=== PATIENT | female | born 1950 | race Caucasian/White ===

== ENCOUNTER 2016-11-27 15:49 | Inpatient (IN) | payer MEDICARE, OTHER ==
[2016-11-27 16:43] VITALS: BMI 38.9
[2016-11-27] MEDS ORDERED: hydrOXYzine PAMOATE 50 MG CAPSULE (FP) PO PRN (17:09)
[2016-11-27] MEDS ORDERED: LOPERAMIDE HCL 2 MG CAPSULE PO PRN (17:09)
[2016-11-27] MEDS ORDERED: ACETAMINOPHEN 325 MG TABLET (FP) PO PRN (17:09)
[2016-11-27] MEDS ORDERED: guaiFENesin/D-METHORPHAN HB 10 ML UNIT-DOSE CUPS PO PRN (17:09)
[2016-11-27] MEDS ORDERED: P-EPHED 60MG/TRIPROLIDI 2.5MG TABLET PO PRN (17:09)
[2016-11-27] MEDS ORDERED: MAGNESIUM HYDROX 2400MG/30ML ORAL SUSPENSION 30 ML CUP PO PRN (17:09)
[2016-11-27] MEDS ORDERED: MAGNESIUM CITRATE 300 ML BOTTLE PO PRN (17:09)
[2016-11-27] MEDS ORDERED: diphenhydrAMINE HCL 50 MG CAPSULE PO PRN (17:09)
[2016-11-27] MEDS ORDERED: MENTHOL/PHENOL 1 EACH UD MM PRN (17:09)
--- NOTE | 2016-11-27 17:09 | HP ---
[facility] Rehab Assess/Revision - Admission History Admitted to Rehab from: [facility] [place] - Vital signs Vital Signs: Vital Signs Period Temp Pulse Resp BP Sys/Marinelli Pulse Ox Last 24 Hr 98.1 F 67 20 120/72 - Findings Detox History & Physical reviewed: Yes Concur with findings: Yes
[2016-11-27] MEDS ORDERED: ALBUTEROL SO4 6.7 GM HFA INHALER IH PRN (17:15)
[2016-11-27] MEDS: traZODone HCL 50 MG TABLET (FP) PO SCH (22:30)
[2016-11-27] MEDS: ACLIDINIUM BROMIDE 400 MCG/INH AERO.POWD IH SCH (22:30)
[2016-11-27] MEDS: BUDESONIDE/FORMETEROL FUMARATE 160/4.5 mcg INHALER IH SCH (22:30)
[2016-11-27] MEDS: THIAMINE HCL 100 MG TABLET (FP) PO SCH (22:30)
[2016-11-28] MEDS: LEVOTHYROXINE NA 25 MCG TABLET (FP) PO SCH (06:53)
[2016-11-28] MEDS ORDERED: METHADONE HCL 10 MG TABLET ONE (07:41)
[2016-11-28] MEDS ORDERED: METHADONE HCL 40 MG DISPERSABLE TABLET ONE (07:42)
[2016-11-28] MEDS: METHADONE 80 MG, METHADONE 20 MG PO SCH (07:44)
[2016-11-28] MEDS ORDERED: METHADONE HCL 40 MG DISPERSABLE TABLET PO SCH (07:45)
[2016-11-28] MEDS: NICOTINE 21 MG/24 HOURS TOPICAL PATCH TD SCH (10:23)
[2016-11-28] MEDS: ACLIDINIUM BROMIDE 400 MCG/INH AERO.POWD IH SCH ×2 (10:23→21:44)
[2016-11-28] MEDS: amLODIPine BESYLATE 5 MG TABLET (FP) PO SCH (10:24)
[2016-11-28] MEDS: PANTOPRAZOLE 20 MG TABLET (FP) PO SCH (10:24)
[2016-11-28] MEDS: ATORVASTATIN CA 40 MG TABLET (FP) PO SCH (10:24)
[2016-11-28] MEDS: PRENATAL VITAMINS W/ FOLIC ACID TABLET (FP) PO SCH (10:24)
[2016-11-28] MEDS: SERTRALINE HCL 50 MG TABLET (FP) PO SCH (10:27)
[2016-11-28] MEDS: BUDESONIDE/FORMETEROL FUMARATE 160/4.5 mcg INHALER IH SCH ×2 (10:28→21:45)
[2016-11-28 11:03] LABS: URINE APPEARANCE CLEAR; URINE BILIRUBIN NEGATIVE (NEGATIVE); URINE BLOOD NEGATIVE (NEGATIVE); URINE COLOR LTYELLOW; URINE GLUCOSE (UA) NEGATIVE (NEGATIVE); URINE KETONE NEGATIVE (NEGATIVE); URINE NITRITE NEGATIVE (NEGATIVE); URINE PROTEIN NEGATIVE (NEGATIVE); URINE UROBILINOGEN NEGATIVE E.U./dl (0.2-1.0)
[2016-11-28 11:05] LABS: URINE LEUK ESTERASE 3+ (NEGATIVE)
[2016-11-28 11:07] LABS: URINE BACTERIA FEW /hpf (NONE SEEN); URINE HYALINE CAST 1 /lpf; URINE MUCUS RARE; URINE RBC 1 /hpf (0-3); URINE WBC 30 /hpf (3-5)
[2016-11-28 12:13] LABS: HIV 1 & 2 AB NEGATIVE; HIV 1 AGp24 NEGATIVE
[2016-11-28] MEDS: IBUPROFEN 400 MG TABLET (FP) PO PRN (15:52)
[2016-11-28] MEDS: traZODone HCL 50 MG TABLET (FP) PO SCH (21:44)
[2016-11-28] MEDS: THIAMINE HCL 100 MG TABLET (FP) PO SCH (21:44)
[2016-11-29] MEDS ORDERED: METHADONE HCL 40 MG DISPERSABLE TABLET ONE (04:08)
[2016-11-29] MEDS ORDERED: METHADONE HCL 10 MG TABLET ONE (04:08)
[2016-11-29] MEDS: METHADONE 80 MG, METHADONE 20 MG PO SCH (06:55)
[2016-11-29] MEDS: LEVOTHYROXINE NA 25 MCG TABLET (FP) PO SCH (07:10)
[2016-11-29] MEDS ORDERED: PT OWN MED DRAWER 7, Y5N ONE (08:59)
[2016-11-29] MEDS: BUDESONIDE/FORMETEROL FUMARATE 160/4.5 mcg INHALER IH SCH ×2 (10:48→21:43)
[2016-11-29] MEDS: PRENATAL VITAMINS W/ FOLIC ACID TABLET (FP) PO SCH (10:48)
[2016-11-29] MEDS: ACLIDINIUM BROMIDE 400 MCG/INH AERO.POWD IH SCH ×2 (10:48→21:43)
[2016-11-29] MEDS: SERTRALINE HCL 50 MG TABLET (FP) PO SCH (10:49)
[2016-11-29] MEDS: amLODIPine BESYLATE 5 MG TABLET (FP) PO SCH (10:49)
[2016-11-29] MEDS: ATORVASTATIN CA 40 MG TABLET (FP) PO SCH (10:49)
[2016-11-29] MEDS: PANTOPRAZOLE 20 MG TABLET (FP) PO SCH (10:49)
[2016-11-29] MEDS: NICOTINE 21 MG/24 HOURS TOPICAL PATCH TD SCH (10:49)
[2016-11-29] MEDS: IBUPROFEN 400 MG TABLET (FP) PO PRN (18:13)
[2016-11-29] MEDS: THIAMINE HCL 100 MG TABLET (FP) PO SCH (21:44)
[2016-11-29] MEDS: traZODone HCL 50 MG TABLET (FP) PO SCH (21:44)
--- NOTE | 2016-11-29 23:45 | EKG ---
Test Reason : Blood Pressure : / mmHG Vent. Rate : 068 BPM Atrial Rate : 068 BPM P-R Int : 134 ms QRS Dur : 090 ms QT Int : 446 ms P-R-T Axes : 039 029 046 degrees QTc Int : 474 ms NORMAL SINUS RHYTHM NORMAL ECG WHEN COMPARED WITH ECG OF 12-NOV-2016 15:46, NO SIGNIFICANT CHANGE WAS FOUND Confirmed by TAHIR GARNETT MD ([id number]) on 11/29/2016 11:44:40 PM Referred By: Confirmed By:TAHIR GARNETT MD
[2016-11-30] MEDS: METHADONE 80 MG, METHADONE 20 MG PO SCH (06:24)
[2016-11-30] MEDS ORDERED: METHADONE HCL 40 MG DISPERSABLE TABLET ONE (06:24)
[2016-11-30] MEDS ORDERED: METHADONE HCL 10 MG TABLET ONE (06:24)
[2016-11-30] MEDS: LEVOTHYROXINE NA 25 MCG TABLET (FP) PO SCH (06:25)
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
[2016-11-30] MEDS: NICOTINE 21 MG/24 HOURS TOPICAL PATCH TD SCH (10:30)
[2016-11-30] MEDS: ATORVASTATIN CA 40 MG TABLET (FP) PO SCH (10:30)
[2016-11-30] MEDS: amLODIPine BESYLATE 5 MG TABLET (FP) PO SCH (10:31)
[2016-11-30] MEDS: PRENATAL VITAMINS W/ FOLIC ACID TABLET (FP) PO SCH (10:31)
[2016-11-30] MEDS: SERTRALINE HCL 50 MG TABLET (FP) PO SCH (10:31)
[2016-11-30] MEDS: PANTOPRAZOLE 20 MG TABLET (FP) PO SCH (10:31)
[2016-11-30] MEDS: BUDESONIDE/FORMETEROL FUMARATE 160/4.5 mcg INHALER IH SCH ×2 (10:32→21:56)
[2016-11-30] MEDS: ACLIDINIUM BROMIDE 400 MCG/INH AERO.POWD IH SCH ×2 (10:32→21:56)
[2016-11-30] MEDS: IBUPROFEN 400 MG TABLET (FP) PO PRN (10:58)
[2016-11-30] MEDS: LIDOCAINE 5% TOPICAL PATCH TP SCH (12:38)
[2016-11-30] MEDS: traZODone HCL 50 MG TABLET (FP) PO SCH (21:55)
[2016-11-30] MEDS: THIAMINE HCL 100 MG TABLET (FP) PO SCH (21:55)
[2016-12-01] MEDS ORDERED: METHADONE HCL 40 MG DISPERSABLE TABLET ONE (04:55)
[2016-12-01] MEDS ORDERED: METHADONE HCL 10 MG TABLET ONE (04:55)
[2016-12-01] MEDS: METHADONE 80 MG, METHADONE 20 MG PO SCH (06:11)
[2016-12-01] MEDS: LEVOTHYROXINE NA 25 MCG TABLET (FP) PO SCH (06:11)
[2016-12-01] MEDS ORDERED: PT OWN MED DRAWER 7, Y5N ONE ×2 (08:39→20:27)
[2016-12-01] MEDS: LIDOCAINE 5% TOPICAL PATCH TP SCH (10:32)
[2016-12-01] MEDS: ATORVASTATIN CA 40 MG TABLET (FP) PO SCH (10:33)
[2016-12-01] MEDS: PRENATAL VITAMINS W/ FOLIC ACID TABLET (FP) PO SCH (10:33)
[2016-12-01] MEDS: SERTRALINE HCL 50 MG TABLET (FP) PO SCH (10:33)
[2016-12-01] MEDS: PANTOPRAZOLE 20 MG TABLET (FP) PO SCH (10:34)
[2016-12-01] MEDS: ACLIDINIUM BROMIDE 400 MCG/INH AERO.POWD IH SCH ×2 (10:35→21:51)
[2016-12-01] MEDS: amLODIPine BESYLATE 5 MG TABLET (FP) PO SCH (10:35)
[2016-12-01] MEDS: NICOTINE 21 MG/24 HOURS TOPICAL PATCH TD SCH (10:35)
[2016-12-01] MEDS: BUDESONIDE/FORMETEROL FUMARATE 160/4.5 mcg INHALER IH SCH ×2 (10:35→21:51)
[2016-12-01] MEDS: IBUPROFEN 400 MG TABLET (FP) PO PRN (15:06)
[2016-12-01] MEDS: THIAMINE HCL 100 MG TABLET (FP) PO SCH (21:50)
[2016-12-01] MEDS: traZODone HCL 50 MG TABLET (FP) PO SCH (21:50)
[2016-12-02] MEDS ORDERED: METHADONE HCL 10 MG TABLET ONE (03:27)
[2016-12-02] MEDS ORDERED: METHADONE HCL 40 MG DISPERSABLE TABLET ONE (03:28)
[2016-12-02] MEDS: METHADONE 80 MG, METHADONE 20 MG PO SCH (06:50)
[2016-12-02] MEDS: LEVOTHYROXINE NA 25 MCG TABLET (FP) PO SCH (06:51)
[2016-12-02] MEDS: LIDOCAINE 5% TOPICAL PATCH TP SCH (10:38)
[2016-12-02] MEDS: ATORVASTATIN CA 40 MG TABLET (FP) PO SCH (10:39)
[2016-12-02] MEDS: amLODIPine BESYLATE 5 MG TABLET (FP) PO SCH (10:39)
[2016-12-02] MEDS: SERTRALINE HCL 50 MG TABLET (FP) PO SCH (10:39)
[2016-12-02] MEDS: PANTOPRAZOLE 20 MG TABLET (FP) PO SCH (10:39)
[2016-12-02] MEDS: NICOTINE 21 MG/24 HOURS TOPICAL PATCH TD SCH (10:40)
[2016-12-02] MEDS: ACLIDINIUM BROMIDE 400 MCG/INH AERO.POWD IH SCH ×2 (10:40→21:57)
[2016-12-02] MEDS: BUDESONIDE/FORMETEROL FUMARATE 160/4.5 mcg INHALER IH SCH ×2 (10:40→21:57)
[2016-12-02] MEDS: PRENATAL VITAMINS W/ FOLIC ACID TABLET (FP) PO SCH (10:41)
[2016-12-02] MEDS: IBUPROFEN 400 MG TABLET (FP) PO PRN (17:50)
[2016-12-02] MEDS: THIAMINE HCL 100 MG TABLET (FP) PO SCH (21:57)
[2016-12-02] MEDS: traZODone HCL 50 MG TABLET (FP) PO SCH (21:57)
[2016-12-03] MEDS ORDERED: METHADONE HCL 10 MG TABLET ONE (03:34)
[2016-12-03] MEDS ORDERED: METHADONE HCL 40 MG DISPERSABLE TABLET ONE (03:35)
[2016-12-03] MEDS: METHADONE 80 MG, METHADONE 20 MG PO SCH (06:35)
[2016-12-03] MEDS: LEVOTHYROXINE NA 25 MCG TABLET (FP) PO SCH (06:36)
[2016-12-03] MEDS: NICOTINE 21 MG/24 HOURS TOPICAL PATCH TD SCH (10:53)
[2016-12-03] MEDS: LIDOCAINE 5% TOPICAL PATCH TP SCH (10:53)
[2016-12-03] MEDS: PRENATAL VITAMINS W/ FOLIC ACID TABLET (FP) PO SCH (10:54)
[2016-12-03] MEDS: ACLIDINIUM BROMIDE 400 MCG/INH AERO.POWD IH SCH ×2 (10:54→21:51)
[2016-12-03] MEDS: amLODIPine BESYLATE 5 MG TABLET (FP) PO SCH (10:54)
[2016-12-03] MEDS: PANTOPRAZOLE 20 MG TABLET (FP) PO SCH (10:54)
[2016-12-03] MEDS: SERTRALINE HCL 50 MG TABLET (FP) PO SCH (10:54)
[2016-12-03] MEDS: BUDESONIDE/FORMETEROL FUMARATE 160/4.5 mcg INHALER IH SCH ×2 (10:54→21:51)
[2016-12-03] MEDS: ATORVASTATIN CA 40 MG TABLET (FP) PO SCH (10:54)
[2016-12-03] MEDS: IBUPROFEN 400 MG TABLET (FP) PO PRN (13:02)
[2016-12-03] MEDS: CYCLOBENZAPRINE HCL 10 MG TABLET (FP) PO SCH ×2 (14:35→21:51)
[2016-12-03] MEDS: NAPROXEN 500 MG TABLET (FP) PO SCH ×2 (14:35→21:51)
[2016-12-03 20:55] LABS: URINE APPEARANCE CLEAR; URINE BILIRUBIN NEGATIVE (NEGATIVE); URINE BLOOD NEGATIVE (NEGATIVE); URINE COLOR YELLOW; URINE GLUCOSE (UA) NEGATIVE (NEGATIVE); URINE KETONE NEGATIVE (NEGATIVE); URINE NITRITE NEGATIVE (NEGATIVE); URINE PROTEIN NEGATIVE (NEGATIVE); URINE UROBILINOGEN NEGATIVE E.U./dl (0.2-1.0)
[2016-12-03 20:57] LABS: URINE LEUK ESTERASE 1+ (NEGATIVE)
[2016-12-03 21:07] LABS: URINE HYALINE CAST 5 /lpf; URINE MUCUS FEW; URINE RBC 1 /hpf (0-3); URINE WBC 3 /hpf (3-5)
[2016-12-03] MEDS: THIAMINE HCL 100 MG TABLET (FP) PO SCH (21:51)
[2016-12-03] MEDS: traZODone HCL 50 MG TABLET (FP) PO SCH (21:51)
[2016-12-04] MEDS ORDERED: METHADONE HCL 40 MG DISPERSABLE TABLET ONE (06:03)
[2016-12-04] MEDS ORDERED: METHADONE HCL 10 MG TABLET ONE (06:03)
[2016-12-04] MEDS: CYCLOBENZAPRINE HCL 10 MG TABLET (FP) PO SCH ×3 (06:37→21:54)
[2016-12-04] MEDS: METHADONE 80 MG, METHADONE 20 MG PO SCH (06:37)
[2016-12-04] MEDS: LEVOTHYROXINE NA 25 MCG TABLET (FP) PO SCH (06:40)
[2016-12-04] MEDS ORDERED: PT OWN MED DRAWER 7, Y5N ONE (08:31)
[2016-12-04] MEDS: amLODIPine BESYLATE 5 MG TABLET (FP) PO SCH (10:56)
[2016-12-04] MEDS: PRENATAL VITAMINS W/ FOLIC ACID TABLET (FP) PO SCH (10:56)
[2016-12-04] MEDS: ACLIDINIUM BROMIDE 400 MCG/INH AERO.POWD IH SCH ×2 (10:56→21:56)
[2016-12-04] MEDS: BUDESONIDE/FORMETEROL FUMARATE 160/4.5 mcg INHALER IH SCH ×2 (10:56→21:56)
[2016-12-04] MEDS: ATORVASTATIN CA 40 MG TABLET (FP) PO SCH (10:57)
[2016-12-04] MEDS: SERTRALINE HCL 50 MG TABLET (FP) PO SCH (10:57)
[2016-12-04] MEDS: NAPROXEN 500 MG TABLET (FP) PO SCH ×2 (10:57→21:56)
[2016-12-04] MEDS: PANTOPRAZOLE 20 MG TABLET (FP) PO SCH (10:57)
[2016-12-04] MEDS: NICOTINE 21 MG/24 HOURS TOPICAL PATCH TD SCH (10:57)
[2016-12-04] MEDS: LIDOCAINE 5% TOPICAL PATCH TP SCH (10:58)
[2016-12-04] MEDS: traZODone HCL 50 MG TABLET (FP) PO SCH (21:54)
[2016-12-04] MEDS: THIAMINE HCL 100 MG TABLET (FP) PO SCH (21:56)
[2016-12-05] MEDS ORDERED: METHADONE HCL 40 MG DISPERSABLE TABLET ONE (03:18)
[2016-12-05] MEDS ORDERED: METHADONE HCL 10 MG TABLET ONE (03:18)
[2016-12-05] MEDS: METHADONE 80 MG, METHADONE 20 MG PO SCH (06:39)
[2016-12-05] MEDS: LEVOTHYROXINE NA 25 MCG TABLET (FP) PO SCH (06:40)
[2016-12-05] MEDS: CYCLOBENZAPRINE HCL 10 MG TABLET (FP) PO SCH ×3 (06:41→21:35)
[2016-12-05] MEDS: ACLIDINIUM BROMIDE 400 MCG/INH AERO.POWD IH SCH ×2 (10:34→21:35)
[2016-12-05] MEDS: BUDESONIDE/FORMETEROL FUMARATE 160/4.5 mcg INHALER IH SCH ×2 (10:34→21:35)
[2016-12-05] MEDS: LIDOCAINE 5% TOPICAL PATCH TP SCH (10:34)
[2016-12-05] MEDS: NAPROXEN 500 MG TABLET (FP) PO SCH ×2 (10:34→21:35)
[2016-12-05] MEDS: NICOTINE 21 MG/24 HOURS TOPICAL PATCH TD SCH (10:34)
[2016-12-05] MEDS: PRENATAL VITAMINS W/ FOLIC ACID TABLET (FP) PO SCH (10:35)
[2016-12-05] MEDS: SERTRALINE HCL 50 MG TABLET (FP) PO SCH (10:35)
[2016-12-05] MEDS: amLODIPine BESYLATE 5 MG TABLET (FP) PO SCH (10:35)
[2016-12-05] MEDS: ATORVASTATIN CA 40 MG TABLET (FP) PO SCH (10:35)
[2016-12-05] MEDS: PANTOPRAZOLE 20 MG TABLET (FP) PO SCH (10:35)
[2016-12-05] MEDS: traZODone HCL 50 MG TABLET (FP) PO SCH (21:34)
[2016-12-05] MEDS: THIAMINE HCL 100 MG TABLET (FP) PO SCH (21:35)
[2016-12-05] MEDS: MAG HYDROX/AL HYDROX/SIMETH 30 ML UNIT-DOSE CUP PO PRN (21:36)
[2016-12-06] MEDS ORDERED: METHADONE HCL 10 MG TABLET ONE (03:13)
[2016-12-06] MEDS ORDERED: METHADONE HCL 40 MG DISPERSABLE TABLET ONE (03:14)
[2016-12-06] MEDS: LEVOTHYROXINE NA 25 MCG TABLET (FP) PO SCH (06:17)
[2016-12-06] MEDS: METHADONE 80 MG, METHADONE 20 MG PO SCH (06:17)
[2016-12-06] MEDS: CYCLOBENZAPRINE HCL 10 MG TABLET (FP) PO SCH ×3 (06:17→21:40)
[2016-12-06] MEDS: LIDOCAINE 5% TOPICAL PATCH TP SCH (10:21)
[2016-12-06] MEDS: NICOTINE 21 MG/24 HOURS TOPICAL PATCH TD SCH (10:21)
[2016-12-06] MEDS: amLODIPine BESYLATE 5 MG TABLET (FP) PO SCH (10:22)
[2016-12-06] MEDS: PRENATAL VITAMINS W/ FOLIC ACID TABLET (FP) PO SCH (10:22)
[2016-12-06] MEDS: ATORVASTATIN CA 40 MG TABLET (FP) PO SCH (10:22)
[2016-12-06] MEDS: NAPROXEN 500 MG TABLET (FP) PO SCH ×2 (10:22→21:40)
[2016-12-06] MEDS: PANTOPRAZOLE 20 MG TABLET (FP) PO SCH (10:22)
[2016-12-06] MEDS: ACLIDINIUM BROMIDE 400 MCG/INH AERO.POWD IH SCH ×2 (10:23→21:42)
[2016-12-06] MEDS: SERTRALINE HCL 50 MG TABLET (FP) PO SCH (10:23)
[2016-12-06] MEDS: BUDESONIDE/FORMETEROL FUMARATE 160/4.5 mcg INHALER IH SCH ×2 (10:23→22:23)
[2016-12-06] MEDS: THIAMINE HCL 100 MG TABLET (FP) PO SCH (21:40)
[2016-12-06] MEDS: traZODone HCL 50 MG TABLET (FP) PO SCH (21:41)
[2016-12-07] MEDS ORDERED: METHADONE HCL 40 MG DISPERSABLE TABLET ONE (03:17)
[2016-12-07] MEDS ORDERED: METHADONE HCL 10 MG TABLET ONE (03:17)
[2016-12-07] MEDS: METHADONE 80 MG, METHADONE 20 MG PO SCH (06:30)
[2016-12-07] MEDS: LEVOTHYROXINE NA 25 MCG TABLET (FP) PO SCH (06:31)
[2016-12-07] MEDS: CYCLOBENZAPRINE HCL 10 MG TABLET (FP) PO SCH ×3 (06:31→21:56)
[2016-12-07] MEDS: ATORVASTATIN CA 40 MG TABLET (FP) PO SCH (10:20)
[2016-12-07] MEDS: BUDESONIDE/FORMETEROL FUMARATE 160/4.5 mcg INHALER IH SCH ×2 (10:20→21:57)
[2016-12-07] MEDS: PANTOPRAZOLE 20 MG TABLET (FP) PO SCH (10:20)
[2016-12-07] MEDS: PRENATAL VITAMINS W/ FOLIC ACID TABLET (FP) PO SCH (10:20)
[2016-12-07] MEDS: NAPROXEN 500 MG TABLET (FP) PO SCH ×2 (10:20→21:56)
[2016-12-07] MEDS: SERTRALINE HCL 50 MG TABLET (FP) PO SCH (10:20)
[2016-12-07] MEDS: amLODIPine BESYLATE 5 MG TABLET (FP) PO SCH (10:20)
[2016-12-07] MEDS: NICOTINE 21 MG/24 HOURS TOPICAL PATCH TD SCH (10:20)
[2016-12-07] MEDS: ACLIDINIUM BROMIDE 400 MCG/INH AERO.POWD IH SCH ×2 (10:20→21:57)
[2016-12-07] MEDS: LIDOCAINE 5% TOPICAL PATCH TP SCH (10:21)
[2016-12-07] MEDS ORDERED: BACITRACIN 0.9 GM PACKET TP ONE (14:33)
--- NOTE | 2016-12-07 14:38 | PN ---
B[facility] Progress Note Note: pt. has a linear abrasion lt groin. p : bacitracin oin't bid
[2016-12-07] MEDS ORDERED: PT OWN MED DRAWER 7, Y5N ONE (14:52)
[2016-12-07] MEDS: traZODone HCL 50 MG TABLET (FP) PO SCH (21:56)
[2016-12-07] MEDS: THIAMINE HCL 100 MG TABLET (FP) PO SCH (21:56)
[2016-12-07] MEDS: BACITRACIN 0.9 GM PACKET TP SCH (21:57)
[2016-12-08] MEDS ORDERED: METHADONE HCL 10 MG TABLET ONE (05:38)
[2016-12-08] MEDS ORDERED: METHADONE HCL 40 MG DISPERSABLE TABLET ONE (05:38)
[2016-12-08] MEDS: METHADONE 80 MG, METHADONE 20 MG PO SCH (06:42)
[2016-12-08] MEDS: LEVOTHYROXINE NA 25 MCG TABLET (FP) PO SCH (06:42)
[2016-12-08] MEDS: CYCLOBENZAPRINE HCL 10 MG TABLET (FP) PO SCH ×3 (06:42→21:42)
[2016-12-08] MEDS: NICOTINE 21 MG/24 HOURS TOPICAL PATCH TD SCH (10:17)
[2016-12-08] MEDS: LIDOCAINE 5% TOPICAL PATCH TP SCH (10:18)
[2016-12-08] MEDS: BACITRACIN 0.9 GM PACKET TP SCH ×2 (10:18→21:42)
[2016-12-08] MEDS: amLODIPine BESYLATE 5 MG TABLET (FP) PO SCH (10:19)
[2016-12-08] MEDS: NAPROXEN 500 MG TABLET (FP) PO SCH ×2 (10:19→21:42)
[2016-12-08] MEDS: ATORVASTATIN CA 40 MG TABLET (FP) PO SCH (10:19)
[2016-12-08] MEDS: PRENATAL VITAMINS W/ FOLIC ACID TABLET (FP) PO SCH (10:19)
[2016-12-08] MEDS: SERTRALINE HCL 50 MG TABLET (FP) PO SCH (10:20)
[2016-12-08] MEDS: PANTOPRAZOLE 20 MG TABLET (FP) PO SCH (10:20)
[2016-12-08] MEDS: BUDESONIDE/FORMETEROL FUMARATE 160/4.5 mcg INHALER IH SCH ×2 (10:21→21:43)
[2016-12-08] MEDS: ACLIDINIUM BROMIDE 400 MCG/INH AERO.POWD IH SCH ×2 (10:21→21:43)
[2016-12-08] MEDS: traZODone HCL 50 MG TABLET (FP) PO SCH (21:42)
[2016-12-08] MEDS: THIAMINE HCL 100 MG TABLET (FP) PO SCH (21:42)
[2016-12-09] MEDS ORDERED: METHADONE HCL 10 MG TABLET ONE (03:13)
[2016-12-09] MEDS ORDERED: METHADONE HCL 40 MG DISPERSABLE TABLET ONE (03:13)
[2016-12-09] MEDS: METHADONE 80 MG, METHADONE 20 MG PO SCH (06:31)
[2016-12-09] MEDS: LEVOTHYROXINE NA 25 MCG TABLET (FP) PO SCH (06:32)
[2016-12-09] MEDS: CYCLOBENZAPRINE HCL 10 MG TABLET (FP) PO SCH ×3 (06:32→21:34)
[2016-12-09] MEDS: BUDESONIDE/FORMETEROL FUMARATE 160/4.5 mcg INHALER IH SCH ×2 (10:19→21:33)
[2016-12-09] MEDS: ACLIDINIUM BROMIDE 400 MCG/INH AERO.POWD IH SCH ×2 (10:19→21:33)
[2016-12-09] MEDS: BACITRACIN 0.9 GM PACKET TP SCH ×2 (10:20→21:34)
[2016-12-09] MEDS: PANTOPRAZOLE 20 MG TABLET (FP) PO SCH (10:20)
[2016-12-09] MEDS: PRENATAL VITAMINS W/ FOLIC ACID TABLET (FP) PO SCH (10:20)
[2016-12-09] MEDS: ATORVASTATIN CA 40 MG TABLET (FP) PO SCH (10:20)
[2016-12-09] MEDS: amLODIPine BESYLATE 5 MG TABLET (FP) PO SCH (10:20)
[2016-12-09] MEDS: NICOTINE 21 MG/24 HOURS TOPICAL PATCH TD SCH (10:21)
[2016-12-09] MEDS: NAPROXEN 500 MG TABLET (FP) PO SCH ×2 (10:21→21:34)
[2016-12-09] MEDS: SERTRALINE HCL 50 MG TABLET (FP) PO SCH (10:21)
[2016-12-09] MEDS: LIDOCAINE 5% TOPICAL PATCH TP SCH (10:22)
[2016-12-09] MEDS ORDERED: PT OWN MED DRAWER 7, Y5N ONE (20:08)
[2016-12-09] MEDS: traZODone HCL 50 MG TABLET (FP) PO SCH (21:34)
[2016-12-09] MEDS: THIAMINE HCL 100 MG TABLET (FP) PO SCH (21:34)
[2016-12-10] MEDS ORDERED: METHADONE HCL 10 MG TABLET ONE (03:18)
[2016-12-10] MEDS ORDERED: METHADONE HCL 40 MG DISPERSABLE TABLET ONE (03:18)
[2016-12-10] MEDS: METHADONE 80 MG, METHADONE 20 MG PO SCH (06:19)
[2016-12-10] MEDS: LEVOTHYROXINE NA 25 MCG TABLET (FP) PO SCH (06:20)
[2016-12-10] MEDS: CYCLOBENZAPRINE HCL 10 MG TABLET (FP) PO SCH ×3 (06:20→21:39)
[2016-12-10] MEDS: LIDOCAINE 5% TOPICAL PATCH TP SCH (10:37)
[2016-12-10] MEDS: ACLIDINIUM BROMIDE 400 MCG/INH AERO.POWD IH SCH ×2 (10:38→21:40)
[2016-12-10] MEDS: NICOTINE 21 MG/24 HOURS TOPICAL PATCH TD SCH (10:38)
[2016-12-10] MEDS: PRENATAL VITAMINS W/ FOLIC ACID TABLET (FP) PO SCH (10:39)
[2016-12-10] MEDS: PANTOPRAZOLE 20 MG TABLET (FP) PO SCH (10:39)
[2016-12-10] MEDS: BUDESONIDE/FORMETEROL FUMARATE 160/4.5 mcg INHALER IH SCH ×2 (10:39→21:40)
[2016-12-10] MEDS: NAPROXEN 500 MG TABLET (FP) PO SCH ×2 (10:39→21:39)
[2016-12-10] MEDS: BACITRACIN 0.9 GM PACKET TP SCH ×2 (10:39→21:39)
[2016-12-10] MEDS: ATORVASTATIN CA 40 MG TABLET (FP) PO SCH (10:39)
[2016-12-10] MEDS: SERTRALINE HCL 50 MG TABLET (FP) PO SCH (10:40)
[2016-12-10] MEDS: amLODIPine BESYLATE 5 MG TABLET (FP) PO SCH (10:40)
[2016-12-10] MEDS: traZODone HCL 50 MG TABLET (FP) PO SCH (21:39)
[2016-12-10] MEDS: THIAMINE HCL 100 MG TABLET (FP) PO SCH (21:39)
[2016-12-11] MEDS ORDERED: METHADONE HCL 10 MG TABLET ONE (03:19)
[2016-12-11] MEDS ORDERED: METHADONE HCL 40 MG DISPERSABLE TABLET ONE (03:20)
[2016-12-11] MEDS: LEVOTHYROXINE NA 25 MCG TABLET (FP) PO SCH (06:08)
[2016-12-11] MEDS: METHADONE 80 MG, METHADONE 20 MG PO SCH (06:08)
[2016-12-11] MEDS: CYCLOBENZAPRINE HCL 10 MG TABLET (FP) PO SCH ×3 (06:09→21:58)
[2016-12-11] MEDS ORDERED: PT OWN MED DRAWER 7, Y5N ONE ×3 (08:50→20:29)
[2016-12-11] MEDS: NICOTINE 21 MG/24 HOURS TOPICAL PATCH TD SCH (10:27)
[2016-12-11] MEDS: LIDOCAINE 5% TOPICAL PATCH TP SCH (10:27)
[2016-12-11] MEDS: BUDESONIDE/FORMETEROL FUMARATE 160/4.5 mcg INHALER IH SCH ×2 (10:27→21:56)
[2016-12-11] MEDS: BACITRACIN 0.9 GM PACKET TP SCH ×2 (10:27→21:57)
[2016-12-11] MEDS: ACLIDINIUM BROMIDE 400 MCG/INH AERO.POWD IH SCH ×2 (10:27→21:56)
[2016-12-11] MEDS: ATORVASTATIN CA 40 MG TABLET (FP) PO SCH (10:28)
[2016-12-11] MEDS: PANTOPRAZOLE 20 MG TABLET (FP) PO SCH (10:28)
[2016-12-11] MEDS: NAPROXEN 500 MG TABLET (FP) PO SCH ×2 (10:28→21:58)
[2016-12-11] MEDS: PRENATAL VITAMINS W/ FOLIC ACID TABLET (FP) PO SCH (10:28)
[2016-12-11] MEDS: amLODIPine BESYLATE 5 MG TABLET (FP) PO SCH (10:28)
[2016-12-11] MEDS: SERTRALINE HCL 50 MG TABLET (FP) PO SCH (10:29)
[2016-12-11] MEDS: traZODone HCL 50 MG TABLET (FP) PO SCH (21:56)
[2016-12-11] MEDS: THIAMINE HCL 100 MG TABLET (FP) PO SCH (21:58)
[2016-12-12] MEDS ORDERED: METHADONE HCL 40 MG DISPERSABLE TABLET ONE (06:10)
[2016-12-12] MEDS ORDERED: METHADONE HCL 10 MG TABLET ONE (06:10)
[2016-12-12] MEDS: METHADONE 80 MG, METHADONE 20 MG PO SCH (06:39)
[2016-12-12] MEDS: CYCLOBENZAPRINE HCL 10 MG TABLET (FP) PO SCH ×3 (06:40→21:50)
[2016-12-12] MEDS: LEVOTHYROXINE NA 25 MCG TABLET (FP) PO SCH (06:40)
[2016-12-12] MEDS ORDERED: PT OWN MED DRAWER 7, Y5N ONE (09:28)
[2016-12-12] MEDS: NICOTINE 21 MG/24 HOURS TOPICAL PATCH TD SCH (10:28)
[2016-12-12] MEDS: ACLIDINIUM BROMIDE 400 MCG/INH AERO.POWD IH SCH ×2 (10:28→21:49)
[2016-12-12] MEDS: BACITRACIN 0.9 GM PACKET TP SCH ×2 (10:29→21:51)
[2016-12-12] MEDS: BUDESONIDE/FORMETEROL FUMARATE 160/4.5 mcg INHALER IH SCH ×2 (10:29→21:50)
[2016-12-12] MEDS: PRENATAL VITAMINS W/ FOLIC ACID TABLET (FP) PO SCH (10:29)
[2016-12-12] MEDS: PANTOPRAZOLE 20 MG TABLET (FP) PO SCH (10:29)
[2016-12-12] MEDS: SERTRALINE HCL 50 MG TABLET (FP) PO SCH (10:29)
[2016-12-12] MEDS: ATORVASTATIN CA 40 MG TABLET (FP) PO SCH (10:29)
[2016-12-12] MEDS: NAPROXEN 500 MG TABLET (FP) PO SCH ×2 (10:29→21:50)
[2016-12-12] MEDS: amLODIPine BESYLATE 5 MG TABLET (FP) PO SCH (10:30)
[2016-12-12] MEDS: LIDOCAINE 5% TOPICAL PATCH TP SCH (10:30)
[2016-12-12] MEDS: traZODone HCL 50 MG TABLET (FP) PO SCH (21:50)
[2016-12-12] MEDS: THIAMINE HCL 100 MG TABLET (FP) PO SCH (21:50)
[2016-12-13] MEDS ORDERED: METHADONE HCL 10 MG TABLET ONE (05:46)
[2016-12-13] MEDS ORDERED: METHADONE HCL 40 MG DISPERSABLE TABLET ONE (05:47)
[2016-12-13] MEDS: LEVOTHYROXINE NA 25 MCG TABLET (FP) PO SCH (06:40)
[2016-12-13] MEDS: CYCLOBENZAPRINE HCL 10 MG TABLET (FP) PO SCH ×3 (06:40→21:32)
[2016-12-13] MEDS: METHADONE 80 MG, METHADONE 20 MG PO SCH (06:40)
[2016-12-13] MEDS ORDERED: ATORVASTATIN CA 20 MG TABLET (FP) ONE (09:06)
[2016-12-13] MEDS: NICOTINE 21 MG/24 HOURS TOPICAL PATCH TD SCH (10:10)
[2016-12-13] MEDS: PRENATAL VITAMINS W/ FOLIC ACID TABLET (FP) PO SCH (10:11)
[2016-12-13] MEDS: BUDESONIDE/FORMETEROL FUMARATE 160/4.5 mcg INHALER IH SCH ×2 (10:11→21:32)
[2016-12-13] MEDS: PANTOPRAZOLE 20 MG TABLET (FP) PO SCH (10:11)
[2016-12-13] MEDS: ACLIDINIUM BROMIDE 400 MCG/INH AERO.POWD IH SCH ×2 (10:11→21:32)
[2016-12-13] MEDS: BACITRACIN 0.9 GM PACKET TP SCH ×2 (10:11→21:31)
[2016-12-13] MEDS: SERTRALINE HCL 50 MG TABLET (FP) PO SCH (10:12)
[2016-12-13] MEDS: NAPROXEN 500 MG TABLET (FP) PO SCH ×2 (10:12→21:31)
[2016-12-13] MEDS: ATORVASTATIN CA 40 MG TABLET (FP) PO SCH (10:12)
[2016-12-13] MEDS: amLODIPine BESYLATE 5 MG TABLET (FP) PO SCH (10:13)
[2016-12-13] MEDS: LIDOCAINE 5% TOPICAL PATCH TP SCH (10:13)
[2016-12-13] MEDS: THIAMINE HCL 100 MG TABLET (FP) PO SCH (21:31)
[2016-12-13] MEDS: traZODone HCL 50 MG TABLET (FP) PO SCH (21:31)
[2016-12-14] MEDS ORDERED: METHADONE HCL 40 MG DISPERSABLE TABLET ONE (03:20)
[2016-12-14] MEDS ORDERED: METHADONE HCL 10 MG TABLET ONE (03:20)
[2016-12-14] MEDS: METHADONE 80 MG, METHADONE 20 MG PO SCH (06:22)
[2016-12-14] MEDS: LEVOTHYROXINE NA 25 MCG TABLET (FP) PO SCH (06:22)
[2016-12-14] MEDS: CYCLOBENZAPRINE HCL 10 MG TABLET (FP) PO SCH ×3 (06:22→21:39)
[2016-12-14] MEDS ORDERED: ATORVASTATIN CA 20 MG TABLET (FP) ONE (08:44)
[2016-12-14] MEDS: BUDESONIDE/FORMETEROL FUMARATE 160/4.5 mcg INHALER IH SCH ×2 (10:27→21:39)
[2016-12-14] MEDS: BACITRACIN 0.9 GM PACKET TP SCH ×2 (10:27→21:39)
[2016-12-14] MEDS: NICOTINE 21 MG/24 HOURS TOPICAL PATCH TD SCH (10:28)
[2016-12-14] MEDS: ACLIDINIUM BROMIDE 400 MCG/INH AERO.POWD IH SCH ×2 (10:28→21:40)
[2016-12-14] MEDS: ATORVASTATIN CA 40 MG TABLET (FP) PO SCH (10:29)
[2016-12-14] MEDS: LIDOCAINE 5% TOPICAL PATCH TP SCH (10:29)
[2016-12-14] MEDS: PANTOPRAZOLE 20 MG TABLET (FP) PO SCH (10:30)
[2016-12-14] MEDS: SERTRALINE HCL 50 MG TABLET (FP) PO SCH (10:30)
[2016-12-14] MEDS: amLODIPine BESYLATE 5 MG TABLET (FP) PO SCH (10:30)
[2016-12-14] MEDS: PRENATAL VITAMINS W/ FOLIC ACID TABLET (FP) PO SCH (10:30)
[2016-12-14] MEDS: NAPROXEN 500 MG TABLET (FP) PO SCH ×2 (10:30→21:39)
[2016-12-14] MEDS: THIAMINE HCL 100 MG TABLET (FP) PO SCH (21:39)
[2016-12-14] MEDS: traZODone HCL 50 MG TABLET (FP) PO SCH (21:39)
[2016-12-15] MEDS ORDERED: METHADONE HCL 10 MG TABLET ONE (05:52)
[2016-12-15] MEDS ORDERED: METHADONE HCL 40 MG DISPERSABLE TABLET ONE (05:52)
[2016-12-15] MEDS: CYCLOBENZAPRINE HCL 10 MG TABLET (FP) PO SCH ×3 (06:09→21:44)
[2016-12-15] MEDS: LEVOTHYROXINE NA 25 MCG TABLET (FP) PO SCH (06:10)
[2016-12-15] MEDS: METHADONE 80 MG, METHADONE 20 MG PO SCH (06:10)
[2016-12-15] MEDS ORDERED: PT OWN MED DRAWER 7, Y5N ONE ×2 (08:44→20:21)
[2016-12-15] MEDS: LIDOCAINE 5% TOPICAL PATCH TP SCH (10:14)
[2016-12-15] MEDS: ACLIDINIUM BROMIDE 400 MCG/INH AERO.POWD IH SCH ×2 (10:14→21:43)
[2016-12-15] MEDS: BACITRACIN 0.9 GM PACKET TP SCH ×2 (10:14→21:45)
[2016-12-15] MEDS: BUDESONIDE/FORMETEROL FUMARATE 160/4.5 mcg INHALER IH SCH ×2 (10:14→21:43)
[2016-12-15] MEDS: NICOTINE 21 MG/24 HOURS TOPICAL PATCH TD SCH (10:14)
[2016-12-15] MEDS: amLODIPine BESYLATE 5 MG TABLET (FP) PO SCH (10:15)
[2016-12-15] MEDS: PANTOPRAZOLE 20 MG TABLET (FP) PO SCH (10:15)
[2016-12-15] MEDS: ATORVASTATIN CA 40 MG TABLET (FP) PO SCH (10:15)
[2016-12-15] MEDS: PRENATAL VITAMINS W/ FOLIC ACID TABLET (FP) PO SCH (10:15)
[2016-12-15] MEDS: NAPROXEN 500 MG TABLET (FP) PO SCH ×2 (10:15→21:44)
[2016-12-15] MEDS: SERTRALINE HCL 50 MG TABLET (FP) PO SCH (10:16)
[2016-12-15] MEDS: traZODone HCL 50 MG TABLET (FP) PO SCH (21:44)
[2016-12-15] MEDS: THIAMINE HCL 100 MG TABLET (FP) PO SCH (21:44)
[2016-12-16] MEDS ORDERED: METHADONE HCL 10 MG TABLET ONE (03:47)
[2016-12-16] MEDS ORDERED: METHADONE HCL 40 MG DISPERSABLE TABLET ONE (03:47)
[2016-12-16] MEDS: METHADONE 80 MG, METHADONE 20 MG PO SCH (06:30)
[2016-12-16] MEDS: LEVOTHYROXINE NA 25 MCG TABLET (FP) PO SCH (06:31)
[2016-12-16] MEDS: CYCLOBENZAPRINE HCL 10 MG TABLET (FP) PO SCH ×3 (06:31→21:42)
[2016-12-16] MEDS: LIDOCAINE 5% TOPICAL PATCH TP SCH (10:47)
[2016-12-16] MEDS: ACLIDINIUM BROMIDE 400 MCG/INH AERO.POWD IH SCH ×2 (10:48→21:43)
[2016-12-16] MEDS: NICOTINE 21 MG/24 HOURS TOPICAL PATCH TD SCH (10:48)
[2016-12-16] MEDS: PRENATAL VITAMINS W/ FOLIC ACID TABLET (FP) PO SCH (10:48)
[2016-12-16] MEDS: BUDESONIDE/FORMETEROL FUMARATE 160/4.5 mcg INHALER IH SCH ×2 (10:48→21:43)
[2016-12-16] MEDS: ATORVASTATIN CA 40 MG TABLET (FP) PO SCH (10:49)
[2016-12-16] MEDS: SERTRALINE HCL 50 MG TABLET (FP) PO SCH (10:49)
[2016-12-16] MEDS: NAPROXEN 500 MG TABLET (FP) PO SCH ×2 (10:49→21:42)
[2016-12-16] MEDS: PANTOPRAZOLE 20 MG TABLET (FP) PO SCH (10:49)
[2016-12-16] MEDS: amLODIPine BESYLATE 5 MG TABLET (FP) PO SCH (10:50)
[2016-12-16] MEDS: BACITRACIN 0.9 GM PACKET TP SCH ×2 (10:51→21:43)
[2016-12-16] MEDS: traZODone HCL 50 MG TABLET (FP) PO SCH (21:42)
[2016-12-16] MEDS: THIAMINE HCL 100 MG TABLET (FP) PO SCH (21:42)
[2016-12-17] MEDS ORDERED: METHADONE HCL 10 MG TABLET ONE (03:15)
[2016-12-17] MEDS ORDERED: METHADONE HCL 40 MG DISPERSABLE TABLET ONE (03:16)
[2016-12-17] MEDS: METHADONE 80 MG, METHADONE 20 MG PO SCH (06:32)
[2016-12-17] MEDS: LEVOTHYROXINE NA 25 MCG TABLET (FP) PO SCH (06:33)
[2016-12-17] MEDS: CYCLOBENZAPRINE HCL 10 MG TABLET (FP) PO SCH ×3 (06:33→21:49)
[2016-12-17] MEDS: NICOTINE 21 MG/24 HOURS TOPICAL PATCH TD SCH (10:20)
[2016-12-17] MEDS: BACITRACIN 0.9 GM PACKET TP SCH ×2 (10:20→21:48)
[2016-12-17] MEDS: NAPROXEN 500 MG TABLET (FP) PO SCH ×2 (10:21→21:49)
[2016-12-17] MEDS: LIDOCAINE 5% TOPICAL PATCH TP SCH (10:21)
[2016-12-17] MEDS: ACLIDINIUM BROMIDE 400 MCG/INH AERO.POWD IH SCH ×2 (10:21→21:49)
[2016-12-17] MEDS: PRENATAL VITAMINS W/ FOLIC ACID TABLET (FP) PO SCH (10:21)
[2016-12-17] MEDS: BUDESONIDE/FORMETEROL FUMARATE 160/4.5 mcg INHALER IH SCH ×2 (10:21→21:49)
[2016-12-17] MEDS: ATORVASTATIN CA 40 MG TABLET (FP) PO SCH (10:22)
[2016-12-17] MEDS: PANTOPRAZOLE 20 MG TABLET (FP) PO SCH (10:22)
[2016-12-17] MEDS: SERTRALINE HCL 50 MG TABLET (FP) PO SCH (10:22)
[2016-12-17] MEDS: amLODIPine BESYLATE 5 MG TABLET (FP) PO SCH (10:23)
[2016-12-17] MEDS: traZODone HCL 50 MG TABLET (FP) PO SCH (21:48)
[2016-12-17] MEDS: THIAMINE HCL 100 MG TABLET (FP) PO SCH (21:49)
[2016-12-18] MEDS ORDERED: METHADONE HCL 10 MG TABLET ONE (05:53)
[2016-12-18] MEDS ORDERED: METHADONE HCL 40 MG DISPERSABLE TABLET ONE (05:53)
[2016-12-18] MEDS: METHADONE 80 MG, METHADONE 20 MG PO SCH (06:37)
[2016-12-18] MEDS: LEVOTHYROXINE NA 25 MCG TABLET (FP) PO SCH (06:37)
[2016-12-18] MEDS: CYCLOBENZAPRINE HCL 10 MG TABLET (FP) PO SCH ×3 (06:37→21:39)
[2016-12-18] MEDS ORDERED: PT OWN MED DRAWER 7, Y5N ONE (08:27)
[2016-12-18] MEDS: NICOTINE 21 MG/24 HOURS TOPICAL PATCH TD SCH (10:31)
[2016-12-18] MEDS: ACLIDINIUM BROMIDE 400 MCG/INH AERO.POWD IH SCH ×2 (10:32→21:40)
[2016-12-18] MEDS: BUDESONIDE/FORMETEROL FUMARATE 160/4.5 mcg INHALER IH SCH ×2 (10:32→21:40)
[2016-12-18] MEDS: LIDOCAINE 5% TOPICAL PATCH TP SCH (10:32)
[2016-12-18] MEDS: BACITRACIN 0.9 GM PACKET TP SCH ×2 (10:32→21:39)
[2016-12-18] MEDS: ATORVASTATIN CA 40 MG TABLET (FP) PO SCH (10:33)
[2016-12-18] MEDS: PRENATAL VITAMINS W/ FOLIC ACID TABLET (FP) PO SCH (10:34)
[2016-12-18] MEDS: PANTOPRAZOLE 20 MG TABLET (FP) PO SCH (10:34)
[2016-12-18] MEDS: SERTRALINE HCL 50 MG TABLET (FP) PO SCH (10:34)
[2016-12-18] MEDS: amLODIPine BESYLATE 5 MG TABLET (FP) PO SCH (10:34)
[2016-12-18] MEDS: NAPROXEN 500 MG TABLET (FP) PO SCH ×2 (10:34→21:39)
[2016-12-18] MEDS: MAG HYDROX/AL HYDROX/SIMETH 30 ML UNIT-DOSE CUP PO PRN (16:46)
[2016-12-18] MEDS: traZODone HCL 50 MG TABLET (FP) PO SCH (21:39)
[2016-12-18] MEDS: THIAMINE HCL 100 MG TABLET (FP) PO SCH (21:40)
[2016-12-19] MEDS ORDERED: METHADONE HCL 10 MG TABLET ONE (03:12)
[2016-12-19] MEDS ORDERED: METHADONE HCL 40 MG DISPERSABLE TABLET ONE (03:12)
[2016-12-19] MEDS: LEVOTHYROXINE NA 25 MCG TABLET (FP) PO SCH (06:19)
[2016-12-19] MEDS: METHADONE 80 MG, METHADONE 20 MG PO SCH (06:19)
[2016-12-19] MEDS: CYCLOBENZAPRINE HCL 10 MG TABLET (FP) PO SCH ×3 (06:19→21:47)
[2016-12-19] MEDS: LIDOCAINE 5% TOPICAL PATCH TP SCH (10:01)
[2016-12-19] MEDS: BACITRACIN 0.9 GM PACKET TP SCH ×2 (10:01→21:48)
[2016-12-19] MEDS: BUDESONIDE/FORMETEROL FUMARATE 160/4.5 mcg INHALER IH SCH ×2 (10:01→21:47)
[2016-12-19] MEDS: ACLIDINIUM BROMIDE 400 MCG/INH AERO.POWD IH SCH ×2 (10:01→21:47)
[2016-12-19] MEDS: NICOTINE 21 MG/24 HOURS TOPICAL PATCH TD SCH (10:01)
[2016-12-19] MEDS: PRENATAL VITAMINS W/ FOLIC ACID TABLET (FP) PO SCH (10:02)
[2016-12-19] MEDS: ATORVASTATIN CA 40 MG TABLET (FP) PO SCH (10:02)
[2016-12-19] MEDS: amLODIPine BESYLATE 5 MG TABLET (FP) PO SCH (10:02)
[2016-12-19] MEDS: PANTOPRAZOLE 20 MG TABLET (FP) PO SCH (10:02)
[2016-12-19] MEDS: NAPROXEN 500 MG TABLET (FP) PO SCH ×2 (10:02→21:47)
[2016-12-19] MEDS: SERTRALINE HCL 50 MG TABLET (FP) PO SCH (10:02)
[2016-12-19] MEDS ORDERED: PT OWN MED DRAWER 7, Y5N ONE (20:16)
[2016-12-19] MEDS: THIAMINE HCL 100 MG TABLET (FP) PO SCH (21:47)
[2016-12-19] MEDS: traZODone HCL 50 MG TABLET (FP) PO SCH (21:47)
[2016-12-20] MEDS ORDERED: METHADONE HCL 10 MG TABLET ONE (03:21)
[2016-12-20] MEDS ORDERED: METHADONE HCL 40 MG DISPERSABLE TABLET ONE (03:22)
[2016-12-20] MEDS: CYCLOBENZAPRINE HCL 10 MG TABLET (FP) PO SCH ×3 (06:21→21:23)
[2016-12-20] MEDS: METHADONE 80 MG, METHADONE 20 MG PO SCH (06:21)
[2016-12-20] MEDS: LEVOTHYROXINE NA 25 MCG TABLET (FP) PO SCH (06:21)
[2016-12-20] MEDS ORDERED: ATORVASTATIN CA 20 MG TABLET (FP) ONE (08:31)
[2016-12-20] MEDS ORDERED: PT OWN MED DRAWER 7, Y5N ONE ×2 (08:33→20:06)
[2016-12-20] MEDS: BUDESONIDE/FORMETEROL FUMARATE 160/4.5 mcg INHALER IH SCH ×2 (09:19→21:24)
[2016-12-20] MEDS: ACLIDINIUM BROMIDE 400 MCG/INH AERO.POWD IH SCH ×2 (09:19→21:24)
[2016-12-20] MEDS: BACITRACIN 0.9 GM PACKET TP SCH ×2 (09:20→21:23)
[2016-12-20] MEDS: LIDOCAINE 5% TOPICAL PATCH TP SCH (09:20)
[2016-12-20] MEDS: NICOTINE 21 MG/24 HOURS TOPICAL PATCH TD SCH (09:20)
[2016-12-20] MEDS: ATORVASTATIN CA 40 MG TABLET (FP) PO SCH (09:21)
[2016-12-20] MEDS: PANTOPRAZOLE 20 MG TABLET (FP) PO SCH (09:22)
[2016-12-20] MEDS: SERTRALINE HCL 50 MG TABLET (FP) PO SCH (09:22)
[2016-12-20] MEDS: PRENATAL VITAMINS W/ FOLIC ACID TABLET (FP) PO SCH (09:22)
[2016-12-20] MEDS: NAPROXEN 500 MG TABLET (FP) PO SCH ×2 (09:22→21:23)
[2016-12-20] MEDS: amLODIPine BESYLATE 5 MG TABLET (FP) PO SCH (09:23)
[2016-12-20] MEDS: THIAMINE HCL 100 MG TABLET (FP) PO SCH (21:23)
[2016-12-20] MEDS: traZODone HCL 50 MG TABLET (FP) PO SCH (21:23)
[2016-12-21] MEDS ORDERED: METHADONE 80 MG, METHADONE 20 MG PO SCH (06:00)
[2016-12-21] MEDS ORDERED: METHADONE HCL 10 MG TABLET PO SCH (06:00)
[2016-12-21] MEDS ORDERED: METHADONE HCL 10 MG TABLET ONE (06:00)
[2016-12-21] MEDS ORDERED: METHADONE HCL 40 MG DISPERSABLE TABLET ONE (06:01)
[2016-12-21] MEDS: LEVOTHYROXINE NA 25 MCG TABLET (FP) PO SCH (06:35)
[2016-12-21] MEDS: CYCLOBENZAPRINE HCL 10 MG TABLET (FP) PO SCH (06:35)
[2016-12-21 07:49] VITALS: TEMP 98
[2016-12-21] MEDS ORDERED: ATORVASTATIN CA 20 MG TABLET (FP) ONE (08:33)
[2016-12-21] MEDS: NICOTINE 21 MG/24 HOURS TOPICAL PATCH TD SCH (09:08)
[2016-12-21] MEDS: PRENATAL VITAMINS W/ FOLIC ACID TABLET (FP) PO SCH (09:09)
[2016-12-21] MEDS: NAPROXEN 500 MG TABLET (FP) PO SCH (09:09)
[2016-12-21] MEDS: SERTRALINE HCL 50 MG TABLET (FP) PO SCH (09:09)
[2016-12-21] MEDS: ACLIDINIUM BROMIDE 400 MCG/INH AERO.POWD IH SCH (09:09)
[2016-12-21] MEDS: BACITRACIN 0.9 GM PACKET TP SCH (09:09)
[2016-12-21] MEDS: BUDESONIDE/FORMETEROL FUMARATE 160/4.5 mcg INHALER IH SCH (09:09)
[2016-12-21] MEDS: PANTOPRAZOLE 20 MG TABLET (FP) PO SCH (09:11)
[2016-12-21] MEDS: amLODIPine BESYLATE 5 MG TABLET (FP) PO SCH (09:11)
[2016-12-21] MEDS: LIDOCAINE 5% TOPICAL PATCH TP SCH (09:12)
[2016-12-21] MEDS: ATORVASTATIN CA 40 MG TABLET (FP) PO SCH (09:12)
[2016-12-21 09:29] VITALS: BP 158/97; PULSE 90
--- NOTE | 2016-12-21 09:30 | PN ---
Psychiatric Progress Note Vital Signs: Vital Signs Period Temp Pulse Resp BP Sys/Marinelli Pulse Ox Last 24 Hr 98.0 F 96 18-18 136/91 Date of Session: 12/21/16 Chief Complaint:: Discharge visit HPI: Patient addressed Opioid dependence comorbid with MDD. ROS: HTN,GERD,COPD,Chronic arthritis,Obesity. Current Medications: Active Medications Generic Name Dose Route Start Last Admin Trade Name Freq PRN Reason Stop Dose Admin Acetaminophen 650 mg 11/27/16 17:09 Tylenol - PO Q4H PRN PAIN Aclidinium [place] 1 puff 11/27/16 22:00 12/21/16 09:09 Tudorza - IH 1 puff BID KRIS Administration Al Hydroxide/Mg Hydroxide 30 ml 11/27/16 17:09 12/18/16 16:46 Mylanta Oral Suspension - PO 30 ml Q6H PRN Administration DYSPEPSIA Albuterol Sulfate 2 puff 11/27/16 17:15 Ventolin Hfa Inhaler - IH Q4H PRN SHORTNESS OF BREATH Amlodipine Besylate 5 mg 11/28/16 10:00 12/21/16 09:11 Norvasc - PO 5 mg DAILY KRIS Administration Atorvastatin Calcium 40 mg 11/28/16 10:00 12/21/16 09:12 Lipitor - PO 40 mg DAILY KRIS Administration Bacitracin 0.9 gm 12/07/16 22:00 12/21/16 09:09 Bacitracin - TP 0.9 gm BID KRIS Administration Budesonide/Formoterol Fumarate 2 puff 11/27/16 22:00 12/21/16 09:09 Symbicort 160/4.5mcg - IH 2 inhaler BID KRIS Administration Cyclobenzaprine HCl 10 mg 12/03/16 14:00 12/21/16 06:35 Flexeril - PO 10 mg TID KRIS Administration Diphenhydramine HCl 50 mg 11/27/16 17:09 12/06/16 21:43 Benadryl - PO 50 mg HSMR1 PRN Administration INSOMNIA Eucalyptus/Menthol/Phenol/Sorbitol 1 each 11/27/16 17:09 Cepastat Lozenge - MM Q4H PRN SORE THROAT Guaifenesin 10 ml 11/27/16 17:09 Robitussin Dm - PO Q6H PRN COUGH Hydroxyzine Pamoate 50 mg 11/27/16 17:09 Vistaril - PO Q4H PRN AGITATION Levothyroxine Sodium 75 mcg 11/28/16 07:00 12/21/16 06:35 Synthroid - PO 75 mcg DAILY@0700 KRIS Administration Lidocaine 2 patch 11/30/16 12:15 12/21/16 09:12 Lidoderm Patch - TP 2 patch DAILY KRIS Administration Loperamide HCl 4 mg 11/27/16 17:09 Imodium - PO Q6H PRN DIARRHEA Magnesium Citrate 300 ml 11/27/16 17:09 Citroma - PO Q48H PRN CONSTIPATION Magnesium Hydroxide 30 ml 11/27/16 17:09 Milk Of Magnesia - PO DAILY PRN CONSTIPATION Methadone HCl 80 mg/ Methadone 100 mg 12/21/16 06:00 12/21/16 06:34 HCl 20 mg PO 100 mg DAILY@0600 KRIS Administration Naproxen 500 mg 12/03/16 14:18 12/21/16 09:09 Naprosyn - PO 500 mg BID KRIS Administration Nicotine 21 mg 11/28/16 10:00 12/21/16 09:08 Nicoderm Patch - TD 21 mg DAILY KRIS Administration Pantoprazole Sodium 20 mg 11/28/16 10:00 12/21/16 09:11 Protonix - PO 20 mg DAILY KRIS Administration Multivit/Folic Acid/Iron 1 tab 11/28/16 10:00 12/21/16 09:09 Vitamins (Sjr) - PO 1 tab DAILY KRIS Administration Pseudoephedrine/Triprolidine 1 combo 11/27/16 17:09 Actifed - PO TID PRN NASAL CONGESTION Sertraline HCl 150 mg 11/28/16 10:00 12/21/16 09:09 Zoloft - PO 150 mg DAILY KRIS Administration Thiamine HCl 100 mg 11/27/16 22:00 12/20/16 21:23 Vitamin B1 - PO 100 mg HS KRIS Administration Trazodone HCl 100 mg 11/27/16 22:00 12/20/16 21:23 Desyrel - PO 100 mg HS KRIS Administration Current Side Effect: No Lab tests ordered: No Lab tests reviewed: Yes Provider note:: Patient completed this program today she has met her treatment goals and will continue to [facility].Patient continues to find thyat Zoloft 150 mg po daily and Trazodone 100 mg po hs help to reduce her depressed mood ,anxiety and sleeping difficultiesl.Scripts for 30 days supply provided. PAtient identifies chanell of difficulties and ways,behaviors ser can utilize to maintain recovery. Patient is stable for discharge today. Total face to face time:: 30 Mental Status Exam - Mental Status Exam Alert and Oriented to: Time, Place, Person Cognitive Function: Grossly Intact Patient Appearance: Well Groomed Mood: Euthymic Affect: Mood Congruent, Labile Patient Behavior: Cooperative Speech Pattern: Clear Voice Loudness: Normal Thought Process: Goal Oriented Thought Disorder: Not Present Hallucinations: Denies Suicidal Ideation: Denies Homicidal Ideation: Denies Insight/Judgement: Fair Sleep: Fair Appetite: Good Muscle strength/Tone: Normal Gait/Station: Normal Psychiatric Treatment Plan - Problem List (1) Arthritis Current Visit: Yes (2) COPD (chronic obstructive pulmonary disease) Current Visit: Yes Qualifiers: COPD type: unspecified COPD Qualified Code(s): J44.9 - Chronic obstructive pulmonary disease, unspecified (3) GERD (gastroesophageal reflux disease) Current Visit: Yes Qualifiers: Esophagitis presence: without esophagitis Qualified Code(s): K21.9 - Gastro-esophageal reflux disease without esophagitis (4) HTN (hypertension) Current Visit: Yes Qualifiers: Hypertension type: essential hypertension Qualified Code(s): I10 - Essential (primary) hypertension (5) Hypothyroidism Current Visit: Yes (6) MDD (major depressive disorder), recurrent episode Current Visit: Yes (7) Methadone maintenance therapy patient Current Visit: Yes (8) Obesity Current Visit: Yes
== END 2016-12-21 09:30 | disposition home or self-care (01) | DRG 895 ==
LOC: YASAS 15:49 → Y3E 18:01
PROVIDERS: ADMIT Psychiatry & Neurology Psychiatry; ATTEND Psychiatry & Neurology Psychiatry
PROC: HZ42ZZZ Group Counseling for Substance Abuse Treatment, Cognitive-Behavioral (ICD-10-PCS; principal; 2016-12-21)
DX: F19.20 Other psychoactive substance dependence, uncomplicated (principal); F11.20 Opioid dependence, uncomplicated; F33.1 Major depressive disorder, recurrent, moderate; I10 Essential (primary) hypertension; J44.9 Chronic obstructive pulmonary disease, unspecified; E03.9 Hypothyroidism, unspecified; M12.9 Arthropathy, unspecified; K21.9 Gastro-esophageal reflux disease without esophagitis; E66.01 Morbid (severe) obesity due to excess calories; Z68.39 Body mass index [BMI] 39.0-39.9, adult
CPT/HCPCS: 36415; 81003; 81015; 87389; 93005; 93010

== ENCOUNTER 2017-08-06 14:51 | Inpatient (IN) | payer OTHER ==
[2017-08-06 16:40] VITALS: BMI 37.9
--- NOTE | 2017-08-06 19:38 | HP ---
CIWA Score - CIWA Score Nausea/Vomitin-Mild Nausea/No Vomiting Muscle Tremors: 4-Moderate,w/Arms Extend Anxiety: 4-Mod. Anxious/Guarded Agitation: 4-Moderately Restless Paroxysmal Sweats: 1-Minimal Palms Moist Orientation: 0-Oriented Tacttile Disturbances: 0-None Auditory Disturbances: 0-None Visual Disturbances: 0-None Headache: 0-None Present CIWA-Ar Total Score: 14 Admission ROS BHS - HPI Chief Complaint: WITHDRAWAL SX Allergies/Adverse Reactions: Allergies Allergy/AdvReac Type Severity Reaction Status Date / Time No Known Allergies Allergy Verified 11/27/16 17:44 History of Present Illness: 66 YEARS OLD FEMALE WITH LONG HISTORY OF XANAX NICOTINE DEPENDENCE HAS ASTHMA COPD GERD HYPERLIPIDEMIA HYPERTENSION HYPOTHYROID NEUROPATHY, HEPATITIS C - PROCESSING OF TREATING, AMBULATE WITH CANE AND DEPRESSION IS ADMITTED TO DETOX Exam Limitations: No Limitations - Ebola screening Have you traveled outside of the country in the last 21 days: No Have you had contact with anyone from an Ebola affected area: No Have you been sick,other than usual withdrawal symptoms: No Do you have a fever: No - Review of Systems Constitutional: Changes in sleep, Weight Stable EENT: reports: Blurred Vision (EYE GLASSES), Dental Problems (UPPER DENTURE LOWER DENTURE MISSING) Respiratory: reports: SOB with Exertion Cardiac: reports: No Symptoms Reported GI: reports: Nausea, Poor Fluid Intake, Indigestion, Abdominal cramping : reports: No Symptoms Reported Musculoskeletal: reports: Joint Pain (RIGHT KNEE), Muscle Pain (RIGHT KNEE), Muscle Weakness (KNEES (RIGHT) CANE) Integumentary: reports: No Symptoms Reported Neuro: reports: Seizure (BENZO WITHDRAWAL RELATED 2012), Tremors Endocrine: reports: No Symptoms Reported, Unexplained Weight Gain Hematology: reports: No Symptoms Reported Psychiatric: reports: Judgement Intact, Orientated x3, Anxious, Depressed Other Systems: Reviewed and Negative Patient History - Patient Medical History Hx Anemia: No Hx Asthma: Yes Hx Chronic Obstructive Pulmonary Disease (COPD): Yes Hx Cancer: No Hx Cardiac Disorders: No Hx Congestive Heart Failure: No Hx Hypertension: Yes (BP: 127/72) Hx Hypercholesterolemia: Yes Hx Pacemaker: No HX Cerebrovascular Accident: No Hx Seizures: Yes (r/t Xanax 2010) Hx Dementia: No Hx Diabetes: No Hx Gastrointestinal Disorders: Yes (GERD) Hx Liver Disease: No Hx Genitourinary Disorders: No Hx Sexually Transmitted Disorders: Yes (Syphilis 2015 treated) Hx Renal Disease (ESRD): No Hx Thyroid Disease: Yes (HYPOTHYROIDISM) Hx Human Immunodeficiency Virus (HIV): No Hx Hepatitis C: Yes (DX OVER 30 YEARS FAILIED TXMENT IN 2000) Hx Depression: Yes Hx Suicide Attempt: No Hx Bipolar Disorder: No Hx Schizophrenia: No - Patient Surgical History Past Surgical History: Yes Hx Neurologic Surgery: No Hx Cataract Extraction: No Hx Cardiac Surgery: No Hx Lung Surgery: No Hx Breast Surgery: No Hx Breast Biopsy: No Hx Abdominal Surgery: No Hx Appendectomy: Yes (13 YEARS OLD) Hx Cholecystectomy: Yes (1994) Hx Genitourinary Surgery: No Hx Section: No Hx Orthopedic Surgery: No Hx Hysterectomy: No Other Surgical History: RIGHT FOOT BONION 1999 Anesthesia Reaction: No - PPD History Previous Implant?: Yes Documented Results: Negative w/o proof Implanted On Prior R Admission?: Yes Date: 07/31/16 Results: 0mm PPD to be Administered?: Yes - Reproductive History Patient is a Female of Child Bearing Age (11 -55 yrs old): No Last Menstrual Period: 05/01/01 Patient : No - Smoking Cessation Smoking history: Current every day smoker Aproximately how many cigarettes per day: 10 Cigars Per Day: 0 Hx Chewing Tobacco Use: No Initiated information on smoking cessation: Yes 'Breaking Loose' booklet given: 08/06/17 - Substance & Tx. History Hx Alcohol Use: No Hx Substance Use: Yes Substance Use Type: Tranquilizers Hx Substance Use Treatment: Yes (11/27-12/21/16 [facility]) - Substances Abused Alprazolam (Xanax) Route: Oral Frequency: Daily Amount used: 10 MG Age of first use: 51 Date of Last Use: 08/05/17 Benzodiazepine (Klonopin) Route: Oral Frequency: Daily Amount used: 12 MG Age of first use: 51 Date of Last Use: 08/05/17 Family Disease History - Family Disease History Family Disease History: Heart Disease: Father (ALCHOLISM/ [place] ), CA: Mother (LUNG ), Other: Father, Sister (DRUG PROBLEMS) Admission Physical Exam BHS - Vital Signs Vital Signs: Vital Signs - 24 hr 08/06/17 16:38 Temperature 96.2 F L Pulse Rate 100 H Respiratory 20 Rate Blood Pressure 152/81 - Physical General Appearance: Yes: Appropriately Dressed, Mild Distress, Obese, Tremorous , Irritable, Sweating, Anxious HEENTM: Yes: Hearing grossly Normal, Normal ENT Inspection, Normocephalic, Normal Voice Respiratory: Yes: Chest Non-Tender, Lungs Clear, Normal Breath Sounds, No Respiratory Distress, No Accessory Muscle Use Neck: Yes: Supple, Trachea in good position Breast: Yes: Breasts Symetrical Cardiology: Yes: Regular Rhythm, S1, S2, Tachycardia Abdominal: Yes: Non Tender, Soft, Increased Bowel Sounds Genitourinary: Yes: Within Normal Limits Back: Yes: Normal Inspection Musculoskeletal: Yes: full range of Motion, Gait Steady, Back pain, Muscle Pain (ARTHRITIS) Extremities: Yes: Normal Inspection, Normal Range of Motion, Non-Tender, Tremors Neurological: Yes: Fully Oriented, Alert, Motor Strength 5/5, Normal Response, Depressed Affect Integumentary: Yes: Warm Lymphatic: Yes: Within Normal Limits - Diagnostic (1) Arthritis Current Visit: Yes Status: Chronic (2) COPD (chronic obstructive pulmonary disease) Current Visit: Yes Status: Chronic Qualifiers: COPD type: emphysema Emphysema type: unilateral Qualified Code(s ): J43.0 - Unilateral pulmonary emphysema [MacLeod's syndrome] (3) GERD (gastroesophageal reflux disease) Current Visit: Yes Status: Chronic Qualifiers: Esophagitis presence: without esophagitis Qualified Code(s): K21.9 - Gastro-esophageal reflux disease without esophagitis (4) HTN (hypertension) Current Visit: Yes Status: Chronic Qualifiers: Hypertension type: essential hypertension Qualified Code(s): I10 - Essential (primary) hypertension (5) Hypothyroidism Current Visit: Yes Status: Chronic Qualifiers: Hypothyroidism type: acquired Qualified Code(s): E03.9 - Hypothyroidism, unspecified (6) Methadone maintenance therapy patient Current Visit: Yes Status: Chronic Comment: 90 MG VERIFICATION PENDING (7) Nicotine dependence Current Visit: Yes Status: Acute Qualifiers: Nicotine product type: cigarettes Substance use status: in withdrawal Qualified Code(s): F17.213 - Nicotine dependence, cigarettes, with withdrawal (8) Obesity Current Visit: Yes Status: Chronic Qualifiers: Obesity type: due to excess calories Obesity classification: adult class 2 (BMI 35 ? 39.9) Serious obesity comorbidity presence: without serious comorbidity (9) Use of cane as ambulatory aid Current Visit: Yes Status: Chronic Comment: KNEES RIGHT (10) Depression (emotion) Current Visit: Yes Status: Suspected Qualifiers: Depression Type: dysthymia Qualified Code(s): F34.1 - Dysthymic disorder Cleared for Admission S - Detox or Rehab [facility] Level of Care: Medically Managed Detox Regimen/Protocol: Valium S Breath Alcohol Content Breath Alcohol Content: 0 Urine Drug Screen - Results Drug Screen Negative: No Urine Drug Screen Results: BZO-Benzodiazepines, MTD-Methadone
[2017-08-06] MEDS ORDERED: ACETAMINOPHEN 325 MG TABLET (FP) PO PRN (19:54)
[2017-08-06] MEDS ORDERED: diphenhydrAMINE HCL 50 MG CAPSULE PO PRN (19:54)
[2017-08-06] MEDS ORDERED: diazePAM 5 MG TABLET PO ONE (19:54)
[2017-08-06] MEDS ORDERED: NICOTINE POLACRILEX 2 MG GUM BUC PRN (19:54)
[2017-08-06] MEDS ORDERED: MAGNESIUM CITRATE 300 ML BOTTLE PO PRN (19:54)
[2017-08-06] MEDS ORDERED: P-EPHED 60MG/TRIPROLIDI 2.5MG TABLET PO PRN (19:54)
[2017-08-06] MEDS ORDERED: MENTHOL/PHENOL 1 EACH UD MM PRN (19:54)
[2017-08-06] MEDS ORDERED: LOPERAMIDE HCL 2 MG CAPSULE PO PRN (19:54)
[2017-08-06] MEDS ORDERED: MAGNESIUM HYDROX 2400MG/30ML ORAL SUSPENSION 30 ML CUP PO PRN (19:54)
[2017-08-06] MEDS ORDERED: guaiFENesin/D-METHORPHAN HB 10 ML UNIT-DOSE CUPS PO PRN (19:54)
[2017-08-06] MEDS ORDERED: ALBUTEROL SO4 18 GM HFA INHALER IH PRN (19:57)
[2017-08-06] MEDS ORDERED: ALBUTEROL SO4 2.5/IPRATROPIUM 0.5 INH SOL 3 ML VIAL.NEB. NEB PRN (19:57)
[2017-08-06] MEDS: BUDESONIDE/FORMETEROL FUMARATE 80/4.5 mcg INHALER IH SCH (22:32)
[2017-08-06] MEDS: GABAPENTIN 300 MG CAPSULE (FP) PO SCH (22:32)
[2017-08-06] MEDS: RANITIDINE HCL 150 MG TABLET (FP) PO SCH (22:32)
[2017-08-06] MEDS: THIAMINE HCL 100 MG TABLET (FP) PO SCH (22:34)
[2017-08-06] MEDS: diazePAM 5 MG TABLET PO SCH (23:06)
[2017-08-06 23:32] LABS: URINE APPEARANCE SLCLOUDY; URINE BILIRUBIN NEGATIVE (NEGATIVE); URINE BLOOD NEGATIVE (NEGATIVE); URINE COLOR YELLOW; URINE GLUCOSE (UA) NEGATIVE (NEGATIVE); URINE KETONE NEGATIVE (NEGATIVE); URINE LEUK ESTERASE TRACE (NEGATIVE); URINE NITRITE NEGATIVE (NEGATIVE); URINE PROTEIN NEGATIVE (NEGATIVE); URINE UROBILINOGEN NEGATIVE mg/dL (0.2-1.0)
[2017-08-06 23:59] LABS: URINE BACTERIA RARE /hpf (NONE SEEN); URINE MUCUS RARE; URINE RBC 3 /hpf (0-3); URINE WBC 4 /hpf (3-5)
[2017-08-07] MEDS: LEVOTHYROXINE NA 75 MCG TABLET (FP) PO SCH (00:26)
[2017-08-07] MEDS: diazePAM 5 MG TABLET PO SCH ×3 (07:49→22:39)
[2017-08-07] MEDS: GABAPENTIN 300 MG CAPSULE (FP) PO SCH ×3 (07:49→22:39)
[2017-08-07 10:12] LABS: MCH 27.2 pg (25.7-33.7); MCHC 32.1 g/dl (32.0-36.0); MEAN CELL VOLUME 84.5 fl (80-96); MEAN PLT VOLUME 7.6 fl (7.5-11.1); PLATELET COUNT 278 K/MM3 (134-434); RDW 16.4 % (11.6-15.6); WHITE BLOOD COUNT 7.7 K/mm3 (4.0-10.0)
[2017-08-07] MEDS: LISINOPRIL 10 MG TABLET (FP) PO SCH (10:29)
[2017-08-07] MEDS: RANITIDINE HCL 150 MG TABLET (FP) PO SCH ×2 (10:29→22:39)
[2017-08-07] MEDS: PRENATAL VITAMINS W/ FOLIC ACID TABLET (FP) PO SCH (10:29)
[2017-08-07] MEDS: diazePAM 5 MG TABLET PO PRN ×2 (10:29→18:49)
[2017-08-07] MEDS: amLODIPine BESYLATE 5 MG TABLET (FP) PO SCH (10:29)
[2017-08-07] MEDS ORDERED: METHADONE HCL 10 MG TABLET PO SCH (10:30)
[2017-08-07] MEDS: NICOTINE 14 MG/24 HOURS TOPICAL PATCH TD SCH (10:33)
[2017-08-07 10:43] LABS: ALK PHOS 90 U/L (45-117); ANION GAP 7 (8-16); BILIRUBIN,TOTAL 0.2 mg/dL (0.2-1.0); CALCIUM 8.9 mg/dL (8.5-10.1); CO2 30 mmol/L (21-32); CREATININE 0.8 mg/dL (0.55-1.02); GLUCOSE,RANDOM 112 mg/dL (74-106); SGOT/AST 18 U/L (15-37); SGPT/ALT 22 U/L (12-78); TOT PROT 6.2 g/dl (6.4-8.2)
--- NOTE | 2017-08-07 10:58 | PN ---
S CIWA - CIWA Score Nausea/Vomitin Muscle Tremors: 3 Anxiety: 3 Agitation: 3 Paroxysmal Sweats: 1-Minimal Palms Moist Orientation: 0-Oriented Tacttile Disturbances: 1-Very Mild Itch/Numbness Auditory Disturbances: 1-Very Mild Visual Disturbances: 1-Very Mild Sensitivity Headache: 2-Mild CIWA-Ar Total Score: 18 BHS Progress Note (SOAP) Subjective: ALERT,IRRITABLE,ANXIOUS,INTERRUPTED SLEEP,TREMOR,PAIN IN THE BODY Objective: 08/07/17 10:55 Vital Signs Temperature 99.1 F 08/07/17 10:33 Pulse Rate 85 08/07/17 10:33 Respiratory Rate 18 08/07/17 10:33 Blood Pressure 115/69 08/07/17 10:33 O2 Sat by Pulse Oximetry (%) EKG NSR RARE VPC NO CHEST PAIN,NO SOB,NO DIZZINESS Laboratory Last Values WBC 7.7 K/mm3 (4.0-10.0) 08/07/17 08:00 RBC 4.40 M/mm3 (3.60-5.2) 08/07/17 08:00 Hgb 12.0 GM/dL (10.7-15.3) 08/07/17 08:00 Hct 37.2 % (32.4-45.2) 08/07/17 08:00 MCV 84.5 fl (80-96) 08/07/17 08:00 MCH 27.2 pg (25.7-33.7) 08/07/17 08:00 MCHC 32.1 g/dl (32.0-36.0) 08/07/17 08:00 RDW 16.4 % (11.6-15.6) H 08/07/17 08:00 Plt Count 278 K/MM3 (134-434) 08/07/17 08:00 MPV 7.6 fl (7.5-11.1) 08/07/17 08:00 Urine Color Yellow 08/06/17 23:00 Urine Appearance Slcloudy 08/06/17 23:00 Urine pH 5.0 (5.0-8.0) 08/06/17 23:00 Urine Protein Negative (NEGATIVE) 08/06/17 23:00 Urine Glucose (UA) Negative (NEGATIVE) 08/06/17 23:00 Urine Ketones Negative (NEGATIVE) 08/06/17 23:00 Urine Blood Negative (NEGATIVE) 08/06/17 23:00 Urine Nitrite Negative (NEGATIVE) 08/06/17 23:00 Urine Bilirubin Negative (NEGATIVE) 08/06/17 23:00 Urine Urobilinogen Negative mg/dL (0.2-1.0) 08/06/17 23:00 Urine RBC 3 /hpf (0-3) 08/06/17 23:00 Urine WBC 4 /hpf (3-5) 08/06/17 23:00 Ur Epithelial Cells Rare /hpf (FEW) 08/06/17 23:00 Urine Bacteria Rare /hpf (NONE SEEN) 08/06/17 23:00 Urine Mucus Rare 08/06/17 23:00 LABS PENDING Assessment: 08/07/17 10:57 WITHDRAWAL SYMPTOM Plan: CONTINUE DETOX
[2017-08-07] MEDS: PATIENT'S OWN MEDICATION (NON-FORMULARY) (Sofosbuvir/Velpatas/Voxilaprev [Vosevi 400-100-1 PO SCH (11:04)
[2017-08-07] MEDS: BUDESONIDE/FORMETEROL FUMARATE 80/4.5 mcg INHALER IH SCH ×2 (11:08→22:40)
--- NOTE | 2017-08-07 13:06 | EKG ---
Test Reason : Blood Pressure : / mmHG Vent. Rate : 087 BPM Atrial Rate : 087 BPM P-R Int : 114 ms QRS Dur : 090 ms QT Int : 392 ms P-R-T Axes : 042 029 051 degrees QTc Int : 471 ms SINUS RHYTHM WITH OCCASIONAL PREMATURE VENTRICULAR COMPLEXES SEPTAL INFARCT , AGE UNDETERMINED ABNORMAL ECG Confirmed by DONNIE BALLARD MD ([id number]) on 08/07/2017 1:06:25 PM Referred By: Zia Castellon Confirmed By:DONNIE BALLARD MD
[2017-08-07] MEDS: MAG HYDROX/AL HYDROX/SIMETH 30 ML UNIT-DOSE CUP PO PRN (17:45)
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
[2017-08-07] MEDS: THIAMINE HCL 100 MG TABLET (FP) PO SCH (22:38)
[2017-08-07] MEDS: traZODone HCL 50 MG TABLET (FP) PO SCH (22:39)
[2017-08-07] MEDS: NYSTATIN 100,000 UNIT/GM TOPICAL CREAM 15 GM TUBE TP SCH (22:39)
[2017-08-07] MEDS: ATORVASTATIN CA 40 MG TABLET (FP) PO SCH (22:39)
[2017-08-08] MEDS ORDERED: METHADONE HCL 40 MG DISPERSABLE TABLET ONE (05:27)
[2017-08-08] MEDS ORDERED: METHADONE HCL 10 MG TABLET (FOR DETOX USE ONLY) ONE (05:27)
[2017-08-08] MEDS: GABAPENTIN 300 MG CAPSULE (FP) PO SCH ×3 (06:01→21:05)
[2017-08-08] MEDS: METHADONE PO SCH (06:01)
[2017-08-08] MEDS: diazePAM 5 MG TABLET PO PRN ×2 (06:42→14:14)
[2017-08-08] MEDS: LEVOTHYROXINE NA 75 MCG TABLET (FP) PO SCH (07:53)
[2017-08-08] MEDS: LEVOTHYROXINE NA 25 MCG TABLET (FP) PO SCH (07:53)
[2017-08-08] MEDS: RANITIDINE HCL 150 MG TABLET (FP) PO SCH ×2 (10:39→21:05)
[2017-08-08] MEDS: PRENATAL VITAMINS W/ FOLIC ACID TABLET (FP) PO SCH (10:39)
[2017-08-08] MEDS: FLUoxetine HCL 20 MG CAPSULE (FP) PO SCH (10:39)
[2017-08-08] MEDS: NYSTATIN 100,000 UNIT/GM TOPICAL CREAM 15 GM TUBE TP SCH ×2 (10:40→21:08)
[2017-08-08] MEDS: PATIENT'S OWN MEDICATION (NON-FORMULARY) (Sofosbuvir/Velpatas/Voxilaprev [Vosevi 400-100-1 PO SCH (10:40)
[2017-08-08] MEDS: LISINOPRIL 10 MG TABLET (FP) PO SCH (10:40)
[2017-08-08] MEDS: amLODIPine BESYLATE 5 MG TABLET (FP) PO SCH (10:40)
[2017-08-08] MEDS: diazePAM 5 MG TABLET PO SCH ×2 (10:40→21:05)
[2017-08-08] MEDS: NICOTINE 14 MG/24 HOURS TOPICAL PATCH TD SCH (10:41)
[2017-08-08] MEDS: BUDESONIDE/FORMETEROL FUMARATE 80/4.5 mcg INHALER IH SCH ×2 (10:42→21:06)
[2017-08-08] MEDS: MAG HYDROX/AL HYDROX/SIMETH 30 ML UNIT-DOSE CUP PO PRN (11:27)
[2017-08-08] MEDS ORDERED: COLLOIDAL OATMEAL 1 BAR EACH TP PRN (11:34)
--- NOTE | 2017-08-08 11:38 | PN ---
S CIWA - CIWA Score Nausea/Vomitin Muscle Tremors: 3 Anxiety: 3 Agitation: 3 Paroxysmal Sweats: 1-Minimal Palms Moist Orientation: 0-Oriented Tacttile Disturbances: 1-Very Mild Itch/Numbness Auditory Disturbances: 1-Very Mild Visual Disturbances: 0-None Headache: 2-Mild CIWA-Ar Total Score: 17 BHS Progress Note (SOAP) Subjective: ALERT,IRRITABLE,ANXIOUS,INTERRUPTED SLEEP,TREMOR Objective: 08/08/17 11:36 Vital Signs Temperature 99.9 F H 08/08/17 11:10 Pulse Rate 86 08/08/17 11:10 Respiratory Rate 18 08/08/17 11:10 Blood Pressure 115/76 08/08/17 11:10 O2 Sat by Pulse Oximetry (%) Laboratory Last Values WBC 7.7 K/mm3 (4.0-10.0) 08/07/17 08:00 RBC 4.40 M/mm3 (3.60-5.2) 08/07/17 08:00 Hgb 12.0 GM/dL (10.7-15.3) 08/07/17 08:00 Hct 37.2 % (32.4-45.2) 08/07/17 08:00 MCV 84.5 fl (80-96) 08/07/17 08:00 MCH 27.2 pg (25.7-33.7) 08/07/17 08:00 MCHC 32.1 g/dl (32.0-36.0) 08/07/17 08:00 RDW 16.4 % (11.6-15.6) H 08/07/17 08:00 Plt Count 278 K/MM3 (134-434) 08/07/17 08:00 MPV 7.6 fl (7.5-11.1) 08/07/17 08:00 Sodium 139 mmol/L (136-145) 08/07/17 08:00 Potassium 4.6 mmol/L (3.5-5.1) 08/07/17 08:00 Chloride 102 mmol/L (98-107) 08/07/17 08:00 Carbon Dioxide 30 mmol/L (21-32) 08/07/17 08:00 Anion Gap 7 (8-16) L 08/07/17 08:00 BUN 19 mg/dL (7-18) H 08/07/17 08:00 Creatinine 0.8 mg/dL (0.55-1.02) 08/07/17 08:00 Creat Clearance w eGFR > 60 (>60) 08/07/17 08:00 Random Glucose 112 mg/dL (74-106) H 08/07/17 08:00 Calcium 8.9 mg/dL (8.5-10.1) 08/07/17 08:00 Total Bilirubin 0.2 mg/dL (0.2-1.0) D 08/07/17 08:00 AST 18 U/L (15-37) 08/07/17 08:00 ALT 22 U/L (12-78) 08/07/17 08:00 Alkaline Phosphatase 90 U/L (45-117) 08/07/17 08:00 Total Protein 6.2 g/dl (6.4-8.2) L 08/07/17 08:00 Albumin 3.0 g/dl (3.4-5.0) L 08/07/17 08:00 Urine Color Yellow 08/06/17 23:00 Urine Appearance Slcloudy 08/06/17 23:00 Urine pH 5.0 (5.0-8.0) 08/06/17 23:00 Ur Specific [place] 1.020 (1.005-1.025) 08/06/17 23:00 Urine Protein Negative (NEGATIVE) 08/06/17 23:00 Urine Glucose (UA) Negative (NEGATIVE) 08/06/17 23:00 Urine Ketones Negative (NEGATIVE) 08/06/17 23:00 Urine Blood Negative (NEGATIVE) 08/06/17 23:00 Urine Nitrite Negative (NEGATIVE) 08/06/17 23:00 Urine Bilirubin Negative (NEGATIVE) 08/06/17 23:00 Urine Urobilinogen Negative mg/dL (0.2-1.0) 08/06/17 23:00 Urine RBC 3 /hpf (0-3) 08/06/17 23:00 Urine WBC 4 /hpf (3-5) 08/06/17 23:00 Ur Epithelial Cells Rare /hpf (FEW) 08/06/17 23:00 Urine Bacteria Rare /hpf (NONE SEEN) 08/06/17 23:00 Urine Mucus Rare 08/06/17 23:00 RPR Titer Reactive 1:1 (NONREACTIVE) H 08/07/17 08:00 T.pallidum Ab (MHA) Previously reactive (NONREACTIVE) 08/07/17 08:00 PREVOUS TREATED FOR SYPHILIS Assessment: 08/08/17 11:37 WITHDRAWAL SYMPTOM Plan: CONTINUE DETOX
[2017-08-08] MEDS: traZODone HCL 50 MG TABLET (FP) PO SCH (21:05)
[2017-08-08] MEDS: ATORVASTATIN CA 40 MG TABLET (FP) PO SCH (21:05)
[2017-08-08] MEDS: THIAMINE HCL 100 MG TABLET (FP) PO SCH (21:05)
[2017-08-09] MEDS ORDERED: METHADONE HCL 10 MG TABLET (FOR DETOX USE ONLY) ONE (04:27)
[2017-08-09] MEDS ORDERED: METHADONE HCL 40 MG DISPERSABLE TABLET ONE (04:27)
[2017-08-09] MEDS: METHADONE PO SCH (05:37)
[2017-08-09] MEDS: GABAPENTIN 300 MG CAPSULE (FP) PO SCH ×3 (06:46→22:22)
[2017-08-09] MEDS: LEVOTHYROXINE NA 25 MCG TABLET (FP) PO SCH (06:46)
--- NOTE | 2017-08-09 10:11 | PN ---
S Progress Note (SOAP) Subjective: alert,irritable,anxious,interrupted sleep,tremor Objective: 08/09/17 10:09 Vital Signs Temperature 98.1 F 08/09/17 09:17 Pulse Rate 84 08/09/17 09:17 Respiratory Rate 20 08/09/17 09:17 Blood Pressure 143/69 08/09/17 09:17 O2 Sat by Pulse Oximetry (%) Laboratory Last Values WBC 7.7 K/mm3 (4.0-10.0) 08/07/17 08:00 RBC 4.40 M/mm3 (3.60-5.2) 08/07/17 08:00 Hgb 12.0 GM/dL (10.7-15.3) 08/07/17 08:00 Hct 37.2 % (32.4-45.2) 08/07/17 08:00 MCV 84.5 fl (80-96) 08/07/17 08:00 MCH 27.2 pg (25.7-33.7) 08/07/17 08:00 MCHC 32.1 g/dl (32.0-36.0) 08/07/17 08:00 RDW 16.4 % (11.6-15.6) H 08/07/17 08:00 Plt Count 278 K/MM3 (134-434) 08/07/17 08:00 MPV 7.6 fl (7.5-11.1) 08/07/17 08:00 Sodium 139 mmol/L (136-145) 08/07/17 08:00 Potassium 4.6 mmol/L (3.5-5.1) 08/07/17 08:00 Chloride 102 mmol/L (98-107) 08/07/17 08:00 Carbon Dioxide 30 mmol/L (21-32) 08/07/17 08:00 Anion Gap 7 (8-16) L 08/07/17 08:00 BUN 19 mg/dL (7-18) H 08/07/17 08:00 Creatinine 0.8 mg/dL (0.55-1.02) 08/07/17 08:00 Creat Clearance w eGFR > 60 (>60) 08/07/17 08:00 Random Glucose 112 mg/dL (74-106) H 08/07/17 08:00 Calcium 8.9 mg/dL (8.5-10.1) 08/07/17 08:00 Total Bilirubin 0.2 mg/dL (0.2-1.0) D 08/07/17 08:00 AST 18 U/L (15-37) 08/07/17 08:00 ALT 22 U/L (12-78) 08/07/17 08:00 Alkaline Phosphatase 90 U/L (45-117) 08/07/17 08:00 Total Protein 6.2 g/dl (6.4-8.2) L 08/07/17 08:00 Albumin 3.0 g/dl (3.4-5.0) L 08/07/17 08:00 Urine Color Yellow 08/06/17 23:00 Urine Appearance Slcloudy 08/06/17 23:00 Urine pH 5.0 (5.0-8.0) 08/06/17 23:00 Ur Specific [place] 1.020 (1.005-1.025) 08/06/17 23:00 Urine Protein Negative (NEGATIVE) 08/06/17 23:00 Urine Glucose (UA) Negative (NEGATIVE) 08/06/17 23:00 Urine Ketones Negative (NEGATIVE) 08/06/17 23:00 Urine Blood Negative (NEGATIVE) 08/06/17 23:00 Urine Nitrite Negative (NEGATIVE) 08/06/17 23:00 Urine Bilirubin Negative (NEGATIVE) 08/06/17 23:00 Urine Urobilinogen Negative mg/dL (0.2-1.0) 08/06/17 23:00 Urine RBC 3 /hpf (0-3) 08/06/17 23:00 Urine WBC 4 /hpf (3-5) 08/06/17 23:00 Ur Epithelial Cells Rare /hpf (FEW) 08/06/17 23:00 Urine Bacteria Rare /hpf (NONE SEEN) 08/06/17 23:00 Urine Mucus Rare 08/06/17 23:00 RPR Titer Reactive 1:1 (NONREACTIVE) H 08/07/17 08:00 T.pallidum Ab (MHA) Previously reactive (NONREACTIVE) 08/07/17 08:00 previously treated for syphilis Assessment: 08/09/17 10:09 withdrawal symptom Plan: continue detox
[2017-08-09] MEDS: amLODIPine BESYLATE 5 MG TABLET (FP) PO SCH (10:24)
[2017-08-09] MEDS: PATIENT'S OWN MEDICATION (NON-FORMULARY) (Sofosbuvir/Velpatas/Voxilaprev [Vosevi 400-100-1 PO SCH (10:24)
[2017-08-09] MEDS: PRENATAL VITAMINS W/ FOLIC ACID TABLET (FP) PO SCH (10:24)
[2017-08-09] MEDS: LISINOPRIL 10 MG TABLET (FP) PO SCH (10:24)
[2017-08-09] MEDS: FLUoxetine HCL 20 MG CAPSULE (FP) PO SCH (10:24)
[2017-08-09] MEDS: diazePAM 5 MG TABLET PO SCH ×2 (10:25→22:23)
[2017-08-09] MEDS: BUDESONIDE/FORMETEROL FUMARATE 80/4.5 mcg INHALER IH SCH ×2 (10:25→22:23)
[2017-08-09] MEDS: RANITIDINE HCL 150 MG TABLET (FP) PO SCH ×2 (10:26→22:22)
[2017-08-09] MEDS: NYSTATIN 100,000 UNIT/GM TOPICAL CREAM 15 GM TUBE TP SCH ×2 (10:27→22:55)
[2017-08-09] MEDS: NICOTINE 14 MG/24 HOURS TOPICAL PATCH TD SCH (10:30)
[2017-08-09] MEDS: diazePAM 5 MG TABLET PO PRN (14:37)
[2017-08-09] MEDS: MAG HYDROX/AL HYDROX/SIMETH 30 ML UNIT-DOSE CUP PO PRN (19:08)
[2017-08-09] MEDS: traZODone HCL 50 MG TABLET (FP) PO SCH (22:22)
[2017-08-09] MEDS: THIAMINE HCL 100 MG TABLET (FP) PO SCH (22:22)
[2017-08-09] MEDS: ATORVASTATIN CA 40 MG TABLET (FP) PO SCH (22:22)
[2017-08-09] MEDS: IBUPROFEN 600 MG TABLET (FP) PO PRN (22:25)
[2017-08-10] MEDS ORDERED: METHADONE HCL 10 MG TABLET (FOR DETOX USE ONLY) ONE (04:55)
[2017-08-10] MEDS ORDERED: METHADONE HCL 40 MG DISPERSABLE TABLET ONE (04:55)
[2017-08-10] MEDS: METHADONE PO SCH (05:42)
[2017-08-10] MEDS: GABAPENTIN 300 MG CAPSULE (FP) PO SCH ×3 (05:42→21:43)
[2017-08-10] MEDS: LEVOTHYROXINE NA 25 MCG TABLET (FP) PO SCH (07:42)
--- NOTE | 2017-08-10 09:37 | DS ---
[facility] Detox Discharge Summary Admission Date: 08/06/17 Discharge Date: 08/10/17 - History Present History: Sedative Dependence, MMTP Additional Comments: TRANSFER TO REHAB FOR FURTHER LEVEL OF CARE Pertinent Past History: HYPOTHYROIDISM GERD HYPERTENSION ARTHRITIS METHADONE MAINTENANCE THERAPY PATIENT NICOTINE DEPENDENCE OBESITY USE OF CANE AMBULATORY AID DEPRESSIVE DISORDER - Physical Exam Results Vital Signs: Vital Signs Temperature 97.5 F L 08/10/17 06:00 Pulse Rate 70 08/10/17 06:00 Respiratory Rate 18 08/10/17 06:00 Blood Pressure 105/57 08/10/17 06:00 O2 Sat by Pulse Oximetry (%) Pertinent Admission Physical Exam Findings: WITHDRAWAL SYMPTOM - Treatment Hospital Course: Detox Protocol Followed, Detoxed Safely, Responded well, Discharged Condition Good, Rehab Referral Accepted Patient has Accepted a Rehab Referral to: [facility] - Medication Discharge Medications: Ambulatory Orders Albuterol Sulfate Inhaler - [Ventolin HFA Inhaler -] 1 inh IH PRN PRN 07/28/16 Budesonide/Formeterol Fumarate [SYMBICORT 160/4.5mcg -] 2 inh IH BID #1 inhaler 08/24/16 Sertraline HCl [Zoloft -] 150 mg PO DAILY #90 tablet 08/24/16 Amlodipine Besylate [Norvasc -] 5 mg PO DAILY 11/12/16 Atorvastatin Ca [Lipitor] 40 mg PO DAILY 11/12/16 Famotidine [Pepcid] 20 mg PO BID 11/12/16 Levothyroxine [Synthroid -] 75 mcg PO DAILY 11/12/16 Tiotropium [place] [Spiriva] 1 inh PO DAILY 11/12/16 Sertraline HCl [Zoloft -] 100 mg PO DAILY #30 tablet 11/13/16 Trazodone HCl 100 mg PO HS 11/27/16 Sertraline HCl [Zoloft -] 150 mg PO DAILY #90 tablet 12/21/16 Trazodone HCl [Desyrel -] 100 mg PO HS #60 tablet 12/21/16 Sofosbuvir/Velpatas/Voxilaprev [Vosevi 400-100-100 mg Tablet] 1 each PO DAILY - Diagnosis (1) Nicotine dependence Current Visit: Yes Status: Acute Qualifiers: Nicotine product type: cigarettes Substance use status: in withdrawal Qualified Code(s): F17.213 - Nicotine dependence, cigarettes, with withdrawal; F17.213 - Nicotine dependence, cigarettes, with withdrawal (2) Opioid dependence on agonist therapy Current Visit: Yes Status: Acute (3) Uncomplicated sedative, hypnotic, or anxiolytic withdrawal Current Visit: Yes Status: Acute (4) Arthritis Current Visit: Yes Status: Chronic (5) COPD (chronic obstructive pulmonary disease) Current Visit: Yes Status: Chronic Qualifiers: COPD type: emphysema Emphysema type: unilateral Qualified Code(s ): J43.0 - Unilateral pulmonary emphysema [MacLeod's syndrome]; J43.0 - Unilateral pulmonary emphysema [MacLeod's syndrome]; J43.0 - Unilateral pulmonary emphysema [MacLeod's syndrome]; J43.0 - Unilateral pulmonary emphysema [MacLeod's syndrome] (6) GERD (gastroesophageal reflux disease) Current Visit: Yes Status: Chronic Qualifiers: Esophagitis presence: without esophagitis Qualified Code(s): K21.9 - Gastro-esophageal reflux disease without esophagitis; K21.9 - Gastro- esophageal reflux disease without esophagitis; K21.9 - Gastro-esophageal reflux disease without esophagitis (7) HTN (hypertension) Current Visit: Yes Status: Chronic Qualifiers: Hypertension type: essential hypertension Qualified Code(s): I10 - Essential (primary) hypertension; I10 - Essential (primary) hypertension; I10 - Essential (primary) hypertension (8) Hypothyroidism Current Visit: Yes Status: Chronic Qualifiers: Hypothyroidism type: acquired Qualified Code(s): E03.9 - Hypothyroidism, unspecified; E03.9 - Hypothyroidism, unspecified; E03.9 - Hypothyroidism, unspecified (9) Obesity Current Visit: Yes Status: Chronic Qualifiers: Obesity type: due to excess calories Obesity classification: adult class 2 (BMI 35 ? 39.9) Serious obesity comorbidity presence: without serious comorbidity (10) Use of cane as ambulatory aid Current Visit: Yes Status: Chronic (11) Depressive disorder Current Visit: Yes Status: Chronic - AMA Did Patient Leave Against Medical Advice: No
[2017-08-10] MEDS ORDERED: diazePAM 5 MG TABLET PO SCH (10:00)
[2017-08-10] MEDS: NYSTATIN 100,000 UNIT/GM TOPICAL CREAM 15 GM TUBE TP SCH ×2 (10:20→21:44)
[2017-08-10] MEDS: PATIENT'S OWN MEDICATION (NON-FORMULARY) (Sofosbuvir/Velpatas/Voxilaprev [Vosevi 400-100-1 PO SCH (10:20)
[2017-08-10] MEDS: LISINOPRIL 10 MG TABLET (FP) PO SCH (10:20)
[2017-08-10] MEDS: RANITIDINE HCL 150 MG TABLET (FP) PO SCH ×2 (10:21→21:43)
[2017-08-10] MEDS: amLODIPine BESYLATE 5 MG TABLET (FP) PO SCH (10:21)
[2017-08-10] MEDS: NICOTINE 14 MG/24 HOURS TOPICAL PATCH TD SCH (10:21)
[2017-08-10] MEDS: FLUoxetine HCL 20 MG CAPSULE (FP) PO SCH (10:21)
[2017-08-10] MEDS: BUDESONIDE/FORMETEROL FUMARATE 80/4.5 mcg INHALER IH SCH ×2 (10:21→21:46)
[2017-08-10] MEDS: PRENATAL VITAMINS W/ FOLIC ACID TABLET (FP) PO SCH (10:52)
[2017-08-10] MEDS: ATORVASTATIN CA 40 MG TABLET (FP) PO SCH (21:43)
[2017-08-10] MEDS: THIAMINE HCL 100 MG TABLET (FP) PO SCH (21:43)
[2017-08-10] MEDS: traZODone HCL 50 MG TABLET (FP) PO SCH (21:45)
[2017-08-11] MEDS ORDERED: METHADONE HCL 40 MG DISPERSABLE TABLET ONE (03:35)
[2017-08-11] MEDS ORDERED: METHADONE HCL 10 MG TABLET ONE (03:35)
[2017-08-11] MEDS: LEVOTHYROXINE NA 25 MCG TABLET (FP) PO SCH (06:55)
[2017-08-11] MEDS: METHADONE 80 MG, METHADONE 10 MG PO SCH (06:55)
[2017-08-11] MEDS: GABAPENTIN 300 MG CAPSULE (FP) PO SCH ×3 (06:56→21:59)
[2017-08-11] MEDS ORDERED: PT OWN MED DRAWER 7, Y5N ONE (09:11)
[2017-08-11] MEDS: FLUoxetine HCL 20 MG CAPSULE (FP) PO SCH (10:36)
[2017-08-11] MEDS: LISINOPRIL 10 MG TABLET (FP) PO SCH (10:36)
[2017-08-11] MEDS: PRENATAL VITAMINS W/ FOLIC ACID TABLET (FP) PO SCH (10:37)
[2017-08-11] MEDS: NICOTINE 14 MG/24 HOURS TOPICAL PATCH TD SCH (10:37)
[2017-08-11] MEDS: PATIENT'S OWN MEDICATION (NON-FORMULARY) (Sofosbuvir/Velpatas/Voxilaprev [Vosevi 400-100-1 PO SCH (10:37)
[2017-08-11] MEDS: amLODIPine BESYLATE 5 MG TABLET (FP) PO SCH (10:37)
[2017-08-11] MEDS: RANITIDINE HCL 150 MG TABLET (FP) PO SCH ×2 (10:37→21:44)
[2017-08-11] MEDS: BUDESONIDE/FORMETEROL FUMARATE 80/4.5 mcg INHALER IH SCH ×2 (10:38→21:44)
[2017-08-11] MEDS: NYSTATIN 100,000 UNIT/GM TOPICAL CREAM 15 GM TUBE TP SCH ×2 (10:38→21:58)
[2017-08-11] MEDS ORDERED: FLU VACCINE QUAD 60 MCG/0.5 ML (MDV 17-18) IM ONE (12:14)
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
[2017-08-11] MEDS: LIDOCAINE 5% TOPICAL PATCH TP SCH (16:25)
[2017-08-11] MEDS: THIAMINE HCL 100 MG TABLET (FP) PO SCH (21:44)
[2017-08-11] MEDS: traZODone HCL 100 MG TABLET (FP) PO SCH (21:58)
[2017-08-11] MEDS: ATORVASTATIN CA 40 MG TABLET (FP) PO SCH (21:58)
[2017-08-11] MEDS: LIDOCAINE PATCH REMOVAL MC SCH (21:58)
[2017-08-12] MEDS ORDERED: METHADONE HCL 40 MG DISPERSABLE TABLET ONE (03:13)
[2017-08-12] MEDS ORDERED: METHADONE HCL 10 MG TABLET ONE (03:13)
[2017-08-12] MEDS: METHADONE 80 MG, METHADONE 10 MG PO SCH (06:44)
[2017-08-12] MEDS: LEVOTHYROXINE NA 25 MCG TABLET (FP) PO SCH (06:45)
[2017-08-12] MEDS: GABAPENTIN 300 MG CAPSULE (FP) PO SCH ×3 (06:45→21:30)
[2017-08-12] MEDS: IBUPROFEN 600 MG TABLET (FP) PO PRN (08:55)
[2017-08-12] MEDS: PRENATAL VITAMINS W/ FOLIC ACID TABLET (FP) PO SCH (10:14)
[2017-08-12] MEDS: amLODIPine BESYLATE 5 MG TABLET (FP) PO SCH (10:14)
[2017-08-12] MEDS: PATIENT'S OWN MEDICATION (NON-FORMULARY) (Sofosbuvir/Velpatas/Voxilaprev [Vosevi 400-100-1 PO SCH (10:14)
[2017-08-12] MEDS: RANITIDINE HCL 150 MG TABLET (FP) PO SCH ×2 (10:14→21:30)
[2017-08-12] MEDS: LISINOPRIL 10 MG TABLET (FP) PO SCH (10:14)
[2017-08-12] MEDS: BUDESONIDE/FORMETEROL FUMARATE 80/4.5 mcg INHALER IH SCH ×2 (10:15→21:29)
[2017-08-12] MEDS: FLUoxetine HCL 20 MG CAPSULE (FP) PO SCH (10:15)
[2017-08-12] MEDS: NICOTINE 14 MG/24 HOURS TOPICAL PATCH TD SCH (10:16)
[2017-08-12] MEDS: NYSTATIN 100,000 UNIT/GM TOPICAL CREAM 15 GM TUBE TP SCH ×2 (10:16→21:31)
[2017-08-12] MEDS: LIDOCAINE 5% TOPICAL PATCH TP SCH (10:16)
[2017-08-12] MEDS: traZODone HCL 100 MG TABLET (FP) PO SCH (21:30)
[2017-08-12] MEDS: THIAMINE HCL 100 MG TABLET (FP) PO SCH (21:30)
[2017-08-12] MEDS: ATORVASTATIN CA 40 MG TABLET (FP) PO SCH (21:30)
[2017-08-12] MEDS: LIDOCAINE PATCH REMOVAL MC SCH (21:31)
[2017-08-13] MEDS ORDERED: METHADONE HCL 40 MG DISPERSABLE TABLET ONE (04:21)
[2017-08-13] MEDS ORDERED: METHADONE HCL 10 MG TABLET ONE (04:21)
[2017-08-13] MEDS: LEVOTHYROXINE NA 25 MCG TABLET (FP) PO SCH (06:34)
[2017-08-13] MEDS: METHADONE 80 MG, METHADONE 10 MG PO SCH (06:34)
[2017-08-13] MEDS: GABAPENTIN 300 MG CAPSULE (FP) PO SCH ×3 (06:35→21:41)
[2017-08-13] MEDS: RANITIDINE HCL 150 MG TABLET (FP) PO SCH (10:47)
[2017-08-13] MEDS: PATIENT'S OWN MEDICATION (NON-FORMULARY) (Sofosbuvir/Velpatas/Voxilaprev [Vosevi 400-100-1 PO SCH (10:47)
[2017-08-13] MEDS: PRENATAL VITAMINS W/ FOLIC ACID TABLET (FP) PO SCH (10:47)
[2017-08-13] MEDS: amLODIPine BESYLATE 5 MG TABLET (FP) PO SCH (10:47)
[2017-08-13] MEDS: LISINOPRIL 10 MG TABLET (FP) PO SCH (10:47)
[2017-08-13] MEDS: FLUoxetine HCL 20 MG CAPSULE (FP) PO SCH (10:48)
[2017-08-13] MEDS: BUDESONIDE/FORMETEROL FUMARATE 80/4.5 mcg INHALER IH SCH ×2 (10:48→21:39)
[2017-08-13] MEDS: NICOTINE 14 MG/24 HOURS TOPICAL PATCH TD SCH (10:48)
[2017-08-13] MEDS: NYSTATIN 100,000 UNIT/GM TOPICAL CREAM 15 GM TUBE TP SCH ×2 (10:49→21:41)
[2017-08-13] MEDS: LIDOCAINE 5% TOPICAL PATCH TP SCH (10:49)
[2017-08-13] MEDS: MAG HYDROX/AL HYDROX/SIMETH 30 ML UNIT-DOSE CUP PO PRN (11:02)
[2017-08-13] MEDS ORDERED: PANTOPRAZOLE 40 MG TABLET (FP) PO SCH (14:00)
[2017-08-13] MEDS: TIOTROPIUM BROMIDE 18 MCG/INH (DEVICE W/ 5 CAPSULES) IH SCH (16:20)
[2017-08-13] MEDS: traZODone HCL 100 MG TABLET (FP) PO SCH (21:40)
[2017-08-13] MEDS: ATORVASTATIN CA 40 MG TABLET (FP) PO SCH (21:40)
[2017-08-13] MEDS: THIAMINE HCL 100 MG TABLET (FP) PO SCH (21:42)
[2017-08-13] MEDS: LIDOCAINE PATCH REMOVAL MC SCH (21:42)
[2017-08-13] MEDS: IBUPROFEN 600 MG TABLET (FP) PO PRN (21:43)
[2017-08-14] MEDS ORDERED: METHADONE HCL 40 MG DISPERSABLE TABLET ONE (03:23)
[2017-08-14] MEDS ORDERED: METHADONE HCL 10 MG TABLET ONE (03:23)
[2017-08-14] MEDS: METHADONE 80 MG, METHADONE 10 MG PO SCH (06:44)
[2017-08-14] MEDS: LEVOTHYROXINE NA 25 MCG TABLET (FP) PO SCH (06:45)
[2017-08-14] MEDS: GABAPENTIN 300 MG CAPSULE (FP) PO SCH ×3 (06:46→21:41)
[2017-08-14] MEDS: LIDOCAINE 5% TOPICAL PATCH TP SCH (09:56)
[2017-08-14] MEDS: NYSTATIN 100,000 UNIT/GM TOPICAL CREAM 15 GM TUBE TP SCH ×2 (09:56→21:42)
[2017-08-14] MEDS: NICOTINE 14 MG/24 HOURS TOPICAL PATCH TD SCH (09:56)
[2017-08-14] MEDS: PRENATAL VITAMINS W/ FOLIC ACID TABLET (FP) PO SCH (09:57)
[2017-08-14] MEDS: amLODIPine BESYLATE 5 MG TABLET (FP) PO SCH (09:57)
[2017-08-14] MEDS: BUDESONIDE/FORMETEROL FUMARATE 80/4.5 mcg INHALER IH SCH ×2 (09:57→21:43)
[2017-08-14] MEDS: LISINOPRIL 10 MG TABLET (FP) PO SCH (09:57)
[2017-08-14] MEDS: FLUoxetine HCL 20 MG CAPSULE (FP) PO SCH (09:57)
[2017-08-14] MEDS: PATIENT'S OWN MEDICATION (NON-FORMULARY) (Sofosbuvir/Velpatas/Voxilaprev [Vosevi 400-100-1 PO SCH (09:57)
[2017-08-14] MEDS: TIOTROPIUM BROMIDE 18 MCG/INH (DEVICE W/ 5 CAPSULES) IH SCH (09:58)
[2017-08-14] MEDS: IBUPROFEN 600 MG TABLET (FP) PO PRN (10:00)
[2017-08-14] MEDS: SIMETHICONE 80 MG TAB.CHEW (FP) PO PRN (12:43)
[2017-08-14] MEDS: ATORVASTATIN CA 40 MG TABLET (FP) PO SCH (21:41)
[2017-08-14] MEDS: THIAMINE HCL 100 MG TABLET (FP) PO SCH (21:41)
[2017-08-14] MEDS: LIDOCAINE PATCH REMOVAL MC SCH (21:42)
[2017-08-14] MEDS: traZODone HCL 100 MG TABLET (FP) PO SCH (21:42)
[2017-08-14] MEDS ORDERED: PT OWN MED DRAWER 7, Y5N ONE (21:44)
[2017-08-15] MEDS ORDERED: METHADONE HCL 10 MG TABLET ONE (03:25)
[2017-08-15] MEDS ORDERED: METHADONE HCL 40 MG DISPERSABLE TABLET ONE (03:25)
[2017-08-15] MEDS: METHADONE 80 MG, METHADONE 10 MG PO SCH (06:49)
[2017-08-15] MEDS: GABAPENTIN 300 MG CAPSULE (FP) PO SCH ×3 (06:50→21:37)
[2017-08-15] MEDS: LEVOTHYROXINE NA 25 MCG TABLET (FP) PO SCH (06:50)
[2017-08-15] MEDS: NYSTATIN 100,000 UNIT/GM TOPICAL CREAM 15 GM TUBE TP SCH ×2 (10:22→21:37)
[2017-08-15] MEDS: NICOTINE 14 MG/24 HOURS TOPICAL PATCH TD SCH (10:22)
[2017-08-15] MEDS: LIDOCAINE 5% TOPICAL PATCH TP SCH (10:22)
[2017-08-15] MEDS: PRENATAL VITAMINS W/ FOLIC ACID TABLET (FP) PO SCH (10:23)
[2017-08-15] MEDS: LISINOPRIL 10 MG TABLET (FP) PO SCH (10:23)
[2017-08-15] MEDS: amLODIPine BESYLATE 5 MG TABLET (FP) PO SCH (10:23)
[2017-08-15] MEDS: FLUoxetine HCL 20 MG CAPSULE (FP) PO SCH (10:23)
[2017-08-15] MEDS: PATIENT'S OWN MEDICATION (NON-FORMULARY) (Sofosbuvir/Velpatas/Voxilaprev [Vosevi 400-100-1 PO SCH (10:24)
[2017-08-15] MEDS: BUDESONIDE/FORMETEROL FUMARATE 80/4.5 mcg INHALER IH SCH ×2 (10:24→21:37)
[2017-08-15] MEDS: TIOTROPIUM BROMIDE 18 MCG/INH (DEVICE W/ 5 CAPSULES) IH SCH (10:25)
[2017-08-15] MEDS: ATORVASTATIN CA 40 MG TABLET (FP) PO SCH (21:36)
[2017-08-15] MEDS: LIDOCAINE PATCH REMOVAL MC SCH (21:37)
[2017-08-15] MEDS: THIAMINE HCL 100 MG TABLET (FP) PO SCH (21:37)
[2017-08-15] MEDS: traZODone HCL 100 MG TABLET (FP) PO SCH (21:37)
[2017-08-16] MEDS ORDERED: METHADONE HCL 10 MG TABLET ONE (03:32)
[2017-08-16] MEDS ORDERED: METHADONE HCL 40 MG DISPERSABLE TABLET ONE (03:32)
[2017-08-16] MEDS: METHADONE 80 MG, METHADONE 10 MG PO SCH (06:47)
[2017-08-16] MEDS: LEVOTHYROXINE NA 25 MCG TABLET (FP) PO SCH (06:48)
[2017-08-16] MEDS: GABAPENTIN 300 MG CAPSULE (FP) PO SCH ×3 (06:48→21:40)
[2017-08-16] MEDS ORDERED: PT OWN MED DRAWER 7, Y5N ONE (08:52)
[2017-08-16] MEDS: TIOTROPIUM BROMIDE 18 MCG/INH (DEVICE W/ 5 CAPSULES) IH SCH (10:41)
[2017-08-16] MEDS: BUDESONIDE/FORMETEROL FUMARATE 80/4.5 mcg INHALER IH SCH ×2 (10:41→21:41)
[2017-08-16] MEDS: NYSTATIN 100,000 UNIT/GM TOPICAL CREAM 15 GM TUBE TP SCH ×2 (10:42→21:41)
[2017-08-16] MEDS: PATIENT'S OWN MEDICATION (NON-FORMULARY) (Sofosbuvir/Velpatas/Voxilaprev [Vosevi 400-100-1 PO SCH (10:42)
[2017-08-16] MEDS: LIDOCAINE 5% TOPICAL PATCH TP SCH (10:42)
[2017-08-16] MEDS: PRENATAL VITAMINS W/ FOLIC ACID TABLET (FP) PO SCH (10:43)
[2017-08-16] MEDS: NICOTINE 14 MG/24 HOURS TOPICAL PATCH TD SCH (10:43)
[2017-08-16] MEDS: FLUoxetine HCL 20 MG CAPSULE (FP) PO SCH (10:43)
[2017-08-16] MEDS: LISINOPRIL 10 MG TABLET (FP) PO SCH (10:43)
[2017-08-16] MEDS: amLODIPine BESYLATE 5 MG TABLET (FP) PO SCH (10:43)
[2017-08-16] MEDS: ATORVASTATIN CA 40 MG TABLET (FP) PO SCH (21:40)
[2017-08-16] MEDS: traZODone HCL 100 MG TABLET (FP) PO SCH (21:40)
[2017-08-16] MEDS: THIAMINE HCL 100 MG TABLET (FP) PO SCH (21:40)
[2017-08-16] MEDS: LIDOCAINE PATCH REMOVAL MC SCH (21:41)
[2017-08-17] MEDS ORDERED: METHADONE HCL 10 MG TABLET ONE (03:18)
[2017-08-17] MEDS ORDERED: METHADONE HCL 40 MG DISPERSABLE TABLET ONE (03:18)
[2017-08-17] MEDS: METHADONE 80 MG, METHADONE 10 MG PO SCH (06:26)
[2017-08-17] MEDS: GABAPENTIN 300 MG CAPSULE (FP) PO SCH ×3 (06:27→21:34)
[2017-08-17] MEDS: LEVOTHYROXINE NA 25 MCG TABLET (FP) PO SCH (06:27)
[2017-08-17] MEDS: LIDOCAINE 5% TOPICAL PATCH TP SCH (09:36)
[2017-08-17] MEDS: NICOTINE 14 MG/24 HOURS TOPICAL PATCH TD SCH (09:36)
[2017-08-17] MEDS: TIOTROPIUM BROMIDE 18 MCG/INH (DEVICE W/ 5 CAPSULES) IH SCH (09:37)
[2017-08-17] MEDS: PRENATAL VITAMINS W/ FOLIC ACID TABLET (FP) PO SCH (09:37)
[2017-08-17] MEDS: LISINOPRIL 10 MG TABLET (FP) PO SCH (09:37)
[2017-08-17] MEDS: BUDESONIDE/FORMETEROL FUMARATE 80/4.5 mcg INHALER IH SCH ×2 (09:37→21:35)
[2017-08-17] MEDS: FLUoxetine HCL 20 MG CAPSULE (FP) PO SCH (09:37)
[2017-08-17] MEDS: amLODIPine BESYLATE 5 MG TABLET (FP) PO SCH (09:37)
[2017-08-17] MEDS: PATIENT'S OWN MEDICATION (NON-FORMULARY) (Sofosbuvir/Velpatas/Voxilaprev [Vosevi 400-100-1 PO SCH (09:37)
[2017-08-17] MEDS: NYSTATIN 100,000 UNIT/GM TOPICAL CREAM 15 GM TUBE TP SCH ×2 (09:38→21:34)
[2017-08-17] MEDS: THIAMINE HCL 100 MG TABLET (FP) PO SCH (21:34)
[2017-08-17] MEDS: traZODone HCL 100 MG TABLET (FP) PO SCH (21:34)
[2017-08-17] MEDS: ATORVASTATIN CA 40 MG TABLET (FP) PO SCH (21:34)
[2017-08-17] MEDS: LIDOCAINE PATCH REMOVAL MC SCH (21:35)
[2017-08-18] MEDS: METHADONE HCL 40 MG DISPERSABLE TABLET PO SCH (06:06)
[2017-08-18] MEDS: LEVOTHYROXINE NA 25 MCG TABLET (FP) PO SCH (06:06)
[2017-08-18] MEDS: GABAPENTIN 300 MG CAPSULE (FP) PO SCH ×3 (06:06→21:45)
[2017-08-18] MEDS: PATIENT'S OWN MEDICATION (NON-FORMULARY) (Sofosbuvir/Velpatas/Voxilaprev [Vosevi 400-100-1 PO SCH (10:44)
[2017-08-18] MEDS: LIDOCAINE 5% TOPICAL PATCH TP SCH (10:44)
[2017-08-18] MEDS: LISINOPRIL 10 MG TABLET (FP) PO SCH (10:44)
[2017-08-18] MEDS: FLUoxetine HCL 20 MG CAPSULE (FP) PO SCH (10:44)
[2017-08-18] MEDS: amLODIPine BESYLATE 5 MG TABLET (FP) PO SCH (10:44)
[2017-08-18] MEDS: PRENATAL VITAMINS W/ FOLIC ACID TABLET (FP) PO SCH (10:44)
[2017-08-18] MEDS: BUDESONIDE/FORMETEROL FUMARATE 80/4.5 mcg INHALER IH SCH ×2 (10:45→21:43)
[2017-08-18] MEDS: TIOTROPIUM BROMIDE 18 MCG/INH (DEVICE W/ 5 CAPSULES) IH SCH (10:45)
[2017-08-18] MEDS: NYSTATIN 100,000 UNIT/GM TOPICAL CREAM 15 GM TUBE TP SCH ×2 (10:46→21:44)
[2017-08-18] MEDS: NICOTINE 14 MG/24 HOURS TOPICAL PATCH TD SCH (10:46)
[2017-08-18] MEDS: SIMETHICONE 80 MG TAB.CHEW (FP) PO PRN (10:47)
[2017-08-18] MEDS ORDERED: PT OWN MED DRAWER 7, Y5N ONE (13:25)
[2017-08-18] MEDS: THIAMINE HCL 100 MG TABLET (FP) PO SCH (21:43)
[2017-08-18] MEDS: ATORVASTATIN CA 40 MG TABLET (FP) PO SCH (21:45)
[2017-08-18] MEDS: traZODone HCL 100 MG TABLET (FP) PO SCH (21:45)
[2017-08-18] MEDS: LIDOCAINE PATCH REMOVAL MC SCH (21:45)
[2017-08-19] MEDS: METHADONE HCL 40 MG DISPERSABLE TABLET PO SCH (06:32)
[2017-08-19] MEDS: GABAPENTIN 300 MG CAPSULE (FP) PO SCH ×3 (06:33→21:49)
[2017-08-19] MEDS: LEVOTHYROXINE NA 25 MCG TABLET (FP) PO SCH (06:33)
[2017-08-19] MEDS: LIDOCAINE 5% TOPICAL PATCH TP SCH (09:23)
[2017-08-19] MEDS: TIOTROPIUM BROMIDE 18 MCG/INH (DEVICE W/ 5 CAPSULES) IH SCH (10:26)
[2017-08-19] MEDS ORDERED: PT OWN MED DRAWER 7, Y5N ONE ×2 (10:27→10:47)
[2017-08-19] MEDS: PRENATAL VITAMINS W/ FOLIC ACID TABLET (FP) PO SCH (10:27)
[2017-08-19] MEDS: amLODIPine BESYLATE 5 MG TABLET (FP) PO SCH (10:27)
[2017-08-19] MEDS: PATIENT'S OWN MEDICATION (NON-FORMULARY) (Sofosbuvir/Velpatas/Voxilaprev [Vosevi 400-100-1 PO SCH (10:27)
[2017-08-19] MEDS: BUDESONIDE/FORMETEROL FUMARATE 80/4.5 mcg INHALER IH SCH ×2 (10:27→21:49)
[2017-08-19] MEDS: IBUPROFEN 600 MG TABLET (FP) PO PRN (10:28)
[2017-08-19] MEDS: FLUoxetine HCL 20 MG CAPSULE (FP) PO SCH (10:28)
[2017-08-19] MEDS: NYSTATIN 100,000 UNIT/GM TOPICAL CREAM 15 GM TUBE TP SCH ×2 (10:28→21:50)
[2017-08-19] MEDS: LISINOPRIL 10 MG TABLET (FP) PO SCH (10:28)
[2017-08-19] MEDS: NICOTINE 14 MG/24 HOURS TOPICAL PATCH TD SCH (10:30)
[2017-08-19] MEDS: traZODone HCL 100 MG TABLET (FP) PO SCH (21:49)
[2017-08-19] MEDS: THIAMINE HCL 100 MG TABLET (FP) PO SCH (21:49)
[2017-08-19] MEDS: ATORVASTATIN CA 40 MG TABLET (FP) PO SCH (21:49)
[2017-08-19] MEDS: LIDOCAINE PATCH REMOVAL MC SCH (21:50)
[2017-08-20] MEDS: LEVOTHYROXINE NA 25 MCG TABLET (FP) PO SCH (06:24)
[2017-08-20] MEDS: GABAPENTIN 300 MG CAPSULE (FP) PO SCH ×3 (06:24→21:53)
[2017-08-20] MEDS: METHADONE HCL 40 MG DISPERSABLE TABLET PO SCH (06:24)
[2017-08-20] MEDS: LIDOCAINE 5% TOPICAL PATCH TP SCH (10:39)
[2017-08-20] MEDS: FLUoxetine HCL 20 MG CAPSULE (FP) PO SCH (10:40)
[2017-08-20] MEDS: PATIENT'S OWN MEDICATION (NON-FORMULARY) (Sofosbuvir/Velpatas/Voxilaprev [Vosevi 400-100-1 PO SCH (10:40)
[2017-08-20] MEDS: amLODIPine BESYLATE 5 MG TABLET (FP) PO SCH (10:40)
[2017-08-20] MEDS: LISINOPRIL 10 MG TABLET (FP) PO SCH (10:40)
[2017-08-20] MEDS: PRENATAL VITAMINS W/ FOLIC ACID TABLET (FP) PO SCH (10:40)
[2017-08-20] MEDS: BUDESONIDE/FORMETEROL FUMARATE 80/4.5 mcg INHALER IH SCH ×2 (10:41→21:52)
[2017-08-20] MEDS: TIOTROPIUM BROMIDE 18 MCG/INH (DEVICE W/ 5 CAPSULES) IH SCH (10:41)
[2017-08-20] MEDS: NICOTINE 14 MG/24 HOURS TOPICAL PATCH TD SCH (10:42)
[2017-08-20] MEDS: NYSTATIN 100,000 UNIT/GM TOPICAL CREAM 15 GM TUBE TP SCH ×2 (10:42→21:52)
[2017-08-20] MEDS ORDERED: PT OWN MED DRAWER 7, Y5N ONE (19:52)
[2017-08-20] MEDS: ATORVASTATIN CA 40 MG TABLET (FP) PO SCH (21:53)
[2017-08-20] MEDS: traZODone HCL 100 MG TABLET (FP) PO SCH (21:53)
[2017-08-20] MEDS: THIAMINE HCL 100 MG TABLET (FP) PO SCH (21:53)
[2017-08-20] MEDS: LIDOCAINE PATCH REMOVAL MC SCH (22:11)
[2017-08-21] MEDS: GABAPENTIN 300 MG CAPSULE (FP) PO SCH ×3 (06:43→21:44)
[2017-08-21] MEDS: LEVOTHYROXINE NA 25 MCG TABLET (FP) PO SCH (06:43)
[2017-08-21] MEDS: METHADONE HCL 40 MG DISPERSABLE TABLET PO SCH (06:43)
[2017-08-21] MEDS: NICOTINE 14 MG/24 HOURS TOPICAL PATCH TD SCH (10:23)
[2017-08-21] MEDS: LIDOCAINE 5% TOPICAL PATCH TP SCH (10:24)
[2017-08-21] MEDS: PATIENT'S OWN MEDICATION (NON-FORMULARY) (Sofosbuvir/Velpatas/Voxilaprev [Vosevi 400-100-1 PO SCH (10:24)
[2017-08-21] MEDS: FLUoxetine HCL 20 MG CAPSULE (FP) PO SCH (10:25)
[2017-08-21] MEDS: amLODIPine BESYLATE 5 MG TABLET (FP) PO SCH (10:25)
[2017-08-21] MEDS: PRENATAL VITAMINS W/ FOLIC ACID TABLET (FP) PO SCH (10:25)
[2017-08-21] MEDS: LISINOPRIL 10 MG TABLET (FP) PO SCH (10:25)
[2017-08-21] MEDS: TIOTROPIUM BROMIDE 18 MCG/INH (DEVICE W/ 5 CAPSULES) IH SCH (10:26)
[2017-08-21] MEDS: BUDESONIDE/FORMETEROL FUMARATE 80/4.5 mcg INHALER IH SCH ×2 (10:26→21:45)
[2017-08-21] MEDS: NYSTATIN 100,000 UNIT/GM TOPICAL CREAM 15 GM TUBE TP SCH ×2 (10:27→21:45)
[2017-08-21] MEDS: IBUPROFEN 600 MG TABLET (FP) PO PRN (10:29)
--- NOTE | 2017-08-21 14:11 | PN ---
BHS Progress Note Note: frequency on urination,ua ordered ro uti
[2017-08-21 20:55] LABS: URINE APPEARANCE SLCLOUDY; URINE BILIRUBIN NEGATIVE (NEGATIVE); URINE BLOOD NEGATIVE (NEGATIVE); URINE COLOR LTYELLOW; URINE GLUCOSE (UA) NEGATIVE (NEGATIVE); URINE KETONE NEGATIVE (NEGATIVE); URINE NITRITE NEGATIVE (NEGATIVE); URINE PROTEIN NEGATIVE (NEGATIVE); URINE UROBILINOGEN NEGATIVE mg/dL (0.2-1.0)
[2017-08-21] MEDS: ATORVASTATIN CA 40 MG TABLET (FP) PO SCH (21:44)
[2017-08-21] MEDS: traZODone HCL 100 MG TABLET (FP) PO SCH (21:44)
[2017-08-21] MEDS: THIAMINE HCL 100 MG TABLET (FP) PO SCH (21:44)
[2017-08-21] MEDS: LIDOCAINE PATCH REMOVAL MC SCH (21:45)
[2017-08-21 23:06] LABS: URINE LEUK ESTERASE 2+ (NEGATIVE)
[2017-08-22] MEDS: METHADONE HCL 40 MG DISPERSABLE TABLET PO SCH (06:37)
[2017-08-22] MEDS: GABAPENTIN 300 MG CAPSULE (FP) PO SCH ×3 (06:38→21:26)
[2017-08-22] MEDS: LEVOTHYROXINE NA 25 MCG TABLET (FP) PO SCH (06:38)
[2017-08-22] MEDS: TIOTROPIUM BROMIDE 18 MCG/INH (DEVICE W/ 5 CAPSULES) IH SCH (10:06)
[2017-08-22] MEDS: NICOTINE 14 MG/24 HOURS TOPICAL PATCH TD SCH (10:06)
[2017-08-22] MEDS: LIDOCAINE 5% TOPICAL PATCH TP SCH (10:06)
[2017-08-22] MEDS: FLUoxetine HCL 20 MG CAPSULE (FP) PO SCH (10:07)
[2017-08-22] MEDS: LISINOPRIL 10 MG TABLET (FP) PO SCH (10:07)
[2017-08-22] MEDS: PRENATAL VITAMINS W/ FOLIC ACID TABLET (FP) PO SCH (10:07)
[2017-08-22] MEDS: amLODIPine BESYLATE 5 MG TABLET (FP) PO SCH (10:07)
[2017-08-22] MEDS: PATIENT'S OWN MEDICATION (NON-FORMULARY) (Sofosbuvir/Velpatas/Voxilaprev [Vosevi 400-100-1 PO SCH (10:08)
[2017-08-22] MEDS: BUDESONIDE/FORMETEROL FUMARATE 80/4.5 mcg INHALER IH SCH ×2 (10:08→21:28)
[2017-08-22] MEDS: IBUPROFEN 600 MG TABLET (FP) PO PRN ×2 (10:09→18:55)
[2017-08-22] MEDS: NYSTATIN 100,000 UNIT/GM TOPICAL CREAM 15 GM TUBE TP SCH ×2 (10:10→21:27)
[2017-08-22] MEDS ORDERED: ATORVASTATIN CA 20 MG TABLET (FP) ONE (19:55)
[2017-08-22] MEDS: THIAMINE HCL 100 MG TABLET (FP) PO SCH (21:26)
[2017-08-22] MEDS: traZODone HCL 100 MG TABLET (FP) PO SCH (21:26)
[2017-08-22] MEDS: ATORVASTATIN CA 40 MG TABLET (FP) PO SCH (21:27)
[2017-08-22] MEDS: LIDOCAINE PATCH REMOVAL MC SCH (21:27)
[2017-08-23] MEDS: GABAPENTIN 300 MG CAPSULE (FP) PO SCH ×3 (06:36→21:32)
[2017-08-23] MEDS: LEVOTHYROXINE NA 25 MCG TABLET (FP) PO SCH (06:36)
[2017-08-23] MEDS: METHADONE HCL 40 MG DISPERSABLE TABLET PO SCH (06:36)
[2017-08-23] MEDS: TIOTROPIUM BROMIDE 18 MCG/INH (DEVICE W/ 5 CAPSULES) IH SCH (10:07)
[2017-08-23] MEDS: amLODIPine BESYLATE 5 MG TABLET (FP) PO SCH (10:08)
[2017-08-23] MEDS: NICOTINE 14 MG/24 HOURS TOPICAL PATCH TD SCH (10:08)
[2017-08-23] MEDS: PRENATAL VITAMINS W/ FOLIC ACID TABLET (FP) PO SCH (10:08)
[2017-08-23] MEDS: FLUoxetine HCL 20 MG CAPSULE (FP) PO SCH (10:08)
[2017-08-23] MEDS: LISINOPRIL 10 MG TABLET (FP) PO SCH (10:08)
[2017-08-23] MEDS: PATIENT'S OWN MEDICATION (NON-FORMULARY) (Sofosbuvir/Velpatas/Voxilaprev [Vosevi 400-100-1 PO SCH (10:09)
[2017-08-23] MEDS: BUDESONIDE/FORMETEROL FUMARATE 80/4.5 mcg INHALER IH SCH ×2 (10:09→21:34)
[2017-08-23] MEDS: IBUPROFEN 600 MG TABLET (FP) PO PRN (10:10)
[2017-08-23] MEDS: LIDOCAINE 5% TOPICAL PATCH TP SCH (10:10)
[2017-08-23] MEDS: NYSTATIN 100,000 UNIT/GM TOPICAL CREAM 15 GM TUBE TP SCH ×2 (10:12→21:33)
[2017-08-23] MEDS: THIAMINE HCL 100 MG TABLET (FP) PO SCH (21:32)
[2017-08-23] MEDS: ATORVASTATIN CA 40 MG TABLET (FP) PO SCH (21:32)
[2017-08-23] MEDS: LIDOCAINE PATCH REMOVAL MC SCH (21:33)
[2017-08-23] MEDS: traZODone HCL 50 MG TABLET (FP) PO SCH (21:34)
[2017-08-24] MEDS: METHADONE HCL 40 MG DISPERSABLE TABLET PO SCH (06:12)
[2017-08-24] MEDS: GABAPENTIN 300 MG CAPSULE (FP) PO SCH ×3 (06:13→21:43)
[2017-08-24] MEDS: LEVOTHYROXINE NA 25 MCG TABLET (FP) PO SCH (06:13)
[2017-08-24] MEDS: LIDOCAINE 5% TOPICAL PATCH TP SCH (10:27)
[2017-08-24] MEDS: NYSTATIN 100,000 UNIT/GM TOPICAL CREAM 15 GM TUBE TP SCH ×2 (10:28→21:44)
[2017-08-24] MEDS: TIOTROPIUM BROMIDE 18 MCG/INH (DEVICE W/ 5 CAPSULES) IH SCH (10:28)
[2017-08-24] MEDS: BUDESONIDE/FORMETEROL FUMARATE 80/4.5 mcg INHALER IH SCH ×2 (10:28→21:44)
[2017-08-24] MEDS: FLUoxetine HCL 20 MG CAPSULE (FP) PO SCH (10:28)
[2017-08-24] MEDS: PATIENT'S OWN MEDICATION (NON-FORMULARY) (Sofosbuvir/Velpatas/Voxilaprev [Vosevi 400-100-1 PO SCH (10:28)
[2017-08-24] MEDS: PRENATAL VITAMINS W/ FOLIC ACID TABLET (FP) PO SCH (10:29)
[2017-08-24] MEDS: NICOTINE 14 MG/24 HOURS TOPICAL PATCH TD SCH (10:29)
[2017-08-24] MEDS: amLODIPine BESYLATE 5 MG TABLET (FP) PO SCH (10:29)
[2017-08-24] MEDS: LISINOPRIL 10 MG TABLET (FP) PO SCH (10:29)
[2017-08-24] MEDS: IBUPROFEN 600 MG TABLET (FP) PO PRN ×2 (10:30→21:45)
[2017-08-24] MEDS: traZODone HCL 50 MG TABLET (FP) PO SCH (21:43)
[2017-08-24] MEDS: ATORVASTATIN CA 40 MG TABLET (FP) PO SCH (21:43)
[2017-08-24] MEDS: THIAMINE HCL 100 MG TABLET (FP) PO SCH (21:44)
[2017-08-24] MEDS: LIDOCAINE PATCH REMOVAL MC SCH (21:44)
[2017-08-25] MEDS: GABAPENTIN 300 MG CAPSULE (FP) PO SCH ×3 (06:23→21:43)
[2017-08-25] MEDS: METHADONE HCL 40 MG DISPERSABLE TABLET PO SCH (06:23)
[2017-08-25] MEDS: LEVOTHYROXINE NA 25 MCG TABLET (FP) PO SCH (06:23)
[2017-08-25] MEDS ORDERED: PT OWN MED DRAWER 7, Y5N ONE ×2 (08:55→12:31)
[2017-08-25] MEDS: BUDESONIDE/FORMETEROL FUMARATE 80/4.5 mcg INHALER IH SCH ×2 (10:40→21:44)
[2017-08-25] MEDS: TIOTROPIUM BROMIDE 18 MCG/INH (DEVICE W/ 5 CAPSULES) IH SCH (10:40)
[2017-08-25] MEDS: amLODIPine BESYLATE 5 MG TABLET (FP) PO SCH (10:41)
[2017-08-25] MEDS: NICOTINE 14 MG/24 HOURS TOPICAL PATCH TD SCH (10:41)
[2017-08-25] MEDS: NYSTATIN 100,000 UNIT/GM TOPICAL CREAM 15 GM TUBE TP SCH ×2 (10:41→21:44)
[2017-08-25] MEDS: PATIENT'S OWN MEDICATION (NON-FORMULARY) (Sofosbuvir/Velpatas/Voxilaprev [Vosevi 400-100-1 PO SCH (10:41)
[2017-08-25] MEDS: PRENATAL VITAMINS W/ FOLIC ACID TABLET (FP) PO SCH (10:41)
[2017-08-25] MEDS: LISINOPRIL 10 MG TABLET (FP) PO SCH (10:42)
[2017-08-25] MEDS: FLUoxetine HCL 20 MG CAPSULE (FP) PO SCH (10:42)
[2017-08-25] MEDS: LIDOCAINE 5% TOPICAL PATCH TP SCH ×2 (10:43→13:09)
[2017-08-25] MEDS: IBUPROFEN 600 MG TABLET (FP) PO PRN (10:43)
[2017-08-25] MEDS ORDERED: COLLOIDAL OATMEAL 1 BAR EACH TP PRN (11:46)
[2017-08-25] MEDS ORDERED: ALBUTEROL SO4 2.5/IPRATROPIUM 0.5 INH SOL 3 ML VIAL.NEB. NEB PRN (11:59)
[2017-08-25] MEDS ORDERED: ALBUTEROL SO4 2.5/IPRATROPIUM 0.5 INH SOL 3 ML VIAL.NEB. NEB ONE (12:45)
[2017-08-25] MEDS: LORATADINE 10 MG TABLET PO SCH (13:09)
[2017-08-25] MEDS: THIAMINE HCL 100 MG TABLET (FP) PO SCH (21:43)
[2017-08-25] MEDS: traZODone HCL 50 MG TABLET (FP) PO SCH (21:43)
[2017-08-25] MEDS: ATORVASTATIN CA 40 MG TABLET (FP) PO SCH (21:43)
[2017-08-25] MEDS: LIDOCAINE PATCH REMOVAL MC SCH ×2 (21:44)
[2017-08-26] MEDS: GABAPENTIN 300 MG CAPSULE (FP) PO SCH ×3 (06:31→21:28)
[2017-08-26] MEDS: LEVOTHYROXINE NA 25 MCG TABLET (FP) PO SCH (06:31)
[2017-08-26] MEDS: METHADONE HCL 40 MG DISPERSABLE TABLET PO SCH (06:31)
[2017-08-26] MEDS: LORATADINE 10 MG TABLET PO SCH (10:21)
[2017-08-26] MEDS: LIDOCAINE 5% TOPICAL PATCH TP SCH ×2 (10:21)
[2017-08-26] MEDS: PRENATAL VITAMINS W/ FOLIC ACID TABLET (FP) PO SCH (10:22)
[2017-08-26] MEDS: LISINOPRIL 10 MG TABLET (FP) PO SCH (10:22)
[2017-08-26] MEDS: FLUoxetine HCL 20 MG CAPSULE (FP) PO SCH (10:22)
[2017-08-26] MEDS: amLODIPine BESYLATE 5 MG TABLET (FP) PO SCH (10:22)
[2017-08-26] MEDS: NICOTINE 14 MG/24 HOURS TOPICAL PATCH TD SCH (10:22)
[2017-08-26] MEDS: NYSTATIN 100,000 UNIT/GM TOPICAL CREAM 15 GM TUBE TP SCH ×2 (10:22→21:29)
[2017-08-26] MEDS: PATIENT'S OWN MEDICATION (NON-FORMULARY) (Sofosbuvir/Velpatas/Voxilaprev [Vosevi 400-100-1 PO SCH (10:23)
[2017-08-26] MEDS: BUDESONIDE/FORMETEROL FUMARATE 80/4.5 mcg INHALER IH SCH ×2 (10:23→21:30)
[2017-08-26] MEDS: TIOTROPIUM BROMIDE 18 MCG/INH (DEVICE W/ 5 CAPSULES) IH SCH (10:23)
[2017-08-26] MEDS: ATORVASTATIN CA 40 MG TABLET (FP) PO SCH (21:28)
[2017-08-26] MEDS: THIAMINE HCL 100 MG TABLET (FP) PO SCH (21:28)
[2017-08-26] MEDS: traZODone HCL 50 MG TABLET (FP) PO SCH (21:28)
[2017-08-26] MEDS: LIDOCAINE PATCH REMOVAL MC SCH ×2 (21:29)
[2017-08-27] MEDS: LEVOTHYROXINE NA 25 MCG TABLET (FP) PO SCH (06:26)
[2017-08-27] MEDS: METHADONE HCL 40 MG DISPERSABLE TABLET PO SCH (06:26)
[2017-08-27] MEDS: GABAPENTIN 300 MG CAPSULE (FP) PO SCH ×3 (06:26→21:34)
[2017-08-27] MEDS: IBUPROFEN 600 MG TABLET (FP) PO PRN (06:28)
[2017-08-27] MEDS: PATIENT'S OWN MEDICATION (NON-FORMULARY) (Sofosbuvir/Velpatas/Voxilaprev [Vosevi 400-100-1 PO SCH (10:34)
[2017-08-27] MEDS: BUDESONIDE/FORMETEROL FUMARATE 80/4.5 mcg INHALER IH SCH ×2 (10:35→21:35)
[2017-08-27] MEDS: LISINOPRIL 10 MG TABLET (FP) PO SCH (10:35)
[2017-08-27] MEDS: TIOTROPIUM BROMIDE 18 MCG/INH (DEVICE W/ 5 CAPSULES) IH SCH (10:35)
[2017-08-27] MEDS: FLUoxetine HCL 20 MG CAPSULE (FP) PO SCH (10:35)
[2017-08-27] MEDS: LORATADINE 10 MG TABLET PO SCH (10:35)
[2017-08-27] MEDS: NICOTINE 14 MG/24 HOURS TOPICAL PATCH TD SCH (10:35)
[2017-08-27] MEDS: LIDOCAINE 5% TOPICAL PATCH TP SCH ×2 (10:36)
[2017-08-27] MEDS: PRENATAL VITAMINS W/ FOLIC ACID TABLET (FP) PO SCH (10:38)
[2017-08-27] MEDS: amLODIPine BESYLATE 5 MG TABLET (FP) PO SCH (10:38)
[2017-08-27] MEDS: NYSTATIN 100,000 UNIT/GM TOPICAL CREAM 15 GM TUBE TP SCH ×2 (10:41→21:35)
[2017-08-27] MEDS ORDERED: PT OWN MED DRAWER 7, Y5N ONE (10:41)
[2017-08-27] MEDS: THIAMINE HCL 100 MG TABLET (FP) PO SCH (21:33)
[2017-08-27] MEDS: LIDOCAINE PATCH REMOVAL MC SCH ×2 (21:34→23:32)
[2017-08-27] MEDS: traZODone HCL 50 MG TABLET (FP) PO SCH (21:34)
[2017-08-27] MEDS: ATORVASTATIN CA 40 MG TABLET (FP) PO SCH (21:34)
[2017-08-28] MEDS: LEVOTHYROXINE NA 25 MCG TABLET (FP) PO SCH (06:40)
[2017-08-28] MEDS: GABAPENTIN 300 MG CAPSULE (FP) PO SCH ×3 (06:40→21:28)
[2017-08-28] MEDS: METHADONE HCL 40 MG DISPERSABLE TABLET PO SCH (06:40)
[2017-08-28] MEDS: IBUPROFEN 600 MG TABLET (FP) PO PRN ×2 (06:42→21:31)
[2017-08-28] MEDS: FLUoxetine HCL 20 MG CAPSULE (FP) PO SCH (09:54)
[2017-08-28] MEDS: PRENATAL VITAMINS W/ FOLIC ACID TABLET (FP) PO SCH (09:54)
[2017-08-28] MEDS: LORATADINE 10 MG TABLET PO SCH (09:54)
[2017-08-28] MEDS: BUDESONIDE/FORMETEROL FUMARATE 80/4.5 mcg INHALER IH SCH ×2 (09:55→21:29)
[2017-08-28] MEDS: PATIENT'S OWN MEDICATION (NON-FORMULARY) (Sofosbuvir/Velpatas/Voxilaprev [Vosevi 400-100-1 PO SCH (09:55)
[2017-08-28] MEDS: TIOTROPIUM BROMIDE 18 MCG/INH (DEVICE W/ 5 CAPSULES) IH SCH (09:55)
[2017-08-28] MEDS: NICOTINE 14 MG/24 HOURS TOPICAL PATCH TD SCH (09:56)
[2017-08-28] MEDS: NYSTATIN 100,000 UNIT/GM TOPICAL CREAM 15 GM TUBE TP SCH ×2 (09:57→21:59)
[2017-08-28] MEDS: LIDOCAINE 5% TOPICAL PATCH TP SCH ×2 (09:57)
[2017-08-28] MEDS: amLODIPine BESYLATE 5 MG TABLET (FP) PO SCH (10:45)
[2017-08-28] MEDS: LISINOPRIL 10 MG TABLET (FP) PO SCH (10:45)
[2017-08-28] MEDS: THIAMINE HCL 100 MG TABLET (FP) PO SCH (21:28)
[2017-08-28] MEDS: traZODone HCL 50 MG TABLET (FP) PO SCH (21:28)
[2017-08-28] MEDS: ATORVASTATIN CA 40 MG TABLET (FP) PO SCH (21:28)
[2017-08-28] MEDS: LIDOCAINE PATCH REMOVAL MC SCH ×2 (21:29)
[2017-08-29] MEDS: METHADONE HCL 40 MG DISPERSABLE TABLET PO SCH (06:33)
[2017-08-29] MEDS: LEVOTHYROXINE NA 25 MCG TABLET (FP) PO SCH (06:34)
[2017-08-29] MEDS: GABAPENTIN 300 MG CAPSULE (FP) PO SCH ×3 (06:36→21:29)
[2017-08-29] MEDS: LISINOPRIL 10 MG TABLET (FP) PO SCH (10:06)
[2017-08-29] MEDS: amLODIPine BESYLATE 5 MG TABLET (FP) PO SCH (10:07)
[2017-08-29] MEDS: TIOTROPIUM BROMIDE 18 MCG/INH (DEVICE W/ 5 CAPSULES) IH SCH (10:07)
[2017-08-29] MEDS: LORATADINE 10 MG TABLET PO SCH (10:08)
[2017-08-29] MEDS: PATIENT'S OWN MEDICATION (NON-FORMULARY) (Sofosbuvir/Velpatas/Voxilaprev [Vosevi 400-100-1 PO SCH (10:08)
[2017-08-29] MEDS: PRENATAL VITAMINS W/ FOLIC ACID TABLET (FP) PO SCH (10:08)
[2017-08-29] MEDS: FLUoxetine HCL 20 MG CAPSULE (FP) PO SCH (10:09)
[2017-08-29] MEDS: BUDESONIDE/FORMETEROL FUMARATE 80/4.5 mcg INHALER IH SCH ×2 (10:09→21:28)
[2017-08-29] MEDS: LIDOCAINE 5% TOPICAL PATCH TP SCH ×2 (10:10)
[2017-08-29] MEDS: NICOTINE 14 MG/24 HOURS TOPICAL PATCH TD SCH (10:10)
[2017-08-29] MEDS: NYSTATIN 100,000 UNIT/GM TOPICAL CREAM 15 GM TUBE TP SCH ×2 (10:12→21:28)
[2017-08-29] MEDS ORDERED: PT OWN MED DRAWER 7, Y5N ONE (18:34)
[2017-08-29] MEDS: ATORVASTATIN CA 40 MG TABLET (FP) PO SCH (21:28)
[2017-08-29] MEDS: traZODone HCL 50 MG TABLET (FP) PO SCH (21:28)
[2017-08-29] MEDS: THIAMINE HCL 100 MG TABLET (FP) PO SCH (21:29)
[2017-08-29] MEDS: IBUPROFEN 600 MG TABLET (FP) PO PRN (21:29)
[2017-08-29] MEDS: LIDOCAINE PATCH REMOVAL MC SCH ×2 (22:05)
[2017-08-30] MEDS: METHADONE HCL 40 MG DISPERSABLE TABLET PO SCH (06:30)
[2017-08-30] MEDS: GABAPENTIN 300 MG CAPSULE (FP) PO SCH ×3 (06:30→21:49)
[2017-08-30] MEDS: LEVOTHYROXINE NA 25 MCG TABLET (FP) PO SCH (06:30)
[2017-08-30] MEDS: PATIENT'S OWN MEDICATION (NON-FORMULARY) (Sofosbuvir/Velpatas/Voxilaprev [Vosevi 400-100-1 PO SCH (10:30)
[2017-08-30] MEDS: BUDESONIDE/FORMETEROL FUMARATE 80/4.5 mcg INHALER IH SCH ×2 (10:30→21:52)
[2017-08-30] MEDS: LIDOCAINE 5% TOPICAL PATCH TP SCH ×2 (10:30)
[2017-08-30] MEDS: NICOTINE 14 MG/24 HOURS TOPICAL PATCH TD SCH (10:31)
[2017-08-30] MEDS: LORATADINE 10 MG TABLET PO SCH (10:31)
[2017-08-30] MEDS: PRENATAL VITAMINS W/ FOLIC ACID TABLET (FP) PO SCH (10:31)
[2017-08-30] MEDS: amLODIPine BESYLATE 5 MG TABLET (FP) PO SCH (10:31)
[2017-08-30] MEDS: TIOTROPIUM BROMIDE 18 MCG/INH (DEVICE W/ 5 CAPSULES) IH SCH (10:31)
[2017-08-30] MEDS: NYSTATIN 100,000 UNIT/GM TOPICAL CREAM 15 GM TUBE TP SCH ×2 (10:31→21:50)
[2017-08-30] MEDS: FLUoxetine HCL 20 MG CAPSULE (FP) PO SCH (10:31)
[2017-08-30] MEDS: LISINOPRIL 10 MG TABLET (FP) PO SCH (10:31)
[2017-08-30] MEDS: IBUPROFEN 600 MG TABLET (FP) PO PRN ×2 (10:33→21:51)
[2017-08-30] MEDS: ATORVASTATIN CA 40 MG TABLET (FP) PO SCH (21:49)
[2017-08-30] MEDS: traZODone HCL 50 MG TABLET (FP) PO SCH (21:49)
[2017-08-30] MEDS: THIAMINE HCL 100 MG TABLET (FP) PO SCH (21:49)
[2017-08-30] MEDS: LIDOCAINE PATCH REMOVAL MC SCH ×2 (21:50)
[2017-08-31] MEDS: GABAPENTIN 300 MG CAPSULE (FP) PO SCH ×3 (06:27→21:30)
[2017-08-31] MEDS: METHADONE HCL 40 MG DISPERSABLE TABLET PO SCH (06:27)
[2017-08-31] MEDS: LEVOTHYROXINE NA 25 MCG TABLET (FP) PO SCH (06:28)
[2017-08-31] MEDS: IBUPROFEN 600 MG TABLET (FP) PO PRN ×2 (08:55→21:32)
[2017-08-31] MEDS: LIDOCAINE 5% TOPICAL PATCH TP SCH ×2 (10:18)
[2017-08-31] MEDS: TIOTROPIUM BROMIDE 18 MCG/INH (DEVICE W/ 5 CAPSULES) IH SCH (10:19)
[2017-08-31] MEDS: BUDESONIDE/FORMETEROL FUMARATE 80/4.5 mcg INHALER IH SCH ×2 (10:19→21:31)
[2017-08-31] MEDS: PATIENT'S OWN MEDICATION (NON-FORMULARY) (Sofosbuvir/Velpatas/Voxilaprev [Vosevi 400-100-1 PO SCH (10:19)
[2017-08-31] MEDS: LORATADINE 10 MG TABLET PO SCH (10:20)
[2017-08-31] MEDS: FLUoxetine HCL 20 MG CAPSULE (FP) PO SCH (10:20)
[2017-08-31] MEDS: amLODIPine BESYLATE 5 MG TABLET (FP) PO SCH (10:21)
[2017-08-31] MEDS: NICOTINE 14 MG/24 HOURS TOPICAL PATCH TD SCH (10:21)
[2017-08-31] MEDS: PRENATAL VITAMINS W/ FOLIC ACID TABLET (FP) PO SCH (10:21)
[2017-08-31] MEDS: NYSTATIN 100,000 UNIT/GM TOPICAL CREAM 15 GM TUBE TP SCH ×2 (10:21→21:31)
[2017-08-31] MEDS: LISINOPRIL 10 MG TABLET (FP) PO SCH (10:23)
--- NOTE | 2017-08-31 12:55 | PN ---
BHS Progress Note Note: repeatedly low bp will hold medicaton today and d/c norvasc, cont to monitor bp
[2017-08-31] MEDS: ATORVASTATIN CA 40 MG TABLET (FP) PO SCH (21:29)
[2017-08-31] MEDS: THIAMINE HCL 100 MG TABLET (FP) PO SCH (21:29)
[2017-08-31] MEDS: traZODone HCL 50 MG TABLET (FP) PO SCH (21:30)
[2017-08-31] MEDS: LIDOCAINE PATCH REMOVAL MC SCH ×2 (21:31)
[2017-09-01] MEDS: METHADONE HCL 40 MG DISPERSABLE TABLET PO SCH (06:17)
[2017-09-01] MEDS: LEVOTHYROXINE NA 25 MCG TABLET (FP) PO SCH (06:18)
[2017-09-01] MEDS: GABAPENTIN 300 MG CAPSULE (FP) PO SCH ×3 (06:18→21:23)
[2017-09-01] MEDS: IBUPROFEN 600 MG TABLET (FP) PO PRN ×2 (06:19→12:59)
[2017-09-01] MEDS: TIOTROPIUM BROMIDE 18 MCG/INH (DEVICE W/ 5 CAPSULES) IH SCH (10:22)
[2017-09-01] MEDS: NICOTINE 14 MG/24 HOURS TOPICAL PATCH TD SCH (10:22)
[2017-09-01] MEDS: PATIENT'S OWN MEDICATION (NON-FORMULARY) (Sofosbuvir/Velpatas/Voxilaprev [Vosevi 400-100-1 PO SCH (10:23)
[2017-09-01] MEDS: PRENATAL VITAMINS W/ FOLIC ACID TABLET (FP) PO SCH (10:23)
[2017-09-01] MEDS: BUDESONIDE/FORMETEROL FUMARATE 80/4.5 mcg INHALER IH SCH ×2 (10:23→21:24)
[2017-09-01] MEDS: LORATADINE 10 MG TABLET PO SCH (10:24)
[2017-09-01] MEDS: LISINOPRIL 10 MG TABLET (FP) PO SCH ×2 (10:24→12:59)
[2017-09-01] MEDS: FLUoxetine HCL 20 MG CAPSULE (FP) PO SCH (10:24)
[2017-09-01] MEDS: NYSTATIN 100,000 UNIT/GM TOPICAL CREAM 15 GM TUBE TP SCH ×2 (10:24→21:24)
[2017-09-01] MEDS: LIDOCAINE 5% TOPICAL PATCH TP SCH ×2 (10:25)
--- NOTE | 2017-09-01 12:12 | PN ---
BHS Progress Note Note: bp elevated off norvasc, will restart hold if bp falls
[2017-09-01] MEDS: traZODone HCL 50 MG TABLET (FP) PO SCH (21:23)
[2017-09-01] MEDS: ATORVASTATIN CA 40 MG TABLET (FP) PO SCH (21:23)
[2017-09-01] MEDS: LIDOCAINE PATCH REMOVAL MC SCH ×2 (21:24)
[2017-09-01] MEDS: THIAMINE HCL 100 MG TABLET (FP) PO SCH (21:24)
[2017-09-01] MEDS ORDERED: PT OWN MED DRAWER 7, Y5N ONE (22:40)
[2017-09-02] MEDS: GABAPENTIN 300 MG CAPSULE (FP) PO SCH ×3 (06:30→21:39)
[2017-09-02] MEDS: LEVOTHYROXINE NA 25 MCG TABLET (FP) PO SCH (06:30)
[2017-09-02] MEDS: METHADONE HCL 40 MG DISPERSABLE TABLET PO SCH (06:31)
[2017-09-02] MEDS: LIDOCAINE 5% TOPICAL PATCH TP SCH ×2 (09:27→09:28)
[2017-09-02] MEDS: BUDESONIDE/FORMETEROL FUMARATE 80/4.5 mcg INHALER IH SCH ×2 (09:27→21:41)
[2017-09-02] MEDS: PATIENT'S OWN MEDICATION (NON-FORMULARY) (Sofosbuvir/Velpatas/Voxilaprev [Vosevi 400-100-1 PO SCH (09:27)
[2017-09-02] MEDS: TIOTROPIUM BROMIDE 18 MCG/INH (DEVICE W/ 5 CAPSULES) IH SCH (09:28)
[2017-09-02] MEDS: FLUoxetine HCL 20 MG CAPSULE (FP) PO SCH (09:28)
[2017-09-02] MEDS: PRENATAL VITAMINS W/ FOLIC ACID TABLET (FP) PO SCH (09:28)
[2017-09-02] MEDS: NYSTATIN 100,000 UNIT/GM TOPICAL CREAM 15 GM TUBE TP SCH ×2 (09:28→21:40)
[2017-09-02] MEDS: LISINOPRIL 10 MG TABLET (FP) PO SCH (09:28)
[2017-09-02] MEDS: LORATADINE 10 MG TABLET PO SCH (09:28)
[2017-09-02] MEDS: amLODIPine BESYLATE 5 MG TABLET (FP) PO SCH (09:28)
[2017-09-02] MEDS: NICOTINE 14 MG/24 HOURS TOPICAL PATCH TD SCH (09:29)
[2017-09-02] MEDS: MAG HYDROX/AL HYDROX/SIMETH 30 ML UNIT-DOSE CUP PO PRN (09:30)
[2017-09-02] MEDS ORDERED: PT OWN MED DRAWER 7, Y5N ONE (09:34)
[2017-09-02] MEDS ORDERED: amLODIPine BESYLATE 5 MG TABLET (FP) PO SCH (10:00)
[2017-09-02] MEDS: IBUPROFEN 600 MG TABLET (FP) PO PRN (11:10)
[2017-09-02] MEDS: THIAMINE HCL 100 MG TABLET (FP) PO SCH (21:39)
[2017-09-02] MEDS: ATORVASTATIN CA 40 MG TABLET (FP) PO SCH (21:39)
[2017-09-02] MEDS: traZODone HCL 50 MG TABLET (FP) PO SCH (21:39)
[2017-09-02] MEDS: LIDOCAINE PATCH REMOVAL MC SCH ×2 (21:40)
[2017-09-03] MEDS: METHADONE HCL 40 MG DISPERSABLE TABLET PO SCH (06:23)
[2017-09-03] MEDS: GABAPENTIN 300 MG CAPSULE (FP) PO SCH ×3 (06:23→21:28)
[2017-09-03] MEDS: LEVOTHYROXINE NA 25 MCG TABLET (FP) PO SCH (06:23)
[2017-09-03] MEDS: IBUPROFEN 600 MG TABLET (FP) PO PRN ×2 (06:25→12:41)
[2017-09-03] MEDS: TIOTROPIUM BROMIDE 18 MCG/INH (DEVICE W/ 5 CAPSULES) IH SCH (10:28)
[2017-09-03] MEDS: BUDESONIDE/FORMETEROL FUMARATE 80/4.5 mcg INHALER IH SCH ×2 (10:29→21:29)
[2017-09-03] MEDS: PRENATAL VITAMINS W/ FOLIC ACID TABLET (FP) PO SCH (10:32)
[2017-09-03] MEDS: amLODIPine BESYLATE 5 MG TABLET (FP) PO SCH (10:32)
[2017-09-03] MEDS: LORATADINE 10 MG TABLET PO SCH (10:32)
[2017-09-03] MEDS: FLUoxetine HCL 20 MG CAPSULE (FP) PO SCH (10:32)
[2017-09-03] MEDS: NYSTATIN 100,000 UNIT/GM TOPICAL CREAM 15 GM TUBE TP SCH ×2 (10:33→21:29)
[2017-09-03] MEDS: PATIENT'S OWN MEDICATION (NON-FORMULARY) (Sofosbuvir/Velpatas/Voxilaprev [Vosevi 400-100-1 PO SCH (10:33)
[2017-09-03] MEDS: LISINOPRIL 10 MG TABLET (FP) PO SCH (10:33)
[2017-09-03] MEDS: NICOTINE 14 MG/24 HOURS TOPICAL PATCH TD SCH (10:33)
[2017-09-03] MEDS: LIDOCAINE 5% TOPICAL PATCH TP SCH ×2 (10:34)
[2017-09-03] MEDS: THIAMINE HCL 100 MG TABLET (FP) PO SCH (21:28)
[2017-09-03] MEDS: traZODone HCL 50 MG TABLET (FP) PO SCH (21:29)
[2017-09-03] MEDS: ATORVASTATIN CA 40 MG TABLET (FP) PO SCH (21:29)
[2017-09-03] MEDS: LIDOCAINE PATCH REMOVAL MC SCH ×2 (21:31)
[2017-09-04] MEDS: IBUPROFEN 600 MG TABLET (FP) PO PRN (04:53)
[2017-09-04] MEDS: METHADONE HCL 40 MG DISPERSABLE TABLET PO SCH (06:32)
[2017-09-04] MEDS: GABAPENTIN 300 MG CAPSULE (FP) PO SCH ×3 (06:33→21:37)
[2017-09-04] MEDS: LEVOTHYROXINE NA 25 MCG TABLET (FP) PO SCH (06:33)
[2017-09-04] MEDS: TIOTROPIUM BROMIDE 18 MCG/INH (DEVICE W/ 5 CAPSULES) IH SCH (10:29)
[2017-09-04] MEDS ORDERED: PT OWN MED DRAWER 7, Y5N ONE (10:30)
[2017-09-04] MEDS: BUDESONIDE/FORMETEROL FUMARATE 80/4.5 mcg INHALER IH SCH ×2 (10:30→21:38)
[2017-09-04] MEDS: PATIENT'S OWN MEDICATION (NON-FORMULARY) (Sofosbuvir/Velpatas/Voxilaprev [Vosevi 400-100-1 PO SCH (10:31)
[2017-09-04] MEDS: FLUoxetine HCL 20 MG CAPSULE (FP) PO SCH (10:31)
[2017-09-04] MEDS: amLODIPine BESYLATE 5 MG TABLET (FP) PO SCH (10:31)
[2017-09-04] MEDS: PRENATAL VITAMINS W/ FOLIC ACID TABLET (FP) PO SCH (10:31)
[2017-09-04] MEDS: LISINOPRIL 10 MG TABLET (FP) PO SCH (10:31)
[2017-09-04] MEDS: LORATADINE 10 MG TABLET PO SCH (10:31)
[2017-09-04] MEDS: LIDOCAINE 5% TOPICAL PATCH TP SCH ×2 (10:32)
[2017-09-04] MEDS: NYSTATIN 100,000 UNIT/GM TOPICAL CREAM 15 GM TUBE TP SCH ×2 (10:33→21:38)
[2017-09-04] MEDS: NICOTINE 14 MG/24 HOURS TOPICAL PATCH TD SCH (10:33)
[2017-09-04] MEDS: MAG HYDROX/AL HYDROX/SIMETH 30 ML UNIT-DOSE CUP PO PRN (15:36)
[2017-09-04] MEDS: ATORVASTATIN CA 40 MG TABLET (FP) PO SCH (21:37)
[2017-09-04] MEDS: traZODone HCL 50 MG TABLET (FP) PO SCH (21:37)
[2017-09-04] MEDS: LIDOCAINE PATCH REMOVAL MC SCH ×2 (21:37)
[2017-09-04] MEDS: THIAMINE HCL 100 MG TABLET (FP) PO SCH (21:38)
[2017-09-05] MEDS: IBUPROFEN 600 MG TABLET (FP) PO PRN ×2 (05:27→19:02)
[2017-09-05] MEDS: METHADONE HCL 40 MG DISPERSABLE TABLET PO SCH (07:02)
[2017-09-05] MEDS: GABAPENTIN 300 MG CAPSULE (FP) PO SCH ×3 (07:02→21:39)
[2017-09-05] MEDS: LEVOTHYROXINE NA 25 MCG TABLET (FP) PO SCH (07:02)
[2017-09-05] MEDS: BUDESONIDE/FORMETEROL FUMARATE 80/4.5 mcg INHALER IH SCH ×2 (10:01→21:39)
[2017-09-05] MEDS: TIOTROPIUM BROMIDE 18 MCG/INH (DEVICE W/ 5 CAPSULES) IH SCH (10:01)
[2017-09-05] MEDS: LIDOCAINE 5% TOPICAL PATCH TP SCH ×2 (10:01)
[2017-09-05] MEDS: NYSTATIN 100,000 UNIT/GM TOPICAL CREAM 15 GM TUBE TP SCH ×2 (10:02→21:40)
[2017-09-05] MEDS: PATIENT'S OWN MEDICATION (NON-FORMULARY) (Sofosbuvir/Velpatas/Voxilaprev [Vosevi 400-100-1 PO SCH (10:02)
[2017-09-05] MEDS: LORATADINE 10 MG TABLET PO SCH (10:02)
[2017-09-05] MEDS: PRENATAL VITAMINS W/ FOLIC ACID TABLET (FP) PO SCH (10:02)
[2017-09-05] MEDS: amLODIPine BESYLATE 5 MG TABLET (FP) PO SCH (10:02)
[2017-09-05] MEDS: FLUoxetine HCL 20 MG CAPSULE (FP) PO SCH (10:02)
[2017-09-05] MEDS: NICOTINE 14 MG/24 HOURS TOPICAL PATCH TD SCH (10:02)
[2017-09-05] MEDS: LISINOPRIL 10 MG TABLET (FP) PO SCH (10:02)
[2017-09-05] MEDS: MAG HYDROX/AL HYDROX/SIMETH 30 ML UNIT-DOSE CUP PO PRN (12:06)
[2017-09-05] MEDS: traZODone HCL 50 MG TABLET (FP) PO SCH (21:38)
[2017-09-05] MEDS: THIAMINE HCL 100 MG TABLET (FP) PO SCH (21:38)
[2017-09-05] MEDS: ATORVASTATIN CA 40 MG TABLET (FP) PO SCH (21:39)
[2017-09-05] MEDS: LIDOCAINE PATCH REMOVAL MC SCH ×2 (21:40)
[2017-09-06] MEDS: IBUPROFEN 600 MG TABLET (FP) PO PRN ×2 (04:42→19:53)
[2017-09-06] MEDS: LEVOTHYROXINE NA 25 MCG TABLET (FP) PO SCH (06:27)
[2017-09-06] MEDS: METHADONE HCL 40 MG DISPERSABLE TABLET PO SCH (06:27)
[2017-09-06] MEDS: GABAPENTIN 300 MG CAPSULE (FP) PO SCH ×3 (06:27→21:30)
[2017-09-06] MEDS: LIDOCAINE 5% TOPICAL PATCH TP SCH ×2 (10:12→10:13)
[2017-09-06] MEDS: LORATADINE 10 MG TABLET PO SCH (10:12)
[2017-09-06] MEDS: amLODIPine BESYLATE 5 MG TABLET (FP) PO SCH (10:13)
[2017-09-06] MEDS: PRENATAL VITAMINS W/ FOLIC ACID TABLET (FP) PO SCH (10:13)
[2017-09-06] MEDS: LISINOPRIL 10 MG TABLET (FP) PO SCH (10:13)
[2017-09-06] MEDS: FLUoxetine HCL 20 MG CAPSULE (FP) PO SCH (10:14)
[2017-09-06] MEDS: PATIENT'S OWN MEDICATION (NON-FORMULARY) (Sofosbuvir/Velpatas/Voxilaprev [Vosevi 400-100-1 PO SCH (10:14)
[2017-09-06] MEDS: TIOTROPIUM BROMIDE 18 MCG/INH (DEVICE W/ 5 CAPSULES) IH SCH (10:14)
[2017-09-06] MEDS: NYSTATIN 100,000 UNIT/GM TOPICAL CREAM 15 GM TUBE TP SCH ×2 (10:15→21:30)
[2017-09-06] MEDS: NICOTINE 14 MG/24 HOURS TOPICAL PATCH TD SCH (10:15)
--- NOTE | 2017-09-06 10:15 | PN ---
Psychiatric Progress Note Vital Signs: Vital Signs Period Temp Pulse Resp BP Sys/Marinelli Pulse Ox Last 24 Hr 98.1 F 78-83 18-20 129-131/80-84 Date of Session: 09/06/17 Chief Complaint:: Discharge visit HPI: patient addressed Opioid and Anxiolytic dependence comorbid with MDD. ROS: COPD,Arthritis,Obesity,Hypothyroidism. Current Medications: Active Medications Generic Name Dose Route Start Last Admin Trade Name Freq PRN Reason Stop Dose Admin Acetaminophen 650 mg 08/06/17 19:54 08/08/17 10:46 Tylenol - PO 650 mg Q4H PRN Administration FEVER OR PAIN Al Hydroxide/Mg Hydroxide 30 ml 08/06/17 19:54 09/05/17 12:06 Mylanta Oral Suspension - PO 30 ml Q6H PRN Administration DYSPEPSIA Albuterol Sulfate 2 puff 08/06/17 19:57 08/18/17 13:26 Ventolin Hfa Inhaler - IH 2 puff Q4H PRN Administration SHORT OF BREATH/WHEEZING Albuterol/Ipratropium 1 amp 08/25/17 11:59 Duoneb - NEB Q4H PRN SHORTNESS OF BREATH Amlodipine Besylate 5 mg 09/02/17 10:00 09/05/17 10:02 Norvasc - PO 5 mg DAILY KRIS Administration Atorvastatin Calcium 40 mg 08/07/17 22:00 09/05/17 21:39 Lipitor - PO 40 mg HS KRIS Administration Budesonide/Formoterol Fumarate 2 puff 08/10/17 22:00 09/05/17 21:39 Symbicort 80/4.5mcg - IH 2 puff BID KRIS Administration Colloidal Oatmeal 1 applic 08/25/17 11:46 08/25/17 13:09 Aveeno Soap - TP 1 applic DAILY PRN Administration HYGEINE Eucalyptus/Menthol/Phenol/Sorbitol 1 each 08/06/17 19:54 Cepastat Lozenge - MM Q4H PRN SORE THROAT Fluoxetine HCl 40 mg 08/08/17 10:00 09/05/17 10:02 Prozac - PO 40 mg DAILY KRIS Administration Gabapentin 300 mg 08/06/17 22:00 09/06/17 06:27 Neurontin - PO 300 mg TID KRIS Administration Guaifenesin 10 ml 08/06/17 19:54 Robitussin Dm - PO Q6H PRN COUGH Ibuprofen 600 mg 08/09/17 10:33 09/06/17 04:42 Motrin - PO 600 mg Q6H PRN Administration PAIN Levothyroxine Sodium 75 mcg 08/08/17 07:30 09/06/17 06:27 Synthroid - PO 75 mcg DAILY@0700 KRIS Administration Lidocaine 1 patch 08/11/17 16:00 09/05/17 10:01 Lidoderm Patch - TP 1 patch DAILY KRIS Administration Lidocaine 1 patch 08/25/17 12:45 09/05/17 10:01 Lidoderm Patch - TP 1 patch DAILY KRIS Administration Lisinopril 10 mg 09/01/17 12:31 09/05/17 10:02 Prinivil PO 10 mg DAILY KRIS Administration Loperamide HCl 4 mg 08/06/17 19:54 Imodium - PO Q6H PRN DIARRHEA Loratadine 10 mg 08/25/17 12:45 09/05/17 10:02 Claritin - PO 10 mg DAILY KRIS Administration Magnesium Citrate 300 ml 08/06/17 19:54 Citroma - PO Q48H PRN CONSTIPATION Magnesium Hydroxide 30 ml 08/06/17 19:54 Milk Of Magnesia - PO DAILY PRN CONSTIPATION Methadone HCl 80 mg 09/01/17 06:00 09/06/17 06:27 Dolophine - PO 09/07/17 05:59 80 mg DAILY@0600 KRIS Administration Miscellaneous 1 each 08/11/17 22:00 09/05/17 21:40 Lidoderm Patch Removal MC 1 each DAILY@2200 KRIS Administration Miscellaneous 1 each 08/25/17 22:00 09/05/17 21:40 Lidoderm Patch Removal MC 1 each DAILY@2200 KRIS Administration Nicotine 14 mg 08/07/17 10:00 09/05/17 10:02 Nicoderm Patch - TD Not Given DAILY KRIS Nicotine Polacrilex 2 mg 08/06/17 19:54 Nicorette Gum - BUC Q2H PRN NICOTINE REPLACEMENT RX Non-Formulary Medication 1 each 08/07/17 10:00 09/05/17 10:02 Sofosbuvir/Velpatas/Voxilaprev [Vosevi 400-100-100 Mg Tablet] PO 1 each DAILY KRIS Administration Nystatin 1 applic 08/07/17 22:00 09/05/17 21:40 Mycostatin Cream - TP Not Given BID KRIS Multivit/Folic Acid/Iron 1 tab 08/07/17 10:00 09/05/17 10:02 Vitamins (Sjr) - PO 1 tab DAILY KRIS Administration Simethicone 80 mg 08/13/17 14:21 08/18/17 10:47 Mylicon - PO 80 mg Q4H PRN Administration INDIGESTION Thiamine HCl 100 mg 08/06/17 22:00 09/05/17 21:38 Vitamin B1 - PO 100 mg HS KRIS Administration Tiotropium [place] 1 puff 08/13/17 14:10 09/05/17 10:01 Spiriva - IH 1 puff DAILY KRIS Administration Trazodone HCl 150 mg 08/27/17 22:00 09/05/17 21:38 Desyrel - PO 150 mg HS KRIS Administration Current Side Effect: No Lab tests ordered: No Lab tests reviewed: Yes Provider note:: Patient completed this program tomorrow 09/07/17.She has met her treatment goals and will continue to address her issues on outpatient basis.Patient reports TRazodone 150 mg po hs,prozac 40 mg po amd and Neurontin 300 mg po tid help to cope with mood instability,insomnia.depression.Scripts for 30 days provided.Supportive therapy provided focusing on relapse prevention. . Patient is stable for discharge tomorrow 09/07/17. Total face to face time:: 30 Mental Status Exam - Mental Status Exam Alert and Oriented to: Time, Place, Person Cognitive Function: Grossly Intact Patient Appearance: Well Groomed Mood: Euthymic Affect: Appropriate, Mood Congruent Patient Behavior: Cooperative Speech Pattern: Clear Voice Loudness: Normal Thought Process: Goal Oriented Thought Disorder: Not Present Hallucinations: Denies Suicidal Ideation: Denies Homicidal Ideation: Denies Insight/Judgement: Fair Sleep: Fair Appetite: Good Muscle strength/Tone: Normal Gait/Station: Normal Psychiatric Treatment Plan - Problem List (1) Nicotine dependence Current Visit: Yes Qualifiers: Nicotine product type: cigarettes Substance use status: in withdrawal Qualified Code(s): F17.213 - Nicotine dependence, cigarettes, with withdrawal; F17.213 - Nicotine dependence, cigarettes, with withdrawal (2) Opioid dependence on agonist therapy Current Visit: Yes (3) Arthritis Current Visit: Yes (4) COPD (chronic obstructive pulmonary disease) Current Visit: Yes Qualifiers: COPD type: emphysema Emphysema type: unilateral Qualified Code(s ): J43.0 - Unilateral pulmonary emphysema [MacLeod's syndrome]; J43.0 - Unilateral pulmonary emphysema [MacLeod's syndrome]; J43.0 - Unilateral pulmonary emphysema [MacLeod's syndrome]; J43.0 - Unilateral pulmonary emphysema [MacLeod's syndrome] (5) Depressive disorder Current Visit: Yes (6) HTN (hypertension) Current Visit: Yes Qualifiers: Hypertension type: essential hypertension Qualified Code(s): I10 - Essential (primary) hypertension; I10 - Essential (primary) hypertension; I10 - Essential (primary) hypertension (7) Hypothyroidism Current Visit: Yes Qualifiers: Hypothyroidism type: acquired Qualified Code(s): E03.9 - Hypothyroidism, unspecified; E03.9 - Hypothyroidism, unspecified; E03.9 - Hypothyroidism, unspecified (8) Obesity Current Visit: Yes Qualifiers: Obesity type: due to excess calories Obesity classification: adult class 2 (BMI 35 ? 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
[2017-09-06] MEDS: BUDESONIDE/FORMETEROL FUMARATE 80/4.5 mcg INHALER IH SCH ×2 (10:16→21:31)
[2017-09-06] MEDS: ATORVASTATIN CA 40 MG TABLET (FP) PO SCH (21:30)
[2017-09-06] MEDS: LIDOCAINE PATCH REMOVAL MC SCH ×2 (21:30)
[2017-09-06] MEDS: THIAMINE HCL 100 MG TABLET (FP) PO SCH (21:30)
[2017-09-06] MEDS: traZODone HCL 50 MG TABLET (FP) PO SCH (21:30)
[2017-09-07] MEDS: IBUPROFEN 600 MG TABLET (FP) PO PRN (05:59)
[2017-09-07] MEDS: GABAPENTIN 300 MG CAPSULE (FP) PO SCH (05:59)
[2017-09-07] MEDS: LEVOTHYROXINE NA 25 MCG TABLET (FP) PO SCH (06:00)
[2017-09-07] MEDS ORDERED: METHADONE HCL 40 MG DISPERSABLE TABLET PO SCH (06:15)
[2017-09-07 07:01] VITALS: BP 143/88; PULSE 72; TEMP 98
[2017-09-07] MEDS ORDERED: PT OWN MED DRAWER 7, Y5N ONE ×2 (08:48→09:38)
[2017-09-07] MEDS: LIDOCAINE 5% TOPICAL PATCH TP SCH ×2 (09:34→09:43)
[2017-09-07] MEDS: FLUoxetine HCL 20 MG CAPSULE (FP) PO SCH (09:35)
[2017-09-07] MEDS: LISINOPRIL 10 MG TABLET (FP) PO SCH (09:35)
[2017-09-07] MEDS: amLODIPine BESYLATE 5 MG TABLET (FP) PO SCH (09:35)
[2017-09-07] MEDS: PRENATAL VITAMINS W/ FOLIC ACID TABLET (FP) PO SCH (09:36)
[2017-09-07] MEDS: NICOTINE 14 MG/24 HOURS TOPICAL PATCH TD SCH (09:43)
[2017-09-07] MEDS: NYSTATIN 100,000 UNIT/GM TOPICAL CREAM 15 GM TUBE TP SCH (09:43)
[2017-09-07] MEDS: BUDESONIDE/FORMETEROL FUMARATE 80/4.5 mcg INHALER IH SCH (09:44)
[2017-09-07] MEDS: TIOTROPIUM BROMIDE 18 MCG/INH (DEVICE W/ 5 CAPSULES) IH SCH (09:44)
[2017-09-07] MEDS ORDERED: PATIENT'S OWN MEDICATION (NON-FORMULARY) (Sofosbuvir/Velpatas/Voxilaprev [Vosevi 400-100-1 PO SCH (17:30)
== END 2017-09-07 10:45 | disposition home or self-care (01) | DRG 895 ==
LOC: YASAS 14:51 → Y6N 20:32 → Y3E 08-10 11:13
PROVIDERS: ADMIT Internal Medicine; ATTEND Psychiatry & Neurology Psychiatry
PROC: HZ42ZZZ Group Counseling for Substance Abuse Treatment, Cognitive-Behavioral (ICD-10-PCS; principal; 2017-08-06)
DX: F19.20 Other psychoactive substance dependence, uncomplicated (principal); F11.20 Opioid dependence, uncomplicated; F13.230 Sedative, hypnotic or anxiolytic dependence with withdrawal, uncomplicated; F39 Unspecified mood [affective] disorder; G47.00 Insomnia, unspecified; I10 Essential (primary) hypertension; J43.0 Unilateral pulmonary emphysema [MacLeod's syndrome]; K21.9 Gastro-esophageal reflux disease without esophagitis; E03.9 Hypothyroidism, unspecified; E66.9 Obesity, unspecified; Z68.37 Body mass index [BMI] 37.0-37.9, adult; B18.2 Chronic viral hepatitis C; R26.89 Other abnormalities of gait and mobility; Z99.89 Dependence on other enabling machines and devices
CPT/HCPCS: 36415; 80053; 81003; 81015; 85027; 86593; 86780; 87086; 90688; 93005; 93010; 94640

== ENCOUNTER 2017-11-19 16:30 | Inpatient (IN) | payer OTHER ==
[2017-11-19 18:56] VITALS: BMI 39.6
--- NOTE | 2017-11-19 19:40 | HP ---
Admission [facility] Chief Complaint: I am here for Rehab. Allergies/Adverse Reactions: Allergies Allergy/AdvReac Type Severity Reaction Status Date / Time No Known Allergies Allergy Verified 08/10/17 12:27 History of Present Illness: 67 yo female with hx of drug use: Benzo (Xanax and Klonopine). Last detox completed 11/19/17 at [facility]. Longest period of sobriety 14 years. Currently in MMTP @ [facility], last medicated 11/19/17 w/ 80 mg Methone at [facility]. Exam Limitations: No Limitations - Ebola screening Have you traveled outside of the country in the last 21 days: No (N) Have you had contact with anyone from an Ebola affected area: No Have you been sick,other than usual withdrawal symptoms: No Do you have a fever: No - Review of Systems Constitutional: No Symptoms Reported EENT: reports: No Symptoms Reported Respiratory: reports: No Symptoms reported, Cough (chronic cough related to chronic smoker x 35 years hx) Cardiac: reports: No Symptoms Reported GI: reports: No Symptoms Reported : reports: Incontinence (Pads use) Musculoskeletal: reports: Other (No aches reported but hx of arthritis (R) knee) Integumentary: reports: No Symptoms Reported Neuro: reports: No Symptoms reported Endocrine: reports: Other (hx thyroid disease) Hematology: reports: No Symptoms Reported Psychiatric: reports: Mood/Affect Appropiate, Orientated x3, Anxious, Depressed Other Systems: Reviewed and Negative Patient History - Patient Medical History Hx Anemia: No Hx Asthma: Yes Hx Chronic Obstructive Pulmonary Disease (COPD): Yes Hx Cancer: No Hx Cardiac Disorders: No Hx Congestive Heart Failure: No Hx Hypertension: Yes Hx Hypercholesterolemia: Yes Hx Pacemaker: No HX Cerebrovascular Accident: No Hx Seizures: Yes (r/t Xanax 2010) Hx Dementia: No Hx Diabetes: No Hx Gastrointestinal Disorders: Yes (GERD) Hx Liver Disease: No Hx Genitourinary Disorders: No Hx Sexually Transmitted Disorders: Yes (Syphilis 2015 treated) Hx Renal Disease (ESRD): No Hx Thyroid Disease: Yes (HYPOTHYROIDISM) Hx Human Immunodeficiency Virus (HIV): No Hx Hepatitis C: Yes (DX OVER 30 YEARS FAILIED TXMENT IN 2000) Hx Depression: Yes Hx Suicide Attempt: No Hx Bipolar Disorder: No Hx Schizophrenia: No Other Medical History: (R) Arthritis Knee - Patient Surgical History Past Surgical History: Yes Hx Neurologic Surgery: No Hx Cataract Extraction: No Hx Cardiac Surgery: No Hx Lung Surgery: No Hx Breast Surgery: No Hx Breast Biopsy: No Hx Abdominal Surgery: No Hx Appendectomy: Yes (13 YEARS OLD) Hx Cholecystectomy: Yes (1994) Hx Genitourinary Surgery: No Hx Section: No Hx Orthopedic Surgery: No Hx Hysterectomy: No Other Surgical History: RIGHT FOOT BONION 1999 Anesthesia Reaction: No - PPD History Previous Implant?: Yes Documented Results: Negative w/proof Date: 11/12/17 Results: 0mm PPD to be Administered?: No - Reproductive History Patient is a Female of Child Bearing Age (11 -55 yrs old): Yes Last Menstrual Period: 05/01/01 Patient : No (N/A) - Smoking Cessation Smoking history: Current every day smoker Have you smoked in the past 12 months: No Aproximately how many cigarettes per day: 7 (Started Chantix today) Cigars Per Day: 0 Hx Chewing Tobacco Use: No Initiated information on smoking cessation: Yes 'Breaking Loose' booklet given: 11/19/17 - Substance & Tx. History Hx Alcohol Use: No Hx Substance Use: Yes (Benzo) Substance Use Type: Tranquilizers Hx Substance Use Treatment: Yes (Last Detox completed 11/19/17 at [facility] ) - Substances Abused Alprazolam (Xanax) Route: Oral Frequency: 3-6 times per week Amount used: 1-3 Age of first use: 44 Date of Last Use: 11/12/17 Benzodiazepine (Klonopin) Route: Oral Frequency: 3-6 times per week Amount used: 4-5 Age of first use: 44 Date of Last Use: 11/12/17 Family Disease History - Family Disease History Family Disease History: Heart Disease: Father (ALCHOLISM/ [place] ), [place]: Mother (LUNG ), Other: Father, Sister (DRUG PROBLEMS) Admission Physical Exam BHS - Vital Signs Vital Signs: Vital Signs - 24 hr 11/19/17 18:54 Temperature 98.3 F Pulse Rate 67 Respiratory 18 Rate Blood Pressure 124/72 - Physical General Appearance: Yes: Within Normal Limits, No Apparent Distress, Nourished, Appropriately Dressed HEENTM: Yes: Within Normal Limits, Hearing grossly Normal, Normal ENT Inspection , Normocephalic, Normal Voice, GRACY, Pharynx Normal Respiratory: Yes: Chest Non-Tender, Lungs Clear, Normal Breath Sounds, No Respiratory Distress, No Accessory Muscle Use Neck: Yes: No masses,lesions,Nodules, Trachea in good position Breast: Yes: Breast Exam Deferred Cardiology: Yes: Regular Rhythm, Regular Rate Abdominal: Yes: Within Normal Limits, Normal Bowel Sounds, Non Tender, Flat, Soft Genitourinary: Yes: Within Normal Limits (No urinary symptoms reported) Back: Yes: Within Normal Limits Musculoskeletal: Yes: Within Normal Limits Extremities: Yes: Normal Capillary Refill, Normal Inspection, Normal Range of Motion, Non-Tender Neurological: Yes: Within Normal Limits, Fully Oriented, Alert, Motor Strength 5 /5, Normal Mood/Affect, Normal Response Integumentary: Yes: Normal Color, Warm Lymphatic: Yes: Within Normal Limits - Diagnostic (1) Sedative, hypnotic or anxiolytic dependence with withdrawal, uncomplicated Current Visit: Yes Status: Chronic (2) Arthritis Current Visit: Yes Status: Chronic (3) COPD (chronic obstructive pulmonary disease) Current Visit: Yes Status: Chronic Qualifiers: COPD type: emphysema Emphysema type: unilateral Qualified Code(s): J43.0 - Unilateral pulmonary emphysema [MacLeod's syndrome] (4) HTN (hypertension) Current Visit: Yes Status: Chronic Qualifiers: Hypertension type: essential hypertension Qualified Code(s): I10 - Essential (primary) hypertension (5) Hypothyroidism Current Visit: Yes Status: Chronic Qualifiers: Hypothyroidism type: acquired Qualified Code(s): E03.9 - Hypothyroidism, unspecified (6) Obesity Current Visit: Yes Status: Chronic Qualifiers: Obesity type: due to excess calories Obesity classification: adult class 2 (BMI 35 ? 39.9) Serious obesity comorbidity presence: without serious comorbidity (7) Opioid dependence on agonist therapy Current Visit: Yes Status: Chronic Cleared for Admission [facility] - Detox or Rehab [facility] Level of Care: Observation Bed Claeared for Rehab Admission: Yes [facility] Breath Alcohol Content Breath Alcohol Content: 0 Urine Pregancy Test - Result Urine Test Results: Negative- NO Line Present Urine Drug Screen - Results Drug Screen Negative: No Urine Drug Screen Results: BZO-Benzodiazepines, MTD-Methadone, TCA-Tricyclic Antidepress Inpatient Rehab Admission - Initial Determination Are CD services needed?: Yes Free of communicable disease: Yes Not in need of hospitalization: Yes - Rehab Admission Criteria Previous failed treatment: Yes Poor recovery environment: Yes Comorbidities: Yes Lacks judgement: Yes Patient is meeting Inpatient Rehab admission criteria:: Yes
[2017-11-19] MEDS ORDERED: LOPERAMIDE HCL 2 MG CAPSULE PO PRN (20:04)
[2017-11-19] MEDS ORDERED: P-EPHED 60MG/TRIPROLIDI 2.5MG TABLET PO PRN (20:04)
[2017-11-19] MEDS ORDERED: MAGNESIUM HYDROX 2400MG/30ML ORAL SUSPENSION 30 ML CUP PO PRN (20:04)
[2017-11-19] MEDS ORDERED: MAGNESIUM CITRATE 300 ML BOTTLE PO PRN (20:04)
[2017-11-19] MEDS ORDERED: MENTHOL/PHENOL 1 EACH UD MM PRN (20:04)
[2017-11-19] MEDS ORDERED: MAG HYDROX/AL HYDROX/SIMETH 30 ML UNIT-DOSE CUP PO PRN (20:04)
[2017-11-19] MEDS ORDERED: guaiFENesin/D-METHORPHAN HB 10 ML UNIT-DOSE CUPS PO PRN (20:04)
[2017-11-19] MEDS ORDERED: ACETAMINOPHEN 325 MG TABLET (FP) PO PRN (20:04)
[2017-11-19] MEDS ORDERED: hydrOXYzine PAMOATE 50 MG CAPSULE (FP) PO PRN (20:04)
[2017-11-19] MEDS: THIAMINE HCL 100 MG TABLET (FP) PO SCH (23:13)
[2017-11-20 00:47] LABS: URINE APPEARANCE CLEAR; URINE BILIRUBIN NEGATIVE (NEGATIVE); URINE BLOOD NEGATIVE (NEGATIVE); URINE COLOR YELLOW; URINE GLUCOSE (UA) NEGATIVE (NEGATIVE); URINE KETONE NEGATIVE (NEGATIVE); URINE NITRITE NEGATIVE (NEGATIVE); URINE PROTEIN NEGATIVE (NEGATIVE)
[2017-11-20 00:50] LABS: URINE LEUK ESTERASE 2+ (NEGATIVE)
[2017-11-20 01:05] LABS: EPI CELLS RARE /HPF (FEW); URINE BACTERIA RARE /hpf (NONE SEEN); URINE HYALINE CAST 1 /lpf; URINE MUCUS RARE
[2017-11-20] MEDS ORDERED: ALBUTEROL SO4 18 GM HFA INHALER IH PRN ×2 (06:27→11:27)
[2017-11-20] MEDS: GABAPENTIN 300 MG CAPSULE (FP) PO SCH ×3 (07:00→21:13)
[2017-11-20] MEDS ORDERED: LEVOTHYROXINE NA 75 MCG TABLET (FP) PO SCH (07:00)
[2017-11-20] MEDS: LEVOTHYROXINE NA 25 MCG TABLET (FP) PO SCH (07:08)
[2017-11-20] MEDS: LISINOPRIL 5 MG TABLET (FP) PO SCH (09:59)
[2017-11-20] MEDS: PRENATAL VITAMINS W/ FOLIC ACID TABLET (FP) PO SCH (09:59)
[2017-11-20] MEDS: amLODIPine BESYLATE 5 MG TABLET (FP) PO SCH (09:59)
[2017-11-20] MEDS: PANTOPRAZOLE 40 MG TABLET (FP) PO SCH (09:59)
[2017-11-20] MEDS: ATORVASTATIN CA 40 MG TABLET (FP) PO SCH (09:59)
[2017-11-20] MEDS: METHADONE HCL 40 MG DISPERSABLE TABLET PO SCH (10:00)
[2017-11-20] MEDS: BUDESONIDE/FORMETEROL FUMARATE 160/4.5 mcg INHALER IH SCH ×2 (11:38→21:14)
[2017-11-20] MEDS: NICOTINE 21 MG/24 HOURS TOPICAL PATCH TD SCH (15:02)
[2017-11-20 16:24] LABS: HEMOGLOBIN 13.8 GM/dL (10.7-15.3); MCH 29.8 pg (25.7-33.7); MCHC 33.7 g/dl (32.0-36.0); MEAN CELL VOLUME 88.4 fl (80-96); MEAN PLT VOLUME 7.9 fl (7.5-11.1); PLATELET COUNT 261 K/MM3 (134-434); RBC 4.63 M/mm3 (3.60-5.2); RDW 14.2 % (11.6-15.6); WHITE BLOOD COUNT 6.6 K/mm3 (4.0-10.0)
[2017-11-20 16:37] LABS: ALBUMIN 3.3 g/dl (3.4-5.0); ALK PHOS 101 U/L (45-117); ANION GAP 3 (8-16); BILIRUBIN,TOTAL 0.3 mg/dL (0.2-1.0); BLOOD UREA NITROGEN 14 mg/dL (7-18); CALCIUM 8.6 mg/dL (8.5-10.1); CHLORIDE 103 mmol/L (98-107); CO2 32 mmol/L (21-32); CREATININE 0.8 mg/dL (0.55-1.02); GLUCOSE,RANDOM 199 mg/dL (74-106); SGOT/AST 13 U/L (15-37); SGPT/ALT 18 U/L (12-78); SODIUM 138 mmol/L (136-145); TOT PROT 6.9 g/dl (6.4-8.2)
--- NOTE | 2017-11-20 16:44 | EKG ---
Test Reason : Blood Pressure : / mmHG Vent. Rate : 068 BPM Atrial Rate : 068 BPM P-R Int : 136 ms QRS Dur : 092 ms QT Int : 450 ms P-R-T Axes : 059 016 045 degrees QTc Int : 478 ms NORMAL SINUS RHYTHM NORMAL ECG WHEN COMPARED WITH ECG OF 06-AUG-2017 21:03, PREMATURE VENTRICULAR COMPLEXES ARE NO LONGER PRESENT CRITERIA FOR SEPTAL INFARCT ARE NO LONGER PRESENT Confirmed by NAPOLEON DELGADO MD ([id number]) on 11/20/2017 4:44:36 PM Referred By: Confirmed By:NAPOLEON DELGADO MD
--- NOTE | 2017-11-20 19:15 | PN ---
S Progress Note Note: Psychiatry Attending's on-call note : Informed of this new admission. Asked to enter orders for prozac and trazodone. Ms Hubbard is already known to this pattern chart writer. Discharged on 11/19/17 from [facility] (detox completed). Compliant with medications. Plan : Prozac 40 mg po daily Trazodone 100 mg po hs Ordered. Side effects/benefits discussed with patient. Consent (verbal) given for this plan of care.
[2017-11-20] MEDS: traZODone HCL 100 MG TABLET (FP) PO SCH (21:13)
[2017-11-20] MEDS: THIAMINE HCL 100 MG TABLET (FP) PO SCH (21:14)
[2017-11-21] MEDS: METHADONE HCL 40 MG DISPERSABLE TABLET PO SCH (06:46)
[2017-11-21] MEDS: GABAPENTIN 300 MG CAPSULE (FP) PO SCH ×3 (06:47→21:18)
[2017-11-21] MEDS: LEVOTHYROXINE NA 25 MCG TABLET (FP) PO SCH (06:47)
[2017-11-21] MEDS: PRENATAL VITAMINS W/ FOLIC ACID TABLET (FP) PO SCH (09:43)
[2017-11-21] MEDS: LISINOPRIL 5 MG TABLET (FP) PO SCH (09:43)
[2017-11-21] MEDS: BUDESONIDE/FORMETEROL FUMARATE 160/4.5 mcg INHALER IH SCH ×2 (09:43→21:18)
[2017-11-21] MEDS: amLODIPine BESYLATE 5 MG TABLET (FP) PO SCH (09:43)
[2017-11-21] MEDS: PANTOPRAZOLE 40 MG TABLET (FP) PO SCH (09:43)
[2017-11-21] MEDS: FLUoxetine HCL 20 MG CAPSULE (FP) PO SCH (09:43)
[2017-11-21] MEDS: ATORVASTATIN CA 40 MG TABLET (FP) PO SCH (09:44)
[2017-11-21] MEDS: NICOTINE 21 MG/24 HOURS TOPICAL PATCH TD SCH (09:44)
[2017-11-21 10:36] LABS: RPR REACTIVE 1:1 (NONREACTIVE)
[2017-11-21 10:37] LABS: TREPONEMA ANTIBODY PREVIOUSLY REACTIVE (NONREACTIVE)
[2017-11-21] MEDS: THIAMINE HCL 100 MG TABLET (FP) PO SCH (21:18)
[2017-11-21] MEDS: traZODone HCL 100 MG TABLET (FP) PO SCH (21:18)
[2017-11-22] MEDS ORDERED: PT OWN MED DRAWER 7, Y5N ONE (03:07)
[2017-11-22] MEDS: METHADONE HCL 40 MG DISPERSABLE TABLET PO SCH (06:27)
[2017-11-22] MEDS: LEVOTHYROXINE NA 25 MCG TABLET (FP) PO SCH (06:27)
[2017-11-22] MEDS: GABAPENTIN 300 MG CAPSULE (FP) PO SCH ×3 (06:28→21:20)
[2017-11-22] MEDS: BUDESONIDE/FORMETEROL FUMARATE 160/4.5 mcg INHALER IH SCH ×2 (09:35→21:20)
[2017-11-22] MEDS: NICOTINE 21 MG/24 HOURS TOPICAL PATCH TD SCH (09:35)
[2017-11-22] MEDS: amLODIPine BESYLATE 5 MG TABLET (FP) PO SCH (09:36)
[2017-11-22] MEDS: ATORVASTATIN CA 40 MG TABLET (FP) PO SCH (09:36)
[2017-11-22] MEDS: PRENATAL VITAMINS W/ FOLIC ACID TABLET (FP) PO SCH (09:36)
[2017-11-22] MEDS: LISINOPRIL 5 MG TABLET (FP) PO SCH (09:36)
[2017-11-22] MEDS: PANTOPRAZOLE 40 MG TABLET (FP) PO SCH (09:36)
[2017-11-22] MEDS: FLUoxetine HCL 20 MG CAPSULE (FP) PO SCH (09:36)
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
[2017-11-22] MEDS: THIAMINE HCL 100 MG TABLET (FP) PO SCH (21:20)
[2017-11-22] MEDS: traZODone HCL 100 MG TABLET (FP) PO SCH (21:20)
[2017-11-23] MEDS: METHADONE HCL 40 MG DISPERSABLE TABLET PO SCH (06:35)
[2017-11-23] MEDS: LEVOTHYROXINE NA 25 MCG TABLET (FP) PO SCH (06:35)
[2017-11-23] MEDS: GABAPENTIN 300 MG CAPSULE (FP) PO SCH ×3 (06:35→21:20)
[2017-11-23] MEDS: FLUoxetine HCL 20 MG CAPSULE (FP) PO SCH (10:19)
[2017-11-23] MEDS: NICOTINE 21 MG/24 HOURS TOPICAL PATCH TD SCH (10:19)
[2017-11-23] MEDS: PRENATAL VITAMINS W/ FOLIC ACID TABLET (FP) PO SCH (10:19)
[2017-11-23] MEDS: PANTOPRAZOLE 40 MG TABLET (FP) PO SCH (10:19)
[2017-11-23] MEDS: LISINOPRIL 5 MG TABLET (FP) PO SCH (10:20)
[2017-11-23] MEDS: BUDESONIDE/FORMETEROL FUMARATE 160/4.5 mcg INHALER IH SCH ×2 (10:20→21:20)
[2017-11-23] MEDS: amLODIPine BESYLATE 5 MG TABLET (FP) PO SCH (10:20)
[2017-11-23] MEDS: ATORVASTATIN CA 40 MG TABLET (FP) PO SCH (10:20)
[2017-11-23] MEDS ORDERED: COLLOIDAL OATMEAL 1 BAR EACH TP PRN (13:05)
[2017-11-23] MEDS: THIAMINE HCL 100 MG TABLET (FP) PO SCH (21:20)
[2017-11-23] MEDS: traZODone HCL 100 MG TABLET (FP) PO SCH (21:20)
[2017-11-24] MEDS: METHADONE HCL 40 MG DISPERSABLE TABLET PO SCH (06:43)
[2017-11-24] MEDS: GABAPENTIN 300 MG CAPSULE (FP) PO SCH ×3 (06:44→21:20)
[2017-11-24] MEDS: LEVOTHYROXINE NA 25 MCG TABLET (FP) PO SCH (06:44)
[2017-11-24] MEDS ORDERED: PT OWN MED DRAWER 7, Y5N ONE (08:36)
[2017-11-24] MEDS: NICOTINE 21 MG/24 HOURS TOPICAL PATCH TD SCH (09:50)
[2017-11-24] MEDS: ATORVASTATIN CA 40 MG TABLET (FP) PO SCH (09:50)
[2017-11-24] MEDS: FLUoxetine HCL 20 MG CAPSULE (FP) PO SCH (09:51)
[2017-11-24] MEDS: LISINOPRIL 5 MG TABLET (FP) PO SCH (09:51)
[2017-11-24] MEDS: amLODIPine BESYLATE 5 MG TABLET (FP) PO SCH (09:51)
[2017-11-24] MEDS: PANTOPRAZOLE 40 MG TABLET (FP) PO SCH (09:51)
[2017-11-24] MEDS: PRENATAL VITAMINS W/ FOLIC ACID TABLET (FP) PO SCH (09:51)
[2017-11-24] MEDS: BUDESONIDE/FORMETEROL FUMARATE 160/4.5 mcg INHALER IH SCH ×2 (09:52→21:21)
[2017-11-24] MEDS: IBUPROFEN 400 MG TABLET (FP) PO PRN ×2 (09:53→18:17)
[2017-11-24] MEDS: traZODone HCL 100 MG TABLET (FP) PO SCH (21:20)
[2017-11-24] MEDS: THIAMINE HCL 100 MG TABLET (FP) PO SCH (21:20)
[2017-11-25] MEDS: METHADONE HCL 40 MG DISPERSABLE TABLET PO SCH (06:15)
[2017-11-25] MEDS: GABAPENTIN 300 MG CAPSULE (FP) PO SCH ×3 (06:16→21:16)
[2017-11-25] MEDS: LEVOTHYROXINE NA 25 MCG TABLET (FP) PO SCH (06:16)
[2017-11-25] MEDS: amLODIPine BESYLATE 5 MG TABLET (FP) PO SCH (09:50)
[2017-11-25] MEDS: PANTOPRAZOLE 40 MG TABLET (FP) PO SCH (09:50)
[2017-11-25] MEDS: PRENATAL VITAMINS W/ FOLIC ACID TABLET (FP) PO SCH (09:50)
[2017-11-25] MEDS: ATORVASTATIN CA 40 MG TABLET (FP) PO SCH (09:50)
[2017-11-25] MEDS: NICOTINE 21 MG/24 HOURS TOPICAL PATCH TD SCH (09:50)
[2017-11-25] MEDS: FLUoxetine HCL 20 MG CAPSULE (FP) PO SCH (09:50)
[2017-11-25] MEDS: BUDESONIDE/FORMETEROL FUMARATE 160/4.5 mcg INHALER IH SCH ×2 (09:50→21:16)
[2017-11-25] MEDS: LISINOPRIL 5 MG TABLET (FP) PO SCH (09:50)
[2017-11-25] MEDS ORDERED: diphenhydrAMINE HCL 50 MG CAPSULE PO PRN (10:02)
[2017-11-25] MEDS: IBUPROFEN 400 MG TABLET (FP) PO PRN (14:44)
[2017-11-25] MEDS: THIAMINE HCL 100 MG TABLET (FP) PO SCH (21:16)
[2017-11-25] MEDS: traZODone HCL 100 MG TABLET (FP) PO SCH (21:16)
[2017-11-26] MEDS: METHADONE HCL 40 MG DISPERSABLE TABLET PO SCH (06:20)
[2017-11-26] MEDS: LEVOTHYROXINE NA 25 MCG TABLET (FP) PO SCH (06:20)
[2017-11-26] MEDS: GABAPENTIN 300 MG CAPSULE (FP) PO SCH ×3 (06:21→21:19)
[2017-11-26] MEDS ORDERED: PT OWN MED DRAWER 7, Y5N ONE ×2 (08:55→19:38)
[2017-11-26] MEDS: IBUPROFEN 400 MG TABLET (FP) PO PRN (08:56)
[2017-11-26] MEDS: NICOTINE 21 MG/24 HOURS TOPICAL PATCH TD SCH (10:10)
[2017-11-26] MEDS: LISINOPRIL 5 MG TABLET (FP) PO SCH (10:11)
[2017-11-26] MEDS: PANTOPRAZOLE 40 MG TABLET (FP) PO SCH (10:11)
[2017-11-26] MEDS: amLODIPine BESYLATE 5 MG TABLET (FP) PO SCH (10:11)
[2017-11-26] MEDS: ATORVASTATIN CA 40 MG TABLET (FP) PO SCH (10:11)
[2017-11-26] MEDS: BUDESONIDE/FORMETEROL FUMARATE 160/4.5 mcg INHALER IH SCH ×2 (10:11→21:21)
[2017-11-26] MEDS: FLUoxetine HCL 20 MG CAPSULE (FP) PO SCH (10:11)
[2017-11-26] MEDS: PRENATAL VITAMINS W/ FOLIC ACID TABLET (FP) PO SCH (10:11)
[2017-11-26] MEDS: traZODone HCL 100 MG TABLET (FP) PO SCH (21:19)
[2017-11-26] MEDS: THIAMINE HCL 100 MG TABLET (FP) PO SCH (21:19)
[2017-11-26] MEDS: diphenhydrAMINE HCL 50 MG CAPSULE PO PRN (21:20)
[2017-11-27] MEDS: METHADONE HCL 40 MG DISPERSABLE TABLET PO SCH (05:53)
[2017-11-27] MEDS: LEVOTHYROXINE NA 25 MCG TABLET (FP) PO SCH (06:05)
[2017-11-27] MEDS: GABAPENTIN 300 MG CAPSULE (FP) PO SCH ×3 (06:05→21:15)
[2017-11-27] MEDS: FLUoxetine HCL 20 MG CAPSULE (FP) PO SCH (10:00)
[2017-11-27] MEDS: PANTOPRAZOLE 40 MG TABLET (FP) PO SCH (10:01)
[2017-11-27] MEDS: ATORVASTATIN CA 40 MG TABLET (FP) PO SCH (10:01)
[2017-11-27] MEDS: PRENATAL VITAMINS W/ FOLIC ACID TABLET (FP) PO SCH (10:01)
[2017-11-27] MEDS: NICOTINE 21 MG/24 HOURS TOPICAL PATCH TD SCH (10:01)
[2017-11-27] MEDS: amLODIPine BESYLATE 5 MG TABLET (FP) PO SCH (10:01)
[2017-11-27] MEDS: LISINOPRIL 5 MG TABLET (FP) PO SCH (10:01)
[2017-11-27] MEDS: BUDESONIDE/FORMETEROL FUMARATE 160/4.5 mcg INHALER IH SCH ×2 (10:02→21:16)
[2017-11-27] MEDS: IBUPROFEN 400 MG TABLET (FP) PO PRN (10:02)
[2017-11-27] MEDS: traZODone HCL 100 MG TABLET (FP) PO SCH (21:15)
[2017-11-27] MEDS: THIAMINE HCL 100 MG TABLET (FP) PO SCH (21:15)
[2017-11-27] MEDS: diphenhydrAMINE HCL 50 MG CAPSULE PO PRN (21:16)
[2017-11-28] MEDS: METHADONE HCL 40 MG DISPERSABLE TABLET PO SCH (06:17)
[2017-11-28] MEDS: GABAPENTIN 300 MG CAPSULE (FP) PO SCH ×3 (06:17→21:24)
[2017-11-28] MEDS: LEVOTHYROXINE NA 25 MCG TABLET (FP) PO SCH (06:17)
[2017-11-28] MEDS: NICOTINE 21 MG/24 HOURS TOPICAL PATCH TD SCH (09:38)
[2017-11-28] MEDS: PRENATAL VITAMINS W/ FOLIC ACID TABLET (FP) PO SCH (09:39)
[2017-11-28] MEDS: FLUoxetine HCL 20 MG CAPSULE (FP) PO SCH (09:39)
[2017-11-28] MEDS: LISINOPRIL 5 MG TABLET (FP) PO SCH (09:39)
[2017-11-28] MEDS: ATORVASTATIN CA 40 MG TABLET (FP) PO SCH (09:39)
[2017-11-28] MEDS: PANTOPRAZOLE 40 MG TABLET (FP) PO SCH (09:40)
[2017-11-28] MEDS: amLODIPine BESYLATE 5 MG TABLET (FP) PO SCH (09:40)
[2017-11-28] MEDS: BUDESONIDE/FORMETEROL FUMARATE 160/4.5 mcg INHALER IH SCH ×2 (09:41→21:25)
[2017-11-28] MEDS ORDERED: PT OWN MED DRAWER 7, Y5N ONE (09:42)
[2017-11-28] MEDS: IBUPROFEN 400 MG TABLET (FP) PO PRN (15:41)
[2017-11-28] MEDS: traZODone HCL 100 MG TABLET (FP) PO SCH (21:24)
[2017-11-28] MEDS: THIAMINE HCL 100 MG TABLET (FP) PO SCH (21:24)
[2017-11-28] MEDS: diphenhydrAMINE HCL 50 MG CAPSULE PO PRN (21:24)
[2017-11-29] MEDS: METHADONE HCL 40 MG DISPERSABLE TABLET PO SCH (06:35)
[2017-11-29] MEDS: LEVOTHYROXINE NA 25 MCG TABLET (FP) PO SCH (06:36)
[2017-11-29] MEDS: GABAPENTIN 300 MG CAPSULE (FP) PO SCH ×3 (06:36→21:27)
[2017-11-29] MEDS: BUDESONIDE/FORMETEROL FUMARATE 160/4.5 mcg INHALER IH SCH ×2 (09:47→21:26)
[2017-11-29] MEDS: NICOTINE 21 MG/24 HOURS TOPICAL PATCH TD SCH (09:47)
[2017-11-29] MEDS: ATORVASTATIN CA 40 MG TABLET (FP) PO SCH (09:47)
[2017-11-29] MEDS: amLODIPine BESYLATE 5 MG TABLET (FP) PO SCH (09:48)
[2017-11-29] MEDS: PRENATAL VITAMINS W/ FOLIC ACID TABLET (FP) PO SCH (09:48)
[2017-11-29] MEDS: FLUoxetine HCL 20 MG CAPSULE (FP) PO SCH (09:48)
[2017-11-29] MEDS: PANTOPRAZOLE 40 MG TABLET (FP) PO SCH (09:48)
[2017-11-29] MEDS: LISINOPRIL 5 MG TABLET (FP) PO SCH (09:49)
[2017-11-29] MEDS: IBUPROFEN 400 MG TABLET (FP) PO PRN (15:57)
[2017-11-29] MEDS: THIAMINE HCL 100 MG TABLET (FP) PO SCH (21:27)
[2017-11-29] MEDS: traZODone HCL 100 MG TABLET (FP) PO SCH (21:27)
[2017-11-30] MEDS: METHADONE HCL 40 MG DISPERSABLE TABLET PO SCH (06:18)
[2017-11-30] MEDS: GABAPENTIN 300 MG CAPSULE (FP) PO SCH ×3 (06:18→21:08)
[2017-11-30] MEDS: LEVOTHYROXINE NA 25 MCG TABLET (FP) PO SCH (06:19)
[2017-11-30] MEDS ORDERED: PT OWN MED DRAWER 7, Y5N ONE (08:35)
[2017-11-30] MEDS: LISINOPRIL 5 MG TABLET (FP) PO SCH (10:08)
[2017-11-30] MEDS: amLODIPine BESYLATE 5 MG TABLET (FP) PO SCH (10:08)
[2017-11-30] MEDS: PRENATAL VITAMINS W/ FOLIC ACID TABLET (FP) PO SCH (10:08)
[2017-11-30] MEDS: PANTOPRAZOLE 40 MG TABLET (FP) PO SCH (10:08)
[2017-11-30] MEDS: BUDESONIDE/FORMETEROL FUMARATE 160/4.5 mcg INHALER IH SCH ×2 (10:08→21:09)
[2017-11-30] MEDS: NICOTINE 21 MG/24 HOURS TOPICAL PATCH TD SCH (10:08)
[2017-11-30] MEDS: ATORVASTATIN CA 40 MG TABLET (FP) PO SCH (10:08)
[2017-11-30] MEDS: FLUoxetine HCL 20 MG CAPSULE (FP) PO SCH (10:08)
[2017-11-30] MEDS: IBUPROFEN 400 MG TABLET (FP) PO PRN (14:20)
[2017-11-30] MEDS: traZODone HCL 100 MG TABLET (FP) PO SCH (21:08)
[2017-11-30] MEDS: THIAMINE HCL 100 MG TABLET (FP) PO SCH (21:09)
[2017-11-30] MEDS: diphenhydrAMINE HCL 50 MG CAPSULE PO PRN (21:09)
[2017-12-01] MEDS: METHADONE HCL 40 MG DISPERSABLE TABLET PO SCH (06:34)
[2017-12-01] MEDS: GABAPENTIN 300 MG CAPSULE (FP) PO SCH ×3 (06:35→21:20)
[2017-12-01] MEDS: LEVOTHYROXINE NA 25 MCG TABLET (FP) PO SCH (06:35)
[2017-12-01] MEDS: BUDESONIDE/FORMETEROL FUMARATE 160/4.5 mcg INHALER IH SCH ×2 (09:59→21:22)
[2017-12-01] MEDS: NICOTINE 21 MG/24 HOURS TOPICAL PATCH TD SCH (10:00)
[2017-12-01] MEDS: PRENATAL VITAMINS W/ FOLIC ACID TABLET (FP) PO SCH (10:00)
[2017-12-01] MEDS: FLUoxetine HCL 20 MG CAPSULE (FP) PO SCH (10:01)
[2017-12-01] MEDS: LISINOPRIL 5 MG TABLET (FP) PO SCH (10:01)
[2017-12-01] MEDS: amLODIPine BESYLATE 5 MG TABLET (FP) PO SCH (10:01)
[2017-12-01] MEDS: ATORVASTATIN CA 40 MG TABLET (FP) PO SCH (10:01)
[2017-12-01] MEDS: PANTOPRAZOLE 40 MG TABLET (FP) PO SCH (10:01)
[2017-12-01] MEDS: IBUPROFEN 400 MG TABLET (FP) PO PRN (13:15)
[2017-12-01] MEDS: traZODone HCL 100 MG TABLET (FP) PO SCH (21:20)
[2017-12-01] MEDS: THIAMINE HCL 100 MG TABLET (FP) PO SCH (21:20)
[2017-12-01] MEDS: diphenhydrAMINE HCL 50 MG CAPSULE PO PRN (21:21)
[2017-12-02] MEDS: METHADONE HCL 40 MG DISPERSABLE TABLET PO SCH (06:32)
[2017-12-02] MEDS: GABAPENTIN 300 MG CAPSULE (FP) PO SCH ×3 (06:33→21:19)
[2017-12-02] MEDS: LEVOTHYROXINE NA 25 MCG TABLET (FP) PO SCH (06:33)
[2017-12-02] MEDS: NICOTINE 21 MG/24 HOURS TOPICAL PATCH TD SCH (10:07)
[2017-12-02] MEDS: PANTOPRAZOLE 40 MG TABLET (FP) PO SCH (10:08)
[2017-12-02] MEDS: amLODIPine BESYLATE 5 MG TABLET (FP) PO SCH (10:08)
[2017-12-02] MEDS: LISINOPRIL 5 MG TABLET (FP) PO SCH (10:08)
[2017-12-02] MEDS: FLUoxetine HCL 20 MG CAPSULE (FP) PO SCH (10:08)
[2017-12-02] MEDS: PRENATAL VITAMINS W/ FOLIC ACID TABLET (FP) PO SCH (10:08)
[2017-12-02] MEDS: ATORVASTATIN CA 40 MG TABLET (FP) PO SCH (10:08)
[2017-12-02] MEDS ORDERED: PT OWN MED DRAWER 7, Y5N ONE (10:09)
[2017-12-02] MEDS: BUDESONIDE/FORMETEROL FUMARATE 160/4.5 mcg INHALER IH SCH ×2 (10:09→21:21)
[2017-12-02] MEDS: THIAMINE HCL 100 MG TABLET (FP) PO SCH (21:19)
[2017-12-02] MEDS: traZODone HCL 100 MG TABLET (FP) PO SCH (21:19)
[2017-12-02] MEDS: diphenhydrAMINE HCL 50 MG CAPSULE PO PRN (21:20)
[2017-12-03] MEDS: GABAPENTIN 300 MG CAPSULE (FP) PO SCH ×3 (06:27→21:18)
[2017-12-03] MEDS: LEVOTHYROXINE NA 25 MCG TABLET (FP) PO SCH (06:27)
[2017-12-03] MEDS: IBUPROFEN 400 MG TABLET (FP) PO PRN ×2 (06:27→21:19)
[2017-12-03] MEDS: METHADONE HCL 40 MG DISPERSABLE TABLET PO SCH (06:27)
[2017-12-03] MEDS ORDERED: PT OWN MED DRAWER 7, Y5N ONE (08:49)
[2017-12-03] MEDS: PRENATAL VITAMINS W/ FOLIC ACID TABLET (FP) PO SCH (09:59)
[2017-12-03] MEDS: amLODIPine BESYLATE 5 MG TABLET (FP) PO SCH (09:59)
[2017-12-03] MEDS: LISINOPRIL 5 MG TABLET (FP) PO SCH (09:59)
[2017-12-03] MEDS: BUDESONIDE/FORMETEROL FUMARATE 160/4.5 mcg INHALER IH SCH ×2 (09:59→21:19)
[2017-12-03] MEDS: FLUoxetine HCL 20 MG CAPSULE (FP) PO SCH (09:59)
[2017-12-03] MEDS: ATORVASTATIN CA 40 MG TABLET (FP) PO SCH (09:59)
[2017-12-03] MEDS: NICOTINE 21 MG/24 HOURS TOPICAL PATCH TD SCH (09:59)
[2017-12-03] MEDS: PANTOPRAZOLE 40 MG TABLET (FP) PO SCH (09:59)
[2017-12-03] MEDS: THIAMINE HCL 100 MG TABLET (FP) PO SCH (21:18)
[2017-12-03] MEDS: traZODone HCL 100 MG TABLET (FP) PO SCH (21:18)
[2017-12-03] MEDS: diphenhydrAMINE HCL 50 MG CAPSULE PO PRN (21:18)
[2017-12-04] MEDS: LEVOTHYROXINE NA 25 MCG TABLET (FP) PO SCH (06:43)
[2017-12-04] MEDS: GABAPENTIN 300 MG CAPSULE (FP) PO SCH ×3 (06:43→21:30)
[2017-12-04] MEDS: METHADONE HCL 40 MG DISPERSABLE TABLET PO SCH (06:44)
[2017-12-04] MEDS: BUDESONIDE/FORMETEROL FUMARATE 160/4.5 mcg INHALER IH SCH ×2 (10:05→21:32)
[2017-12-04] MEDS: NICOTINE 21 MG/24 HOURS TOPICAL PATCH TD SCH (10:05)
[2017-12-04] MEDS: FLUoxetine HCL 20 MG CAPSULE (FP) PO SCH (10:06)
[2017-12-04] MEDS: amLODIPine BESYLATE 5 MG TABLET (FP) PO SCH (10:06)
[2017-12-04] MEDS: ATORVASTATIN CA 40 MG TABLET (FP) PO SCH (10:06)
[2017-12-04] MEDS: LISINOPRIL 5 MG TABLET (FP) PO SCH (10:06)
[2017-12-04] MEDS: PANTOPRAZOLE 40 MG TABLET (FP) PO SCH (10:06)
[2017-12-04] MEDS: PRENATAL VITAMINS W/ FOLIC ACID TABLET (FP) PO SCH (10:06)
[2017-12-04] MEDS: IBUPROFEN 400 MG TABLET (FP) PO PRN (17:52)
[2017-12-04] MEDS ORDERED: PT OWN MED DRAWER 7, Y5N ONE (19:31)
[2017-12-04] MEDS: THIAMINE HCL 100 MG TABLET (FP) PO SCH (21:30)
[2017-12-04] MEDS: traZODone HCL 100 MG TABLET (FP) PO SCH (21:30)
[2017-12-04] MEDS: diphenhydrAMINE HCL 50 MG CAPSULE PO PRN (21:31)
[2017-12-05] MEDS: METHADONE HCL 40 MG DISPERSABLE TABLET PO SCH (06:30)
[2017-12-05] MEDS: LEVOTHYROXINE NA 25 MCG TABLET (FP) PO SCH (06:31)
[2017-12-05] MEDS: GABAPENTIN 300 MG CAPSULE (FP) PO SCH ×3 (06:31→21:18)
[2017-12-05] MEDS: NICOTINE 21 MG/24 HOURS TOPICAL PATCH TD SCH (10:03)
[2017-12-05] MEDS: ATORVASTATIN CA 40 MG TABLET (FP) PO SCH (10:03)
[2017-12-05] MEDS: amLODIPine BESYLATE 5 MG TABLET (FP) PO SCH (10:04)
[2017-12-05] MEDS: LISINOPRIL 5 MG TABLET (FP) PO SCH (10:04)
[2017-12-05] MEDS: BUDESONIDE/FORMETEROL FUMARATE 160/4.5 mcg INHALER IH SCH ×2 (10:04→21:18)
[2017-12-05] MEDS: PANTOPRAZOLE 40 MG TABLET (FP) PO SCH (10:04)
[2017-12-05] MEDS: PRENATAL VITAMINS W/ FOLIC ACID TABLET (FP) PO SCH (10:04)
[2017-12-05] MEDS: FLUoxetine HCL 20 MG CAPSULE (FP) PO SCH (10:04)
[2017-12-05] MEDS: IBUPROFEN 400 MG TABLET (FP) PO PRN (19:10)
[2017-12-05] MEDS: THIAMINE HCL 100 MG TABLET (FP) PO SCH (21:18)
[2017-12-05] MEDS: traZODone HCL 100 MG TABLET (FP) PO SCH (21:18)
[2017-12-05] MEDS: diphenhydrAMINE HCL 50 MG CAPSULE PO PRN (21:18)
[2017-12-06] MEDS: LEVOTHYROXINE NA 25 MCG TABLET (FP) PO SCH (06:48)
[2017-12-06] MEDS: GABAPENTIN 300 MG CAPSULE (FP) PO SCH ×3 (06:48→21:20)
[2017-12-06] MEDS: METHADONE HCL 40 MG DISPERSABLE TABLET PO SCH (06:49)
[2017-12-06] MEDS: BUDESONIDE/FORMETEROL FUMARATE 160/4.5 mcg INHALER IH SCH ×2 (10:07→21:21)
[2017-12-06] MEDS: PANTOPRAZOLE 40 MG TABLET (FP) PO SCH (10:08)
[2017-12-06] MEDS: FLUoxetine HCL 20 MG CAPSULE (FP) PO SCH (10:08)
[2017-12-06] MEDS: PRENATAL VITAMINS W/ FOLIC ACID TABLET (FP) PO SCH (10:08)
[2017-12-06] MEDS: NICOTINE 21 MG/24 HOURS TOPICAL PATCH TD SCH (10:08)
[2017-12-06] MEDS: ATORVASTATIN CA 40 MG TABLET (FP) PO SCH (10:08)
[2017-12-06] MEDS: amLODIPine BESYLATE 5 MG TABLET (FP) PO SCH (10:53)
[2017-12-06] MEDS: LISINOPRIL 5 MG TABLET (FP) PO SCH (10:53)
[2017-12-06] MEDS: IBUPROFEN 400 MG TABLET (FP) PO PRN (13:13)
[2017-12-06] MEDS: diphenhydrAMINE HCL 50 MG CAPSULE PO PRN (21:20)
[2017-12-06] MEDS: traZODone HCL 100 MG TABLET (FP) PO SCH (21:20)
[2017-12-06] MEDS: THIAMINE HCL 100 MG TABLET (FP) PO SCH (21:20)
[2017-12-07] MEDS: GABAPENTIN 300 MG CAPSULE (FP) PO SCH ×3 (06:22→21:23)
[2017-12-07] MEDS: LEVOTHYROXINE NA 25 MCG TABLET (FP) PO SCH (06:22)
[2017-12-07] MEDS: METHADONE HCL 40 MG DISPERSABLE TABLET PO SCH (06:22)
[2017-12-07] MEDS ORDERED: PT OWN MED DRAWER 7, Y5N ONE (08:59)
[2017-12-07] MEDS: BUDESONIDE/FORMETEROL FUMARATE 160/4.5 mcg INHALER IH SCH ×2 (10:10→21:24)
[2017-12-07] MEDS: FLUoxetine HCL 20 MG CAPSULE (FP) PO SCH (10:10)
[2017-12-07] MEDS: NICOTINE 21 MG/24 HOURS TOPICAL PATCH TD SCH (10:10)
[2017-12-07] MEDS: PANTOPRAZOLE 40 MG TABLET (FP) PO SCH (10:11)
[2017-12-07] MEDS: PRENATAL VITAMINS W/ FOLIC ACID TABLET (FP) PO SCH (10:11)
[2017-12-07] MEDS: LISINOPRIL 5 MG TABLET (FP) PO SCH (10:11)
[2017-12-07] MEDS: ATORVASTATIN CA 40 MG TABLET (FP) PO SCH (10:11)
[2017-12-07] MEDS: amLODIPine BESYLATE 5 MG TABLET (FP) PO SCH (10:11)
[2017-12-07] MEDS: THIAMINE HCL 100 MG TABLET (FP) PO SCH (21:23)
[2017-12-07] MEDS: traZODone HCL 100 MG TABLET (FP) PO SCH (21:23)
[2017-12-07] MEDS: diphenhydrAMINE HCL 50 MG CAPSULE PO PRN (21:23)
[2017-12-08] MEDS: METHADONE HCL 40 MG DISPERSABLE TABLET PO SCH (06:32)
[2017-12-08] MEDS: LEVOTHYROXINE NA 25 MCG TABLET (FP) PO SCH (06:33)
[2017-12-08] MEDS: GABAPENTIN 300 MG CAPSULE (FP) PO SCH ×3 (06:33→21:23)
[2017-12-08] MEDS ORDERED: PT OWN MED DRAWER 7, Y5N ONE (08:33)
[2017-12-08] MEDS: ATORVASTATIN CA 40 MG TABLET (FP) PO SCH (09:57)
[2017-12-08] MEDS: NICOTINE 21 MG/24 HOURS TOPICAL PATCH TD SCH (09:57)
[2017-12-08] MEDS: amLODIPine BESYLATE 5 MG TABLET (FP) PO SCH (09:57)
[2017-12-08] MEDS: FLUoxetine HCL 20 MG CAPSULE (FP) PO SCH (09:58)
[2017-12-08] MEDS: LISINOPRIL 5 MG TABLET (FP) PO SCH (09:58)
[2017-12-08] MEDS: PRENATAL VITAMINS W/ FOLIC ACID TABLET (FP) PO SCH (09:58)
[2017-12-08] MEDS: BUDESONIDE/FORMETEROL FUMARATE 160/4.5 mcg INHALER IH SCH ×2 (09:58→21:24)
[2017-12-08] MEDS: PANTOPRAZOLE 40 MG TABLET (FP) PO SCH (09:58)
[2017-12-08] MEDS: IBUPROFEN 400 MG TABLET (FP) PO PRN (15:54)
[2017-12-08] MEDS: THIAMINE HCL 100 MG TABLET (FP) PO SCH (21:22)
[2017-12-08] MEDS: diphenhydrAMINE HCL 50 MG CAPSULE PO PRN (21:23)
[2017-12-08] MEDS: traZODone HCL 100 MG TABLET (FP) PO SCH (21:23)
[2017-12-09] MEDS: METHADONE HCL 40 MG DISPERSABLE TABLET PO SCH (06:37)
[2017-12-09] MEDS: LEVOTHYROXINE NA 25 MCG TABLET (FP) PO SCH (06:38)
[2017-12-09] MEDS: GABAPENTIN 300 MG CAPSULE (FP) PO SCH ×3 (06:38→21:16)
[2017-12-09] MEDS: ATORVASTATIN CA 40 MG TABLET (FP) PO SCH (10:06)
[2017-12-09] MEDS: PRENATAL VITAMINS W/ FOLIC ACID TABLET (FP) PO SCH (10:06)
[2017-12-09] MEDS: NICOTINE 21 MG/24 HOURS TOPICAL PATCH TD SCH (10:06)
[2017-12-09] MEDS: amLODIPine BESYLATE 5 MG TABLET (FP) PO SCH (10:06)
[2017-12-09] MEDS: FLUoxetine HCL 20 MG CAPSULE (FP) PO SCH (10:06)
[2017-12-09] MEDS: LISINOPRIL 5 MG TABLET (FP) PO SCH (10:06)
[2017-12-09] MEDS: PANTOPRAZOLE 40 MG TABLET (FP) PO SCH (10:07)
[2017-12-09] MEDS: BUDESONIDE/FORMETEROL FUMARATE 160/4.5 mcg INHALER IH SCH ×2 (10:08→21:17)
[2017-12-09] MEDS ORDERED: PT OWN MED DRAWER 7, Y5N ONE (10:08)
[2017-12-09] MEDS: diphenhydrAMINE HCL 50 MG CAPSULE PO PRN (21:16)
[2017-12-09] MEDS: traZODone HCL 100 MG TABLET (FP) PO SCH (21:16)
[2017-12-09] MEDS: THIAMINE HCL 100 MG TABLET (FP) PO SCH (21:16)
[2017-12-10] MEDS: METHADONE HCL 40 MG DISPERSABLE TABLET PO SCH (06:20)
[2017-12-10] MEDS: GABAPENTIN 300 MG CAPSULE (FP) PO SCH ×3 (06:20→21:30)
[2017-12-10] MEDS: LEVOTHYROXINE NA 25 MCG TABLET (FP) PO SCH (06:20)
[2017-12-10] MEDS ORDERED: PT OWN MED DRAWER 7, Y5N ONE ×2 (08:53→12:04)
[2017-12-10] MEDS: NICOTINE 21 MG/24 HOURS TOPICAL PATCH TD SCH (10:15)
[2017-12-10] MEDS: amLODIPine BESYLATE 5 MG TABLET (FP) PO SCH (10:16)
[2017-12-10] MEDS: BUDESONIDE/FORMETEROL FUMARATE 160/4.5 mcg INHALER IH SCH ×2 (10:16→21:28)
[2017-12-10] MEDS: PRENATAL VITAMINS W/ FOLIC ACID TABLET (FP) PO SCH (10:16)
[2017-12-10] MEDS: FLUoxetine HCL 20 MG CAPSULE (FP) PO SCH (10:16)
[2017-12-10] MEDS: LISINOPRIL 5 MG TABLET (FP) PO SCH (10:16)
[2017-12-10] MEDS: PANTOPRAZOLE 40 MG TABLET (FP) PO SCH (10:16)
[2017-12-10] MEDS: ATORVASTATIN CA 40 MG TABLET (FP) PO SCH (10:16)
--- NOTE | 2017-12-10 17:02 | PN ---
S Progress Note (SOAP) Subjective: leg swelling, and itchy eyes Objective: 12/10/17 16:57 Last Vital Signs Temp Pulse Resp BP Pulse Ox 98.4 F 79 20 118/80 12/10/17 07:07 12/10/17 09:23 12/10/17 07:07 12/10/17 09:23 GENERAL APPEARANCE: Well developed, well nourished, alert and cooperative, and appears to be in no acute distress. HEAD: normocephalic. EYES: PERRL, EOMI. mild erythema, blt NOSE: No nasal discharge. NECK: Neck supple, non-tender without lymphadenopathy, masses or thyromegaly. CARDIAC: Normal S1 and S2. No S3, S4 or murmurs. Rhythm is regular. There is no peripheral edema, cyanosis or pallor. LUNGS: Clear to auscultation and percussion without rales, rhonchi, wheezing or diminished breath sounds. ABDOMEN: Positive bowel sounds. Soft, nondistended, nontender. No guarding or rebound. No masses. LOWER EXTREMITY: normal sensation with distal capillary filling of less than 2 seconds without tenderness, no discoloration, nodules, deformity or tenderness. + bilateral + 2 non pitting edema both legs NEUROLOGICAL: CN II-XII intact. Strength and sensation symmetric and intact throughout. SKIN: Skin normal color, texture and turgor with no lesions or eruptions. Laboratory Last Values WBC 6.6 K/mm3 (4.0-10.0) 11/20/17 09:30 RBC 4.63 M/mm3 (3.60-5.2) 11/20/17 09:30 Hgb 13.8 GM/dL (10.7-15.3) D 11/20/17 09:30 Hct 41.0 % (32.4-45.2) 11/20/17 09:30 MCV 88.4 fl (80-96) 11/20/17 09:30 MCH 29.8 pg (25.7-33.7) 11/20/17 09:30 MCHC 33.7 g/dl (32.0-36.0) 11/20/17 09:30 RDW 14.2 % (11.6-15.6) D 11/20/17 09:30 Plt Count 261 K/MM3 (134-434) 11/20/17 09:30 MPV 7.9 fl (7.5-11.1) 11/20/17 09:30 Sodium 138 mmol/L (136-145) 11/20/17 09:30 Potassium 4.0 mmol/L (3.5-5.1) 11/20/17 09:30 Chloride 103 mmol/L (98-107) 11/20/17 09:30 Carbon Dioxide 32 mmol/L (21-32) 11/20/17 09:30 Anion Gap 3 (8-16) L 11/20/17 09:30 BUN 14 mg/dL (7-18) 11/20/17 09:30 Creatinine 0.8 mg/dL (0.55-1.02) 11/20/17 09:30 Creat Clearance w eGFR > 60 (>60) 11/20/17 09:30 POC Glucometer 114 UNITS (80-120) 11/25/17 06:14 Random Glucose 199 mg/dL (74-106) H 11/20/17 09:30 Calcium 8.6 mg/dL (8.5-10.1) 11/20/17 09:30 Total Bilirubin 0.3 mg/dL (0.2-1.0) D 11/20/17 09:30 AST 13 U/L (15-37) L D 11/20/17 09:30 ALT 18 U/L (12-78) 11/20/17 09:30 Alkaline Phosphatase 101 U/L (45-117) 11/20/17 09:30 Total Protein 6.9 g/dl (6.4-8.2) 11/20/17 09:30 Albumin 3.3 g/dl (3.4-5.0) L 11/20/17 09:30 Urine Color Yellow 11/19/17 21:54 Urine Appearance Clear 11/19/17 21:54 Urine pH 6.0 (5.0-8.0) 11/19/17 21:54 Ur Specific [place] 1.021 (1.001-1.035) 11/19/17 21:54 Urine Protein Negative (NEGATIVE) 11/19/17 21:54 Urine Glucose (UA) Negative (NEGATIVE) 11/19/17 21:54 Urine Ketones Negative (NEGATIVE) 11/19/17 21:54 Urine Blood Negative (NEGATIVE) 11/19/17 21:54 Urine Nitrite Negative (NEGATIVE) 11/19/17 21:54 Urine Bilirubin Negative (NEGATIVE) 11/19/17 21:54 Urine Urobilinogen 2.0 mg/dL (0.2-1.0) H 11/19/17 21:54 Ur Leukocyte Esterase 2+ (NEGATIVE) H 11/19/17 21:54 Urine WBC (Auto) 28 /hpf (3-5) 11/19/17 21:54 Urine RBC (Auto) 2 /hpf (0-3) 11/19/17 21:54 Ur Epithelial Cells Rare /HPF (FEW) 11/19/17 21:54 Urine Bacteria Rare /hpf (NONE SEEN) 11/19/17 21:54 Hyaline Casts 1 /lpf 11/19/17 21:54 Urine Mucus Rare 11/19/17 21:54 RPR Titer Reactive 1:1 (NONREACTIVE) H 11/20/17 09:30 T.pallidum Ab (MHA) Previously reactive (NONREACTIVE) 11/20/17 09:30 labs noted Assessment: 12/10/17 17:28 edema allergic rhinitis Plan: Increase fluids Low sodium diet Leg elevation Visine A drops b/t PRN continue to monitor / follow up as needed
[2017-12-10] MEDS: diphenhydrAMINE HCL 50 MG CAPSULE PO PRN (21:29)
[2017-12-10] MEDS: THIAMINE HCL 100 MG TABLET (FP) PO SCH (21:30)
[2017-12-10] MEDS: traZODone HCL 100 MG TABLET (FP) PO SCH (21:30)
[2017-12-11] MEDS: GABAPENTIN 300 MG CAPSULE (FP) PO SCH ×3 (06:34→21:15)
[2017-12-11] MEDS: METHADONE HCL 40 MG DISPERSABLE TABLET PO SCH (06:34)
[2017-12-11] MEDS: LEVOTHYROXINE NA 25 MCG TABLET (FP) PO SCH (06:34)
[2017-12-11] MEDS: PRENATAL VITAMINS W/ FOLIC ACID TABLET (FP) PO SCH (10:03)
[2017-12-11] MEDS: ATORVASTATIN CA 40 MG TABLET (FP) PO SCH (10:03)
[2017-12-11] MEDS: amLODIPine BESYLATE 5 MG TABLET (FP) PO SCH (10:03)
[2017-12-11] MEDS: PANTOPRAZOLE 40 MG TABLET (FP) PO SCH (10:03)
[2017-12-11] MEDS: LISINOPRIL 5 MG TABLET (FP) PO SCH (10:03)
[2017-12-11] MEDS: FLUoxetine HCL 20 MG CAPSULE (FP) PO SCH (10:04)
[2017-12-11] MEDS: BUDESONIDE/FORMETEROL FUMARATE 160/4.5 mcg INHALER IH SCH ×2 (10:04→21:16)
[2017-12-11] MEDS: NICOTINE 21 MG/24 HOURS TOPICAL PATCH TD SCH (10:04)
[2017-12-11] MEDS: NAPHAZOLINE/PHENIRAMINE OPHTHALMIC 15 ML BOTTLE OU PRN (10:05)
[2017-12-11] MEDS: IBUPROFEN 400 MG TABLET (FP) PO PRN (13:18)
[2017-12-11] MEDS: traZODone HCL 100 MG TABLET (FP) PO SCH (21:15)
[2017-12-11] MEDS: THIAMINE HCL 100 MG TABLET (FP) PO SCH (21:15)
[2017-12-11] MEDS: diphenhydrAMINE HCL 50 MG CAPSULE PO PRN (21:16)
[2017-12-12] MEDS: LEVOTHYROXINE NA 25 MCG TABLET (FP) PO SCH (06:16)
[2017-12-12] MEDS: METHADONE HCL 40 MG DISPERSABLE TABLET PO SCH (06:16)
[2017-12-12] MEDS: IBUPROFEN 400 MG TABLET (FP) PO PRN ×2 (06:16→12:47)
[2017-12-12] MEDS: GABAPENTIN 300 MG CAPSULE (FP) PO SCH ×3 (06:18→21:18)
[2017-12-12] MEDS: NAPHAZOLINE/PHENIRAMINE OPHTHALMIC 15 ML BOTTLE OU PRN (07:47)
[2017-12-12] MEDS ORDERED: PT OWN MED DRAWER 7, Y5N ONE (08:51)
[2017-12-12] MEDS: NICOTINE 21 MG/24 HOURS TOPICAL PATCH TD SCH (10:12)
[2017-12-12] MEDS: PRENATAL VITAMINS W/ FOLIC ACID TABLET (FP) PO SCH (10:12)
[2017-12-12] MEDS: BUDESONIDE/FORMETEROL FUMARATE 160/4.5 mcg INHALER IH SCH ×2 (10:12→21:19)
[2017-12-12] MEDS: ATORVASTATIN CA 40 MG TABLET (FP) PO SCH (10:12)
[2017-12-12] MEDS: amLODIPine BESYLATE 5 MG TABLET (FP) PO SCH (10:12)
[2017-12-12] MEDS: LISINOPRIL 5 MG TABLET (FP) PO SCH (10:12)
[2017-12-12] MEDS: PANTOPRAZOLE 40 MG TABLET (FP) PO SCH (10:13)
[2017-12-12] MEDS: FLUoxetine HCL 20 MG CAPSULE (FP) PO SCH (10:13)
[2017-12-12] MEDS: traZODone HCL 100 MG TABLET (FP) PO SCH (21:18)
[2017-12-12] MEDS: diphenhydrAMINE HCL 50 MG CAPSULE PO PRN (21:18)
[2017-12-12] MEDS: THIAMINE HCL 100 MG TABLET (FP) PO SCH (21:18)
[2017-12-13] MEDS: METHADONE HCL 40 MG DISPERSABLE TABLET PO SCH (06:34)
[2017-12-13] MEDS: GABAPENTIN 300 MG CAPSULE (FP) PO SCH (06:35)
[2017-12-13] MEDS: LEVOTHYROXINE NA 25 MCG TABLET (FP) PO SCH (06:35)
[2017-12-13 07:09] VITALS: TEMP 98.3
[2017-12-13] MEDS: NICOTINE 21 MG/24 HOURS TOPICAL PATCH TD SCH (09:06)
[2017-12-13] MEDS: LISINOPRIL 5 MG TABLET (FP) PO SCH (09:06)
[2017-12-13] MEDS: FLUoxetine HCL 20 MG CAPSULE (FP) PO SCH (09:06)
[2017-12-13] MEDS: PANTOPRAZOLE 40 MG TABLET (FP) PO SCH (09:06)
[2017-12-13] MEDS: ATORVASTATIN CA 40 MG TABLET (FP) PO SCH (09:06)
[2017-12-13] MEDS: BUDESONIDE/FORMETEROL FUMARATE 160/4.5 mcg INHALER IH SCH (09:06)
[2017-12-13] MEDS: PRENATAL VITAMINS W/ FOLIC ACID TABLET (FP) PO SCH (09:06)
[2017-12-13] MEDS: amLODIPine BESYLATE 5 MG TABLET (FP) PO SCH (09:06)
--- NOTE | 2017-12-13 09:15 | PN ---
Psychiatric Progress Note Vital Signs: Vital Signs Period Temp Pulse Resp BP Sys/Marinelli Pulse Ox Last 24 Hr 98.3 F 83-84 18-20 136-160/86-87 Date of Session: 12/13/17 Chief Complaint:: Discharge visit Current Medications: Active Medications Generic Name Dose Route Start Last Admin Trade Name Freq PRN Reason Stop Dose Admin Acetaminophen 650 mg 11/19/17 20:04 Tylenol - PO Q4H PRN FEVER Al Hydroxide/Mg Hydroxide 30 ml 11/19/17 20:04 Mylanta Oral Suspension - PO Q6H PRN DYSPEPSIA Albuterol Sulfate 2 puff 11/20/17 11:27 Ventolin Hfa Inhaler - IH Q4H PRN SHORT OF BREATH/WHEEZING Amlodipine Besylate 5 mg 11/20/17 10:00 12/13/17 09:06 Norvasc - PO 5 mg DAILY KRIS Administration Atorvastatin Calcium 40 mg 11/20/17 10:00 12/13/17 09:06 Lipitor - PO 40 mg DAILY KRIS Administration Budesonide/Formoterol Fumarate 2 puff 11/20/17 10:00 12/13/17 09:06 Symbicort 160/4.5mcg - IH 2 puff BID KRIS Administration Colloidal Oatmeal 1 applic 11/23/17 13:05 11/24/17 09:53 Aveeno Soap - TP 1 bar DAILY PRN Administration HYGEINE Diphenhydramine HCl 50 mg 11/25/17 10:20 12/12/17 21:18 Benadryl - PO 50 mg HS PRN Administration INSOMNIA Eucalyptus/Menthol/Phenol/Sorbitol 1 each 11/19/17 20:04 Cepastat Lozenge - MM Q4H PRN SORE THROAT Fluoxetine HCl 40 mg 11/21/17 10:00 12/13/17 09:06 Prozac - PO 40 mg DAILY KRIS Administration Gabapentin 300 mg 11/20/17 06:30 12/13/17 06:35 Neurontin - PO 300 mg TID KRIS Administration Guaifenesin 10 ml 11/19/17 20:04 Robitussin Dm - PO Q6H PRN COUGH Hydroxyzine Pamoate 50 mg 11/19/17 20:04 Vistaril - PO Q4H PRN AGITATION Ibuprofen 400 mg 11/19/17 20:04 12/12/17 12:47 Motrin - PO 400 mg Q6H PRN Administration Pain level 4-6 Levothyroxine Sodium 75 mcg 11/20/17 07:15 12/13/17 06:35 Synthroid - PO 75 mcg DAILY@0700 KRIS Administration Lisinopril 5 mg 11/20/17 10:00 12/13/17 09:06 Prinivil PO 5 mg DAILY KRIS Administration Loperamide HCl 4 mg 11/19/17 20:04 Imodium - PO Q6H PRN DIARRHEA Magnesium Citrate 300 ml 11/19/17 20:04 Citroma - PO Q48H PRN CONSTIPATION Magnesium Hydroxide 30 ml 11/19/17 20:04 12/11/17 15:02 Milk Of Magnesia - PO 30 ml DAILY PRN Administration CONSTIPATION Methadone HCl 80 mg 12/11/17 06:00 12/13/17 06:34 Dolophine - PO 12/18/17 05:59 80 mg DAILY@0600 KRIS Administration Naphazoline HCl/Pheniramine Maleate 1 drop 12/10/17 18:57 12/12/17 07:47 Visine-A - OU 1 drop QID PRN Administration DRY EYES Nicotine 21 mg 11/20/17 13:45 12/13/17 09:06 Nicoderm Patch - TD 21 mg DAILY KRIS Administration Pantoprazole Sodium 40 mg 11/20/17 10:00 12/13/17 09:06 Protonix - PO 40 mg DAILY KRIS Administration Multivit/Folic Acid/Iron 1 tab 11/20/17 10:00 12/13/17 09:06 Vitamins (Sjr) - PO 1 tab DAILY KRIS Administration Pseudoephedrine/Triprolidine 1 combo 11/19/17 20:04 Actifed - PO TID PRN NASAL CONGESTION Thiamine HCl 100 mg 11/19/17 22:00 12/12/17 21:18 Vitamin B1 - PO 100 mg HS KRIS Administration Trazodone HCl 100 mg 11/20/17 22:00 12/12/17 21:18 Desyrel - PO 100 mg HS KRIS Administration Current Side Effect: No Lab tests ordered: No Lab tests reviewed: Yes Provider note:: Patient com[pleted this program today.She has met her treatment goals and will continue to address her issues on outpatient basis at [facility].Trazodone 100 mg po hs ,Prozac 40 mg po daily and Neurontin 300 mg po tid. Total face to face time:: 30 Psychiatric Treatment Plan - Problem List (1) Arthritis Current Visit: Yes (2) COPD (chronic obstructive pulmonary disease) Current Visit: Yes Qualifiers: COPD type: emphysema Emphysema type: unilateral Qualified Code(s): J43.0 - Unilateral pulmonary emphysema [MacLeod's syndrome] (3) HTN (hypertension) Current Visit: Yes Qualifiers: Hypertension type: essential hypertension Qualified Code(s): I10 - Essential (primary) hypertension (4) Hypothyroidism Current Visit: Yes Qualifiers: Hypothyroidism type: acquired Qualified Code(s): E03.9 - Hypothyroidism, unspecified (5) Anxiolytic dependence Current Visit: Yes (6) Obesity Current Visit: Yes Qualifiers: Obesity type: due to excess calories Obesity classification: adult class 2 (BMI 35 ? 39.9) Serious obesity comorbidity presence: without serious comorbidity (7) Opioid dependence on agonist therapy Current Visit: Yes (8) MDD (major depressive disorder), recurrent episode Current Visit: Yes
[2017-12-13 09:20] VITALS: BP 133/84; PULSE 80
[2017-12-13] MEDS: IBUPROFEN 400 MG TABLET (FP) PO PRN (09:20)
== END 2017-12-13 09:55 | disposition home or self-care (01) | DRG 895 ==
LOC: YASAS 16:30 → Y3E 20:43
PROVIDERS: ADMIT Psychiatry & Neurology Psychiatry; ATTEND Psychiatry & Neurology Psychiatry
PROC: HZ42ZZZ Group Counseling for Substance Abuse Treatment, Cognitive-Behavioral (ICD-10-PCS; principal; 2017-11-19)
DX: F19.20 Other psychoactive substance dependence, uncomplicated (principal); F13.20 Sedative, hypnotic or anxiolytic dependence, uncomplicated; F33.3 Major depressive disorder, recurrent, severe with psychotic symptoms; I10 Essential (primary) hypertension; E03.9 Hypothyroidism, unspecified; J43.0 Unilateral pulmonary emphysema [MacLeod's syndrome]; M12.9 Arthropathy, unspecified; E66.9 Obesity, unspecified; Z68.39 Body mass index [BMI] 39.0-39.9, adult
CPT/HCPCS: 36415; 80053; 81003; 81015; 82962; 85027; 86593; 86780; 93005; 93010

== ENCOUNTER 2018-01-11 10:29 | Inpatient (IN) | payer OTHER ==
[2018-01-11 12:08] VITALS: BMI 39.6
--- NOTE | 2018-01-11 14:09 | HP ---
Admission [facility] Allergies/Adverse Reactions: Allergies Allergy/AdvReac Type Severity Reaction Status Date / Time No Known Allergies Allergy Verified 01/11/18 14:07 - Ebola screening Have you traveled outside of the country in the last 21 days: No (N) Have you had contact with anyone from an Ebola affected area: No Have you been sick,other than usual withdrawal symptoms: No Do you have a fever: No Patient History - Patient Medical History Hx Anemia: No Hx Asthma: Yes (ON MDI) Hx Chronic Obstructive Pulmonary Disease (COPD): Yes Hx Cancer: No Hx Cardiac Disorders: No Hx Congestive Heart Failure: No Hx Hypertension: Yes (ON MEDS.) Hx Hypercholesterolemia: Yes Hx Pacemaker: No HX Cerebrovascular Accident: No Hx Seizures: No Hx Dementia: No Hx Diabetes: No Hx Gastrointestinal Disorders: Yes Hx Liver Disease: No Hx Genitourinary Disorders: No Hx Sexually Transmitted Disorders: Yes (SYPHILIS) Hx Renal Disease (ESRD): No Hx Thyroid Disease: Yes (HYPOTHYROIDISM) Hx Human Immunodeficiency Virus (HIV): No Hx Hepatitis C: Yes (DX OVER 30 YEARS FAILIED TXMENT IN 2000) Hx Depression: No Hx Suicide Attempt: No Hx Bipolar Disorder: Yes Hx Schizophrenia: No - Patient Surgical History Past Surgical History: Yes Hx Neurologic Surgery: No Hx Cataract Extraction: No Hx Cardiac Surgery: No Hx Lung Surgery: No Hx Breast Surgery: No Hx Breast Biopsy: No Hx Abdominal Surgery: No Hx Appendectomy: Yes (13 YEARS OLD) Hx Cholecystectomy: Yes (1994) Hx Genitourinary Surgery: No Hx Section: No Hx Orthopedic Surgery: No Hx Hysterectomy: No Other Surgical History: RIGHT FOOT BONION 1999 Anesthesia Reaction: No - PPD History Previous Implant?: Yes Documented Results: Negative w/proof Implanted On Prior [facility] Admission?: Yes Date: 11/12/17 Results: 0mm PPD to be Administered?: No - Reproductive History Patient is a Female of Child Bearing Age (11 -55 yrs old): No Last Menstrual Period: 05/01/01 Patient : No - Smoking Cessation Smoking history: Current every day smoker Have you smoked in the past 12 months: No Aproximately how many cigarettes per day: 7 Cigars Per Day: 0 Hx Chewing Tobacco Use: No Initiated information on smoking cessation: Yes 'Breaking Loose' booklet given: 01/11/18 - Substance & Tx. History Hx Alcohol Use: No Hx Substance Use: Yes Substance Use Type: Tranquilizers Hx Substance Use Treatment: Yes (11/2016 [facility]) - Substances Abused Alprazolam (Xanax) Route: Oral Frequency: Daily Family Disease History - Family Disease History Family Disease History: Heart Disease: Father (ALCHOLISM/ [place] ), [place]: Mother (LUNG ), Other: Father, Brother (no brother), Sister (DRUG PROBLEMS) Admission Physical Exam S - Vital Signs Vital Signs: Vital Signs - 24 hr 01/11/18 12:05 Temperature 96 F L Pulse Rate 76 Respiratory 20 Rate Blood Pressure 127/73 - Physical General Appearance: Yes: Appropriately Dressed, Moderate Distress, Tremorous, Irritable, Sweating, Anxious HEENTM: Yes: Hearing grossly Normal, Normal ENT Inspection, Normocephalic, Normal Voice Respiratory: Yes: Chest Non-Tender, No Respiratory Distress, No Accessory Muscle Use, Wheezing, Hyperresonant Neck: Yes: Supple, Trachea in good position Breast: Yes: Breasts Symetrical Cardiology: Yes: Regular Rhythm, Regular Rate, S1, S2 Abdominal: Yes: Non Tender, Soft, Increased Bowel Sounds Genitourinary: Yes: Within Normal Limits Back: Yes: Normal Inspection Musculoskeletal: Yes: full range of Motion, Gait Steady, Back pain, Muscle weakness (knees) Extremities: Yes: Normal Inspection, Normal Range of Motion, Non-Tender, Tremors Neurological: Yes: Fully Oriented, Motor Strength 5/5 (cane), Normal Response, Depressed Affect Integumentary: Yes: Warm Lymphatic: Yes: Within Normal Limits - Diagnostic (1) Edema Current Visit: Yes Status: Chronic Qualifiers: Edema type: unspecified Qualified Code(s): R60.9 - Edema, unspecified (2) Uncomplicated sedative, hypnotic, or anxiolytic withdrawal Current Visit: Yes Status: Acute (3) COPD (chronic obstructive pulmonary disease) Current Visit: Yes Status: Chronic Qualifiers: COPD type: emphysema Emphysema type: unilateral Qualified Code(s): J43.0 - Unilateral pulmonary emphysema [MacLeod's syndrome] (4) HTN (hypertension) Current Visit: Yes Status: Chronic Qualifiers: Hypertension type: essential hypertension Qualified Code(s): I10 - Essential (primary) hypertension (5) Hypothyroidism Current Visit: Yes Status: Chronic Qualifiers: Hypothyroidism type: acquired Qualified Code(s): E03.9 - Hypothyroidism, unspecified (6) Obesity Current Visit: Yes Status: Chronic Qualifiers: Obesity type: due to excess calories Obesity classification: adult class 2 (BMI 35 ? 39.9) Serious obesity comorbidity presence: without serious comorbidity (7) Use of cane as ambulatory aid Current Visit: Yes Status: Chronic Comment: KNEES RIGHT Cleared for Admission S - Detox or Rehab [facility] Level of Care: Medically Managed Detox Regimen/Protocol: Valium S Breath Alcohol Content Breath Alcohol Content: 0 Urine Pregancy Test - Result Urine Test Results: Negative- NO Line Present Urine Drug Screen - Control Is Test Valid: Yes - Results Drug Screen Negative: No Urine Drug Screen Results: BZO-Benzodiazepines, MTD-Methadone, TCA-Tricyclic Antidepress
[2018-01-11] MEDS ORDERED: P-EPHED 60MG/TRIPROLIDI 2.5MG TABLET PO PRN (14:12)
[2018-01-11] MEDS ORDERED: METHADONE HCL 10 MG TABLET (FOR DETOX USE ONLY) PO ONE ×2 (14:12→23:00)
[2018-01-11] MEDS ORDERED: NICOTINE POLACRILEX 2 MG GUM BC PRN (14:12)
[2018-01-11] MEDS ORDERED: MAG HYDROX/AL HYDROX/SIMETH 30 ML UNIT-DOSE CUP PO PRN (14:12)
[2018-01-11] MEDS ORDERED: MAGNESIUM CITRATE 300 ML BOTTLE PO PRN (14:12)
[2018-01-11] MEDS ORDERED: MENTHOL/PHENOL 1 EACH UD MM PRN (14:12)
[2018-01-11] MEDS ORDERED: LOPERAMIDE HCL 2 MG CAPSULE PO PRN (14:12)
[2018-01-11] MEDS ORDERED: guaiFENesin/D-METHORPHAN HB 10 ML UNIT-DOSE CUPS PO PRN (14:12)
[2018-01-11] MEDS ORDERED: MAGNESIUM HYDROX 2400MG/30ML ORAL SUSPENSION 30 ML CUP PO PRN (14:12)
[2018-01-11] MEDS ORDERED: ALBUTEROL SO4 18 GM HFA INHALER IH PRN (14:14)
[2018-01-11] MEDS ORDERED: diazePAM 5 MG TABLET PO ONE (16:15)
--- NOTE | 2018-01-11 17:24 | CONSULT ---
[facility] Psychiatric Consult - Data Date of interview: 01/11/18 Admission source: [facility] Identifying data: Pt. is a 67 year old single female, mother of two, unemployed , collecting SSI, and lives with daughter. This is one of multiple admissions for patient. Pt. admitted to for benzodiazepine dependence. Substance Abuse History: Smoking Cessation. Smoking history: Current every day smoker. Have you smoked in the past 12 months: No. Aproximately how many cigarettes per day: 7. Cigars Per Day: 0. Hx Chewing Tobacco Use: No. Initiated information on smoking cessation: Yes. 'Breaking Loose' booklet given : 01/11/18. - Substance & Tx. History. Hx Alcohol Use: No. Hx Substance Use: Yes. Substance Use Type: Tranquilizers. Hx Substance Use Treatment: Yes (2016 [facility]). - Substances Abused. Alprazolam (Xanax). Route: Oral. Frequency: Daily Medical History: Asthma, hypertension, hypothyrodism, Hep C Psychiatric History: Pt. reports one psychiatric hospitalization ten years ago at [facility] in [facility] after "accidentally overdosing on pills". Outpatient care was provided by [facility] but reports not seeing a psychiatrist in over three months. Pt. was admitted to rehab on 11/22/17. Pt. is prescribed prozac 40mg po daily + trazodone 100mg qhs. Pt. denies h/o suicide attempts. Physical/Sexual Abuse/Trauma History: Denies. Mental Status Exam - Mental Status Exam Alert and Oriented to: Time, Place, Person Cognitive Function: Good Patient Appearance: Well Groomed Mood: Euthymic Affect: Mood Congruent Patient Behavior: Cooperative Speech Pattern: Appropriate Voice Loudness: Normal Thought Process: Goal Oriented Thought Disorder: Not Present Hallucinations: Denies Suicidal Ideation: Denies Homicidal Ideation: Denies Insight/Judgement: Poor Sleep: Poorly Appetite: Fair Muscle strength/Tone: Normal Gait/Station: Normal Psychiatric Findings - Problem List ([place] 1, 2,3) (1) MDD (major depressive disorder) Current Visit: Yes Status: Chronic Comment: History. (2) Uncomplicated sedative, hypnotic, or anxiolytic withdrawal Current Visit: Yes Status: Acute (3) Insomnia Current Visit: Yes Status: Acute (4) Opioid dependence on agonist therapy Current Visit: No Status: Chronic - Initial Treatment Plan Initial Treatment Plan: Psychoeducation provided. Detoxification in progress. Prozac 40mg PO daily + Trazodone 50mg qhs ordered. Benefits and side effects discussed. Verbal consent given. Will continue to monitor.
[2018-01-11] MEDS: ACETAMINOPHEN 325 MG TABLET (FP) PO PRN (17:34)
[2018-01-11 22:18] LABS: URINE APPEARANCE TURBID; URINE BILIRUBIN NEGATIVE (NEGATIVE); URINE BLOOD NEGATIVE (NEGATIVE); URINE COLOR AMBER; URINE GLUCOSE (UA) NEGATIVE (NEGATIVE); URINE KETONE TRACE (NEGATIVE); URINE NITRITE NEGATIVE (NEGATIVE); URINE PROTEIN NEGATIVE (NEGATIVE)
[2018-01-11] MEDS: RANITIDINE HCL 150 MG TABLET (FP) PO SCH (22:19)
[2018-01-11] MEDS: diazePAM 5 MG TABLET PO SCH (22:19)
[2018-01-11] MEDS: THIAMINE HCL 100 MG TABLET (FP) PO SCH (22:19)
[2018-01-11] MEDS: traZODone HCL 50 MG TABLET (FP) PO SCH (22:19)
[2018-01-11] MEDS: ATORVASTATIN CA 40 MG TABLET (FP) PO SCH (22:20)
[2018-01-11] MEDS: GABAPENTIN 300 MG CAPSULE (FP) PO SCH (22:23)
[2018-01-11 22:27] LABS: URINE LEUK ESTERASE 1+ (NEGATIVE)
[2018-01-11] MEDS: BUDESONIDE/FORMETEROL FUMARATE 160/4.5 mcg INHALER IH SCH (22:29)
[2018-01-11 22:35] LABS: CALCIUM OXALATE CRYSTALS MODERATE /hpf (NONE SEEN); EPI CELLS RARE /HPF (FEW); URINE MUCUS RARE
[2018-01-12] MEDS: GABAPENTIN 300 MG CAPSULE (FP) PO SCH ×3 (06:13→22:25)
[2018-01-12] MEDS: diazePAM 5 MG TABLET PO SCH ×3 (06:13→22:26)
[2018-01-12] MEDS: LEVOTHYROXINE NA 25 MCG TABLET (FP) PO SCH (06:13)
[2018-01-12] MEDS: METHADONE HCL 40 MG DISPERSABLE TABLET PO SCH (06:14)
--- NOTE | 2018-01-12 09:48 | PN ---
S CIWA - CIWA Score Nausea/Vomitin Muscle Tremors: 3 Anxiety: 3 Agitation: 3 Paroxysmal Sweats: 1-Minimal Palms Moist Orientation: 0-Oriented Tacttile Disturbances: 1-Very Mild Itch/Numbness Auditory Disturbances: 1-Very Mild Visual Disturbances: 0-None Headache: 2-Mild CIWA-Ar Total Score: 17 BHS Progress Note (SOAP) Subjective: ALERT,IRRITABLE,ANXIOUS,INTERRUPTED SLEEP,TREMOR,PAIN IN THE BODY Objective: 01/12/18 09:44 Vital Signs Temperature 97.9 F 01/12/18 06:19 Pulse Rate 61 01/12/18 06:19 Respiratory Rate 18 01/12/18 06:19 Blood Pressure 147/75 01/12/18 06:19 O2 Sat by Pulse Oximetry (%) EKG NSR,NORMAL ECG Laboratory Last Values Urine Color [place] 01/11/18 21:00 Urine Appearance Turbid 01/11/18 21:00 Urine pH 5.0 (5.0-8.0) 01/11/18 21:00 Ur Specific [place] 1.026 (1.001-1.035) 01/11/18 21:00 Urine Protein Negative (NEGATIVE) 01/11/18 21:00 Urine Glucose (UA) Negative (NEGATIVE) 01/11/18 21:00 Urine Ketones Trace (NEGATIVE) H 01/11/18 21:00 Urine Blood Negative (NEGATIVE) 01/11/18 21:00 Urine Nitrite Negative (NEGATIVE) 01/11/18 21:00 Urine Bilirubin Negative (NEGATIVE) 01/11/18 21:00 Urine Urobilinogen 2.0 mg/dL (0.2-1.0) H 01/11/18 21:00 Ur Leukocyte Esterase 1+ (NEGATIVE) H 01/11/18 21:00 Urine WBC (Auto) 6 /hpf (3-5) 01/11/18 21:00 Urine RBC (Auto) 5 /hpf (0-3) 01/11/18 21:00 Ur Epithelial Cells Rare /HPF (FEW) 01/11/18 21:00 Calcium Oxalate Crystal Moderate /hpf (NONE SEEN) 01/11/18 21:00 Urine Mucus Rare 01/11/18 21:00 LABS PENDING Assessment: 01/12/18 09:46 WITHDRAWAL SYMPTOM Plan: CONTINUE DETOX
[2018-01-12] MEDS ORDERED: LISINOPRIL PO SCH (10:00)
[2018-01-12] MEDS ORDERED: METHADONE HCL 10 MG TABLET (FOR DETOX USE ONLY) PO SCH (10:00)
[2018-01-12 10:06] LABS: HEMATOCRIT 39.9 % (32.4-45.2); HEMOGLOBIN 13.4 GM/dL (10.7-15.3); MCH 30.5 pg (25.7-33.7); MCHC 33.6 g/dl (32.0-36.0); MEAN CELL VOLUME 90.8 fl (80-96); MEAN PLT VOLUME 7.7 fl (7.5-11.1); PLATELET COUNT 294 K/MM3 (134-434); RBC 4.39 M/mm3 (3.60-5.2); RDW 14.7 % (11.6-15.6)
[2018-01-12 10:17] LABS: ALBUMIN 3.2 g/dl (3.4-5.0); ANION GAP 8 (8-16); BLOOD UREA NITROGEN 12 mg/dL (7-18); CALCIUM 8.5 mg/dL (8.5-10.1); CHLORIDE 105 mmol/L (98-107); CO2 29 mmol/L (21-32); GLUCOSE,RANDOM 168 mg/dL (74-106); POTASSIUM 3.5 mmol/L (3.5-5.1); SODIUM 142 mmol/L (136-145)
[2018-01-12] MEDS: PRENATAL VITAMINS W/ FOLIC ACID TABLET (FP) PO SCH (10:18)
[2018-01-12] MEDS: BUDESONIDE/FORMETEROL FUMARATE 160/4.5 mcg INHALER IH SCH ×2 (10:18→22:26)
[2018-01-12] MEDS: amLODIPine BESYLATE 5 MG TABLET (FP) PO SCH (10:18)
[2018-01-12] MEDS: FLUoxetine HCL 20 MG CAPSULE (FP) PO SCH (10:18)
[2018-01-12] MEDS: RANITIDINE HCL 150 MG TABLET (FP) PO SCH ×2 (10:18→22:25)
[2018-01-12] MEDS: LISINOPRIL 5 MG TABLET (FP) PO SCH (10:18)
[2018-01-12] MEDS: NICOTINE 14 MG/24 HOURS TOPICAL PATCH TD SCH (10:19)
[2018-01-12] MEDS: diazePAM 5 MG TABLET PO PRN (10:19)
[2018-01-12] MEDS: TIOTROPIUM BROMIDE 18 MCG CAPSULES IH SCH (10:20)
[2018-01-12 10:22] LABS: ALK PHOS 83 U/L (45-117); BILIRUBIN,TOTAL 0.3 mg/dL (0.2-1.0); CREATININE 0.9 mg/dL (0.55-1.02); SGOT/AST 19 U/L (15-37); SGPT/ALT 25 U/L (12-78); TOT PROT 6.4 g/dl (6.4-8.2)
--- NOTE | 2018-01-12 11:20 | EKG ---
Test Reason : Blood Pressure : / mmHG Vent. Rate : 060 BPM Atrial Rate : 060 BPM P-R Int : 136 ms QRS Dur : 088 ms QT Int : 460 ms P-R-T Axes : 046 012 038 degrees QTc Int : 460 ms NORMAL SINUS RHYTHM NORMAL ECG WHEN COMPARED WITH ECG OF 20-NOV-2017 00:19, NO SIGNIFICANT CHANGE WAS FOUND Confirmed by FAY SHELL MD ([id number]) on 01/12/2018 11:20:40 AM Referred By: Confirmed By:FAY SHELL MD
[2018-01-12] MEDS: ACETAMINOPHEN 325 MG TABLET (FP) PO PRN (15:00)
[2018-01-12] MEDS: THIAMINE HCL 100 MG TABLET (FP) PO SCH (22:25)
[2018-01-12] MEDS: traZODone HCL 50 MG TABLET (FP) PO SCH (22:25)
[2018-01-12] MEDS: ATORVASTATIN CA 40 MG TABLET (FP) PO SCH (22:25)
[2018-01-13] MEDS: GABAPENTIN 300 MG CAPSULE (FP) PO SCH ×3 (05:44→22:11)
[2018-01-13] MEDS: METHADONE HCL 40 MG DISPERSABLE TABLET PO SCH (05:44)
[2018-01-13] MEDS: LEVOTHYROXINE NA 25 MCG TABLET (FP) PO SCH (06:48)
[2018-01-13] MEDS: diazePAM 5 MG TABLET PO PRN ×3 (07:42→20:56)
--- NOTE | 2018-01-13 09:58 | PN ---
S Progress Note (SOAP) Subjective: ALERT,ANXIOUS,INTERRUPTED SLEEP,TREMOR Objective: 01/13/18 09:56 Vital Signs Temperature 98.1 F 01/13/18 06:11 Pulse Rate 71 01/13/18 06:11 Respiratory Rate 19 01/13/18 06:11 Blood Pressure 132/70 01/13/18 06:11 O2 Sat by Pulse Oximetry (%) Laboratory Last Values WBC 8.0 K/mm3 (4.0-10.0) 01/12/18 06:00 RBC 4.39 M/mm3 (3.60-5.2) 01/12/18 06:00 Hgb 13.4 GM/dL (10.7-15.3) 01/12/18 06:00 Hct 39.9 % (32.4-45.2) 01/12/18 06:00 MCV 90.8 fl (80-96) 01/12/18 06:00 MCH 30.5 pg (25.7-33.7) 01/12/18 06:00 MCHC 33.6 g/dl (32.0-36.0) 01/12/18 06:00 RDW 14.7 % (11.6-15.6) 01/12/18 06:00 Plt Count 294 K/MM3 (134-434) 01/12/18 06:00 MPV 7.7 fl (7.5-11.1) 01/12/18 06:00 Sodium 142 mmol/L (136-145) 01/12/18 06:00 Potassium 3.5 mmol/L (3.5-5.1) 01/12/18 06:00 Chloride 105 mmol/L (98-107) 01/12/18 06:00 Carbon Dioxide 29 mmol/L (21-32) 01/12/18 06:00 Anion Gap 8 (8-16) 01/12/18 06:00 BUN 12 mg/dL (7-18) 01/12/18 06:00 Creatinine 0.9 mg/dL (0.55-1.02) 01/12/18 06:00 Creat Clearance w eGFR > 60 (>60) 01/12/18 06:00 Random Glucose 168 mg/dL (74-106) H 01/12/18 06:00 Calcium 8.5 mg/dL (8.5-10.1) 01/12/18 06:00 Total Bilirubin 0.3 mg/dL (0.2-1.0) 01/12/18 06:00 AST 19 U/L (15-37) 01/12/18 06:00 ALT 25 U/L (12-78) 01/12/18 06:00 Alkaline Phosphatase 83 U/L (45-117) 01/12/18 06:00 Total Protein 6.4 g/dl (6.4-8.2) 01/12/18 06:00 Albumin 3.2 g/dl (3.4-5.0) L 01/12/18 06:00 Urine Color Hannah 01/11/18 21:00 Urine Appearance Turbid 01/11/18 21:00 Urine pH 5.0 (5.0-8.0) 01/11/18 21:00 Ur Specific [place] 1.026 (1.001-1.035) 01/11/18 21:00 Urine Protein Negative (NEGATIVE) 01/11/18 21:00 Urine Glucose (UA) Negative (NEGATIVE) 01/11/18 21:00 Urine Ketones Trace (NEGATIVE) H 01/11/18 21:00 Urine Blood Negative (NEGATIVE) 01/11/18 21:00 Urine Nitrite Negative (NEGATIVE) 01/11/18 21:00 Urine Bilirubin Negative (NEGATIVE) 01/11/18 21:00 Urine Urobilinogen 2.0 mg/dL (0.2-1.0) H 01/11/18 21:00 Ur Leukocyte Esterase 1+ (NEGATIVE) H 01/11/18 21:00 Urine WBC (Auto) 6 /hpf (3-5) 01/11/18 21:00 Urine RBC (Auto) 5 /hpf (0-3) 01/11/18 21:00 Ur Epithelial Cells Rare /HPF (FEW) 01/11/18 21:00 Calcium Oxalate Crystal Moderate /hpf (NONE SEEN) 01/11/18 21:00 Urine Mucus Rare 01/11/18 21:00 RPR Titer Nonreactive (NONREACTIVE) D 01/12/18 06:00 HIV 1&2 Antibody Screen Negative 01/11/18 15:25 HIV P24 Antigen Negative 01/11/18 15:25 Assessment: 01/13/18 09:57 WITHDRAWAL SYMPTOM Plan: CONTINUE DETOX,BGM MONITORING,FASTING GLUCOSE IN AM
[2018-01-13] MEDS ORDERED: METHADONE HCL 5 MG TABLET (FOR DETOX USE ONLY) PO SCH (10:00)
--- NOTE | 2018-01-13 10:00 | PN ---
S CIWA - CIWA Score Nausea/Vomitin Muscle Tremors: 3 Anxiety: 3 Agitation: 3 Paroxysmal Sweats: 1-Minimal Palms Moist Orientation: 0-Oriented Tacttile Disturbances: 1-Very Mild Itch/Numbness Auditory Disturbances: 1-Very Mild Visual Disturbances: 0-None Headache: 2-Mild CIWA-Ar Total Score: 17 S Progress Note (SOAP) Subjective: ALERT,IRRITABLE,ANXIOUS,INTERRUPTED SLEEP,TREMOR Objective: 01/13/18 09:59 Vital Signs Temperature 98.1 F 01/13/18 06:11 Pulse Rate 71 01/13/18 06:11 Respiratory Rate 19 01/13/18 06:11 Blood Pressure 132/70 01/13/18 06:11 O2 Sat by Pulse Oximetry (%) Laboratory Last Values WBC 8.0 K/mm3 (4.0-10.0) 01/12/18 06:00 RBC 4.39 M/mm3 (3.60-5.2) 01/12/18 06:00 Hgb 13.4 GM/dL (10.7-15.3) 01/12/18 06:00 Hct 39.9 % (32.4-45.2) 01/12/18 06:00 MCV 90.8 fl (80-96) 01/12/18 06:00 MCH 30.5 pg (25.7-33.7) 01/12/18 06:00 MCHC 33.6 g/dl (32.0-36.0) 01/12/18 06:00 RDW 14.7 % (11.6-15.6) 01/12/18 06:00 Plt Count 294 K/MM3 (134-434) 01/12/18 06:00 MPV 7.7 fl (7.5-11.1) 01/12/18 06:00 Sodium 142 mmol/L (136-145) 01/12/18 06:00 Potassium 3.5 mmol/L (3.5-5.1) 01/12/18 06:00 Chloride 105 mmol/L (98-107) 01/12/18 06:00 Carbon Dioxide 29 mmol/L (21-32) 01/12/18 06:00 Anion Gap 8 (8-16) 01/12/18 06:00 BUN 12 mg/dL (7-18) 01/12/18 06:00 Creatinine 0.9 mg/dL (0.55-1.02) 01/12/18 06:00 Creat Clearance w eGFR > 60 (>60) 01/12/18 06:00 Random Glucose 168 mg/dL (74-106) H 01/12/18 06:00 Calcium 8.5 mg/dL (8.5-10.1) 01/12/18 06:00 Total Bilirubin 0.3 mg/dL (0.2-1.0) 01/12/18 06:00 AST 19 U/L (15-37) 01/12/18 06:00 ALT 25 U/L (12-78) 01/12/18 06:00 Alkaline Phosphatase 83 U/L (45-117) 01/12/18 06:00 Total Protein 6.4 g/dl (6.4-8.2) 01/12/18 06:00 Albumin 3.2 g/dl (3.4-5.0) L 01/12/18 06:00 Urine Color Hannah 01/11/18 21:00 Urine Appearance Turbid 01/11/18 21:00 Urine pH 5.0 (5.0-8.0) 01/11/18 21:00 Ur Specific [place] 1.026 (1.001-1.035) 01/11/18 21:00 Urine Protein Negative (NEGATIVE) 01/11/18 21:00 Urine Glucose (UA) Negative (NEGATIVE) 01/11/18 21:00 Urine Ketones Trace (NEGATIVE) H 01/11/18 21:00 Urine Blood Negative (NEGATIVE) 01/11/18 21:00 Urine Nitrite Negative (NEGATIVE) 01/11/18 21:00 Urine Bilirubin Negative (NEGATIVE) 01/11/18 21:00 Urine Urobilinogen 2.0 mg/dL (0.2-1.0) H 01/11/18 21:00 Ur Leukocyte Esterase 1+ (NEGATIVE) H 01/11/18 21:00 Urine WBC (Auto) 6 /hpf (3-5) 01/11/18 21:00 Urine RBC (Auto) 5 /hpf (0-3) 01/11/18 21:00 Ur Epithelial Cells Rare /HPF (FEW) 01/11/18 21:00 Calcium Oxalate Crystal Moderate /hpf (NONE SEEN) 01/11/18 21:00 Urine Mucus Rare 01/11/18 21:00 RPR Titer Nonreactive (NONREACTIVE) D 01/12/18 06:00 HIV 1&2 Antibody Screen Negative 01/11/18 15:25 HIV P24 Antigen Negative 01/11/18 15:25 Assessment: 01/13/18 09:59 WITHDRAWAL SYMPTOM Plan: CONTINUE DETOX,FASTING GLUCOSE IN AM,INITIAL GLUCOSE 168,BGM MONITORING
[2018-01-13] MEDS: amLODIPine BESYLATE 5 MG TABLET (FP) PO SCH (10:28)
[2018-01-13] MEDS: NICOTINE 14 MG/24 HOURS TOPICAL PATCH TD SCH (10:28)
[2018-01-13] MEDS: RANITIDINE HCL 150 MG TABLET (FP) PO SCH ×2 (10:28→22:11)
[2018-01-13] MEDS: LISINOPRIL 5 MG TABLET (FP) PO SCH (10:28)
[2018-01-13] MEDS: FLUoxetine HCL 20 MG CAPSULE (FP) PO SCH (10:28)
[2018-01-13] MEDS: PRENATAL VITAMINS W/ FOLIC ACID TABLET (FP) PO SCH (10:29)
[2018-01-13] MEDS: BUDESONIDE/FORMETEROL FUMARATE 160/4.5 mcg INHALER IH SCH ×2 (10:29→22:12)
[2018-01-13] MEDS: TIOTROPIUM BROMIDE 18 MCG CAPSULES IH SCH (10:29)
[2018-01-13] MEDS: diazePAM 5 MG TABLET PO SCH ×2 (10:30→22:14)
--- NOTE | 2018-01-13 15:39 | PN ---
Psychiatric Progress Note Vital Signs: Vital Signs Period Temp Pulse Resp BP Sys/Marinelli Pulse Ox Last 24 Hr 97.5 F-99.5 F 67-89 18-20 132-148/69-84 Date of Session: 01/13/18 Chief Complaint:: Insomnia HPI: Patient reports taking prior to admission Trazodone 100mg po qhs, patient asking same dosage during detox protocol. Current Medications: Active Medications Generic Name Dose Route Start Last Admin Trade Name Freq PRN Reason Stop Dose Admin Acetaminophen 650 mg 01/11/18 14:12 01/12/18 15:00 Tylenol - PO 650 mg Q4H PRN Administration FEVER Al Hydroxide/Mg Hydroxide 30 ml 01/11/18 14:12 Mylanta Oral Suspension - PO Q6H PRN DYSPEPSIA Albuterol Sulfate 2 puff 01/11/18 14:14 Ventolin Hfa Inhaler - IH Q4H PRN SHORTNESS OF BREATH Amlodipine Besylate 5 mg 01/12/18 10:00 01/13/18 10:28 Norvasc - PO 5 mg DAILY KRIS Administration Atorvastatin Calcium 40 mg 01/11/18 22:00 01/12/18 22:25 Lipitor - PO 40 mg HS KRIS Administration Budesonide/Formoterol Fumarate 2 puff 01/11/18 22:00 01/13/18 10:29 Symbicort 160/4.5mcg - IH 2 puff BID KRIS Administration Diazepam 5 mg 01/13/18 10:00 01/13/18 10:30 Valium - PO 01/14/18 22:01 5 mg BID KRIS Administration Diazepam 5 mg 01/15/18 10:00 Valium - PO 01/15/18 10:01 DAILY KRIS Diazepam 10 mg 01/11/18 14:12 01/13/18 14:45 Valium - PO 01/14/18 14:12 10 mg Q4H PRN Administration WITHDRAWAL(CONT SUBST) Eucalyptus/Menthol/Phenol/Sorbitol 1 each 01/11/18 14:12 Cepastat Lozenge - MM Q4H PRN SORE THROAT Fluoxetine HCl 40 mg 01/12/18 10:00 01/13/18 10:28 Prozac - PO 40 mg DAILY KRIS Administration Gabapentin 300 mg 01/11/18 22:00 01/13/18 14:46 Neurontin - PO 300 mg TID KRIS Administration Guaifenesin 10 ml 01/11/18 14:12 Robitussin Dm - PO Q6H PRN COUGH Levothyroxine Sodium 75 mcg 01/12/18 07:00 01/13/18 06:48 Synthroid - PO 75 mcg 0700 [facility] Administration Lisinopril 5 mg 01/12/18 10:00 01/13/18 10:28 Prinivil PO 5 mg DAILY KRIS Administration Loperamide HCl 4 mg 01/11/18 14:12 Imodium - PO Q6H PRN DIARRHEA Magnesium Citrate 300 ml 01/11/18 14:12 Citroma - PO Q48H PRN CONSTIPATION Magnesium Hydroxide 30 ml 01/11/18 14:12 Milk Of Magnesia - PO DAILY PRN CONSTIPATION Methadone HCl 80 mg 01/12/18 06:00 01/13/18 05:44 Dolophine - PO 80 mg DAILY@0600 [facility] Administration Nicotine 14 mg 01/12/18 10:00 01/13/18 10:28 Nicoderm Patch - TD 14 mg DAILY [facility] Administration Nicotine Polacrilex 2 mg 01/11/18 14:12 Nicorette Gum - BC Q2H PRN NICOTINE REPLACEMENT RX Multivit/Folic Acid/Iron 1 tab 01/12/18 10:00 01/13/18 10:29 Vitamins (Sjr) - PO 1 tab DAILY [facility] Administration Pseudoephedrine/Triprolidine 1 combo 01/11/18 14:12 Actifed - PO TID PRN NASAL CONGESTION Ranitidine HCl 150 mg 01/11/18 22:00 01/13/18 10:28 Zantac - PO 150 mg BID [facility] Administration Thiamine HCl 100 mg 01/11/18 22:00 01/12/18 22:25 Vitamin B1 - PO 100 mg HS [facility] Administration Tiotropium [place] 1 puff 01/12/18 10:00 01/13/18 10:29 Spiriva - IH 1 puff DAILY [facility] Administration Trazodone HCl 100 mg 01/13/18 22:00 Desyrel - PO HS [facility] Medication(s) Change(s): Trazodone 100mg po qhs Mental Status Exam - Mental Status Exam Alert and Oriented to: Person Cognitive Function: Fair Patient Appearance: Well Groomed Mood: Apprehensive Affect: Mood Congruent Patient Behavior: Cooperative Speech Pattern: Appropriate Voice Loudness: Normal Thought Disorder: Being Controlled Hallucinations: Denies Suicidal Ideation: Denies Homicidal Ideation: Denies Insight/Judgement: Fair Sleep: Difficulty falling asleep Appetite: Weight gain Muscle strength/Tone: Mild Hypotonicity Gait/Station: Deferred Additional Comments: Trazodone 100mg po qhs Psychiatric Treatment Plan - Problem List (1) Uncomplicated sedative, hypnotic, or anxiolytic withdrawal Current Visit: Yes (2) MDD (major depressive disorder) Current Visit: Yes Comment: History. (3) Obesity Current Visit: Yes Qualifiers: Obesity type: due to excess calories Obesity classification: adult class 2 (BMI 35 ? 39.9) Serious obesity comorbidity presence: without serious comorbidity (4) Arthritis Current Visit: No (5) MDD (major depressive disorder), recurrent episode Current Visit: No (6) Methadone maintenance therapy patient Current Visit: No Comment: 90 MG VERIFICATION PENDING (7) Opioid dependence on agonist therapy Current Visit: No (8) Sedative, hypnotic or anxiolytic dependence with withdrawal, uncomplicated Current Visit: No Initial treatment plan: Trazodone 100mg po qhs
[2018-01-13] MEDS: ACETAMINOPHEN 325 MG TABLET (FP) PO PRN (17:11)
[2018-01-13] MEDS: ATORVASTATIN CA 40 MG TABLET (FP) PO SCH (22:11)
[2018-01-13] MEDS: traZODone HCL 100 MG TABLET (FP) PO SCH (22:11)
[2018-01-13] MEDS: THIAMINE HCL 100 MG TABLET (FP) PO SCH (22:12)
[2018-01-14] MEDS: GABAPENTIN 300 MG CAPSULE (FP) PO SCH ×3 (05:49→22:23)
[2018-01-14] MEDS: METHADONE HCL 40 MG DISPERSABLE TABLET PO SCH (05:49)
[2018-01-14] MEDS: ACETAMINOPHEN 325 MG TABLET (FP) PO PRN ×2 (05:52→17:31)
[2018-01-14] MEDS: diazePAM 5 MG TABLET PO PRN (05:57)
[2018-01-14] MEDS: LEVOTHYROXINE NA 25 MCG TABLET (FP) PO SCH (06:31)
--- NOTE | 2018-01-14 09:26 | PN ---
S Progress Note (SOAP) Subjective: ALERT,IRRITABLE,INTERRUPTED SLEEP, Objective: 01/14/18 09:24 Vital Signs Temperature 98.1 F 01/14/18 06:21 Pulse Rate 64 01/14/18 06:21 Respiratory Rate 20 01/14/18 06:21 Blood Pressure 156/89 01/14/18 06:21 O2 Sat by Pulse Oximetry (%) Assessment: 01/14/18 09:25 WITHDRAWAL SYMPTOM Plan: CONTINUE DETOX,BGM 104
[2018-01-14] MEDS: FLUoxetine HCL 20 MG CAPSULE (FP) PO SCH (10:16)
[2018-01-14] MEDS: PRENATAL VITAMINS W/ FOLIC ACID TABLET (FP) PO SCH (10:16)
[2018-01-14] MEDS: LISINOPRIL 5 MG TABLET (FP) PO SCH (10:16)
[2018-01-14] MEDS: diazePAM 5 MG TABLET PO SCH ×2 (10:16→22:23)
[2018-01-14] MEDS: BUDESONIDE/FORMETEROL FUMARATE 160/4.5 mcg INHALER IH SCH ×2 (10:17→22:24)
[2018-01-14] MEDS: TIOTROPIUM BROMIDE 18 MCG CAPSULES IH SCH (10:17)
[2018-01-14] MEDS: RANITIDINE HCL 150 MG TABLET (FP) PO SCH ×2 (10:17→22:23)
[2018-01-14] MEDS: NICOTINE 14 MG/24 HOURS TOPICAL PATCH TD SCH (10:18)
[2018-01-14] MEDS: amLODIPine BESYLATE 5 MG TABLET (FP) PO SCH (10:18)
[2018-01-14] MEDS: ATORVASTATIN CA 40 MG TABLET (FP) PO SCH (22:23)
[2018-01-14] MEDS: traZODone HCL 100 MG TABLET (FP) PO SCH (22:23)
[2018-01-14] MEDS: THIAMINE HCL 100 MG TABLET (FP) PO SCH (22:24)
[2018-01-15] MEDS: METHADONE HCL 40 MG DISPERSABLE TABLET PO SCH (05:58)
[2018-01-15] MEDS: GABAPENTIN 300 MG CAPSULE (FP) PO SCH ×3 (05:59→22:34)
[2018-01-15] MEDS: LEVOTHYROXINE NA 25 MCG TABLET (FP) PO SCH (06:01)
[2018-01-15] MEDS: ACETAMINOPHEN 325 MG TABLET (FP) PO PRN ×2 (06:01→17:25)
[2018-01-15] MEDS ORDERED: diazePAM 5 MG TABLET PO SCH (10:00)
[2018-01-15] MEDS ORDERED: METHADONE HCL 10 MG TABLET (FOR DETOX USE ONLY) PO SCH (10:00)
[2018-01-15] MEDS: FLUoxetine HCL 20 MG CAPSULE (FP) PO SCH (10:10)
[2018-01-15] MEDS: PRENATAL VITAMINS W/ FOLIC ACID TABLET (FP) PO SCH (10:10)
[2018-01-15] MEDS: RANITIDINE HCL 150 MG TABLET (FP) PO SCH ×2 (10:11→22:32)
[2018-01-15] MEDS: amLODIPine BESYLATE 5 MG TABLET (FP) PO SCH (10:11)
[2018-01-15] MEDS: LISINOPRIL 5 MG TABLET (FP) PO SCH (10:11)
[2018-01-15] MEDS: NICOTINE 14 MG/24 HOURS TOPICAL PATCH TD SCH (10:12)
[2018-01-15] MEDS: BUDESONIDE/FORMETEROL FUMARATE 160/4.5 mcg INHALER IH SCH ×2 (10:12→22:32)
[2018-01-15] MEDS: TIOTROPIUM BROMIDE 18 MCG CAPSULES IH SCH (10:12)
--- NOTE | 2018-01-15 13:17 | PN ---
[facility] Progress Note (SOAP) Subjective: sleep disturbance shakes Objective: 01/15/18 13:16 A & O x 3 Noted to be ambulating steadily w/o cane Vital Signs Temperature 98.2 F 01/15/18 10:00 Pulse Rate 67 01/15/18 10:00 Respiratory Rate 18 01/15/18 10:00 Blood Pressure 101/70 01/15/18 10:00 O2 Sat by Pulse Oximetry (%) Assessment: 01/15/18 13:17 withdrawal sx Plan: continue detox for d/c tomorrow
[2018-01-15] MEDS: IBUPROFEN 600 MG TABLET (FP) PO PRN (19:25)
[2018-01-15] MEDS: traZODone HCL 100 MG TABLET (FP) PO SCH (22:32)
[2018-01-15] MEDS: THIAMINE HCL 100 MG TABLET (FP) PO SCH (22:32)
[2018-01-15] MEDS: ATORVASTATIN CA 40 MG TABLET (FP) PO SCH (22:34)
[2018-01-16] MEDS: GABAPENTIN 300 MG CAPSULE (FP) PO SCH ×3 (05:42→21:45)
[2018-01-16] MEDS: METHADONE HCL 40 MG DISPERSABLE TABLET PO SCH (05:43)
[2018-01-16] MEDS ORDERED: METHADONE HCL 5 MG TABLET (FOR DETOX USE ONLY) PO SCH (06:00)
[2018-01-16] MEDS: LEVOTHYROXINE NA 25 MCG TABLET (FP) PO SCH (06:59)
[2018-01-16] MEDS: IBUPROFEN 600 MG TABLET (FP) PO PRN (08:03)
--- NOTE | 2018-01-16 09:09 | PN ---
S Progress Note (SOAP) Subjective: alert oriented x 3 cohesive, steady gait, denies pain, tolerates food and fluid well, reported anxious about discharged back to community most like relapse immediately patient is concerning not able to adherence with hypertension and thyroid medications, patient acknowledges the consequences of alcohol drinking and fear of unable to control herself at this time Objective: 01/16/18 09:17 Vital Signs Temperature 97.3 F L 01/16/18 06:00 Pulse Rate 56 L 01/16/18 06:00 Respiratory Rate 18 01/16/18 06:00 Blood Pressure 149/79 01/16/18 06:00 O2 Sat by Pulse Oximetry (%) Laboratory Last Values WBC 8.0 K/mm3 (4.0-10.0) 01/12/18 06:00 RBC 4.39 M/mm3 (3.60-5.2) 01/12/18 06:00 Hgb 13.4 GM/dL (10.7-15.3) 01/12/18 06:00 Hct 39.9 % (32.4-45.2) 01/12/18 06:00 MCV 90.8 fl (80-96) 01/12/18 06:00 MCH 30.5 pg (25.7-33.7) 01/12/18 06:00 MCHC 33.6 g/dl (32.0-36.0) 01/12/18 06:00 RDW 14.7 % (11.6-15.6) 01/12/18 06:00 Plt Count 294 K/MM3 (134-434) 01/12/18 06:00 MPV 7.7 fl (7.5-11.1) 01/12/18 06:00 Sodium 142 mmol/L (136-145) 01/12/18 06:00 Potassium 3.5 mmol/L (3.5-5.1) 01/12/18 06:00 Chloride 105 mmol/L (98-107) 01/12/18 06:00 Carbon Dioxide 29 mmol/L (21-32) 01/12/18 06:00 Anion Gap 8 (8-16) 01/12/18 06:00 BUN 12 mg/dL (7-18) 01/12/18 06:00 Creatinine 0.9 mg/dL (0.55-1.02) 01/12/18 06:00 Creat Clearance w eGFR > 60 (>60) 01/12/18 06:00 POC Glucometer 104 UNITS (80-120) 01/14/18 05:58 Random Glucose 168 mg/dL (74-106) H 01/12/18 06:00 Calcium 8.5 mg/dL (8.5-10.1) 01/12/18 06:00 Total Bilirubin 0.3 mg/dL (0.2-1.0) 01/12/18 06:00 AST 19 U/L (15-37) 01/12/18 06:00 ALT 25 U/L (12-78) 01/12/18 06:00 Alkaline Phosphatase 83 U/L (45-117) 01/12/18 06:00 Total Protein 6.4 g/dl (6.4-8.2) 01/12/18 06:00 Albumin 3.2 g/dl (3.4-5.0) L 01/12/18 06:00 Urine Color [place] 01/11/18 21:00 Urine Appearance Turbid 01/11/18 21:00 Urine pH 5.0 (5.0-8.0) 01/11/18 21:00 Ur Specific [place] 1.026 (1.001-1.035) 01/11/18 21:00 Urine Protein Negative (NEGATIVE) 01/11/18 21:00 Urine Glucose (UA) Negative (NEGATIVE) 01/11/18 21:00 Urine Ketones Trace (NEGATIVE) H 01/11/18 21:00 Urine Blood Negative (NEGATIVE) 01/11/18 21:00 Urine Nitrite Negative (NEGATIVE) 01/11/18 21:00 Urine Bilirubin Negative (NEGATIVE) 01/11/18 21:00 Urine Urobilinogen 2.0 mg/dL (0.2-1.0) H 01/11/18 21:00 Ur Leukocyte Esterase 1+ (NEGATIVE) H 01/11/18 21:00 Urine WBC (Auto) 6 /hpf (3-5) 01/11/18 21:00 Urine RBC (Auto) 5 /hpf (0-3) 01/11/18 21:00 Ur Epithelial Cells Rare /HPF (FEW) 01/11/18 21:00 Calcium Oxalate Crystal Moderate /hpf (NONE SEEN) 01/11/18 21:00 Urine Mucus Rare 01/11/18 21:00 RPR Titer Nonreactive (NONREACTIVE) D 01/12/18 06:00 HIV 1&2 Antibody Screen Negative 01/11/18 15:25 HIV P24 Antigen Negative 01/11/18 15:25 lab noted Assessment: 01/16/18 09:18 weak on craving coping anxiety Plan: patient wants to go to inpatient rehab case discussed with counselor that can be arranged prevention on alcohol relapse patient might discharged on 01/17/18 if mental and medical stable
[2018-01-16] MEDS: TIOTROPIUM BROMIDE 18 MCG CAPSULES IH SCH (10:19)
[2018-01-16] MEDS: FLUoxetine HCL 20 MG CAPSULE (FP) PO SCH (10:19)
[2018-01-16] MEDS: PRENATAL VITAMINS W/ FOLIC ACID TABLET (FP) PO SCH (10:20)
[2018-01-16] MEDS: NICOTINE 14 MG/24 HOURS TOPICAL PATCH TD SCH (10:20)
[2018-01-16] MEDS: RANITIDINE HCL 150 MG TABLET (FP) PO SCH ×2 (10:20→21:45)
[2018-01-16] MEDS: amLODIPine BESYLATE 5 MG TABLET (FP) PO SCH (10:20)
[2018-01-16] MEDS: LISINOPRIL 5 MG TABLET (FP) PO SCH (10:21)
[2018-01-16] MEDS: BUDESONIDE/FORMETEROL FUMARATE 160/4.5 mcg INHALER IH SCH ×2 (10:21→21:45)
[2018-01-16] MEDS: traZODone HCL 100 MG TABLET (FP) PO SCH (21:45)
[2018-01-16] MEDS: ATORVASTATIN CA 40 MG TABLET (FP) PO SCH (21:45)
[2018-01-16] MEDS: THIAMINE HCL 100 MG TABLET (FP) PO SCH (21:45)
[2018-01-17] MEDS: METHADONE HCL 40 MG DISPERSABLE TABLET PO SCH (05:51)
[2018-01-17] MEDS: GABAPENTIN 300 MG CAPSULE (FP) PO SCH ×3 (05:51→21:25)
[2018-01-17] MEDS: LEVOTHYROXINE NA 25 MCG TABLET (FP) PO SCH (06:13)
--- NOTE | 2018-01-17 09:06 | PN ---
S Progress Note (SOAP) Subjective: ALERT,NO COMPLAINT Objective: 01/17/18 09:03 Vital Signs Temperature 97.9 F 01/17/18 06:02 Pulse Rate 66 01/17/18 06:02 Respiratory Rate 18 01/17/18 06:02 Blood Pressure 148/78 01/17/18 06:02 O2 Sat by Pulse Oximetry (%) Assessment: 01/17/18 09:03 DETOX COMPLETED,NO WITHDRAWAL SYMPTOM Plan: TRANSFER TO REHAB FOR FURTHER LEVEL OF CARE
--- NOTE | 2018-01-17 09:11 | DS ---
[facility] Detox Discharge Summary Admission Date: 01/11/18 Discharge Date: 01/17/18 - History Present History: Sedative Dependence, MMTP Pertinent Past History: COPD HYPERTENSION HYPERTENSION HYPOTHYROIDISM OBESITY - Physical Exam Results Vital Signs: Vital Signs Temperature 97.9 F 01/17/18 06:02 Pulse Rate 66 01/17/18 06:02 Respiratory Rate 18 01/17/18 06:02 Blood Pressure 148/78 01/17/18 06:02 O2 Sat by Pulse Oximetry (%) Pertinent Admission Physical Exam Findings: WITHDRAWAL SIGNS AND SYMPTOM Vital Signs Temperature 97.9 F 01/17/18 06:02 Pulse Rate 66 01/17/18 06:02 Respiratory Rate 18 01/17/18 06:02 Blood Pressure 148/78 01/17/18 06:02 O2 Sat by Pulse Oximetry (%) - Treatment Hospital Course: Detox Protocol Followed, Detoxed Safely, Responded well Patient has Accepted a Rehab Referral to: TRANSFER TO [facility] FOR FURTHER LEVEL OF CARE - Medication Discharge Medications: Ambulatory Orders traZODone HCL [Desyrel -] 100 mg PO HS #60 tablet 12/21/16 Fluoxetine HCl [Prozac -] 40 mg PO DAILY #60 cap 09/06/17 Diphenhydramine [Benadryl Capsule -] 50 mg PO HS PRN #30 capsule 12/13/17 Famotidine [Pepcid] 20 mg PO BID #60 tablet 12/13/17 Methadone [Dolophine -] 80 mg PO DAILY@0600 tablet MDD 80 12/13/17 Albuterol Sulfate Inhaler - [Ventolin HFA Inhaler -] 1 inh IH PRN PRN #1 inh 09/25 Amlodipine Besylate [Norvasc -] 5 mg PO DAILY #30 tab 01/16/18 Atorvastatin Ca [Lipitor] 40 mg PO DAILY #30 tab 01/16/18 Gabapentin [Neurontin -] 300 mg PO TID #90 cap 01/16/18 Levothyroxine [Synthroid -] 75 mcg PO DAILY #30 tablet 01/16/18 Lisinopril [Prinivil -] 5 mg PO DAILY #30 tablet 01/16/18 Tiotropium [place] [Spiriva] 1 inh PO DAILY #1 inh 01/16/18 - Diagnosis (1) Uncomplicated sedative, hypnotic, or anxiolytic withdrawal Current Visit: Yes Status: Acute (2) Insomnia Current Visit: Yes Status: Acute (3) COPD (chronic obstructive pulmonary disease) Current Visit: Yes Status: Chronic Qualifiers: COPD type: emphysema Emphysema type: unilateral Qualified Code(s): J43.0 - Unilateral pulmonary emphysema [MacLeod's syndrome] (4) HTN (hypertension) Current Visit: Yes Status: Chronic Qualifiers: Hypertension type: essential hypertension Qualified Code(s): I10 - Essential (primary) hypertension (5) Hypothyroidism Current Visit: Yes Status: Chronic Qualifiers: Hypothyroidism type: acquired Qualified Code(s): E03.9 - Hypothyroidism, unspecified (6) MDD (major depressive disorder) Current Visit: Yes Status: Chronic (7) Obesity Current Visit: Yes Status: Chronic Qualifiers: Obesity type: due to excess calories Obesity classification: adult class 2 (BMI 35 ? 39.9) Serious obesity comorbidity presence: without serious comorbidity (8) Methadone maintenance therapy patient Current Visit: No Status: Chronic - AMA Did Patient Leave Against Medical Advice: No
[2018-01-17] MEDS: IBUPROFEN 600 MG TABLET (FP) PO PRN (09:35)
[2018-01-17] MEDS: RANITIDINE HCL 150 MG TABLET (FP) PO SCH ×2 (09:36→21:25)
[2018-01-17] MEDS: amLODIPine BESYLATE 5 MG TABLET (FP) PO SCH (09:36)
[2018-01-17] MEDS: PRENATAL VITAMINS W/ FOLIC ACID TABLET (FP) PO SCH (09:36)
[2018-01-17] MEDS: FLUoxetine HCL 20 MG CAPSULE (FP) PO SCH (09:36)
[2018-01-17] MEDS: TIOTROPIUM BROMIDE 18 MCG CAPSULES IH SCH (09:37)
[2018-01-17] MEDS: BUDESONIDE/FORMETEROL FUMARATE 160/4.5 mcg INHALER IH SCH ×2 (09:37→21:24)
[2018-01-17] MEDS: NICOTINE 14 MG/24 HOURS TOPICAL PATCH TD SCH (09:38)
[2018-01-17] MEDS: LISINOPRIL 5 MG TABLET (FP) PO SCH (09:43)
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
[2018-01-17] MEDS: THIAMINE HCL 100 MG TABLET (FP) PO SCH (21:24)
[2018-01-17] MEDS: traZODone HCL 100 MG TABLET (FP) PO SCH (21:25)
[2018-01-17] MEDS: ATORVASTATIN CA 40 MG TABLET (FP) PO SCH (21:25)
[2018-01-18] MEDS: METHADONE HCL 40 MG DISPERSABLE TABLET PO SCH (06:37)
[2018-01-18] MEDS: LEVOTHYROXINE NA 25 MCG TABLET (FP) PO SCH (06:37)
[2018-01-18] MEDS: GABAPENTIN 300 MG CAPSULE (FP) PO SCH ×3 (06:37→21:24)
[2018-01-18] MEDS: BUDESONIDE/FORMETEROL FUMARATE 160/4.5 mcg INHALER IH SCH ×2 (10:02→21:26)
[2018-01-18] MEDS: LISINOPRIL 5 MG TABLET (FP) PO SCH (10:03)
[2018-01-18] MEDS: FLUoxetine HCL 20 MG CAPSULE (FP) PO SCH (10:03)
[2018-01-18] MEDS: PRENATAL VITAMINS W/ FOLIC ACID TABLET (FP) PO SCH (10:03)
[2018-01-18] MEDS: RANITIDINE HCL 150 MG TABLET (FP) PO SCH ×2 (10:03→21:24)
[2018-01-18] MEDS: amLODIPine BESYLATE 5 MG TABLET (FP) PO SCH (10:04)
[2018-01-18] MEDS: NICOTINE 14 MG/24 HOURS TOPICAL PATCH TD SCH (10:04)
[2018-01-18] MEDS: TIOTROPIUM BROMIDE 18 MCG CAPSULES IH SCH ×2 (11:00→11:01)
[2018-01-18] MEDS ORDERED: PT OWN MED DRAWER 7, Y5N ONE (13:40)
[2018-01-18] MEDS: ATORVASTATIN CA 40 MG TABLET (FP) PO SCH (21:24)
[2018-01-18] MEDS: traZODone HCL 100 MG TABLET (FP) PO SCH (21:24)
[2018-01-18] MEDS: diphenhydrAMINE HCL 50 MG CAPSULE PO PRN (21:25)
[2018-01-18] MEDS: THIAMINE HCL 100 MG TABLET (FP) PO SCH (21:26)
[2018-01-19] MEDS: LEVOTHYROXINE NA 25 MCG TABLET (FP) PO SCH (06:38)
[2018-01-19] MEDS: GABAPENTIN 300 MG CAPSULE (FP) PO SCH ×3 (06:38→21:28)
[2018-01-19] MEDS: METHADONE HCL 40 MG DISPERSABLE TABLET PO SCH (06:38)
[2018-01-19] MEDS: FLUoxetine HCL 20 MG CAPSULE (FP) PO SCH (09:55)
[2018-01-19] MEDS: NICOTINE 14 MG/24 HOURS TOPICAL PATCH TD SCH (09:57)
[2018-01-19] MEDS: amLODIPine BESYLATE 5 MG TABLET (FP) PO SCH (09:57)
[2018-01-19] MEDS: PRENATAL VITAMINS W/ FOLIC ACID TABLET (FP) PO SCH (09:58)
[2018-01-19] MEDS: LISINOPRIL 5 MG TABLET (FP) PO SCH (09:58)
[2018-01-19] MEDS: RANITIDINE HCL 150 MG TABLET (FP) PO SCH ×2 (09:58→21:28)
[2018-01-19] MEDS: BUDESONIDE/FORMETEROL FUMARATE 160/4.5 mcg INHALER IH SCH ×2 (09:59→21:29)
[2018-01-19] MEDS: TIOTROPIUM BROMIDE 18 MCG CAPSULES IH SCH (10:43)
[2018-01-19] MEDS: IBUPROFEN 600 MG TABLET (FP) PO PRN (11:05)
[2018-01-19] MEDS: diphenhydrAMINE HCL 50 MG CAPSULE PO PRN (21:28)
[2018-01-19] MEDS: THIAMINE HCL 100 MG TABLET (FP) PO SCH (21:28)
[2018-01-19] MEDS: traZODone HCL 100 MG TABLET (FP) PO SCH (21:28)
[2018-01-19] MEDS: ATORVASTATIN CA 40 MG TABLET (FP) PO SCH (21:28)
[2018-01-20] MEDS: GABAPENTIN 300 MG CAPSULE (FP) PO SCH ×3 (06:35→21:25)
[2018-01-20] MEDS: METHADONE HCL 40 MG DISPERSABLE TABLET PO SCH (06:35)
[2018-01-20] MEDS: LEVOTHYROXINE NA 25 MCG TABLET (FP) PO SCH (06:35)
[2018-01-20] MEDS ORDERED: PT OWN MED DRAWER 7, Y5N ONE (08:12)
[2018-01-20] MEDS: TIOTROPIUM BROMIDE 18 MCG CAPSULES IH SCH (09:43)
[2018-01-20] MEDS: NICOTINE 14 MG/24 HOURS TOPICAL PATCH TD SCH (09:44)
[2018-01-20] MEDS: BUDESONIDE/FORMETEROL FUMARATE 160/4.5 mcg INHALER IH SCH ×2 (09:44→21:26)
[2018-01-20] MEDS: amLODIPine BESYLATE 5 MG TABLET (FP) PO SCH (09:45)
[2018-01-20] MEDS: PRENATAL VITAMINS W/ FOLIC ACID TABLET (FP) PO SCH (09:45)
[2018-01-20] MEDS: RANITIDINE HCL 150 MG TABLET (FP) PO SCH ×2 (09:45→21:25)
[2018-01-20] MEDS: FLUoxetine HCL 20 MG CAPSULE (FP) PO SCH (09:45)
[2018-01-20] MEDS: LISINOPRIL 5 MG TABLET (FP) PO SCH (09:45)
[2018-01-20] MEDS: IBUPROFEN 600 MG TABLET (FP) PO PRN (09:47)
[2018-01-20] MEDS: ATORVASTATIN CA 40 MG TABLET (FP) PO SCH (21:25)
[2018-01-20] MEDS: traZODone HCL 100 MG TABLET (FP) PO SCH (21:25)
[2018-01-20] MEDS: diphenhydrAMINE HCL 50 MG CAPSULE PO PRN (21:26)
[2018-01-20] MEDS: THIAMINE HCL 100 MG TABLET (FP) PO SCH (21:26)
[2018-01-21] MEDS: GABAPENTIN 300 MG CAPSULE (FP) PO SCH ×3 (06:20→21:22)
[2018-01-21] MEDS: LEVOTHYROXINE NA 25 MCG TABLET (FP) PO SCH (06:20)
[2018-01-21] MEDS: METHADONE HCL 40 MG DISPERSABLE TABLET PO SCH (06:20)
[2018-01-21] MEDS ORDERED: PT OWN MED DRAWER 7, Y5N ONE ×2 (08:56→19:17)
[2018-01-21] MEDS: BUDESONIDE/FORMETEROL FUMARATE 160/4.5 mcg INHALER IH SCH ×2 (09:47→21:22)
[2018-01-21] MEDS: TIOTROPIUM BROMIDE 18 MCG CAPSULES IH SCH (09:47)
[2018-01-21] MEDS: PRENATAL VITAMINS W/ FOLIC ACID TABLET (FP) PO SCH (09:47)
[2018-01-21] MEDS: FLUoxetine HCL 20 MG CAPSULE (FP) PO SCH (09:47)
[2018-01-21] MEDS: amLODIPine BESYLATE 5 MG TABLET (FP) PO SCH (09:48)
[2018-01-21] MEDS: RANITIDINE HCL 150 MG TABLET (FP) PO SCH ×2 (09:48→21:22)
[2018-01-21] MEDS: LISINOPRIL 5 MG TABLET (FP) PO SCH (09:48)
[2018-01-21] MEDS: NICOTINE 14 MG/24 HOURS TOPICAL PATCH TD SCH (09:48)
--- NOTE | 2018-01-21 16:13 | PN ---
[facility] Progress Note Note: Patient refusing to have Blood sugar monitoring continued. Blood sugar this morning 97. Patient denies history of DM and/or medication manaegement. Vital Signs Temperature 98.0 F 01/21/18 07:01 Pulse Rate 75 01/21/18 09:02 Respiratory Rate 16 01/21/18 07:01 Blood Pressure 150/83 01/21/18 09:02 O2 Sat by Pulse Oximetry (%) Laboratory Tests 01/11/18 01/11/18 01/12/18 15:25 21:00 06:00 WBC 8.0 RBC 4.39 Hgb 13.4 Hct 39.9 MCV 90.8 MCH 30.5 MCHC 33.6 RDW 14.7 Plt Count 294 MPV 7.7 Sodium Potassium Chloride Carbon Dioxide Anion Gap BUN Creatinine Creat Clearance w eGFR POC Glucometer Random Glucose Calcium Total Bilirubin AST ALT Alkaline Phosphatase Total Protein Albumin Urine Color [place] Urine Appearance Turbid Urine pH 5.0 Ur Specific [place] 1.026 Urine Protein Negative Urine Glucose (UA) Negative Urine Ketones Trace H Urine Blood Negative Urine Nitrite Negative Urine Bilirubin Negative Urine Urobilinogen 2.0 H Ur Leukocyte Esterase 1+ H Urine WBC (Auto) 6 Urine RBC (Auto) 5 Ur Epithelial Cells Rare Calcium Oxalate Crystal Moderate Urine Mucus Rare RPR Titer HIV 1&2 Antibody Screen Negative HIV P24 Antigen Negative 01/12/18 01/12/18 01/13/18 06:00 06:00 16:21 WBC RBC Hgb Hct MCV MCH MCHC RDW Plt Count MPV Sodium 142 Potassium 3.5 Chloride 105 Carbon Dioxide 29 Anion Gap 8 BUN 12 Creatinine 0.9 Creat Clearance w eGFR > 60 POC Glucometer 137 Random Glucose 168 H Calcium 8.5 Total Bilirubin 0.3 AST 19 ALT 25 Alkaline Phosphatase 83 Total Protein 6.4 Albumin 3.2 L Urine Color Urine Appearance Urine pH Ur Specific [place] Urine Protein Urine Glucose (UA) Urine Ketones Urine Blood Urine Nitrite Urine Bilirubin Urine Urobilinogen Ur Leukocyte Esterase Urine WBC (Auto) Urine RBC (Auto) Ur Epithelial Cells Calcium Oxalate Crystal Urine Mucus RPR Titer Nonreactive D HIV 1&2 Antibody Screen HIV P24 Antigen 01/14/18 01/17/18 01/18/18 05:58 17:21 06:36 WBC RBC Hgb Hct MCV MCH MCHC RDW Plt Count MPV Sodium Potassium Chloride Carbon Dioxide Anion Gap BUN Creatinine Creat Clearance w eGFR POC Glucometer 104 152 115 Random Glucose Calcium Total Bilirubin AST ALT Alkaline Phosphatase Total Protein Albumin Urine Color Urine Appearance Urine pH Ur Specific [place] Urine Protein Urine Glucose (UA) Urine Ketones Urine Blood Urine Nitrite Urine Bilirubin Urine Urobilinogen Ur Leukocyte Esterase Urine WBC (Auto) Urine RBC (Auto) Ur Epithelial Cells Calcium Oxalate Crystal Urine Mucus RPR Titer HIV 1&2 Antibody Screen HIV P24 Antigen 01/20/18 01/21/18 06:34 06:19 WBC RBC Hgb Hct MCV MCH MCHC RDW Plt Count MPV Sodium Potassium Chloride Carbon Dioxide Anion Gap BUN Creatinine Creat Clearance w eGFR POC Glucometer 112 97 Random Glucose Calcium Total Bilirubin AST ALT Alkaline Phosphatase Total Protein Albumin Urine Color Urine Appearance Urine pH Ur Specific [place] Urine Protein Urine Glucose (UA) Urine Ketones Urine Blood Urine Nitrite Urine Bilirubin Urine Urobilinogen Ur Leukocyte Esterase Urine WBC (Auto) Urine RBC (Auto) Ur Epithelial Cells Calcium Oxalate Crystal Urine Mucus RPR Titer HIV 1&2 Antibody Screen HIV P24 Antigen PE: Patient is alert and oriented x 3. In NAD. Skin: warm, dry and intact. Car: S1S2. RRR. Resp: CTA B/L Ext: No edema. A/P: Pre-Diabetes: Blood sugar stable. Will continue NCS diet. Refer to Dietary. D/C BSM.
[2018-01-21] MEDS: IBUPROFEN 600 MG TABLET (FP) PO PRN (19:03)
[2018-01-21] MEDS: ATORVASTATIN CA 40 MG TABLET (FP) PO SCH (21:22)
[2018-01-21] MEDS: traZODone HCL 100 MG TABLET (FP) PO SCH (21:23)
[2018-01-21] MEDS: THIAMINE HCL 100 MG TABLET (FP) PO SCH (21:23)
[2018-01-21] MEDS: diphenhydrAMINE HCL 50 MG CAPSULE PO PRN (21:24)
[2018-01-22] MEDS: METHADONE HCL 40 MG DISPERSABLE TABLET PO SCH (06:34)
[2018-01-22] MEDS: LEVOTHYROXINE NA 25 MCG TABLET (FP) PO SCH (06:35)
[2018-01-22] MEDS: GABAPENTIN 300 MG CAPSULE (FP) PO SCH ×3 (06:35→21:22)
[2018-01-22] MEDS: BUDESONIDE/FORMETEROL FUMARATE 160/4.5 mcg INHALER IH SCH ×2 (10:06→21:23)
[2018-01-22] MEDS: TIOTROPIUM BROMIDE 18 MCG CAPSULES IH SCH (10:07)
[2018-01-22] MEDS: NICOTINE 14 MG/24 HOURS TOPICAL PATCH TD SCH (10:07)
[2018-01-22] MEDS: RANITIDINE HCL 150 MG TABLET (FP) PO SCH ×2 (10:08→21:22)
[2018-01-22] MEDS: PRENATAL VITAMINS W/ FOLIC ACID TABLET (FP) PO SCH (10:08)
[2018-01-22] MEDS: FLUoxetine HCL 20 MG CAPSULE (FP) PO SCH (10:08)
[2018-01-22] MEDS: LISINOPRIL 5 MG TABLET (FP) PO SCH (10:08)
[2018-01-22] MEDS: amLODIPine BESYLATE 5 MG TABLET (FP) PO SCH (10:08)
[2018-01-22] MEDS: IBUPROFEN 600 MG TABLET (FP) PO PRN (10:09)
[2018-01-22] MEDS: traZODone HCL 100 MG TABLET (FP) PO SCH (21:22)
[2018-01-22] MEDS: diphenhydrAMINE HCL 50 MG CAPSULE PO PRN (21:22)
[2018-01-22] MEDS: ATORVASTATIN CA 40 MG TABLET (FP) PO SCH (21:22)
[2018-01-22] MEDS: THIAMINE HCL 100 MG TABLET (FP) PO SCH (21:22)
[2018-01-23] MEDS: GABAPENTIN 300 MG CAPSULE (FP) PO SCH ×3 (06:34→21:27)
[2018-01-23] MEDS: LEVOTHYROXINE NA 25 MCG TABLET (FP) PO SCH (06:34)
[2018-01-23] MEDS: METHADONE HCL 40 MG DISPERSABLE TABLET PO SCH (06:35)
[2018-01-23] MEDS: IBUPROFEN 600 MG TABLET (FP) PO PRN (07:36)
[2018-01-23] MEDS: PRENATAL VITAMINS W/ FOLIC ACID TABLET (FP) PO SCH (09:47)
[2018-01-23] MEDS: NICOTINE 14 MG/24 HOURS TOPICAL PATCH TD SCH (09:47)
[2018-01-23] MEDS: RANITIDINE HCL 150 MG TABLET (FP) PO SCH ×2 (09:48→21:27)
[2018-01-23] MEDS: FLUoxetine HCL 20 MG CAPSULE (FP) PO SCH (09:48)
[2018-01-23] MEDS: LISINOPRIL 5 MG TABLET (FP) PO SCH (09:48)
[2018-01-23] MEDS: amLODIPine BESYLATE 5 MG TABLET (FP) PO SCH (09:48)
[2018-01-23] MEDS: TIOTROPIUM BROMIDE 18 MCG CAPSULES IH SCH (09:49)
[2018-01-23] MEDS: BUDESONIDE/FORMETEROL FUMARATE 160/4.5 mcg INHALER IH SCH ×2 (09:49→21:28)
[2018-01-23] MEDS: diphenhydrAMINE HCL 50 MG CAPSULE PO PRN (21:27)
[2018-01-23] MEDS: ATORVASTATIN CA 40 MG TABLET (FP) PO SCH (21:27)
[2018-01-23] MEDS: traZODone HCL 100 MG TABLET (FP) PO SCH (21:27)
[2018-01-23] MEDS: THIAMINE HCL 100 MG TABLET (FP) PO SCH (21:28)
[2018-01-24] MEDS: LEVOTHYROXINE NA 25 MCG TABLET (FP) PO SCH (06:26)
[2018-01-24] MEDS: METHADONE HCL 40 MG DISPERSABLE TABLET PO SCH (06:26)
[2018-01-24] MEDS: GABAPENTIN 300 MG CAPSULE (FP) PO SCH ×3 (06:26→21:17)
[2018-01-24] MEDS ORDERED: PT OWN MED DRAWER 7, Y5N ONE (08:35)
[2018-01-24] MEDS: FLUoxetine HCL 20 MG CAPSULE (FP) PO SCH (10:01)
[2018-01-24] MEDS: LISINOPRIL 5 MG TABLET (FP) PO SCH (10:01)
[2018-01-24] MEDS: RANITIDINE HCL 150 MG TABLET (FP) PO SCH ×2 (10:01→21:17)
[2018-01-24] MEDS: PRENATAL VITAMINS W/ FOLIC ACID TABLET (FP) PO SCH (10:01)
[2018-01-24] MEDS: NICOTINE 14 MG/24 HOURS TOPICAL PATCH TD SCH (10:02)
[2018-01-24] MEDS: BUDESONIDE/FORMETEROL FUMARATE 160/4.5 mcg INHALER IH SCH ×2 (10:02→21:18)
[2018-01-24] MEDS: amLODIPine BESYLATE 5 MG TABLET (FP) PO SCH (10:02)
[2018-01-24] MEDS: TIOTROPIUM BROMIDE 18 MCG CAPSULES IH SCH (10:09)
[2018-01-24] MEDS: IBUPROFEN 600 MG TABLET (FP) PO PRN (13:46)
[2018-01-24] MEDS: traZODone HCL 100 MG TABLET (FP) PO SCH (21:17)
[2018-01-24] MEDS: ATORVASTATIN CA 40 MG TABLET (FP) PO SCH (21:17)
[2018-01-24] MEDS: THIAMINE HCL 100 MG TABLET (FP) PO SCH (21:17)
[2018-01-24] MEDS: diphenhydrAMINE HCL 50 MG CAPSULE PO PRN (21:17)
[2018-01-25] MEDS: METHADONE HCL 40 MG DISPERSABLE TABLET PO SCH (06:15)
[2018-01-25] MEDS: GABAPENTIN 300 MG CAPSULE (FP) PO SCH ×3 (06:16→21:11)
[2018-01-25] MEDS: LEVOTHYROXINE NA 25 MCG TABLET (FP) PO SCH (06:16)
[2018-01-25] MEDS ORDERED: PT OWN MED DRAWER 7, Y5N ONE ×3 (09:06→23:50)
[2018-01-25] MEDS: NICOTINE 14 MG/24 HOURS TOPICAL PATCH TD SCH (09:56)
[2018-01-25] MEDS: RANITIDINE HCL 150 MG TABLET (FP) PO SCH ×2 (09:57→21:11)
[2018-01-25] MEDS: PRENATAL VITAMINS W/ FOLIC ACID TABLET (FP) PO SCH (09:57)
[2018-01-25] MEDS: FLUoxetine HCL 20 MG CAPSULE (FP) PO SCH (09:57)
[2018-01-25] MEDS: amLODIPine BESYLATE 5 MG TABLET (FP) PO SCH (09:57)
[2018-01-25] MEDS: LISINOPRIL 5 MG TABLET (FP) PO SCH (09:57)
[2018-01-25] MEDS: TIOTROPIUM BROMIDE 18 MCG CAPSULES IH SCH (09:58)
[2018-01-25] MEDS: BUDESONIDE/FORMETEROL FUMARATE 160/4.5 mcg INHALER IH SCH ×2 (09:58→21:12)
[2018-01-25] MEDS: traZODone HCL 100 MG TABLET (FP) PO SCH (21:11)
[2018-01-25] MEDS: THIAMINE HCL 100 MG TABLET (FP) PO SCH (21:11)
[2018-01-25] MEDS: ATORVASTATIN CA 40 MG TABLET (FP) PO SCH (21:11)
[2018-01-25] MEDS: diphenhydrAMINE HCL 50 MG CAPSULE PO PRN (21:13)
[2018-01-26] MEDS: METHADONE HCL 40 MG DISPERSABLE TABLET PO SCH (06:17)
[2018-01-26] MEDS: GABAPENTIN 300 MG CAPSULE (FP) PO SCH ×3 (06:17→21:13)
[2018-01-26] MEDS: LEVOTHYROXINE NA 25 MCG TABLET (FP) PO SCH (06:17)
[2018-01-26] MEDS ORDERED: PT OWN MED DRAWER 7, Y5N ONE ×3 (08:40→22:01)
[2018-01-26] MEDS: TIOTROPIUM BROMIDE 18 MCG CAPSULES IH SCH (09:23)
[2018-01-26] MEDS: amLODIPine BESYLATE 5 MG TABLET (FP) PO SCH (09:24)
[2018-01-26] MEDS: LISINOPRIL 5 MG TABLET (FP) PO SCH (09:24)
[2018-01-26] MEDS: PRENATAL VITAMINS W/ FOLIC ACID TABLET (FP) PO SCH (09:25)
[2018-01-26] MEDS: FLUoxetine HCL 20 MG CAPSULE (FP) PO SCH (09:25)
[2018-01-26] MEDS: RANITIDINE HCL 150 MG TABLET (FP) PO SCH ×2 (09:25→21:13)
[2018-01-26] MEDS: NICOTINE 14 MG/24 HOURS TOPICAL PATCH TD SCH (09:25)
[2018-01-26] MEDS: BUDESONIDE/FORMETEROL FUMARATE 160/4.5 mcg INHALER IH SCH ×2 (09:26→21:53)
[2018-01-26] MEDS: IBUPROFEN 600 MG TABLET (FP) PO PRN (09:27)
[2018-01-26] MEDS: ATORVASTATIN CA 40 MG TABLET (FP) PO SCH (21:13)
[2018-01-26] MEDS: THIAMINE HCL 100 MG TABLET (FP) PO SCH (21:13)
[2018-01-26] MEDS: traZODone HCL 100 MG TABLET (FP) PO SCH (21:13)
[2018-01-26] MEDS: diphenhydrAMINE HCL 50 MG CAPSULE PO PRN (21:14)
[2018-01-27] MEDS: METHADONE HCL 40 MG DISPERSABLE TABLET PO SCH (06:09)
[2018-01-27] MEDS: GABAPENTIN 300 MG CAPSULE (FP) PO SCH ×3 (06:10→21:19)
[2018-01-27] MEDS: LEVOTHYROXINE NA 25 MCG TABLET (FP) PO SCH (06:10)
[2018-01-27] MEDS: TIOTROPIUM BROMIDE 18 MCG CAPSULES IH SCH (09:43)
[2018-01-27] MEDS: PRENATAL VITAMINS W/ FOLIC ACID TABLET (FP) PO SCH (09:44)
[2018-01-27] MEDS: RANITIDINE HCL 150 MG TABLET (FP) PO SCH ×2 (09:44→21:19)
[2018-01-27] MEDS: FLUoxetine HCL 20 MG CAPSULE (FP) PO SCH (09:44)
[2018-01-27] MEDS: BUDESONIDE/FORMETEROL FUMARATE 160/4.5 mcg INHALER IH SCH ×2 (09:45→21:20)
[2018-01-27] MEDS: NICOTINE 14 MG/24 HOURS TOPICAL PATCH TD SCH (09:45)
[2018-01-27] MEDS: LISINOPRIL 5 MG TABLET (FP) PO SCH (09:45)
[2018-01-27] MEDS: amLODIPine BESYLATE 5 MG TABLET (FP) PO SCH (09:45)
[2018-01-27] MEDS: IBUPROFEN 600 MG TABLET (FP) PO PRN (09:46)
[2018-01-27] MEDS: traZODone HCL 100 MG TABLET (FP) PO SCH (21:19)
[2018-01-27] MEDS: THIAMINE HCL 100 MG TABLET (FP) PO SCH (21:19)
[2018-01-27] MEDS: ATORVASTATIN CA 40 MG TABLET (FP) PO SCH (21:19)
[2018-01-27] MEDS: diphenhydrAMINE HCL 50 MG CAPSULE PO PRN (21:20)
[2018-01-28] MEDS: GABAPENTIN 300 MG CAPSULE (FP) PO SCH ×3 (06:15→21:16)
[2018-01-28] MEDS: METHADONE HCL 40 MG DISPERSABLE TABLET PO SCH (06:15)
[2018-01-28] MEDS: LEVOTHYROXINE NA 25 MCG TABLET (FP) PO SCH (06:15)
[2018-01-28] MEDS ORDERED: PT OWN MED DRAWER 7, Y5N ONE (08:10)
[2018-01-28] MEDS: NICOTINE 14 MG/24 HOURS TOPICAL PATCH TD SCH (10:00)
[2018-01-28] MEDS: BUDESONIDE/FORMETEROL FUMARATE 160/4.5 mcg INHALER IH SCH ×2 (10:00→21:18)
[2018-01-28] MEDS: LISINOPRIL 5 MG TABLET (FP) PO SCH (10:00)
[2018-01-28] MEDS: FLUoxetine HCL 20 MG CAPSULE (FP) PO SCH (10:00)
[2018-01-28] MEDS: TIOTROPIUM BROMIDE 18 MCG CAPSULES IH SCH (10:00)
[2018-01-28] MEDS: amLODIPine BESYLATE 5 MG TABLET (FP) PO SCH (10:01)
[2018-01-28] MEDS: PRENATAL VITAMINS W/ FOLIC ACID TABLET (FP) PO SCH (10:01)
[2018-01-28] MEDS: RANITIDINE HCL 150 MG TABLET (FP) PO SCH ×2 (10:03→21:16)
[2018-01-28] MEDS: IBUPROFEN 600 MG TABLET (FP) PO PRN (14:09)
[2018-01-28] MEDS: traZODone HCL 100 MG TABLET (FP) PO SCH (21:16)
[2018-01-28] MEDS: ATORVASTATIN CA 40 MG TABLET (FP) PO SCH (21:16)
[2018-01-28] MEDS: diphenhydrAMINE HCL 50 MG CAPSULE PO PRN (21:17)
[2018-01-28] MEDS: THIAMINE HCL 100 MG TABLET (FP) PO SCH (21:17)
[2018-01-29] MEDS: METHADONE HCL 40 MG DISPERSABLE TABLET PO SCH (06:21)
[2018-01-29] MEDS: LEVOTHYROXINE NA 25 MCG TABLET (FP) PO SCH (06:22)
[2018-01-29] MEDS: GABAPENTIN 300 MG CAPSULE (FP) PO SCH ×3 (06:22→21:12)
[2018-01-29] MEDS: NICOTINE 14 MG/24 HOURS TOPICAL PATCH TD SCH (09:45)
[2018-01-29] MEDS: amLODIPine BESYLATE 5 MG TABLET (FP) PO SCH (09:45)
[2018-01-29] MEDS: RANITIDINE HCL 150 MG TABLET (FP) PO SCH ×2 (09:46→21:12)
[2018-01-29] MEDS: LISINOPRIL 5 MG TABLET (FP) PO SCH (09:46)
[2018-01-29] MEDS: PRENATAL VITAMINS W/ FOLIC ACID TABLET (FP) PO SCH (09:46)
[2018-01-29] MEDS: TIOTROPIUM BROMIDE 18 MCG CAPSULES IH SCH (09:46)
[2018-01-29] MEDS: BUDESONIDE/FORMETEROL FUMARATE 160/4.5 mcg INHALER IH SCH ×2 (09:47→21:13)
[2018-01-29] MEDS: FLUoxetine HCL 20 MG CAPSULE (FP) PO SCH (11:00)
[2018-01-29] MEDS: IBUPROFEN 600 MG TABLET (FP) PO PRN (19:05)
[2018-01-29] MEDS ORDERED: PT OWN MED DRAWER 7, Y5N ONE ×2 (20:17→21:49)
[2018-01-29] MEDS: THIAMINE HCL 100 MG TABLET (FP) PO SCH (21:12)
[2018-01-29] MEDS: ATORVASTATIN CA 40 MG TABLET (FP) PO SCH (21:12)
[2018-01-29] MEDS: diphenhydrAMINE HCL 50 MG CAPSULE PO PRN (21:12)
[2018-01-29] MEDS: traZODone HCL 100 MG TABLET (FP) PO SCH (21:12)
[2018-01-30] MEDS: METHADONE HCL 40 MG DISPERSABLE TABLET PO SCH (06:39)
[2018-01-30] MEDS: GABAPENTIN 300 MG CAPSULE (FP) PO SCH ×3 (06:40→21:10)
[2018-01-30] MEDS: LEVOTHYROXINE NA 25 MCG TABLET (FP) PO SCH (06:40)
[2018-01-30] MEDS: TIOTROPIUM BROMIDE 18 MCG CAPSULES IH SCH (10:20)
[2018-01-30] MEDS: BUDESONIDE/FORMETEROL FUMARATE 160/4.5 mcg INHALER IH SCH ×2 (10:20→21:09)
[2018-01-30] MEDS: FLUoxetine HCL 20 MG CAPSULE (FP) PO SCH (10:21)
[2018-01-30] MEDS: PRENATAL VITAMINS W/ FOLIC ACID TABLET (FP) PO SCH (10:21)
[2018-01-30] MEDS: amLODIPine BESYLATE 5 MG TABLET (FP) PO SCH (10:22)
[2018-01-30] MEDS: RANITIDINE HCL 150 MG TABLET (FP) PO SCH ×2 (10:22→21:11)
[2018-01-30] MEDS: LISINOPRIL 5 MG TABLET (FP) PO SCH (10:22)
[2018-01-30] MEDS: NICOTINE 14 MG/24 HOURS TOPICAL PATCH TD SCH (10:22)
[2018-01-30] MEDS ORDERED: PT OWN MED DRAWER 7, Y5N ONE ×2 (19:22→21:56)
[2018-01-30] MEDS: THIAMINE HCL 100 MG TABLET (FP) PO SCH (21:10)
[2018-01-30] MEDS: diphenhydrAMINE HCL 50 MG CAPSULE PO PRN (21:10)
[2018-01-30] MEDS: traZODone HCL 100 MG TABLET (FP) PO SCH (21:10)
[2018-01-30] MEDS: ATORVASTATIN CA 40 MG TABLET (FP) PO SCH (21:10)
[2018-01-31] MEDS: METHADONE HCL 40 MG DISPERSABLE TABLET PO SCH (06:20)
[2018-01-31] MEDS: GABAPENTIN 300 MG CAPSULE (FP) PO SCH ×3 (06:20→21:15)
[2018-01-31] MEDS: LEVOTHYROXINE NA 25 MCG TABLET (FP) PO SCH (06:20)
--- NOTE | 2018-01-31 07:45 | PN ---
BHS Progress Note Note: METHADONE MAINTENANCE DOSE RENEWED
[2018-01-31] MEDS ORDERED: PT OWN MED DRAWER 7, Y5N ONE (08:26)
[2018-01-31] MEDS: NICOTINE 14 MG/24 HOURS TOPICAL PATCH TD SCH (09:54)
[2018-01-31] MEDS: TIOTROPIUM BROMIDE 18 MCG CAPSULES IH SCH (09:54)
[2018-01-31] MEDS: BUDESONIDE/FORMETEROL FUMARATE 160/4.5 mcg INHALER IH SCH ×2 (09:54→21:16)
[2018-01-31] MEDS: LISINOPRIL 5 MG TABLET (FP) PO SCH (09:55)
[2018-01-31] MEDS: RANITIDINE HCL 150 MG TABLET (FP) PO SCH ×2 (09:55→21:15)
[2018-01-31] MEDS: FLUoxetine HCL 20 MG CAPSULE (FP) PO SCH (09:55)
[2018-01-31] MEDS: amLODIPine BESYLATE 5 MG TABLET (FP) PO SCH (09:55)
[2018-01-31] MEDS: PRENATAL VITAMINS W/ FOLIC ACID TABLET (FP) PO SCH (09:55)
[2018-01-31] MEDS: IBUPROFEN 600 MG TABLET (FP) PO PRN (09:56)
[2018-01-31] MEDS: ATORVASTATIN CA 40 MG TABLET (FP) PO SCH (21:15)
[2018-01-31] MEDS: THIAMINE HCL 100 MG TABLET (FP) PO SCH (21:15)
[2018-01-31] MEDS: traZODone HCL 100 MG TABLET (FP) PO SCH (21:15)
[2018-01-31] MEDS: diphenhydrAMINE HCL 50 MG CAPSULE PO PRN (21:16)
[2018-02-01] MEDS: METHADONE HCL 40 MG DISPERSABLE TABLET PO SCH (06:21)
[2018-02-01] MEDS: LEVOTHYROXINE NA 25 MCG TABLET (FP) PO SCH (06:21)
[2018-02-01] MEDS: GABAPENTIN 300 MG CAPSULE (FP) PO SCH ×3 (06:22→21:07)
[2018-02-01] MEDS ORDERED: PT OWN MED DRAWER 7, Y5N ONE ×2 (09:39→20:27)
[2018-02-01] MEDS: TIOTROPIUM BROMIDE 18 MCG CAPSULES IH SCH (10:02)
[2018-02-01] MEDS: FLUoxetine HCL 20 MG CAPSULE (FP) PO SCH (10:03)
[2018-02-01] MEDS: NICOTINE 14 MG/24 HOURS TOPICAL PATCH TD SCH (10:03)
[2018-02-01] MEDS: PRENATAL VITAMINS W/ FOLIC ACID TABLET (FP) PO SCH (10:03)
[2018-02-01] MEDS: RANITIDINE HCL 150 MG TABLET (FP) PO SCH ×2 (10:03→21:07)
[2018-02-01] MEDS: LISINOPRIL 5 MG TABLET (FP) PO SCH (10:03)
[2018-02-01] MEDS: amLODIPine BESYLATE 5 MG TABLET (FP) PO SCH (10:04)
[2018-02-01] MEDS: BUDESONIDE/FORMETEROL FUMARATE 160/4.5 mcg INHALER IH SCH ×2 (10:05→21:08)
[2018-02-01] MEDS: diphenhydrAMINE HCL 50 MG CAPSULE PO PRN (21:07)
[2018-02-01] MEDS: ATORVASTATIN CA 40 MG TABLET (FP) PO SCH (21:07)
[2018-02-01] MEDS: THIAMINE HCL 100 MG TABLET (FP) PO SCH (21:07)
[2018-02-01] MEDS: traZODone HCL 100 MG TABLET (FP) PO SCH (21:07)
[2018-02-02] MEDS: METHADONE HCL 40 MG DISPERSABLE TABLET PO SCH (06:28)
[2018-02-02] MEDS: LEVOTHYROXINE NA 25 MCG TABLET (FP) PO SCH (06:29)
[2018-02-02] MEDS: GABAPENTIN 300 MG CAPSULE (FP) PO SCH ×3 (06:29→21:09)
[2018-02-02] MEDS ORDERED: PT OWN MED DRAWER 7, Y5N ONE ×2 (08:31→14:59)
[2018-02-02] MEDS: NICOTINE 14 MG/24 HOURS TOPICAL PATCH TD SCH (10:08)
[2018-02-02] MEDS: LISINOPRIL 5 MG TABLET (FP) PO SCH (10:08)
[2018-02-02] MEDS: RANITIDINE HCL 150 MG TABLET (FP) PO SCH ×2 (10:08→21:09)
[2018-02-02] MEDS: FLUoxetine HCL 20 MG CAPSULE (FP) PO SCH (10:08)
[2018-02-02] MEDS: amLODIPine BESYLATE 5 MG TABLET (FP) PO SCH (10:08)
[2018-02-02] MEDS: BUDESONIDE/FORMETEROL FUMARATE 160/4.5 mcg INHALER IH SCH ×2 (10:08→21:10)
[2018-02-02] MEDS: TIOTROPIUM BROMIDE 18 MCG CAPSULES IH SCH (10:08)
[2018-02-02] MEDS: PRENATAL VITAMINS W/ FOLIC ACID TABLET (FP) PO SCH (10:08)
[2018-02-02] MEDS: traZODone HCL 100 MG TABLET (FP) PO SCH (21:09)
[2018-02-02] MEDS: THIAMINE HCL 100 MG TABLET (FP) PO SCH (21:09)
[2018-02-02] MEDS: ATORVASTATIN CA 40 MG TABLET (FP) PO SCH (21:09)
[2018-02-02] MEDS: diphenhydrAMINE HCL 50 MG CAPSULE PO PRN (21:09)
[2018-02-03] MEDS: GABAPENTIN 300 MG CAPSULE (FP) PO SCH ×3 (06:18→21:31)
[2018-02-03] MEDS: LEVOTHYROXINE NA 25 MCG TABLET (FP) PO SCH (06:18)
[2018-02-03] MEDS: METHADONE HCL 40 MG DISPERSABLE TABLET PO SCH (06:18)
[2018-02-03] MEDS: TIOTROPIUM BROMIDE 18 MCG CAPSULES IH SCH (09:45)
[2018-02-03] MEDS: BUDESONIDE/FORMETEROL FUMARATE 160/4.5 mcg INHALER IH SCH ×2 (09:45→21:32)
[2018-02-03] MEDS: NICOTINE 14 MG/24 HOURS TOPICAL PATCH TD SCH (09:46)
[2018-02-03] MEDS: FLUoxetine HCL 20 MG CAPSULE (FP) PO SCH (09:47)
[2018-02-03] MEDS: LISINOPRIL 5 MG TABLET (FP) PO SCH (09:47)
[2018-02-03] MEDS: amLODIPine BESYLATE 5 MG TABLET (FP) PO SCH (09:47)
[2018-02-03] MEDS: IBUPROFEN 600 MG TABLET (FP) PO PRN (09:48)
[2018-02-03] MEDS: PRENATAL VITAMINS W/ FOLIC ACID TABLET (FP) PO SCH (09:48)
[2018-02-03] MEDS: RANITIDINE HCL 150 MG TABLET (FP) PO SCH ×2 (09:48→21:31)
[2018-02-03] MEDS ORDERED: PT OWN MED DRAWER 7, Y5N ONE (10:26)
[2018-02-03] MEDS ORDERED: HYDROCORTISONE 1% TOPICAL CREAM 30 GM TUBE TP PRN (12:51)
[2018-02-03] MEDS ORDERED: COLLOIDAL OATMEAL 1 BAR EACH TP PRN (12:51)
[2018-02-03] MEDS: THIAMINE HCL 100 MG TABLET (FP) PO SCH (21:31)
[2018-02-03] MEDS: traZODone HCL 100 MG TABLET (FP) PO SCH (21:31)
[2018-02-03] MEDS: diphenhydrAMINE HCL 50 MG CAPSULE PO PRN (21:31)
[2018-02-03] MEDS: ATORVASTATIN CA 40 MG TABLET (FP) PO SCH (21:32)
[2018-02-04] MEDS: METHADONE HCL 40 MG DISPERSABLE TABLET PO SCH (06:20)
[2018-02-04] MEDS: LEVOTHYROXINE NA 25 MCG TABLET (FP) PO SCH (06:21)
[2018-02-04] MEDS: GABAPENTIN 300 MG CAPSULE (FP) PO SCH ×3 (06:21→21:35)
[2018-02-04] MEDS: amLODIPine BESYLATE 5 MG TABLET (FP) PO SCH (10:12)
[2018-02-04] MEDS: NICOTINE 14 MG/24 HOURS TOPICAL PATCH TD SCH (10:12)
[2018-02-04] MEDS: RANITIDINE HCL 150 MG TABLET (FP) PO SCH ×2 (10:12→21:35)
[2018-02-04] MEDS: PRENATAL VITAMINS W/ FOLIC ACID TABLET (FP) PO SCH (10:12)
[2018-02-04] MEDS: BUDESONIDE/FORMETEROL FUMARATE 160/4.5 mcg INHALER IH SCH ×2 (10:13→21:37)
[2018-02-04] MEDS: TIOTROPIUM BROMIDE 18 MCG CAPSULES IH SCH (10:13)
[2018-02-04] MEDS: FLUoxetine HCL 20 MG CAPSULE (FP) PO SCH (10:13)
[2018-02-04] MEDS: LISINOPRIL 5 MG TABLET (FP) PO SCH (10:13)
[2018-02-04] MEDS: IBUPROFEN 600 MG TABLET (FP) PO PRN (10:58)
[2018-02-04] MEDS ORDERED: PT OWN MED DRAWER 7, Y5N ONE ×3 (11:06→22:05)
--- NOTE | 2018-02-04 13:25 | PN ---
[facility] Progress Note Note: Patient c/o red rash on the right groin area. Vital Signs Temperature 99.4 F 02/04/18 10:56 Pulse Rate 78 02/04/18 10:56 Respiratory Rate 18 02/04/18 10:56 Blood Pressure 105/75 02/04/18 10:56 O2 Sat by Pulse Oximetry (%) Laboratory Last Values WBC 8.0 K/mm3 (4.0-10.0) 01/12/18 06:00 RBC 4.39 M/mm3 (3.60-5.2) 01/12/18 06:00 Hgb 13.4 GM/dL (10.7-15.3) 01/12/18 06:00 Hct 39.9 % (32.4-45.2) 01/12/18 06:00 MCV 90.8 fl (80-96) 01/12/18 06:00 MCH 30.5 pg (25.7-33.7) 01/12/18 06:00 MCHC 33.6 g/dl (32.0-36.0) 01/12/18 06:00 RDW 14.7 % (11.6-15.6) 01/12/18 06:00 Plt Count 294 K/MM3 (134-434) 01/12/18 06:00 MPV 7.7 fl (7.5-11.1) 01/12/18 06:00 Sodium 142 mmol/L (136-145) 01/12/18 06:00 Potassium 3.5 mmol/L (3.5-5.1) 01/12/18 06:00 Chloride 105 mmol/L (98-107) 01/12/18 06:00 Carbon Dioxide 29 mmol/L (21-32) 01/12/18 06:00 Anion Gap 8 (8-16) 01/12/18 06:00 BUN 12 mg/dL (7-18) 01/12/18 06:00 Creatinine 0.9 mg/dL (0.55-1.02) 01/12/18 06:00 Creat Clearance w eGFR > 60 (>60) 01/12/18 06:00 POC Glucometer 97 UNITS (80-120) 01/21/18 06:19 Random Glucose 168 mg/dL (74-106) H 01/12/18 06:00 Calcium 8.5 mg/dL (8.5-10.1) 01/12/18 06:00 Total Bilirubin 0.3 mg/dL (0.2-1.0) 01/12/18 06:00 AST 19 U/L (15-37) 01/12/18 06:00 ALT 25 U/L (12-78) 01/12/18 06:00 Alkaline Phosphatase 83 U/L (45-117) 01/12/18 06:00 Total Protein 6.4 g/dl (6.4-8.2) 01/12/18 06:00 Albumin 3.2 g/dl (3.4-5.0) L 01/12/18 06:00 Urine Color Hannah 01/11/18 21:00 Urine Appearance Turbid 01/11/18 21:00 Urine pH 5.0 (5.0-8.0) 01/11/18 21:00 Ur Specific [place] 1.026 (1.001-1.035) 01/11/18 21:00 Urine Protein Negative (NEGATIVE) 01/11/18 21:00 Urine Glucose (UA) Negative (NEGATIVE) 01/11/18 21:00 Urine Ketones Trace (NEGATIVE) H 01/11/18 21:00 Urine Blood Negative (NEGATIVE) 01/11/18 21:00 Urine Nitrite Negative (NEGATIVE) 01/11/18 21:00 Urine Bilirubin Negative (NEGATIVE) 01/11/18 21:00 Urine Urobilinogen 2.0 mg/dL (0.2-1.0) H 01/11/18 21:00 Ur Leukocyte Esterase 1+ (NEGATIVE) H 01/11/18 21:00 Urine WBC (Auto) 6 /hpf (3-5) 01/11/18 21:00 Urine RBC (Auto) 5 /hpf (0-3) 01/11/18 21:00 Ur Epithelial Cells Rare /HPF (FEW) 01/11/18 21:00 Calcium Oxalate Crystal Moderate /hpf (NONE SEEN) 01/11/18 21:00 Urine Mucus Rare 01/11/18 21:00 RPR Titer Nonreactive (NONREACTIVE) D 01/12/18 06:00 HIV 1&2 Antibody Screen Negative 01/11/18 15:25 HIV P24 Antigen Negative 01/11/18 15:25 Patent AOx3, in no apparent distress + erythematous, pruritic rash on the right groin Normal HR, RR No adventitious breath sounds paln: Keep skin clean and dry miconazole top cream BID Continue to monitor
[2018-02-04] MEDS ORDERED: MICONAZOLE NITRATE 28 GM TUBE TP SCH (17:00)
[2018-02-04] MEDS: MICONAZOLE NITRATE 28 GM TUBE TP SCH ×2 (18:00→21:35)
[2018-02-04] MEDS: traZODone HCL 100 MG TABLET (FP) PO SCH (21:35)
[2018-02-04] MEDS: THIAMINE HCL 100 MG TABLET (FP) PO SCH (21:35)
[2018-02-04] MEDS: ATORVASTATIN CA 40 MG TABLET (FP) PO SCH (21:37)
[2018-02-04] MEDS: diphenhydrAMINE HCL 50 MG CAPSULE PO PRN (21:37)
[2018-02-05] MEDS: METHADONE HCL 40 MG DISPERSABLE TABLET PO SCH (06:19)
[2018-02-05] MEDS: LEVOTHYROXINE NA 25 MCG TABLET (FP) PO SCH (06:19)
[2018-02-05] MEDS: GABAPENTIN 300 MG CAPSULE (FP) PO SCH ×3 (06:20→21:40)
[2018-02-05] MEDS: NICOTINE 14 MG/24 HOURS TOPICAL PATCH TD SCH (10:14)
[2018-02-05] MEDS: BUDESONIDE/FORMETEROL FUMARATE 160/4.5 mcg INHALER IH SCH ×2 (10:14→21:42)
[2018-02-05] MEDS: TIOTROPIUM BROMIDE 18 MCG CAPSULES IH SCH (10:14)
[2018-02-05] MEDS: PRENATAL VITAMINS W/ FOLIC ACID TABLET (FP) PO SCH (10:15)
[2018-02-05] MEDS: amLODIPine BESYLATE 5 MG TABLET (FP) PO SCH (10:15)
[2018-02-05] MEDS: LISINOPRIL 5 MG TABLET (FP) PO SCH (10:15)
[2018-02-05] MEDS: RANITIDINE HCL 150 MG TABLET (FP) PO SCH ×2 (10:15→21:40)
[2018-02-05] MEDS: FLUoxetine HCL 20 MG CAPSULE (FP) PO SCH (10:15)
[2018-02-05] MEDS: IBUPROFEN 600 MG TABLET (FP) PO PRN (10:17)
[2018-02-05] MEDS: MICONAZOLE NITRATE 28 GM TUBE TP SCH ×2 (10:18→21:42)
[2018-02-05] MEDS ORDERED: PT OWN MED DRAWER 7, Y5N ONE (16:00)
[2018-02-05] MEDS: THIAMINE HCL 100 MG TABLET (FP) PO SCH (21:40)
[2018-02-05] MEDS: ATORVASTATIN CA 40 MG TABLET (FP) PO SCH (21:40)
[2018-02-05] MEDS: traZODone HCL 100 MG TABLET (FP) PO SCH (21:40)
[2018-02-05] MEDS: diphenhydrAMINE HCL 50 MG CAPSULE PO PRN (21:41)
[2018-02-06] MEDS: GABAPENTIN 300 MG CAPSULE (FP) PO SCH ×3 (06:23→21:29)
[2018-02-06] MEDS: LEVOTHYROXINE NA 25 MCG TABLET (FP) PO SCH (06:23)
[2018-02-06] MEDS: METHADONE HCL 40 MG DISPERSABLE TABLET PO SCH (06:23)
[2018-02-06] MEDS: NICOTINE 14 MG/24 HOURS TOPICAL PATCH TD SCH (10:09)
[2018-02-06] MEDS: TIOTROPIUM BROMIDE 18 MCG CAPSULES IH SCH (10:10)
[2018-02-06] MEDS: BUDESONIDE/FORMETEROL FUMARATE 160/4.5 mcg INHALER IH SCH ×2 (10:10→21:31)
[2018-02-06] MEDS: FLUoxetine HCL 20 MG CAPSULE (FP) PO SCH (10:11)
[2018-02-06] MEDS: MICONAZOLE NITRATE 28 GM TUBE TP SCH ×2 (10:11→21:30)
[2018-02-06] MEDS: PRENATAL VITAMINS W/ FOLIC ACID TABLET (FP) PO SCH (10:12)
[2018-02-06] MEDS: amLODIPine BESYLATE 5 MG TABLET (FP) PO SCH (10:12)
[2018-02-06] MEDS: LISINOPRIL 5 MG TABLET (FP) PO SCH (10:12)
[2018-02-06] MEDS: RANITIDINE HCL 150 MG TABLET (FP) PO SCH ×2 (10:12→21:29)
[2018-02-06] MEDS ORDERED: PT OWN MED DRAWER 7, Y5N ONE (17:54)
[2018-02-06] MEDS: IBUPROFEN 600 MG TABLET (FP) PO PRN (17:55)
[2018-02-06] MEDS: ATORVASTATIN CA 40 MG TABLET (FP) PO SCH (21:29)
[2018-02-06] MEDS: traZODone HCL 100 MG TABLET (FP) PO SCH (21:29)
[2018-02-06] MEDS: THIAMINE HCL 100 MG TABLET (FP) PO SCH (21:29)
[2018-02-06] MEDS: diphenhydrAMINE HCL 50 MG CAPSULE PO PRN (21:30)
[2018-02-07] MEDS: METHADONE HCL 40 MG DISPERSABLE TABLET PO SCH (06:19)
[2018-02-07] MEDS: GABAPENTIN 300 MG CAPSULE (FP) PO SCH ×3 (06:20→21:29)
[2018-02-07] MEDS: LEVOTHYROXINE NA 25 MCG TABLET (FP) PO SCH (06:20)
[2018-02-07] MEDS: NICOTINE 14 MG/24 HOURS TOPICAL PATCH TD SCH (10:21)
[2018-02-07] MEDS: BUDESONIDE/FORMETEROL FUMARATE 160/4.5 mcg INHALER IH SCH ×2 (10:21→21:30)
[2018-02-07] MEDS: PRENATAL VITAMINS W/ FOLIC ACID TABLET (FP) PO SCH (10:21)
[2018-02-07] MEDS: TIOTROPIUM BROMIDE 18 MCG CAPSULES IH SCH (10:21)
[2018-02-07] MEDS: FLUoxetine HCL 20 MG CAPSULE (FP) PO SCH (10:21)
[2018-02-07] MEDS: LISINOPRIL 5 MG TABLET (FP) PO SCH (10:21)
[2018-02-07] MEDS: MICONAZOLE NITRATE 28 GM TUBE TP SCH ×2 (10:22→21:31)
[2018-02-07] MEDS: amLODIPine BESYLATE 5 MG TABLET (FP) PO SCH (10:22)
[2018-02-07] MEDS: RANITIDINE HCL 150 MG TABLET (FP) PO SCH ×2 (10:23→21:29)
[2018-02-07] MEDS: IBUPROFEN 600 MG TABLET (FP) PO PRN (16:45)
[2018-02-07] MEDS: THIAMINE HCL 100 MG TABLET (FP) PO SCH (21:29)
[2018-02-07] MEDS: diphenhydrAMINE HCL 50 MG CAPSULE PO PRN (21:29)
[2018-02-07] MEDS: ATORVASTATIN CA 40 MG TABLET (FP) PO SCH (21:31)
[2018-02-07] MEDS: traZODone HCL 100 MG TABLET (FP) PO SCH (21:31)
[2018-02-08] MEDS: METHADONE HCL 40 MG DISPERSABLE TABLET PO SCH (06:33)
[2018-02-08] MEDS: LEVOTHYROXINE NA 25 MCG TABLET (FP) PO SCH (06:34)
[2018-02-08] MEDS: GABAPENTIN 300 MG CAPSULE (FP) PO SCH ×3 (06:34→21:18)
[2018-02-08] MEDS: NICOTINE 14 MG/24 HOURS TOPICAL PATCH TD SCH (10:32)
[2018-02-08] MEDS: BUDESONIDE/FORMETEROL FUMARATE 160/4.5 mcg INHALER IH SCH ×2 (10:33→21:18)
[2018-02-08] MEDS: TIOTROPIUM BROMIDE 18 MCG CAPSULES IH SCH (10:33)
[2018-02-08] MEDS: FLUoxetine HCL 20 MG CAPSULE (FP) PO SCH (10:33)
[2018-02-08] MEDS: IBUPROFEN 600 MG TABLET (FP) PO PRN (10:34)
[2018-02-08] MEDS: LISINOPRIL 5 MG TABLET (FP) PO SCH (10:34)
[2018-02-08] MEDS: RANITIDINE HCL 150 MG TABLET (FP) PO SCH ×2 (10:34→21:18)
[2018-02-08] MEDS: amLODIPine BESYLATE 5 MG TABLET (FP) PO SCH (10:34)
[2018-02-08] MEDS: PRENATAL VITAMINS W/ FOLIC ACID TABLET (FP) PO SCH (10:34)
[2018-02-08] MEDS: MICONAZOLE NITRATE 28 GM TUBE TP SCH ×2 (10:35→21:52)
[2018-02-08] MEDS: diphenhydrAMINE HCL 50 MG CAPSULE PO PRN (21:18)
[2018-02-08] MEDS: traZODone HCL 100 MG TABLET (FP) PO SCH (21:18)
[2018-02-08] MEDS: THIAMINE HCL 100 MG TABLET (FP) PO SCH (21:18)
[2018-02-08] MEDS: ATORVASTATIN CA 40 MG TABLET (FP) PO SCH (21:18)
[2018-02-09] MEDS: METHADONE HCL 40 MG DISPERSABLE TABLET PO SCH (06:29)
[2018-02-09] MEDS: LEVOTHYROXINE NA 25 MCG TABLET (FP) PO SCH (06:29)
[2018-02-09] MEDS: GABAPENTIN 300 MG CAPSULE (FP) PO SCH ×3 (06:29→21:43)
[2018-02-09] MEDS: IBUPROFEN 600 MG TABLET (FP) PO PRN (08:40)
[2018-02-09] MEDS: BUDESONIDE/FORMETEROL FUMARATE 160/4.5 mcg INHALER IH SCH ×2 (10:21→21:44)
[2018-02-09] MEDS: MICONAZOLE NITRATE 28 GM TUBE TP SCH ×2 (10:21→21:45)
[2018-02-09] MEDS: TIOTROPIUM BROMIDE 18 MCG CAPSULES IH SCH (10:22)
[2018-02-09] MEDS: NICOTINE 14 MG/24 HOURS TOPICAL PATCH TD SCH (10:22)
[2018-02-09] MEDS: FLUoxetine HCL 20 MG CAPSULE (FP) PO SCH (10:22)
[2018-02-09] MEDS: amLODIPine BESYLATE 5 MG TABLET (FP) PO SCH (10:22)
[2018-02-09] MEDS: PRENATAL VITAMINS W/ FOLIC ACID TABLET (FP) PO SCH (10:22)
[2018-02-09] MEDS: LISINOPRIL 5 MG TABLET (FP) PO SCH (10:22)
[2018-02-09] MEDS: RANITIDINE HCL 150 MG TABLET (FP) PO SCH ×2 (10:22→21:43)
[2018-02-09] MEDS: traZODone HCL 100 MG TABLET (FP) PO SCH (21:43)
[2018-02-09] MEDS: diphenhydrAMINE HCL 50 MG CAPSULE PO PRN (21:43)
[2018-02-09] MEDS: THIAMINE HCL 100 MG TABLET (FP) PO SCH (21:43)
[2018-02-09] MEDS: ATORVASTATIN CA 40 MG TABLET (FP) PO SCH (21:43)
[2018-02-10] MEDS: LEVOTHYROXINE NA 25 MCG TABLET (FP) PO SCH (06:21)
[2018-02-10] MEDS: METHADONE HCL 40 MG DISPERSABLE TABLET PO SCH (06:22)
[2018-02-10] MEDS: GABAPENTIN 300 MG CAPSULE (FP) PO SCH ×3 (06:22→21:27)
[2018-02-10] MEDS ORDERED: PT OWN MED DRAWER 7, Y5N ONE ×3 (08:49→19:37)
[2018-02-10] MEDS: BUDESONIDE/FORMETEROL FUMARATE 160/4.5 mcg INHALER IH SCH ×2 (10:09→21:28)
[2018-02-10] MEDS: NICOTINE 14 MG/24 HOURS TOPICAL PATCH TD SCH (10:09)
[2018-02-10] MEDS: MICONAZOLE NITRATE 28 GM TUBE TP SCH ×2 (10:09→21:28)
[2018-02-10] MEDS: PRENATAL VITAMINS W/ FOLIC ACID TABLET (FP) PO SCH (10:10)
[2018-02-10] MEDS: RANITIDINE HCL 150 MG TABLET (FP) PO SCH ×2 (10:10→21:27)
[2018-02-10] MEDS: LISINOPRIL 5 MG TABLET (FP) PO SCH (10:10)
[2018-02-10] MEDS: amLODIPine BESYLATE 5 MG TABLET (FP) PO SCH (10:10)
[2018-02-10] MEDS: TIOTROPIUM BROMIDE 18 MCG CAPSULES IH SCH (10:10)
[2018-02-10] MEDS: FLUoxetine HCL 20 MG CAPSULE (FP) PO SCH (10:10)
[2018-02-10] MEDS: IBUPROFEN 600 MG TABLET (FP) PO PRN (11:33)
[2018-02-10] MEDS: ATORVASTATIN CA 40 MG TABLET (FP) PO SCH (21:27)
[2018-02-10] MEDS: traZODone HCL 100 MG TABLET (FP) PO SCH (21:27)
[2018-02-10] MEDS: THIAMINE HCL 100 MG TABLET (FP) PO SCH (21:27)
[2018-02-10] MEDS: diphenhydrAMINE HCL 50 MG CAPSULE PO PRN (21:28)
[2018-02-11] MEDS: LEVOTHYROXINE NA 25 MCG TABLET (FP) PO SCH (06:31)
[2018-02-11] MEDS: METHADONE HCL 40 MG DISPERSABLE TABLET PO SCH (06:31)
[2018-02-11] MEDS: GABAPENTIN 300 MG CAPSULE (FP) PO SCH ×3 (06:31→21:24)
[2018-02-11] MEDS: IBUPROFEN 600 MG TABLET (FP) PO PRN (08:46)
[2018-02-11] MEDS: RANITIDINE HCL 150 MG TABLET (FP) PO SCH ×2 (09:54→21:24)
[2018-02-11] MEDS: MICONAZOLE NITRATE 28 GM TUBE TP SCH ×2 (09:54→21:25)
[2018-02-11] MEDS: PRENATAL VITAMINS W/ FOLIC ACID TABLET (FP) PO SCH (09:54)
[2018-02-11] MEDS: amLODIPine BESYLATE 5 MG TABLET (FP) PO SCH (09:54)
[2018-02-11] MEDS: FLUoxetine HCL 20 MG CAPSULE (FP) PO SCH (09:54)
[2018-02-11] MEDS: LISINOPRIL 5 MG TABLET (FP) PO SCH (09:54)
[2018-02-11] MEDS: BUDESONIDE/FORMETEROL FUMARATE 160/4.5 mcg INHALER IH SCH ×2 (09:55→21:25)
[2018-02-11] MEDS: TIOTROPIUM BROMIDE 18 MCG CAPSULES IH SCH (09:55)
[2018-02-11] MEDS: NICOTINE 14 MG/24 HOURS TOPICAL PATCH TD SCH (09:55)
[2018-02-11] MEDS ORDERED: ATORVASTATIN CA 20 MG TABLET (FP) ONE (19:28)
[2018-02-11] MEDS: diphenhydrAMINE HCL 50 MG CAPSULE PO PRN (21:24)
[2018-02-11] MEDS: traZODone HCL 100 MG TABLET (FP) PO SCH (21:24)
[2018-02-11] MEDS: THIAMINE HCL 100 MG TABLET (FP) PO SCH (21:24)
[2018-02-11] MEDS: ATORVASTATIN CA 40 MG TABLET (FP) PO SCH (21:25)
[2018-02-12] MEDS: METHADONE HCL 40 MG DISPERSABLE TABLET PO SCH (06:50)
[2018-02-12] MEDS: GABAPENTIN 300 MG CAPSULE (FP) PO SCH ×3 (06:50→21:28)
[2018-02-12] MEDS: LEVOTHYROXINE NA 25 MCG TABLET (FP) PO SCH (06:50)
[2018-02-12] MEDS: IBUPROFEN 600 MG TABLET (FP) PO PRN ×2 (08:44→18:39)
[2018-02-12] MEDS ORDERED: PT OWN MED DRAWER 7, Y5N ONE (09:02)
[2018-02-12] MEDS: amLODIPine BESYLATE 5 MG TABLET (FP) PO SCH (09:50)
[2018-02-12] MEDS: RANITIDINE HCL 150 MG TABLET (FP) PO SCH ×2 (09:50→21:28)
[2018-02-12] MEDS: PRENATAL VITAMINS W/ FOLIC ACID TABLET (FP) PO SCH (09:50)
[2018-02-12] MEDS: FLUoxetine HCL 20 MG CAPSULE (FP) PO SCH (09:50)
[2018-02-12] MEDS: LISINOPRIL 5 MG TABLET (FP) PO SCH (09:50)
[2018-02-12] MEDS: TIOTROPIUM BROMIDE 18 MCG CAPSULES IH SCH (09:52)
[2018-02-12] MEDS: NICOTINE 14 MG/24 HOURS TOPICAL PATCH TD SCH (09:53)
[2018-02-12] MEDS: MICONAZOLE NITRATE 28 GM TUBE TP SCH ×2 (09:53→21:29)
[2018-02-12] MEDS: BUDESONIDE/FORMETEROL FUMARATE 160/4.5 mcg INHALER IH SCH ×2 (09:53→21:29)
[2018-02-12] MEDS: THIAMINE HCL 100 MG TABLET (FP) PO SCH (21:28)
[2018-02-12] MEDS: traZODone HCL 100 MG TABLET (FP) PO SCH (21:28)
[2018-02-12] MEDS: ATORVASTATIN CA 40 MG TABLET (FP) PO SCH (21:28)
[2018-02-12] MEDS: diphenhydrAMINE HCL 50 MG CAPSULE PO PRN (21:28)
[2018-02-13] MEDS: METHADONE HCL 40 MG DISPERSABLE TABLET PO SCH (06:25)
[2018-02-13] MEDS: GABAPENTIN 300 MG CAPSULE (FP) PO SCH ×3 (06:26→21:23)
[2018-02-13] MEDS: LEVOTHYROXINE NA 25 MCG TABLET (FP) PO SCH (06:26)
[2018-02-13] MEDS: PRENATAL VITAMINS W/ FOLIC ACID TABLET (FP) PO SCH (09:04)
[2018-02-13] MEDS: LISINOPRIL 5 MG TABLET (FP) PO SCH (09:04)
[2018-02-13] MEDS: RANITIDINE HCL 150 MG TABLET (FP) PO SCH ×2 (09:04→21:23)
[2018-02-13] MEDS: amLODIPine BESYLATE 5 MG TABLET (FP) PO SCH (09:04)
[2018-02-13] MEDS: BUDESONIDE/FORMETEROL FUMARATE 160/4.5 mcg INHALER IH SCH ×2 (09:04→21:29)
[2018-02-13] MEDS: FLUoxetine HCL 20 MG CAPSULE (FP) PO SCH (09:04)
[2018-02-13] MEDS: NICOTINE 14 MG/24 HOURS TOPICAL PATCH TD SCH (09:04)
[2018-02-13] MEDS: TIOTROPIUM BROMIDE 18 MCG CAPSULES IH SCH (09:05)
[2018-02-13] MEDS: IBUPROFEN 600 MG TABLET (FP) PO PRN ×2 (09:05→15:42)
[2018-02-13] MEDS: MICONAZOLE NITRATE 28 GM TUBE TP SCH ×2 (09:06→21:29)
--- NOTE | 2018-02-13 10:33 | PN ---
BHS Progress Note Note: was called by nurse due to the patient's c/o anxiety(scheduled for discharge tomorrow) will add Vistaril 50 mg po q4 hrs PRN
[2018-02-13] MEDS: hydrOXYzine PAMOATE 50 MG CAPSULE (FP) PO PRN (12:03)
--- NOTE | 2018-02-13 13:54 | PN ---
S Progress Note Note: Patient has medical history of asthma and COPD. She complains of shortness of breath. Saturation 94-96 % at room air. Oxygen at 2 liters per minute ordered. Will monitor patient's respiratory status.
[2018-02-13] MEDS: ATORVASTATIN CA 40 MG TABLET (FP) PO SCH (21:23)
[2018-02-13] MEDS: THIAMINE HCL 100 MG TABLET (FP) PO SCH (21:23)
[2018-02-13] MEDS: traZODone HCL 100 MG TABLET (FP) PO SCH (21:23)
[2018-02-13] MEDS: diphenhydrAMINE HCL 50 MG CAPSULE PO PRN (21:25)
[2018-02-13] MEDS ORDERED: PT OWN MED DRAWER 7, Y5N ONE (23:17)
[2018-02-14] MEDS: METHADONE HCL 40 MG DISPERSABLE TABLET PO SCH (06:24)
[2018-02-14] MEDS: GABAPENTIN 300 MG CAPSULE (FP) PO SCH (06:26)
[2018-02-14] MEDS: LEVOTHYROXINE NA 25 MCG TABLET (FP) PO SCH (06:26)
[2018-02-14] MEDS: hydrOXYzine PAMOATE 50 MG CAPSULE (FP) PO PRN (06:27)
[2018-02-14 07:13] VITALS: TEMP 98.7
[2018-02-14] MEDS: IBUPROFEN 600 MG TABLET (FP) PO PRN (07:50)
[2018-02-14] MEDS ORDERED: PT OWN MED DRAWER 7, Y5N ONE (08:28)
[2018-02-14 09:07] VITALS: BP 166/84; PULSE 78
[2018-02-14] MEDS: TIOTROPIUM BROMIDE 18 MCG CAPSULES IH SCH (09:10)
[2018-02-14] MEDS: PRENATAL VITAMINS W/ FOLIC ACID TABLET (FP) PO SCH (09:10)
[2018-02-14] MEDS: FLUoxetine HCL 20 MG CAPSULE (FP) PO SCH (09:10)
[2018-02-14] MEDS: BUDESONIDE/FORMETEROL FUMARATE 160/4.5 mcg INHALER IH SCH (09:10)
[2018-02-14] MEDS: RANITIDINE HCL 150 MG TABLET (FP) PO SCH (09:10)
[2018-02-14] MEDS: MICONAZOLE NITRATE 28 GM TUBE TP SCH (09:11)
[2018-02-14] MEDS: LISINOPRIL 5 MG TABLET (FP) PO SCH (09:11)
[2018-02-14] MEDS: NICOTINE 14 MG/24 HOURS TOPICAL PATCH TD SCH (09:11)
[2018-02-14] MEDS: amLODIPine BESYLATE 5 MG TABLET (FP) PO SCH (09:11)
== END 2018-02-14 09:58 | disposition home or self-care (01) | DRG 895 ==
LOC: YASAS 10:29 → Y6N 15:03 → Y3E 01-17 11:47
PROVIDERS: ADMIT Psychiatry & Neurology Psychiatry; ATTEND Psychiatry & Neurology Psychiatry
PROC: HZ42ZZZ Group Counseling for Substance Abuse Treatment, Cognitive-Behavioral (ICD-10-PCS; principal; 2018-01-11)
PROC: HZ2ZZZZ Detoxification Services for Substance Abuse Treatment (ICD-10-PCS; 2018-01-17)
DX: F11.20 Opioid dependence, uncomplicated (principal); F13.230 Sedative, hypnotic or anxiolytic dependence with withdrawal, uncomplicated; F33.9 Major depressive disorder, recurrent, unspecified; Z68.41 Body mass index [BMI] 40.0-44.9, adult; G47.00 Insomnia, unspecified; I10 Essential (primary) hypertension; J43.8 Other emphysema; E03.9 Hypothyroidism, unspecified; E66.9 Obesity, unspecified
CPT/HCPCS: 36415; 80053; 81003; 81015; 82962; 85027; 86593; 87389; 93005; 93010

== ENCOUNTER 2018-03-09 14:09 | Inpatient (IN) | payer OTHER ==
[2018-03-09 17:32] VITALS: BMI 42.0
--- NOTE | 2018-03-09 21:13 | HP ---
CIWA Score - CIWA Score Nausea/Vomitin-No Nausea/No Vomiting Muscle Tremors: 2 Anxiety: 3 Agitation: 3 Paroxysmal Sweats: 3 Orientation: 0-Oriented Tacttile Disturbances: 1-Very Mild Itch/Numbness Auditory Disturbances: 0-None Visual Disturbances: 0-None Headache: 0-None Present CIWA-Ar Total Score: 12 Admission ROS BHS - HPI Chief Complaint: " I am trying to get into a [facility] rehab program, and I need to detox of the bezo." Allergies/Adverse Reactions: Allergies Allergy/AdvReac Type Severity Reaction Status Date / Time No Known Allergies Allergy Verified 03/09/18 20:35 History of Present Illness: 67 yo female with hx of nicotine, klonopin / xanax dependence is here seeking detox. Currently MMTP [facility], currently on methadone 80 mg, last medicate today. PMHX: HTN, hypothyroid, obesity, hyperlipidemia, anxiety, depression. Denies suicidal / homicidal ideation. Longest period of sobriety 15 years. Reports hx of seizure related to Benzo withdrawal, denies any recent seizures. Last detox / rehab tx at [facility] 01/11/18 - 02/14/18. Exam Limitations: No Limitations - Ebola screening Have you traveled outside of the country in the last 21 days: No Have you had contact with anyone from an Ebola affected area: No Have you been sick,other than usual withdrawal symptoms: No Do you have a fever: No - Review of Systems Constitutional: Chills, Changes in sleep, Weakness EENT: reports: No Symptoms Reported Respiratory: reports: No Symptoms reported Cardiac: reports: No Symptoms Reported GI: reports: Poor Fluid Intake : reports: Incontinence (wears incontinence pads) Musculoskeletal: reports: Joint Pain (left knee) Integumentary: reports: No Symptoms Reported Neuro: reports: Dizziness Endocrine: reports: Increased Thirst Hematology: reports: No Symptoms Reported Psychiatric: reports: Orientated x3, Anxious Other Systems: Reviewed and Negative Patient History - Patient Medical History Hx Anemia: No Hx Asthma: No Hx Chronic Obstructive Pulmonary Disease (COPD): Yes Hx Cancer: No Hx Cardiac Disorders: No Hx Congestive Heart Failure: No Hx Hypertension: Yes (ON MEDS.) Hx Hypercholesterolemia: Yes Hx Pacemaker: No HX Cerebrovascular Accident: No Hx Seizures: Yes Hx Dementia: No Hx Diabetes: No Hx Gastrointestinal Disorders: No Hx Liver Disease: No Hx Genitourinary Disorders: No Hx Sexually Transmitted Disorders: No Hx Renal Disease (ESRD): No Hx Thyroid Disease: Yes (HYPOTHYROIDISM) Hx Human Immunodeficiency Virus (HIV): No Hx Hepatitis C: Yes (DX OVER 30 YEARS FAILIED TXMENT IN 2000) Hx Depression: Yes Hx Suicide Attempt: No Hx Bipolar Disorder: Yes Hx Schizophrenia: No - Patient Surgical History Past Surgical History: Yes Hx Neurologic Surgery: No Hx Cataract Extraction: No Hx Cardiac Surgery: No Hx Lung Surgery: No Hx Breast Surgery: No Hx Breast Biopsy: No Hx Abdominal Surgery: No Hx Appendectomy: Yes (13 YEARS OLD) Hx Cholecystectomy: Yes (1994) Hx Genitourinary Surgery: No Hx Section: No Hx Orthopedic Surgery: No Hx Hysterectomy: No Other Surgical History: RIGHT FOOT BUNION 1999 Anesthesia Reaction: No - PPD History Previous Implant?: Yes Documented Results: Negative w/proof Date: 08/08/17 Results: 0mm PPD to be Administered?: No - Reproductive History Patient is a Female of Child Bearing Age (11 -55 yrs old): No Last Menstrual Period: 05/01/01 - Smoking Cessation Smoking history: Current every day smoker Have you smoked in the past 12 months: No Aproximately how many cigarettes per day: 7 Cigars Per Day: 0 Hx Chewing Tobacco Use: No Initiated information on smoking cessation: Yes 'Breaking Loose' booklet given: 03/09/18 - Substance & Tx. History Hx Alcohol Use: No Hx Substance Use: Yes Substance Use Type: Tranquilizers Hx Substance Use Treatment: Yes ([facility] 01/11/18 - 02/14/18) - Substances Abused Alprazolam (Xanax) Route: Oral Frequency: Daily Amount used: 10/ 2MG Age of first use: 52 Date of Last Use: 03/09/18 Benzodiazepine (Klonopin) Route: Oral Frequency: Daily Amount used: 5/2MG Age of first use: 52 Date of Last Use: 03/09/18 Family Disease History - Family Disease History Family Disease History: Heart Disease: Father (ALCHOLISM/ DC ), CA: Mother (LUNG ), Other: Father, Brother (no brother), Sister (DRUG PROBLEMS) Admission Physical Exam BHS - Vital Signs Vital Signs: Vital Signs - 24 hr 05/02/18 17:30 Temperature 97.8 F Pulse Rate 83 Respiratory 18 Rate Blood Pressure 105/61 - Physical General Appearance: Yes: Appropriately Dressed, Obese, Anxious HEENTM: Yes: EOMI, Hearing grossly Normal, Normal ENT Inspection, Normocephalic , Normal Voice, GRACY, Pharynx Normal, Tm's normal, Other (wears glasses) Respiratory: Yes: Chest Non-Tender, Lungs Clear, No Respiratory Distress, No Accessory Muscle Use, Wheezing Neck: Yes: No masses,lesions,Nodules, Trachea in good position Breast: Yes: Breast Exam Deferred Cardiology: Yes: Regular Rhythm, Regular Rate Abdominal: Yes: Normal Bowel Sounds, Non Tender, Soft, Protuberent Genitourinary: Yes: Within Normal Limits Back: Yes: Normal Inspection Musculoskeletal: Yes: full range of Motion, Gait Steady, Other (ambualtes wiht cane) Extremities: Yes: Normal Capillary Refill, Normal Inspection, Normal Range of Motion, Non-Tender Neurological: Yes: retail event and sales assistant II-XII NML intact, Fully Oriented, Alert, Motor Strength 5/5, Depressed Affect Integumentary: Yes: Normal Color, Warm, Moist Lymphatic: Yes: Within Normal Limits - Diagnostic (1) Insomnia Current Visit: Yes Status: Acute (2) Uncomplicated sedative, hypnotic, or anxiolytic withdrawal Current Visit: Yes Status: Acute (3) COPD (chronic obstructive pulmonary disease) Current Visit: Yes Status: Chronic Qualifiers: COPD type: emphysema Emphysema type: unilateral Qualified Code(s): J43.0 - Unilateral pulmonary emphysema [MacLeod's syndrome] (4) HTN (hypertension) Current Visit: Yes Status: Chronic Qualifiers: Hypertension type: essential hypertension Qualified Code(s): I10 - Essential (primary) hypertension (5) Hypothyroidism Current Visit: Yes Status: Chronic Qualifiers: Hypothyroidism type: acquired Qualified Code(s): E03.9 - Hypothyroidism, unspecified (6) Methadone maintenance therapy patient Current Visit: Yes Status: Chronic Comment: 80 MG VERIFICATION PENDING (7) Morbid obesity with BMI of 40.0-44.9, adult Current Visit: Yes Status: Chronic (8) Use of cane as ambulatory aid Current Visit: Yes Status: Chronic Comment: KNEES RIGHT (9) Wheezing Current Visit: Yes Status: Acute Cleared for Admission S - Detox or Rehab S Level of Care: Medically Managed Detox Regimen/Protocol: Valium BHS Breath Alcohol Content Breath Alcohol Content: 0 Urine Pregancy Test - Result Urine Test Results: Negative- NO Line Present Urine Drug Screen - Results Drug Screen Negative: No Urine Drug Screen Results: BZO-Benzodiazepines, MTD-Methadone, TCA-Tricyclic Antidepress
[2018-03-09] MEDS ORDERED: ALBUTEROL SO4 18 GM HFA INHALER IH PRN (21:18)
[2018-03-09] MEDS ORDERED: diphenhydrAMINE HCL 50 MG CAPSULE PO PRN (21:18)
[2018-03-09] MEDS ORDERED: MAGNESIUM HYDROX 2400MG/30ML ORAL SUSPENSION 30 ML CUP PO PRN (21:19)
[2018-03-09] MEDS ORDERED: NICOTINE POLACRILEX 2 MG GUM BC PRN (21:19)
[2018-03-09] MEDS ORDERED: MENTHOL/PHENOL 1 EACH UD MM PRN (21:19)
[2018-03-09] MEDS ORDERED: ACETAMINOPHEN 325 MG TABLET (FP) PO PRN (21:19)
[2018-03-09] MEDS ORDERED: P-EPHED 60MG/TRIPROLIDI 2.5MG TABLET PO PRN (21:19)
[2018-03-09] MEDS ORDERED: LOPERAMIDE HCL 2 MG CAPSULE PO PRN (21:19)
[2018-03-09] MEDS ORDERED: diazePAM 5 MG TABLET PO ONE (21:19)
[2018-03-09] MEDS ORDERED: MAGNESIUM CITRATE 300 ML BOTTLE PO PRN (21:19)
[2018-03-09] MEDS ORDERED: guaiFENesin/D-METHORPHAN HB 10 ML UNIT-DOSE CUPS PO PRN (21:19)
[2018-03-09] MEDS ORDERED: hydrOXYzine PAMOATE 50 MG CAPSULE (FP) PO PRN (21:19)
[2018-03-09] MEDS ORDERED: MAG HYDROX/AL HYDROX/SIMETH 30 ML UNIT-DOSE CUP PO PRN (21:19)
[2018-03-09] MEDS ORDERED: ALBUTEROL SO4 0.083% IH SOL 2.5 MG/3 ML VIAL.NEB. NEB PRN (21:24)
[2018-03-09] MEDS ORDERED: MELATONIN 5 MG TABLETS PO PRN (22:00)
[2018-03-09 23:40] LABS: URINE APPEARANCE CLOUDY; URINE COLOR AMBER; URINE GLUCOSE (UA) NEGATIVE (NEGATIVE); URINE KETONE TRACE (NEGATIVE); URINE NITRITE NEGATIVE (NEGATIVE); URINE UROBILINOGEN 4.0 E.U/dl mg/dL (0.2-1.0)
[2018-03-09] MEDS: GABAPENTIN 300 MG CAPSULE (FP) PO SCH (23:46)
[2018-03-09] MEDS: THIAMINE HCL 100 MG TABLET (FP) PO SCH (23:48)
[2018-03-09] MEDS: diazePAM 5 MG TABLET PO SCH (23:48)
[2018-03-09 23:52] LABS: URINE LEUK ESTERASE 2+ (NEGATIVE); URINE PROTEIN 1+ (NEGATIVE)
[2018-03-09 23:59] LABS: EPI CELLS FEW /HPF (FEW); URINE BACTERIA RARE /hpf (NONE SEEN); URINE HYALINE CAST 42 /lpf; URINE MUCUS FEW
[2018-03-10] MEDS: GABAPENTIN 300 MG CAPSULE (FP) PO SCH ×3 (06:40→22:25)
[2018-03-10] MEDS: diazePAM 5 MG TABLET PO SCH ×3 (06:40→22:25)
[2018-03-10] MEDS ORDERED: LEVOTHYROXINE NA 75 MCG TABLET (FP) PO SCH (07:00)
[2018-03-10] MEDS ORDERED: LEVOTHYROXINE NA 25 MCG TABLET (FP) PO SCH (08:48)
[2018-03-10] MEDS: LEVOTHYROXINE NA 25 MCG TABLET (FP) PO SCH (09:28)
[2018-03-10] MEDS: METHADONE HCL 40 MG DISPERSABLE TABLET PO SCH (09:28)
[2018-03-10] MEDS: TIOTROPIUM BROMIDE 18 MCG CAPSULES IH SCH (09:28)
[2018-03-10] MEDS: LISINOPRIL 5 MG TABLET (FP) PO SCH (09:29)
[2018-03-10] MEDS: amLODIPine BESYLATE 5 MG TABLET (FP) PO SCH (09:29)
[2018-03-10] MEDS: NICOTINE 14 MG/24 HOURS TOPICAL PATCH TD SCH (09:30)
[2018-03-10] MEDS: PRENATAL VITAMINS W/ FOLIC ACID TABLET (FP) PO SCH (09:32)
[2018-03-10 09:46] LABS: HEMATOCRIT 42.2 % (32.4-45.2); HEMOGLOBIN 14.1 GM/dL (10.7-15.3); MCHC 33.4 g/dl (32.0-36.0); PLATELET COUNT 305 K/MM3 (134-434); RBC 4.54 M/mm3 (3.60-5.2); RDW 14.7 % (11.6-15.6); WHITE BLOOD COUNT 8.5 K/mm3 (4.0-10.0)
--- NOTE | 2018-03-10 10:30 | PN ---
S CIWA - CIWA Score Nausea/Vomitin Muscle Tremors: 3 Anxiety: 3 Agitation: 2 Paroxysmal Sweats: 1-Minimal Palms Moist Orientation: 0-Oriented Tacttile Disturbances: 1-Very Mild Itch/Numbness Auditory Disturbances: 1-Very Mild Visual Disturbances: 0-None Headache: 2-Mild CIWA-Ar Total Score: 16 BHS Progress Note (SOAP) Subjective: ALERT,IRRITABLE,ANXIOUS,INTERRUPTED SLEEP,TREMOR Objective: 03/10/18 10:27 Vital Signs Temperature 97.9 F 03/10/18 09:23 Pulse Rate 78 03/10/18 09:23 Respiratory Rate 18 03/10/18 09:23 Blood Pressure 125/74 03/10/18 09:23 O2 Sat by Pulse Oximetry (%) EKG NSR,NORMAL ECG,PROLONG QT 412/481 NO CHEST PAIN,NO SOB,NO DIZZINESS Laboratory Last Values WBC 8.5 K/mm3 (4.0-10.0) 03/10/18 06:00 RBC 4.54 M/mm3 (3.60-5.2) 03/10/18 06:00 Hgb 14.1 GM/dL (10.7-15.3) 03/10/18 06:00 Hct 42.2 % (32.4-45.2) 03/10/18 06:00 MCV 93.0 fl (80-96) 03/10/18 06:00 MCH 31.0 pg (25.7-33.7) 03/10/18 06:00 MCHC 33.4 g/dl (32.0-36.0) 03/10/18 06:00 RDW 14.7 % (11.6-15.6) 03/10/18 06:00 Plt Count 305 K/MM3 (134-434) 03/10/18 06:00 MPV 8.0 fl (7.5-11.1) 03/10/18 06:00 Urine Color [place] 03/09/18 23:49 Urine Appearance Cloudy 03/09/18 23:49 Urine pH 5.0 (5.0-8.0) 03/09/18 23:49 Ur Specific [place] 1.030 (1.001-1.035) 03/09/18 23:49 Urine Protein 1+ (NEGATIVE) H 03/09/18 23:49 Urine Glucose (UA) Negative (NEGATIVE) 03/09/18 23:49 Urine Ketones Trace (NEGATIVE) H 03/09/18 23:49 Urine Blood Negative (NEGATIVE) 03/09/18 23:49 Urine Nitrite Negative (NEGATIVE) 03/09/18 23:49 Urine Bilirubin 2.0 (<2.0 mg/dL) 03/09/18 23:49 Urine Urobilinogen 4.0 e.u/dl mg/dL (0.2-1.0) H 03/09/18 23:49 Ur Leukocyte Esterase 2+ (NEGATIVE) H 03/09/18 23:49 Urine WBC (Auto) 16 /hpf (3-5) 03/09/18 23:49 Urine RBC (Auto) 23 /hpf (0-3) 03/09/18 23:49 Ur Epithelial Cells Few /HPF (FEW) 03/09/18 23:49 Urine Bacteria Rare /hpf (NONE SEEN) 03/09/18 23:49 Hyaline Casts 42 /lpf 03/09/18 23:49 Urine Mucus Few 03/09/18 23:49 Assessment: 03/10/18 10:29 WITHDRAWAL SYMPTOM Plan: CONTINUE DETOX,LAB PENDING,REPEAT UA,ENCOURAGE ORAL FLUID
[2018-03-10 10:38] LABS: ALBUMIN 3.8 g/dl (3.4-5.0); ANION GAP 8 (8-16); BLOOD UREA NITROGEN 24 mg/dL (7-18); CALCIUM 9.4 mg/dL (8.5-10.1); CHLORIDE 108 mmol/L (98-107); CO2 26 mmol/L (21-32); CREATININE 1.2 mg/dL (0.55-1.02); GLUCOSE,RANDOM 169 mg/dL (74-106); POTASSIUM 3.6 mmol/L (3.5-5.1); SGOT/AST 21 U/L (15-37); SGPT/ALT 20 U/L (12-78); SODIUM 142 mmol/L (136-145)
[2018-03-10 10:40] LABS: ALK PHOS 98 U/L (45-117); BILIRUBIN,TOTAL 0.2 mg/dL (0.2-1.0); TOT PROT 7.3 g/dl (6.4-8.2)
--- NOTE | 2018-03-10 11:30 | EKG ---
Test Reason : Blood Pressure : / mmHG Vent. Rate : 082 BPM Atrial Rate : 082 BPM P-R Int : 128 ms QRS Dur : 090 ms QT Int : 412 ms P-R-T Axes : 039 006 040 degrees QTc Int : 481 ms NORMAL SINUS RHYTHM NORMAL ECG WHEN COMPARED WITH ECG OF 11-JAN-2018 17:41, NO SIGNIFICANT CHANGE WAS FOUND Confirmed by JERRY VIDAL MD ([id number]) on 03/10/2018 11:29:38 AM Referred By: Confirmed By:JERRY VIDAL MD
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
[2018-03-10] MEDS ORDERED: COLLOIDAL OATMEAL 1 BAR EACH TP PRN (14:01)
[2018-03-10] MEDS: ATORVASTATIN CA 40 MG TABLET (FP) PO SCH (22:24)
[2018-03-10] MEDS: THIAMINE HCL 100 MG TABLET (FP) PO SCH (22:25)
[2018-03-10] MEDS: CLOTRIMAZOLE 1% CREAM 15 GM TUBE TP SCH (22:25)
[2018-03-10] MEDS: traZODone HCL 50 MG TABLET (FP) PO SCH (22:25)
[2018-03-11] MEDS: LEVOTHYROXINE NA 25 MCG TABLET (FP) PO SCH (06:28)
[2018-03-11] MEDS: METHADONE HCL 40 MG DISPERSABLE TABLET PO SCH (06:28)
[2018-03-11] MEDS: GABAPENTIN 300 MG CAPSULE (FP) PO SCH ×3 (06:30→22:06)
[2018-03-11] MEDS: diazePAM 5 MG TABLET PO PRN (06:33)
[2018-03-11] MEDS: diazePAM 5 MG TABLET PO SCH ×2 (10:32→22:06)
[2018-03-11] MEDS: amLODIPine BESYLATE 5 MG TABLET (FP) PO SCH (10:33)
[2018-03-11] MEDS: LISINOPRIL 5 MG TABLET (FP) PO SCH (10:33)
[2018-03-11] MEDS: PRENATAL VITAMINS W/ FOLIC ACID TABLET (FP) PO SCH (10:33)
[2018-03-11] MEDS: NICOTINE 14 MG/24 HOURS TOPICAL PATCH TD SCH (10:33)
[2018-03-11] MEDS: FLUoxetine HCL 20 MG CAPSULE (FP) PO SCH (10:33)
[2018-03-11] MEDS: TIOTROPIUM BROMIDE 18 MCG CAPSULES IH SCH (10:34)
[2018-03-11] MEDS: CLOTRIMAZOLE 1% CREAM 15 GM TUBE TP SCH ×2 (10:37→22:09)
--- NOTE | 2018-03-11 12:49 | PN ---
S CIWA - CIWA Score Nausea/Vomitin Muscle Tremors: 3 Anxiety: 2 Agitation: 2 Paroxysmal Sweats: 1-Minimal Palms Moist Orientation: 0-Oriented Tacttile Disturbances: 1-Very Mild Itch/Numbness Auditory Disturbances: 1-Very Mild Visual Disturbances: 0-None Headache: 2-Mild CIWA-Ar Total Score: 15 BHS Progress Note (SOAP) Subjective: ALERT,IRRITABLE,ANXIOUS,INTERRUPTED SLEEP,TREMOR,HISTORY OF GERD Objective: 03/11/18 12:47 Last Vital Signs Temp Pulse Resp BP Pulse Ox 98.6 F 79 18 131/81 03/11/18 10:18 03/11/18 10:18 03/11/18 10:18 03/11/18 10:18 Assessment: 03/11/18 12:48 Laboratory Last Values WBC 8.5 K/mm3 (4.0-10.0) 03/10/18 06:00 RBC 4.54 M/mm3 (3.60-5.2) 03/10/18 06:00 Hgb 14.1 GM/dL (10.7-15.3) 03/10/18 06:00 Hct 42.2 % (32.4-45.2) 03/10/18 06:00 MCV 93.0 fl (80-96) 03/10/18 06:00 MCH 31.0 pg (25.7-33.7) 03/10/18 06:00 MCHC 33.4 g/dl (32.0-36.0) 03/10/18 06:00 RDW 14.7 % (11.6-15.6) 03/10/18 06:00 Plt Count 305 K/MM3 (134-434) 03/10/18 06:00 MPV 8.0 fl (7.5-11.1) 03/10/18 06:00 Sodium 142 mmol/L (136-145) 03/10/18 06:00 Potassium 3.6 mmol/L (3.5-5.1) 03/10/18 06:00 Chloride 108 mmol/L (98-107) H 03/10/18 06:00 Carbon Dioxide 26 mmol/L (21-32) 03/10/18 06:00 Anion Gap 8 (8-16) 03/10/18 06:00 BUN 24 mg/dL (7-18) H 03/10/18 06:00 Creatinine 1.2 mg/dL (0.55-1.02) H 03/10/18 06:00 Creat Clearance w eGFR 44.95 (>60) 03/10/18 06:00 Random Glucose 169 mg/dL (74-106) H 03/10/18 06:00 Calcium 9.4 mg/dL (8.5-10.1) 03/10/18 06:00 Total Bilirubin 0.2 mg/dL (0.2-1.0) D 03/10/18 06:00 AST 21 U/L (15-37) 03/10/18 06:00 ALT 20 U/L (12-78) 03/10/18 06:00 Alkaline Phosphatase 98 U/L (45-117) 03/10/18 06:00 Total Protein 7.3 g/dl (6.4-8.2) 03/10/18 06:00 Albumin 3.8 g/dl (3.4-5.0) 03/10/18 06:00 Urine Color Hannah 03/09/18 23:49 Urine Appearance Cloudy 03/09/18 23:49 Urine pH 5.0 (5.0-8.0) 03/09/18 23:49 Ur Specific [place] 1.030 (1.001-1.035) 03/09/18 23:49 Urine Protein 1+ (NEGATIVE) H 03/09/18 23:49 Urine Glucose (UA) Negative (NEGATIVE) 03/09/18 23:49 Urine Ketones Trace (NEGATIVE) H 03/09/18 23:49 Urine Blood Negative (NEGATIVE) 03/09/18 23:49 Urine Nitrite Negative (NEGATIVE) 03/09/18 23:49 Urine Bilirubin 2.0 (<2.0 mg/dL) 03/09/18 23:49 Urine Urobilinogen 4.0 e.u/dl mg/dL (0.2-1.0) H 03/09/18 23:49 Ur Leukocyte Esterase 2+ (NEGATIVE) H 03/09/18 23:49 Urine WBC (Auto) 16 /hpf (3-5) 03/09/18 23:49 Urine RBC (Auto) 23 /hpf (0-3) 03/09/18 23:49 Ur Epithelial Cells Few /HPF (FEW) 03/09/18 23:49 Urine Bacteria Rare /hpf (NONE SEEN) 03/09/18 23:49 Hyaline Casts 42 /lpf 03/09/18 23:49 Urine Mucus Few 03/09/18 23:49 RPR Titer Nonreactive (NONREACTIVE) 03/10/18 06:00 03/11/18 12:48 WITHDRAWAL SYMPTOM Plan: CONTINUE DETOX
[2018-03-11] MEDS: PANTOPRAZOLE 40 MG TABLET (FP) PO SCH (14:11)
[2018-03-11] MEDS: IBUPROFEN 400 MG TABLET (FP) PO PRN (15:26)
[2018-03-11 18:29] LABS: URINE APPEARANCE CLEAR; URINE BILIRUBIN NEGATIVE (<2.0 mg/dL); URINE COLOR LTYELLOW; URINE GLUCOSE (UA) NEGATIVE (NEGATIVE); URINE KETONE NEGATIVE (NEGATIVE); URINE LEUK ESTERASE TRACE (NEGATIVE); URINE NITRITE NEGATIVE (NEGATIVE); URINE PROTEIN NEGATIVE (NEGATIVE); URINE UROBILINOGEN NEGATIVE mg/dL (0.2-1.0)
[2018-03-11 18:50] LABS: EPI CELLS RARE /HPF (FEW); URINE MUCUS RARE
[2018-03-11] MEDS: traZODone HCL 50 MG TABLET (FP) PO SCH (22:06)
[2018-03-11] MEDS: ATORVASTATIN CA 40 MG TABLET (FP) PO SCH (22:06)
[2018-03-11] MEDS: THIAMINE HCL 100 MG TABLET (FP) PO SCH (22:06)
[2018-03-12] MEDS: METHADONE HCL 40 MG DISPERSABLE TABLET PO SCH (05:57)
[2018-03-12] MEDS: GABAPENTIN 300 MG CAPSULE (FP) PO SCH ×3 (05:58→22:08)
[2018-03-12] MEDS: diazePAM 5 MG TABLET PO PRN ×2 (05:58→14:33)
[2018-03-12] MEDS: IBUPROFEN 400 MG TABLET (FP) PO PRN ×2 (06:00→20:27)
[2018-03-12] MEDS: LEVOTHYROXINE NA 25 MCG TABLET (FP) PO SCH (07:13)
--- NOTE | 2018-03-12 09:59 | PN ---
S Progress Note (SOAP) Subjective: Anxiety, irritability, interrupted sleep and bilateral knee pain Objective: 03/12/18 09:58 Vital Signs - 8 hr 03/12/18 03/12/18 03:30 06:11 Temperature 97.5 F L Pulse Rate 70 Respiratory 18 18 Rate Blood Pressure 126/74 Laboratory Last Values WBC 8.5 K/mm3 (4.0-10.0) 03/10/18 06:00 RBC 4.54 M/mm3 (3.60-5.2) 03/10/18 06:00 Hgb 14.1 GM/dL (10.7-15.3) 03/10/18 06:00 Hct 42.2 % (32.4-45.2) 03/10/18 06:00 MCV 93.0 fl (80-96) 03/10/18 06:00 MCH 31.0 pg (25.7-33.7) 03/10/18 06:00 MCHC 33.4 g/dl (32.0-36.0) 03/10/18 06:00 RDW 14.7 % (11.6-15.6) 03/10/18 06:00 Plt Count 305 K/MM3 (134-434) 03/10/18 06:00 MPV 8.0 fl (7.5-11.1) 03/10/18 06:00 Sodium 142 mmol/L (136-145) 03/10/18 06:00 Potassium 3.6 mmol/L (3.5-5.1) 03/10/18 06:00 Chloride 108 mmol/L (98-107) H 03/10/18 06:00 Carbon Dioxide 26 mmol/L (21-32) 03/10/18 06:00 Anion Gap 8 (8-16) 03/10/18 06:00 BUN 24 mg/dL (7-18) H 03/10/18 06:00 Creatinine 1.2 mg/dL (0.55-1.02) H 03/10/18 06:00 Creat Clearance w eGFR 44.95 (>60) 03/10/18 06:00 Random Glucose 169 mg/dL (74-106) H 03/10/18 06:00 Calcium 9.4 mg/dL (8.5-10.1) 03/10/18 06:00 Total Bilirubin 0.2 mg/dL (0.2-1.0) D 03/10/18 06:00 AST 21 U/L (15-37) 03/10/18 06:00 ALT 20 U/L (12-78) 03/10/18 06:00 Alkaline Phosphatase 98 U/L (45-117) 03/10/18 06:00 Total Protein 7.3 g/dl (6.4-8.2) 03/10/18 06:00 Albumin 3.8 g/dl (3.4-5.0) 03/10/18 06:00 Urine Color Ltyellow 03/11/18 15:23 Urine Appearance Clear 03/11/18 15:23 Urine pH 5.0 (5.0-8.0) 03/11/18 15:23 Ur Specific [place] 1.016 (1.001-1.035) 03/11/18 15:23 Urine Protein Negative (NEGATIVE) 03/11/18 15:23 Urine Glucose (UA) Negative (NEGATIVE) 03/11/18 15:23 Urine Ketones Negative (NEGATIVE) 03/11/18 15:23 Urine Blood Negative (NEGATIVE) 03/11/18 15:23 Urine Nitrite Negative (NEGATIVE) 03/11/18 15:23 Urine Bilirubin Negative (<2.0 mg/dL) 03/11/18 15:23 Urine Urobilinogen Negative mg/dL (0.2-1.0) 03/11/18 15:23 Ur Leukocyte Esterase Trace (NEGATIVE) 03/11/18 15:23 Urine WBC (Auto) 1 /hpf (3-5) 03/11/18 15:23 Urine RBC (Auto) <1 /hpf (0-3) 03/11/18 15:23 Ur Epithelial Cells Rare /HPF (FEW) 03/11/18 15:23 Urine Bacteria Rare /hpf (NONE SEEN) 03/09/18 23:49 Hyaline Casts 42 /lpf 03/09/18 23:49 Urine Mucus Rare 03/11/18 15:23 RPR Titer Nonreactive (NONREACTIVE) 03/10/18 06:00 Labs noted Assessment: 03/12/18 09:58 Withdrawal sx Plan: Continue detox
[2018-03-12] MEDS: TIOTROPIUM BROMIDE 18 MCG CAPSULES IH SCH (10:13)
[2018-03-12] MEDS: LISINOPRIL 5 MG TABLET (FP) PO SCH (10:14)
[2018-03-12] MEDS: amLODIPine BESYLATE 5 MG TABLET (FP) PO SCH (10:14)
[2018-03-12] MEDS: CLOTRIMAZOLE 1% CREAM 15 GM TUBE TP SCH ×2 (10:14→22:09)
[2018-03-12] MEDS: FLUoxetine HCL 20 MG CAPSULE (FP) PO SCH (10:14)
[2018-03-12] MEDS: diazePAM 5 MG TABLET PO SCH ×2 (10:15→22:08)
[2018-03-12] MEDS: PANTOPRAZOLE 40 MG TABLET (FP) PO SCH (10:15)
[2018-03-12] MEDS: PRENATAL VITAMINS W/ FOLIC ACID TABLET (FP) PO SCH (10:15)
[2018-03-12] MEDS: NICOTINE 14 MG/24 HOURS TOPICAL PATCH TD SCH (10:15)
[2018-03-12] MEDS: traZODone HCL 50 MG TABLET (FP) PO SCH (22:08)
[2018-03-12] MEDS: ATORVASTATIN CA 40 MG TABLET (FP) PO SCH (22:09)
[2018-03-12] MEDS: THIAMINE HCL 100 MG TABLET (FP) PO SCH (22:53)
[2018-03-13] MEDS: METHADONE HCL 40 MG DISPERSABLE TABLET PO SCH (05:27)
[2018-03-13] MEDS: GABAPENTIN 300 MG CAPSULE (FP) PO SCH (05:27)
[2018-03-13] MEDS: LEVOTHYROXINE NA 25 MCG TABLET (FP) PO SCH (06:06)
[2018-03-13] MEDS: amLODIPine BESYLATE 5 MG TABLET (FP) PO SCH (09:39)
[2018-03-13] MEDS: LISINOPRIL 5 MG TABLET (FP) PO SCH (09:39)
[2018-03-13] MEDS: FLUoxetine HCL 20 MG CAPSULE (FP) PO SCH (09:39)
[2018-03-13] MEDS: IBUPROFEN 400 MG TABLET (FP) PO PRN (09:39)
[2018-03-13] MEDS: PRENATAL VITAMINS W/ FOLIC ACID TABLET (FP) PO SCH (09:40)
[2018-03-13] MEDS: PANTOPRAZOLE 40 MG TABLET (FP) PO SCH (09:40)
[2018-03-13] MEDS: TIOTROPIUM BROMIDE 18 MCG CAPSULES IH SCH (09:43)
[2018-03-13] MEDS: NICOTINE 14 MG/24 HOURS TOPICAL PATCH TD SCH (09:45)
[2018-03-13] MEDS ORDERED: diazePAM 5 MG TABLET PO SCH (10:00)
[2018-03-13 10:01] VITALS: BP 114/76; PULSE 78; TEMP 98.2
--- NOTE | 2018-03-13 12:09 | DS ---
[facility] Detox Discharge Summary Admission Date: 03/09/18 Discharge Date: 03/13/18 - History Present History: Sedative Dependence, MMTP Pertinent Past History: COPD HTN Hypothyroidism Seizure disorder Hepatitis C Obesity GERD - Physical Exam Results Vital Signs: Vital Signs Temperature 98.2 F 03/13/18 10:00 Pulse Rate 78 03/13/18 10:00 Respiratory Rate 18 03/13/18 10:00 Blood Pressure 114/76 03/13/18 10:00 O2 Sat by Pulse Oximetry (%) Pertinent Admission Physical Exam Findings: Withdrawal symptoms Laboratory Tests 03/09/18 03/10/18 03/10/18 23:49 06:00 06:00 WBC 8.5 RBC 4.54 Hgb 14.1 Hct 42.2 MCV 93.0 MCH 31.0 MCHC 33.4 RDW 14.7 Plt Count 305 MPV 8.0 Sodium 142 Potassium 3.6 Chloride 108 H Carbon Dioxide 26 Anion Gap 8 BUN 24 H Creatinine 1.2 H Creat Clearance w eGFR 44.95 Random Glucose 169 H Calcium 9.4 Total Bilirubin 0.2 D AST 21 ALT 20 Alkaline Phosphatase 98 Total Protein 7.3 Albumin 3.8 Urine Color Hannah Urine Appearance Cloudy Urine pH 5.0 Ur Specific [place] 1.030 Urine Protein 1+ H Urine Glucose (UA) Negative Urine Ketones Trace H Urine Blood Negative Urine Nitrite Negative Urine Bilirubin 2.0 Urine Urobilinogen 4.0 e.u/dl H Ur Leukocyte Esterase 2+ H Urine WBC (Auto) 16 Urine RBC (Auto) 23 Ur Epithelial Cells Few Urine Bacteria Rare Hyaline Casts 42 Urine Mucus Few RPR Titer 03/10/18 03/11/18 06:00 15:23 WBC RBC Hgb Hct MCV MCH MCHC RDW Plt Count MPV Sodium Potassium Chloride Carbon Dioxide Anion Gap BUN Creatinine Creat Clearance w eGFR Random Glucose Calcium Total Bilirubin AST ALT Alkaline Phosphatase Total Protein Albumin Urine Color Ltyellow Urine Appearance Clear Urine pH 5.0 Ur Specific [place] 1.016 Urine Protein Negative Urine Glucose (UA) Negative Urine Ketones Negative Urine Blood Negative Urine Nitrite Negative Urine Bilirubin Negative Urine Urobilinogen Negative Ur Leukocyte Esterase Trace Urine WBC (Auto) 1 Urine RBC (Auto) <1 Ur Epithelial Cells Rare Urine Bacteria Hyaline Casts Urine Mucus Rare RPR Titer Nonreactive Labs reviewed: bun 24, serum creatinine 1.2, abnormal ua (encouraged to drink more water for hydration) - Treatment Hospital Course: Detox Protocol Followed, Detoxed Safely, Responded well, Discharged Condition Good - Medication Discharge Medications: Ambulatory Orders traZODone HCL [Desyrel -] 100 mg PO HS #60 tablet 12/21/16 Diphenhydramine [Benadryl Capsule -] 50 mg PO HS PRN #30 capsule 12/13/17 Methadone [Dolophine -] 80 mg PO DAILY@0600 tablet MDD 80 12/13/17 Albuterol Sulfate Inhaler - [Ventolin HFA Inhaler -] 1 inh IH PRN PRN #1 inh 09/25 Amlodipine Besylate [Norvasc -] 5 mg PO DAILY #30 tab 01/16/18 Atorvastatin Ca [Lipitor] 40 mg PO DAILY #30 tab 01/16/18 Levothyroxine [Synthroid -] 75 mcg PO DAILY #30 tablet 01/16/18 Lisinopril [Prinivil -] 5 mg PO DAILY #30 tablet 01/16/18 Tiotropium [place] [Spiriva] 1 inh PO DAILY #1 inh 01/16/18 Gabapentin [Neurontin -] 300 mg PO TID #90 capsule 02/14/18 Fluoxetine HCl [Prozac] 40 mg PO DAILY 03/09/18 - Diagnosis (1) Nicotine dependence Status: Chronic (2) Seizure disorder Status: Chronic (3) Hepatitis C Status: Chronic (4) GERD (gastroesophageal reflux disease) Status: Chronic (5) Insomnia Status: Acute (6) Uncomplicated sedative, hypnotic, or anxiolytic withdrawal Status: Acute (7) COPD (chronic obstructive pulmonary disease) Status: Chronic Qualifiers: COPD type: emphysema Emphysema type: unilateral Qualified Code(s): J43.0 - Unilateral pulmonary emphysema [MacLeod's syndrome] (8) HTN (hypertension) Status: Chronic Qualifiers: Hypertension type: essential hypertension Qualified Code(s): I10 - Essential (primary) hypertension (9) Hypothyroidism Status: Chronic Qualifiers: Hypothyroidism type: acquired Qualified Code(s): E03.9 - Hypothyroidism, unspecified (10) MDD (major depressive disorder), recurrent episode Status: Chronic (11) Methadone maintenance therapy patient Status: Chronic (12) Morbid obesity with BMI of 40.0-44.9, adult Status: Chronic (13) Abnormal finding on urinalysis Status: Acute (14) Acute prerenal azotemia Status: Acute - AMA Did Patient Leave Against Medical Advice: No (Follow up with your PCP within 1- 2 weeks)
== END 2018-03-13 10:05 | disposition home or self-care (01) | DRG 897 ==
LOC: YASAS 14:09 → Y6N 20:55
PROVIDERS: ADMIT Internal Medicine; ATTEND Internal Medicine
PROC: HZ2ZZZZ Detoxification Services for Substance Abuse Treatment (ICD-10-PCS; principal; 2018-03-09)
DX: F11.20 Opioid dependence, uncomplicated (principal); F13.230 Sedative, hypnotic or anxiolytic dependence with withdrawal, uncomplicated; F33.1 Major depressive disorder, recurrent, moderate; F06.2 Psychotic disorder with delusions due to known physiological condition; Z68.41 Body mass index [BMI] 40.0-44.9, adult; G40.909 Epilepsy, unspecified, not intractable, without status epilepticus; G47.00 Insomnia, unspecified; I10 Essential (primary) hypertension; J43.0 Unilateral pulmonary emphysema [MacLeod's syndrome]; E03.9 Hypothyroidism, unspecified; E66.01 Morbid (severe) obesity due to excess calories; R79.89 Other specified abnormal findings of blood chemistry; R82.90 Unspecified abnormal findings in urine; R26.89 Other abnormalities of gait and mobility; Z99.89 Dependence on other enabling machines and devices
CPT/HCPCS: 36415; 80053; 81003; 81015; 85027; 86593; 93005; 93010

== ENCOUNTER 2019-01-07 15:16 | Inpatient (IN) | payer OTHER ==
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
[2019-01-07] MEDS ORDERED: P-EPHED 60MG/TRIPROLIDI 2.5MG TABLET PO PRN (17:32)
[2019-01-07] MEDS ORDERED: MAGNESIUM CITRATE 300 ML BOTTLE PO PRN (17:32)
[2019-01-07] MEDS ORDERED: MAGNESIUM HYDROX 2400MG/30ML ORAL SUSPENSION 30 ML CUP PO PRN (17:32)
[2019-01-07] MEDS ORDERED: MENTHOL/PHENOL 1 EACH UD MM PRN (17:32)
[2019-01-07] MEDS ORDERED: LOPERAMIDE HCL 2 MG CAPSULE PO PRN (17:32)
[2019-01-07] MEDS ORDERED: diazePAM 5 MG TABLET PO ONE (17:32)
[2019-01-07] MEDS ORDERED: hydrOXYzine PAMOATE 50 MG CAPSULE (FP) PO PRN (17:32)
[2019-01-07] MEDS ORDERED: ALBUTEROL SO4 8 GM HFA INHALER IH PRN (20:01)
[2019-01-07] MEDS: NICOTINE 21 MG/24 HOURS TOPICAL PATCH TD SCH (20:49)
[2019-01-07] MEDS: BACITRACIN 0.9 GM PACKET TP SCH (22:33)
[2019-01-07] MEDS: diazePAM 5 MG TABLET PO SCH (22:34)
[2019-01-07] MEDS: MELATONIN 5 MG TABLETS PO PRN (22:34)
[2019-01-07] MEDS: THIAMINE HCL 100 MG TABLET (FP) PO SCH (22:34)
[2019-01-07] MEDS: ATORVASTATIN CA 40 MG TABLET (FP) PO SCH (22:34)
[2019-01-07] MEDS: IBUPROFEN 400 MG TABLET (FP) PO PRN (22:36)
[2019-01-08] MEDS: ACETAMINOPHEN 325 MG TABLET (FP) PO PRN ×2 (01:30→16:47)
[2019-01-08] MEDS ORDERED: METHADONE HCL 40 MG DISPERSABLE TABLET PO ONE (06:00)
[2019-01-08] MEDS: LEVOTHYROXINE NA 25 MCG TABLET (FP) PO SCH (06:43)
[2019-01-08] MEDS: diazePAM 5 MG TABLET PO SCH ×3 (06:43→22:38)
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
[2019-01-08] MEDS: BACITRACIN 0.9 GM PACKET TP SCH ×2 (10:24→22:37)
[2019-01-08] MEDS: amLODIPine BESYLATE 5 MG TABLET (FP) PO SCH (10:24)
[2019-01-08] MEDS: LISINOPRIL 20 MG TABLET (FP) PO SCH (10:24)
[2019-01-08] MEDS: PRENATAL VITAMINS W/ FOLIC ACID TABLET (FP) PO SCH (10:24)
[2019-01-08] MEDS: FLUoxetine HCL 20 MG CAPSULE (FP) PO SCH (10:25)
[2019-01-08 10:47] LABS: HEMATOCRIT 41.7 % (32.4-45.2); HEMOGLOBIN 14.1 GM/dL (10.7-15.3); MCH 31.4 pg (25.7-33.7); MEAN CELL VOLUME 92.6 fl (80-96); MEAN PLT VOLUME 7.5 fl (7.5-11.1); PLATELET COUNT 238 K/MM3 (134-434); RDW 13.7 % (11.6-15.6); WHITE BLOOD COUNT 5.4 K/mm3 (4.0-10.0)
[2019-01-08 10:57] LABS: ALBUMIN 3.5 g/dl (3.4-5.0); ALK PHOS 91 U/L (45-117); ANION GAP 7 MMOL/L (8-16); BILIRUBIN,TOTAL 0.3 mg/dL (0.2-1); BLOOD UREA NITROGEN 16 mg/dL (7-18); CALCIUM 8.7 mg/dL (8.5-10.1); CHLORIDE 103 mmol/L (98-107); CO2 27 mmol/L (21-32); CREATININE 0.8 mg/dL (0.55-1.3); GLUCOSE,RANDOM 103 mg/dL (74-106); POTASSIUM 4.1 mmol/L (3.5-5.1); SGOT/AST 24 U/L (15-37); SGPT/ALT 19 U/L (13-61); SODIUM 137 mmol/L (136-145); TOT PROT 6.9 g/dl (6.4-8.2)
[2019-01-08] MEDS: NICOTINE 21 MG/24 HOURS TOPICAL PATCH TD SCH (11:31)
--- NOTE | 2019-01-08 15:19 | PN ---
[facility] CIWA - CIWA Score Nausea/Vomitin-No Nausea/No Vomiting Muscle Tremors: 2 Anxiety: 3 Agitation: 2 Paroxysmal Sweats: 1-Minimal Palms Moist Orientation: 0-Oriented Tacttile Disturbances: 0-None Auditory Disturbances: 0-None Visual Disturbances: 0-None Headache: 1-Very Mild CIWA-Ar Total Score: 9 S Progress Note (SOAP) Subjective: anxiety restlessness trouble sleep at night Objective: 01/08/19 15:22 Vital Signs Temperature 100.4 F H 01/08/19 14:35 Pulse Rate 85 01/08/19 14:35 Respiratory Rate 18 01/08/19 14:35 Blood Pressure 121/81 01/08/19 14:35 O2 Sat by Pulse Oximetry (%) Laboratory Last Values WBC 5.4 K/mm3 (4.0-10.0) 01/08/19 07:35 RBC 4.50 M/mm3 (3.60-5.2) 01/08/19 07:35 Hgb 14.1 GM/dL (10.7-15.3) 01/08/19 07:35 Hct 41.7 % (32.4-45.2) 01/08/19 07:35 MCV 92.6 fl (80-96) 01/08/19 07:35 MCH 31.4 pg (25.7-33.7) 01/08/19 07:35 MCHC 34.0 g/dl (32.0-36.0) 01/08/19 07:35 RDW 13.7 % (11.6-15.6) 01/08/19 07:35 Plt Count 238 K/MM3 (134-434) D 01/08/19 07:35 MPV 7.5 fl (7.5-11.1) 01/08/19 07:35 Sodium 137 mmol/L (136-145) 01/08/19 07:35 Potassium 4.1 mmol/L (3.5-5.1) 01/08/19 07:35 Chloride 103 mmol/L (98-107) 01/08/19 07:35 Carbon Dioxide 27 mmol/L (21-32) 01/08/19 07:35 Anion Gap 7 MMOL/L (8-16) L 01/08/19 07:35 BUN 16 mg/dL (7-18) 01/08/19 07:35 Creatinine 0.8 mg/dL (0.55-1.3) 01/08/19 07:35 Creat Clearance w eGFR > 60 (>60) 01/08/19 07:35 POC Glucometer 120 UNITS (80-120) 01/08/19 06:40 Random Glucose 103 mg/dL (74-106) 01/08/19 07:35 Calcium 8.7 mg/dL (8.5-10.1) 01/08/19 07:35 Total Bilirubin 0.3 mg/dL (0.2-1) 01/08/19 07:35 AST 24 U/L (15-37) 01/08/19 07:35 ALT 19 U/L (13-61) 01/08/19 07:35 Alkaline Phosphatase 91 U/L (45-117) 01/08/19 07:35 Total Protein 6.9 g/dl (6.4-8.2) 01/08/19 07:35 Albumin 3.5 g/dl (3.4-5.0) 01/08/19 07:35 RPR Titer Nonreactive (NONREACTIVE) 01/08/19 07:35 lab noted Assessment: 01/08/19 15:22 withdrawal sx ambulate with cane Plan: continue detox
[2019-01-08] MEDS: guaiFENesin/D-METHORPHAN HB 10 ML UNIT-DOSE CUPS PO PRN (19:10)
[2019-01-08] MEDS: traZODone HCL 50 MG TABLET (FP) PO SCH (22:38)
[2019-01-08] MEDS: ATORVASTATIN CA 40 MG TABLET (FP) PO SCH (22:38)
[2019-01-08] MEDS: THIAMINE HCL 100 MG TABLET (FP) PO SCH (22:38)
[2019-01-09] MEDS: guaiFENesin/D-METHORPHAN HB 10 ML UNIT-DOSE CUPS PO PRN ×3 (04:23→17:58)
[2019-01-09] MEDS: ACETAMINOPHEN 325 MG TABLET (FP) PO PRN (04:23)
[2019-01-09] MEDS: LEVOTHYROXINE NA 25 MCG TABLET (FP) PO SCH (06:02)
[2019-01-09] MEDS ORDERED: metFORMIN HCL 500 MG TABLET (FP) PO ONE (08:15)
[2019-01-09] MEDS ORDERED: METHADONE HCL 40 MG DISPERSABLE TABLET PO ONE (09:30)
[2019-01-09] MEDS ORDERED: METHADONE HCL 10 MG TABLET PO ONE (09:30)
[2019-01-09] MEDS: LISINOPRIL 20 MG TABLET (FP) PO SCH (09:33)
[2019-01-09] MEDS: FLUoxetine HCL 20 MG CAPSULE (FP) PO SCH (09:33)
[2019-01-09] MEDS: amLODIPine BESYLATE 5 MG TABLET (FP) PO SCH (09:34)
[2019-01-09] MEDS: diazePAM 5 MG TABLET PO SCH ×2 (09:34→22:12)
[2019-01-09] MEDS: PRENATAL VITAMINS W/ FOLIC ACID TABLET (FP) PO SCH (09:34)
[2019-01-09] MEDS: NICOTINE 21 MG/24 HOURS TOPICAL PATCH TD SCH (09:35)
--- NOTE | 2019-01-09 10:15 | PN ---
[facility] CIWA - CIWA Score Nausea/Vomitin-No Nausea/No Vomiting Muscle Tremors: 1-None Visible, but [place] Anxiety: 3 Agitation: 2 Paroxysmal Sweats: No Perspiration Orientation: 0-Oriented Tacttile Disturbances: 0-None Auditory Disturbances: 0-None Visual Disturbances: 0-None Headache: 1-Very Mild CIWA-Ar Total Score: 7 S Progress Note (SOAP) Subjective: anxiety restlessness tremor sweating Objective: 01/09/19 10:13 Vital Signs Temperature 98.7 F 01/09/19 09:21 Pulse Rate 81 01/09/19 09:21 Respiratory Rate 18 01/09/19 09:21 Blood Pressure 119/83 01/09/19 09:21 O2 Sat by Pulse Oximetry (%) Laboratory Last Values WBC 5.4 K/mm3 (4.0-10.0) 01/08/19 07:35 RBC 4.50 M/mm3 (3.60-5.2) 01/08/19 07:35 Hgb 14.1 GM/dL (10.7-15.3) 01/08/19 07:35 Hct 41.7 % (32.4-45.2) 01/08/19 07:35 MCV 92.6 fl (80-96) 01/08/19 07:35 MCH 31.4 pg (25.7-33.7) 01/08/19 07:35 MCHC 34.0 g/dl (32.0-36.0) 01/08/19 07:35 RDW 13.7 % (11.6-15.6) 01/08/19 07:35 Plt Count 238 K/MM3 (134-434) D 01/08/19 07:35 MPV 7.5 fl (7.5-11.1) 01/08/19 07:35 Sodium 137 mmol/L (136-145) 01/08/19 07:35 Potassium 4.1 mmol/L (3.5-5.1) 01/08/19 07:35 Chloride 103 mmol/L (98-107) 01/08/19 07:35 Carbon Dioxide 27 mmol/L (21-32) 01/08/19 07:35 Anion Gap 7 MMOL/L (8-16) L 01/08/19 07:35 BUN 16 mg/dL (7-18) 01/08/19 07:35 Creatinine 0.8 mg/dL (0.55-1.3) 01/08/19 07:35 Creat Clearance w eGFR > 60 (>60) 01/08/19 07:35 POC Glucometer 212 UNITS (80-120) 01/09/19 07:10 Random Glucose 103 mg/dL (74-106) 01/08/19 07:35 Calcium 8.7 mg/dL (8.5-10.1) 01/08/19 07:35 Total Bilirubin 0.3 mg/dL (0.2-1) 01/08/19 07:35 AST 24 U/L (15-37) 01/08/19 07:35 ALT 19 U/L (13-61) 01/08/19 07:35 Alkaline Phosphatase 91 U/L (45-117) 01/08/19 07:35 Total Protein 6.9 g/dl (6.4-8.2) 01/08/19 07:35 Albumin 3.5 g/dl (3.4-5.0) 01/08/19 07:35 RPR Titer Nonreactive (NONREACTIVE) 01/08/19 07:35 lab noted Assessment: 01/09/19 10:13 benzo withdrawal sx hypertension diabetes gerd Plan: continue detox
[2019-01-09] MEDS: BACITRACIN 0.9 GM PACKET TP SCH ×2 (12:40→22:12)
[2019-01-09] MEDS: RANITIDINE HCL 150 MG TABLET (FP) PO SCH ×2 (15:47→22:12)
[2019-01-09] MEDS: diazePAM 5 MG TABLET PO PRN (17:58)
[2019-01-09] MEDS: ATORVASTATIN CA 40 MG TABLET (FP) PO SCH (22:12)
[2019-01-09] MEDS: THIAMINE HCL 100 MG TABLET (FP) PO SCH (22:12)
[2019-01-09] MEDS: traZODone HCL 50 MG TABLET (FP) PO SCH (22:12)
[2019-01-10] MEDS: METHADONE HCL 40 MG DISPERSABLE TABLET PO SCH (05:31)
[2019-01-10] MEDS: LEVOTHYROXINE NA 25 MCG TABLET (FP) PO SCH (06:03)
[2019-01-10] MEDS: ACETAMINOPHEN 325 MG TABLET (FP) PO PRN ×2 (06:24→22:23)
[2019-01-10] MEDS: metFORMIN HCL 500 MG TABLET (FP) PO SCH (07:25)
[2019-01-10] MEDS: diazePAM 5 MG TABLET PO PRN ×2 (07:43→16:48)
[2019-01-10] MEDS: NICOTINE 21 MG/24 HOURS TOPICAL PATCH TD SCH ×2 (07:48→12:34)
[2019-01-10] MEDS: diazePAM 5 MG TABLET PO SCH ×2 (10:31→22:22)
[2019-01-10] MEDS: PRENATAL VITAMINS W/ FOLIC ACID TABLET (FP) PO SCH (10:31)
[2019-01-10] MEDS: RANITIDINE HCL 150 MG TABLET (FP) PO SCH ×2 (10:31→22:22)
[2019-01-10] MEDS: BACITRACIN 0.9 GM PACKET TP SCH ×2 (10:31→22:22)
[2019-01-10] MEDS: LISINOPRIL 20 MG TABLET (FP) PO SCH (10:31)
[2019-01-10] MEDS: amLODIPine BESYLATE 5 MG TABLET (FP) PO SCH (10:31)
[2019-01-10] MEDS: FLUoxetine HCL 20 MG CAPSULE (FP) PO SCH (10:31)
--- NOTE | 2019-01-10 11:35 | PN ---
[facility] CIWA - CIWA Score Nausea/Vomitin-No Nausea/No Vomiting Muscle Tremors: 1-None Visible, but [place] Anxiety: 1-Mildly Anxious Agitation: 1-Slight > Activity Paroxysmal Sweats: 1-Minimal Palms Moist Orientation: 1-Uncertain about Date Tacttile Disturbances: 0-None Auditory Disturbances: 0-None Visual Disturbances: 0-None Headache: 1-Very Mild CIWA-Ar Total Score: 6 S Progress Note (SOAP) Subjective: feeling better less anxious today able to follow direction and ambulate on hallway without cane that reported feeling stronger and well-balanced Objective: 01/10/19 11:35 Vital Signs Temperature 98.3 F 01/10/19 09:18 Pulse Rate 72 01/10/19 09:18 Respiratory Rate 122 H 01/10/19 09:18 Blood Pressure 122/80 01/10/19 09:18 O2 Sat by Pulse Oximetry (%) Laboratory Last Values WBC 5.4 K/mm3 (4.0-10.0) 01/08/19 07:35 RBC 4.50 M/mm3 (3.60-5.2) 01/08/19 07:35 Hgb 14.1 GM/dL (10.7-15.3) 01/08/19 07:35 Hct 41.7 % (32.4-45.2) 01/08/19 07:35 MCV 92.6 fl (80-96) 01/08/19 07:35 MCH 31.4 pg (25.7-33.7) 01/08/19 07:35 MCHC 34.0 g/dl (32.0-36.0) 01/08/19 07:35 RDW 13.7 % (11.6-15.6) 01/08/19 07:35 Plt Count 238 K/MM3 (134-434) D 01/08/19 07:35 MPV 7.5 fl (7.5-11.1) 01/08/19 07:35 Sodium 137 mmol/L (136-145) 01/08/19 07:35 Potassium 4.1 mmol/L (3.5-5.1) 01/08/19 07:35 Chloride 103 mmol/L (98-107) 01/08/19 07:35 Carbon Dioxide 27 mmol/L (21-32) 01/08/19 07:35 Anion Gap 7 MMOL/L (8-16) L 01/08/19 07:35 BUN 16 mg/dL (7-18) 01/08/19 07:35 Creatinine 0.8 mg/dL (0.55-1.3) 01/08/19 07:35 Creat Clearance w eGFR > 60 (>60) 01/08/19 07:35 POC Glucometer 139 UNITS (80-120) 01/10/19 06:23 Random Glucose 103 mg/dL (74-106) 01/08/19 07:35 Calcium 8.7 mg/dL (8.5-10.1) 01/08/19 07:35 Total Bilirubin 0.3 mg/dL (0.2-1) 01/08/19 07:35 AST 24 U/L (15-37) 01/08/19 07:35 ALT 19 U/L (13-61) 01/08/19 07:35 Alkaline Phosphatase 91 U/L (45-117) 01/08/19 07:35 Total Protein 6.9 g/dl (6.4-8.2) 01/08/19 07:35 Albumin 3.5 g/dl (3.4-5.0) 01/08/19 07:35 RPR Titer Nonreactive (NONREACTIVE) 01/08/19 07:35 01/10/19 11:36 lab noted Assessment: 01/10/19 11:43 mild benzo withdrawal sx 01/10/19 11:44 Plan: continue detox
[2019-01-10] MEDS: MAG HYDROX/AL HYDROX/SIMETH 30 ML UNIT-DOSE CUP PO PRN (12:36)
[2019-01-10] MEDS ORDERED: NICOTINE 21 MG/24 HOURS TOPICAL PATCH TD ONE (12:41)
[2019-01-10] MEDS: THIAMINE HCL 100 MG TABLET (FP) PO SCH (22:22)
[2019-01-10] MEDS: traZODone HCL 50 MG TABLET (FP) PO SCH (22:22)
[2019-01-10] MEDS: ATORVASTATIN CA 40 MG TABLET (FP) PO SCH (22:22)
[2019-01-10] MEDS: MELATONIN 5 MG TABLETS PO PRN (22:23)
[2019-01-11] MEDS: METHADONE HCL 40 MG DISPERSABLE TABLET PO SCH (05:34)
[2019-01-11] MEDS: LEVOTHYROXINE NA 25 MCG TABLET (FP) PO SCH (07:26)
[2019-01-11] MEDS: metFORMIN HCL 500 MG TABLET (FP) PO SCH (07:26)
[2019-01-11] MEDS: guaiFENesin/D-METHORPHAN HB 10 ML UNIT-DOSE CUPS PO PRN (07:53)
[2019-01-11] MEDS ORDERED: diazePAM 5 MG TABLET PO SCH (10:00)
[2019-01-11] MEDS: RANITIDINE HCL 150 MG TABLET (FP) PO SCH ×2 (10:14→21:41)
[2019-01-11] MEDS: FLUoxetine HCL 20 MG CAPSULE (FP) PO SCH (10:14)
[2019-01-11] MEDS: LISINOPRIL 20 MG TABLET (FP) PO SCH (10:14)
[2019-01-11] MEDS: amLODIPine BESYLATE 5 MG TABLET (FP) PO SCH (10:14)
[2019-01-11] MEDS: BACITRACIN 0.9 GM PACKET TP SCH ×2 (10:15→21:41)
[2019-01-11] MEDS: PRENATAL VITAMINS W/ FOLIC ACID TABLET (FP) PO SCH (10:15)
[2019-01-11] MEDS: NICOTINE 21 MG/24 HOURS TOPICAL PATCH TD SCH (10:15)
--- NOTE | 2019-01-11 10:42 | DS ---
[facility] Detox Discharge Summary Admission Date: 01/07/19 Discharge Date: 01/11/19 - History Present History: Sedative Dependence Additional Comments: 68 years old female admitted on 01/07/19 for benzo withdrawal stabilization completed banzo detox regimen aftercare methadone maintenance treatment program Dr. Varghese Pertinent Past History: keep medication list in wallet bring-in medication list and bottles of medication to aftercare appointment update medication list when change of medication important of medication adherence - Physical Exam Results Vital Signs: Vital Signs Temperature 99.4 F 01/11/19 09:33 Pulse Rate 77 01/11/19 09:33 Respiratory Rate 18 01/11/19 09:33 Blood Pressure 127/82 01/11/19 09:33 O2 Sat by Pulse Oximetry (%) Pertinent Admission Physical Exam Findings: benzo withdrawal sx Laboratory Last Values WBC 5.4 K/mm3 (4.0-10.0) 01/08/19 07:35 RBC 4.50 M/mm3 (3.60-5.2) 01/08/19 07:35 Hgb 14.1 GM/dL (10.7-15.3) 01/08/19 07:35 Hct 41.7 % (32.4-45.2) 01/08/19 07:35 MCV 92.6 fl (80-96) 01/08/19 07:35 MCH 31.4 pg (25.7-33.7) 01/08/19 07:35 MCHC 34.0 g/dl (32.0-36.0) 01/08/19 07:35 RDW 13.7 % (11.6-15.6) 01/08/19 07:35 Plt Count 238 K/MM3 (134-434) D 01/08/19 07:35 MPV 7.5 fl (7.5-11.1) 01/08/19 07:35 Sodium 137 mmol/L (136-145) 01/08/19 07:35 Potassium 4.1 mmol/L (3.5-5.1) 01/08/19 07:35 Chloride 103 mmol/L (98-107) 01/08/19 07:35 Carbon Dioxide 27 mmol/L (21-32) 01/08/19 07:35 Anion Gap 7 MMOL/L (8-16) L 01/08/19 07:35 BUN 16 mg/dL (7-18) 01/08/19 07:35 Creatinine 0.8 mg/dL (0.55-1.3) 01/08/19 07:35 Creat Clearance w eGFR > 60 (>60) 01/08/19 07:35 POC Glucometer 109 UNITS (80-120) 01/11/19 05:36 Random Glucose 103 mg/dL (74-106) 01/08/19 07:35 Calcium 8.7 mg/dL (8.5-10.1) 01/08/19 07:35 Total Bilirubin 0.3 mg/dL (0.2-1) 01/08/19 07:35 AST 24 U/L (15-37) 01/08/19 07:35 ALT 19 U/L (13-61) 01/08/19 07:35 Alkaline Phosphatase 91 U/L (45-117) 01/08/19 07:35 Total Protein 6.9 g/dl (6.4-8.2) 01/08/19 07:35 Albumin 3.5 g/dl (3.4-5.0) 01/08/19 07:35 RPR Titer Nonreactive (NONREACTIVE) 01/08/19 07:35 lab noted - Treatment Hospital Course: Detox Protocol Followed, Detoxed Safely, Responded well, Discharged Condition Good, Rehab Referral Accepted Patient has Accepted a Rehab Referral to: methadone maintenance program Dr. Varghese - Medication Discharge Medications: Ambulatory Orders traZODone HCL [Desyrel -] 100 mg PO HS #60 tablet 12/21/16 Diphenhydramine [Benadryl Capsule -] 50 mg PO HS PRN #30 capsule 12/13/17 Tiotropium [place] [Spiriva] 1 inh PO DAILY #1 inh 01/16/18 Gabapentin [Neurontin -] 300 mg PO TID #90 capsule 02/14/18 Fluoxetine HCl [Prozac] 40 mg PO DAILY 03/09/18 Methadone [Dolophine -] 40 mg PO DAILY@0600 MDD 80 01/07/19 Albuterol Sulfate Inhaler - [Ventolin HFA Inhaler -] 1 inh IH PRN PRN #1 inh 03/26 Amlodipine Besylate [Norvasc -] 5 mg PO DAILY #14 tab 01/10/19 Atorvastatin Ca [Lipitor] 40 mg PO DAILY #14 tab 01/10/19 Levothyroxine [Synthroid -] 75 mcg PO DAILY #14 tablet 01/10/19 Lisinopril [Prinivil -] 5 mg PO DAILY #14 tablet 01/10/19 - Diagnosis (1) Asthma Current Visit: Yes Status: Chronic Qualifiers: Asthma severity: mild Asthma persistence: intermittent Asthma complication type: with status asthmaticus Qualified Code(s): J45.22 - Mild intermittent asthma with status asthmaticus (2) Diabetes Current Visit: Yes Status: Chronic Qualifiers: Diabetes mellitus type: type 2 Diabetes mellitus commercial underwriter insulin use: without fci use Diabetes mellitus complication status: without complication Qualified Code(s): E11.9 - Type 2 diabetes mellitus without complications (3) Hypercholesterolemia Current Visit: Yes Status: Chronic (4) Uncomplicated sedative, hypnotic, or anxiolytic withdrawal Current Visit: Yes Status: Acute (5) COPD (chronic obstructive pulmonary disease) Current Visit: Yes Status: Chronic Qualifiers: COPD type: emphysema Emphysema type: unilateral Qualified Code(s): J43.0 - Unilateral pulmonary emphysema [MacLeod's syndrome] (6) GERD (gastroesophageal reflux disease) Current Visit: Yes Status: Chronic Qualifiers: Esophagitis presence: without esophagitis Qualified Code(s): K21.9 - Gastro -esophageal reflux disease without esophagitis (7) HTN (hypertension) Current Visit: Yes Status: Chronic Qualifiers: Hypertension type: essential hypertension Qualified Code(s): I10 - Essential (primary) hypertension (8) Hepatitis C Current Visit: Yes Status: Chronic Qualifiers: Viral hepatitis chronicity: chronic Hepatic coma status: without hepatic coma Qualified Code(s): B18.2 - Chronic viral hepatitis C (9) Hypothyroidism Current Visit: Yes Status: Chronic Qualifiers: Hypothyroidism type: acquired Qualified Code(s): E03.9 - Hypothyroidism, unspecified (10) Methadone maintenance therapy patient Current Visit: Yes Status: Chronic (11) Nicotine dependence Current Visit: Yes Status: Acute Qualifiers: Nicotine product type: cigarettes Substance use status: in withdrawal Qualified Code(s): F17.213 - Nicotine dependence, cigarettes, with withdrawal - AMA Did Patient Leave Against Medical Advice: No
--- NOTE | 2019-01-11 11:07 | HP ---
[facility] Rehab Assess/Revision - Admission History Admitted to Rehab from: [facility] Date of Admission to Rehab: 01/11/19 - Vital signs Vital Signs: Vital Signs Period Temp Pulse Resp BP Sys/Marinelli Pulse Ox Last 24 Hr 97.0 F-99.4 F 65-79 18-20 115-132/80-86 - Findings Detox History & Physical reviewed: Yes Concur with findings: Yes Comments/Additional Findings: transferred from detox to rehab admission as per protocol Inpatient Rehab Admission - Rehab Decision to Admit Inpatient rehab admission?: Yes - Initial Determination Are CD services needed?: Yes Free of communicable disease: Yes Not in need of hospitalization: Yes - Rehab Admission Criteria Previous failed treatment: Yes Poor recovery environment: Yes Comorbidities: Yes Lacks judgement: No Patient is meeting Inpatient Rehab admission criteria:: Yes
[2019-01-11] MEDS: traZODone HCL 50 MG TABLET (FP) PO SCH (21:41)
[2019-01-11] MEDS: ATORVASTATIN CA 40 MG TABLET (FP) PO SCH (21:41)
[2019-01-11] MEDS: THIAMINE HCL 100 MG TABLET (FP) PO SCH (21:41)
[2019-01-12] MEDS: ACETAMINOPHEN 325 MG TABLET (FP) PO PRN ×3 (01:13→16:41)
[2019-01-12] MEDS: LEVOTHYROXINE NA 25 MCG TABLET (FP) PO SCH (06:10)
[2019-01-12] MEDS: metFORMIN HCL 500 MG TABLET (FP) PO SCH (06:11)
[2019-01-12] MEDS: METHADONE HCL 40 MG DISPERSABLE TABLET PO SCH (06:11)
[2019-01-12] MEDS: PRENATAL VITAMINS W/ FOLIC ACID TABLET (FP) PO SCH (10:07)
[2019-01-12] MEDS: BACITRACIN 0.9 GM PACKET TP SCH ×2 (10:07→21:38)
[2019-01-12] MEDS: LISINOPRIL 20 MG TABLET (FP) PO SCH (10:07)
[2019-01-12] MEDS: NICOTINE 21 MG/24 HOURS TOPICAL PATCH TD SCH (10:07)
[2019-01-12] MEDS: FLUoxetine HCL 20 MG CAPSULE (FP) PO SCH (10:07)
[2019-01-12] MEDS: RANITIDINE HCL 150 MG TABLET (FP) PO SCH ×2 (10:07→21:16)
[2019-01-12] MEDS: amLODIPine BESYLATE 5 MG TABLET (FP) PO SCH (10:07)
[2019-01-12] MEDS: IBUPROFEN 400 MG TABLET (FP) PO PRN (10:09)
[2019-01-12] MEDS: MAG HYDROX/AL HYDROX/SIMETH 30 ML UNIT-DOSE CUP PO PRN (10:36)
[2019-01-12] MEDS: THIAMINE HCL 100 MG TABLET (FP) PO SCH (21:15)
[2019-01-12] MEDS: ATORVASTATIN CA 40 MG TABLET (FP) PO SCH (21:16)
[2019-01-12] MEDS: traZODone HCL 50 MG TABLET (FP) PO SCH (21:16)
[2019-01-12] MEDS: MELATONIN 5 MG TABLETS PO PRN (21:17)
[2019-01-13] MEDS: metFORMIN HCL 500 MG TABLET (FP) PO SCH (06:15)
[2019-01-13] MEDS: METHADONE HCL 40 MG DISPERSABLE TABLET PO SCH (06:15)
[2019-01-13] MEDS: LEVOTHYROXINE NA 25 MCG TABLET (FP) PO SCH (06:15)
[2019-01-13] MEDS: ACETAMINOPHEN 325 MG TABLET (FP) PO PRN (06:18)
[2019-01-13] MEDS: amLODIPine BESYLATE 5 MG TABLET (FP) PO SCH (09:46)
[2019-01-13] MEDS: BACITRACIN 0.9 GM PACKET TP SCH ×2 (09:46→22:06)
[2019-01-13] MEDS: FLUoxetine HCL 20 MG CAPSULE (FP) PO SCH (09:46)
[2019-01-13] MEDS: NICOTINE 21 MG/24 HOURS TOPICAL PATCH TD SCH (09:46)
[2019-01-13] MEDS: PRENATAL VITAMINS W/ FOLIC ACID TABLET (FP) PO SCH (09:46)
[2019-01-13] MEDS: RANITIDINE HCL 150 MG TABLET (FP) PO SCH ×2 (09:47→22:10)
[2019-01-13] MEDS: LISINOPRIL 20 MG TABLET (FP) PO SCH (09:47)
[2019-01-13] MEDS: traZODone HCL 50 MG TABLET (FP) PO SCH (22:07)
[2019-01-13] MEDS: ATORVASTATIN CA 40 MG TABLET (FP) PO SCH (22:10)
[2019-01-13] MEDS: THIAMINE HCL 100 MG TABLET (FP) PO SCH (22:10)
[2019-01-14] MEDS: ACETAMINOPHEN 325 MG TABLET (FP) PO PRN ×2 (04:07→17:52)
[2019-01-14] MEDS: LEVOTHYROXINE NA 25 MCG TABLET (FP) PO SCH (06:11)
[2019-01-14] MEDS: metFORMIN HCL 500 MG TABLET (FP) PO SCH (06:11)
[2019-01-14] MEDS: METHADONE HCL 40 MG DISPERSABLE TABLET PO SCH (06:12)
[2019-01-14] MEDS: guaiFENesin/D-METHORPHAN HB 10 ML UNIT-DOSE CUPS PO PRN (06:13)
[2019-01-14] MEDS: BACITRACIN 0.9 GM PACKET TP SCH ×2 (10:18→21:37)
[2019-01-14] MEDS: RANITIDINE HCL 150 MG TABLET (FP) PO SCH ×2 (10:18→21:37)
[2019-01-14] MEDS: FLUoxetine HCL 20 MG CAPSULE (FP) PO SCH (10:18)
[2019-01-14] MEDS: amLODIPine BESYLATE 5 MG TABLET (FP) PO SCH (10:18)
[2019-01-14] MEDS: LISINOPRIL 20 MG TABLET (FP) PO SCH (10:18)
[2019-01-14] MEDS: PRENATAL VITAMINS W/ FOLIC ACID TABLET (FP) PO SCH (10:18)
[2019-01-14] MEDS: NICOTINE 21 MG/24 HOURS TOPICAL PATCH TD SCH (10:19)
[2019-01-14] MEDS: ATORVASTATIN CA 40 MG TABLET (FP) PO SCH (21:37)
[2019-01-14] MEDS: traZODone HCL 50 MG TABLET (FP) PO SCH (21:37)
[2019-01-14] MEDS: THIAMINE HCL 100 MG TABLET (FP) PO SCH (21:37)
[2019-01-15] MEDS: LEVOTHYROXINE NA 25 MCG TABLET (FP) PO SCH (06:36)
[2019-01-15] MEDS: metFORMIN HCL 500 MG TABLET (FP) PO SCH (06:36)
[2019-01-15] MEDS: METHADONE HCL 40 MG DISPERSABLE TABLET PO SCH (06:36)
[2019-01-15] MEDS: ACETAMINOPHEN 325 MG TABLET (FP) PO PRN (06:37)
[2019-01-15] MEDS: FLUoxetine HCL 20 MG CAPSULE (FP) PO SCH (09:59)
[2019-01-15] MEDS: PRENATAL VITAMINS W/ FOLIC ACID TABLET (FP) PO SCH (09:59)
[2019-01-15] MEDS: LISINOPRIL 20 MG TABLET (FP) PO SCH (09:59)
[2019-01-15] MEDS: NICOTINE 21 MG/24 HOURS TOPICAL PATCH TD SCH (09:59)
[2019-01-15] MEDS: BACITRACIN 0.9 GM PACKET TP SCH ×2 (09:59→22:47)
[2019-01-15] MEDS: amLODIPine BESYLATE 5 MG TABLET (FP) PO SCH (09:59)
[2019-01-15] MEDS: RANITIDINE HCL 150 MG TABLET (FP) PO SCH ×2 (09:59→22:47)
[2019-01-15] MEDS: guaiFENesin/D-METHORPHAN HB 10 ML UNIT-DOSE CUPS PO PRN (17:43)
[2019-01-15] MEDS: traZODone HCL 50 MG TABLET (FP) PO SCH (22:47)
[2019-01-15] MEDS: THIAMINE HCL 100 MG TABLET (FP) PO SCH (22:47)
[2019-01-15] MEDS: ATORVASTATIN CA 40 MG TABLET (FP) PO SCH (22:47)
[2019-01-16] MEDS: ACETAMINOPHEN 325 MG TABLET (FP) PO PRN ×3 (03:43→21:24)
[2019-01-16] MEDS: metFORMIN HCL 500 MG TABLET (FP) PO SCH (06:07)
[2019-01-16] MEDS: METHADONE HCL 40 MG DISPERSABLE TABLET PO SCH (06:07)
[2019-01-16] MEDS: LEVOTHYROXINE NA 25 MCG TABLET (FP) PO SCH (06:07)
[2019-01-16] MEDS: NICOTINE 21 MG/24 HOURS TOPICAL PATCH TD SCH (10:08)
[2019-01-16] MEDS: BACITRACIN 0.9 GM PACKET TP SCH ×2 (10:09→21:45)
[2019-01-16] MEDS: LISINOPRIL 20 MG TABLET (FP) PO SCH (10:09)
[2019-01-16] MEDS: RANITIDINE HCL 150 MG TABLET (FP) PO SCH ×2 (10:09→21:23)
[2019-01-16] MEDS: PRENATAL VITAMINS W/ FOLIC ACID TABLET (FP) PO SCH (10:09)
[2019-01-16] MEDS: FLUoxetine HCL 20 MG CAPSULE (FP) PO SCH (10:09)
[2019-01-16] MEDS: amLODIPine BESYLATE 5 MG TABLET (FP) PO SCH (10:09)
[2019-01-16] MEDS: ATORVASTATIN CA 40 MG TABLET (FP) PO SCH (21:23)
[2019-01-16] MEDS: THIAMINE HCL 100 MG TABLET (FP) PO SCH (21:23)
[2019-01-16] MEDS: traZODone HCL 50 MG TABLET (FP) PO SCH (21:23)
[2019-01-17] MEDS: ACETAMINOPHEN 325 MG TABLET (FP) PO PRN ×2 (04:45→17:38)
[2019-01-17] MEDS: guaiFENesin/D-METHORPHAN HB 10 ML UNIT-DOSE CUPS PO PRN (04:45)
[2019-01-17] MEDS: metFORMIN HCL 500 MG TABLET (FP) PO SCH (06:19)
[2019-01-17] MEDS: METHADONE HCL 40 MG DISPERSABLE TABLET PO SCH (06:19)
[2019-01-17] MEDS: LEVOTHYROXINE NA 25 MCG TABLET (FP) PO SCH (06:21)
[2019-01-17] MEDS: LIDOCAINE 5% TOPICAL PATCH TP SCH (09:56)
[2019-01-17] MEDS: BACITRACIN 0.9 GM PACKET TP SCH ×2 (09:57→21:18)
[2019-01-17] MEDS: PRENATAL VITAMINS W/ FOLIC ACID TABLET (FP) PO SCH (09:57)
[2019-01-17] MEDS: NICOTINE 21 MG/24 HOURS TOPICAL PATCH TD SCH (09:57)
[2019-01-17] MEDS: FLUoxetine HCL 20 MG CAPSULE (FP) PO SCH (09:57)
[2019-01-17] MEDS: RANITIDINE HCL 150 MG TABLET (FP) PO SCH ×2 (09:58→21:18)
[2019-01-17] MEDS: LISINOPRIL 20 MG TABLET (FP) PO SCH (09:58)
[2019-01-17] MEDS: AZITHROMYCIN 250 MG TABLET PO SCH (09:58)
[2019-01-17] MEDS: amLODIPine BESYLATE 5 MG TABLET (FP) PO SCH (09:58)
--- NOTE | 2019-01-17 10:02 | PN ---
S Progress Note (SOAP) Subjective: Client with cough not relieved with Robitussin. Bringining up yellowish green sputum Reports fever while in detox. Hx of COPD Objective: 01/17/19 10:01 Lungs clear, Heart sound regular. Assessment: 01/17/19 10:01 URI Plan: Azithromycin 500mg x 3 days. Encouraged to increase fluids.
--- NOTE | 2019-01-17 10:56 | PN ---
[facility] Progress Note (SOAP) Subjective: c/o bilateral knee pain, right greater than left; Hx of osteoarthritis, uses a cane when at home. Objective: Full weight bearing, walks slowly. rises from chair with caution, slight swelling bilaterally knees 01/17/19 11:08 Assessment: 01/17/19 11:09 knee pain; osteoarthritis Plan: Lidocaine patch for right knee ordered.
[2019-01-17] MEDS: ATORVASTATIN CA 40 MG TABLET (FP) PO SCH (21:18)
[2019-01-17] MEDS: THIAMINE HCL 100 MG TABLET (FP) PO SCH (21:18)
[2019-01-17] MEDS: traZODone HCL 50 MG TABLET (FP) PO SCH (21:18)
[2019-01-17] MEDS: LIDOCAINE PATCH REMOVAL MC SCH (21:18)
[2019-01-18] MEDS: ACETAMINOPHEN 325 MG TABLET (FP) PO PRN (06:17)
[2019-01-18] MEDS: METHADONE HCL 40 MG DISPERSABLE TABLET PO SCH (06:17)
[2019-01-18] MEDS: metFORMIN HCL 500 MG TABLET (FP) PO SCH (06:17)
[2019-01-18] MEDS: guaiFENesin/D-METHORPHAN HB 10 ML UNIT-DOSE CUPS PO PRN (06:18)
[2019-01-18] MEDS: LEVOTHYROXINE NA 25 MCG TABLET (FP) PO SCH (06:18)
--- NOTE | 2019-01-18 08:29 | PN ---
S Progress Note (SOAP) Subjective: Requesting fingersticks once a day. Blood glucose has been stable. Objective: 01/18/19 08:26 no s/s of hyper or hypo glycemia. Assessment: 01/18/19 08:28 sable, Diabetes, type 2 Plan: Fingersticks decreased to once a day.
[2019-01-18] MEDS: NICOTINE 21 MG/24 HOURS TOPICAL PATCH TD SCH (09:46)
[2019-01-18] MEDS: BACITRACIN 0.9 GM PACKET TP SCH ×2 (09:46→21:34)
[2019-01-18] MEDS: AZITHROMYCIN 250 MG TABLET PO SCH (09:46)
[2019-01-18] MEDS: LISINOPRIL 20 MG TABLET (FP) PO SCH (09:47)
[2019-01-18] MEDS: PRENATAL VITAMINS W/ FOLIC ACID TABLET (FP) PO SCH (09:47)
[2019-01-18] MEDS: RANITIDINE HCL 150 MG TABLET (FP) PO SCH ×2 (09:47→21:34)
[2019-01-18] MEDS: FLUoxetine HCL 20 MG CAPSULE (FP) PO SCH (09:47)
[2019-01-18] MEDS: amLODIPine BESYLATE 5 MG TABLET (FP) PO SCH (09:47)
[2019-01-18] MEDS: LIDOCAINE 5% TOPICAL PATCH TP SCH (09:49)
--- NOTE | 2019-01-18 11:05 | PN ---
[facility] Progress Note Note: This provider received a phone call from Pharmacy ([place]) who informed me that this patient was on 5 medications that may affect the QT interval. In addition, she had an abnormal EKG during her last admission. Based on hx and medication profile, which indicate an increased risk of potential QT interval problems, and EKG was ordered. Nurses were informed.
--- NOTE | 2019-01-18 12:27 | EKG ---
Test Reason : Blood Pressure : / mmHG Vent. Rate : 060 BPM Atrial Rate : 060 BPM P-R Int : 140 ms QRS Dur : 086 ms QT Int : 456 ms P-R-T Axes : 053 029 057 degrees QTc Int : 456 ms NORMAL SINUS RHYTHM NORMAL ECG WHEN COMPARED WITH ECG OF 10-MAR-2018 00:06, NO SIGNIFICANT CHANGE WAS FOUND Confirmed by FAY SHELL MD ([id number]) on 01/18/2019 12:26:51 PM Referred By: Confirmed By:FAY SHELL MD
[2019-01-18] MEDS: IBUPROFEN 400 MG TABLET (FP) PO PRN (15:53)
[2019-01-18] MEDS: ATORVASTATIN CA 40 MG TABLET (FP) PO SCH (21:34)
[2019-01-18] MEDS: THIAMINE HCL 100 MG TABLET (FP) PO SCH (21:34)
[2019-01-18] MEDS: traZODone HCL 50 MG TABLET (FP) PO SCH (21:34)
[2019-01-18] MEDS: LIDOCAINE PATCH REMOVAL MC SCH (21:35)
[2019-01-19] MEDS: METHADONE HCL 40 MG DISPERSABLE TABLET PO SCH (06:11)
[2019-01-19] MEDS: LEVOTHYROXINE NA 25 MCG TABLET (FP) PO SCH (06:11)
[2019-01-19] MEDS: metFORMIN HCL 500 MG TABLET (FP) PO SCH (06:12)
[2019-01-19] MEDS: ACETAMINOPHEN 325 MG TABLET (FP) PO PRN ×3 (06:12→21:42)
[2019-01-19] MEDS: LISINOPRIL 20 MG TABLET (FP) PO SCH (09:51)
[2019-01-19] MEDS: FLUoxetine HCL 20 MG CAPSULE (FP) PO SCH (09:51)
[2019-01-19] MEDS: RANITIDINE HCL 150 MG TABLET (FP) PO SCH ×2 (09:51→21:41)
[2019-01-19] MEDS: LIDOCAINE 5% TOPICAL PATCH TP SCH (09:51)
[2019-01-19] MEDS: PRENATAL VITAMINS W/ FOLIC ACID TABLET (FP) PO SCH (09:51)
[2019-01-19] MEDS: BACITRACIN 0.9 GM PACKET TP SCH (09:51)
[2019-01-19] MEDS: amLODIPine BESYLATE 5 MG TABLET (FP) PO SCH (09:51)
[2019-01-19] MEDS: NICOTINE 21 MG/24 HOURS TOPICAL PATCH TD SCH (09:51)
[2019-01-19] MEDS: AZITHROMYCIN 250 MG TABLET PO SCH (09:52)
[2019-01-19] MEDS: traZODone HCL 50 MG TABLET (FP) PO SCH (21:41)
[2019-01-19] MEDS: THIAMINE HCL 100 MG TABLET (FP) PO SCH (21:41)
[2019-01-19] MEDS: ATORVASTATIN CA 40 MG TABLET (FP) PO SCH (21:41)
[2019-01-19] MEDS: LIDOCAINE PATCH REMOVAL MC SCH (21:43)
[2019-01-20] MEDS: METHADONE HCL 40 MG DISPERSABLE TABLET PO SCH (06:15)
[2019-01-20] MEDS: metFORMIN HCL 500 MG TABLET (FP) PO SCH (06:16)
[2019-01-20] MEDS: ACETAMINOPHEN 325 MG TABLET (FP) PO PRN ×2 (06:16→21:35)
[2019-01-20] MEDS: LEVOTHYROXINE NA 25 MCG TABLET (FP) PO SCH (06:16)
[2019-01-20] MEDS: LISINOPRIL 20 MG TABLET (FP) PO SCH (10:05)
[2019-01-20] MEDS: PRENATAL VITAMINS W/ FOLIC ACID TABLET (FP) PO SCH (10:06)
[2019-01-20] MEDS: amLODIPine BESYLATE 5 MG TABLET (FP) PO SCH (10:06)
[2019-01-20] MEDS: RANITIDINE HCL 150 MG TABLET (FP) PO SCH ×2 (10:07→21:35)
[2019-01-20] MEDS: LIDOCAINE 5% TOPICAL PATCH TP SCH (10:07)
[2019-01-20] MEDS: FLUoxetine HCL 20 MG CAPSULE (FP) PO SCH (10:07)
[2019-01-20] MEDS: NICOTINE 21 MG/24 HOURS TOPICAL PATCH TD SCH (10:50)
[2019-01-20] MEDS ORDERED: ATORVASTATIN CA 20 MG TABLET (FP) ONE (19:33)
[2019-01-20] MEDS: ATORVASTATIN CA 40 MG TABLET (FP) PO SCH (21:35)
[2019-01-20] MEDS: THIAMINE HCL 100 MG TABLET (FP) PO SCH (21:35)
[2019-01-20] MEDS: traZODone HCL 50 MG TABLET (FP) PO SCH (21:35)
[2019-01-20] MEDS: LIDOCAINE PATCH REMOVAL MC SCH (21:35)
[2019-01-21] MEDS: ACETAMINOPHEN 325 MG TABLET (FP) PO PRN ×3 (05:19→21:20)
[2019-01-21] MEDS: METHADONE HCL 40 MG DISPERSABLE TABLET PO SCH (06:05)
[2019-01-21] MEDS: LEVOTHYROXINE NA 25 MCG TABLET (FP) PO SCH (06:06)
[2019-01-21] MEDS: metFORMIN HCL 500 MG TABLET (FP) PO SCH (06:06)
[2019-01-21] MEDS: PRENATAL VITAMINS W/ FOLIC ACID TABLET (FP) PO SCH (10:12)
[2019-01-21] MEDS: LIDOCAINE 5% TOPICAL PATCH TP SCH (10:12)
[2019-01-21] MEDS: amLODIPine BESYLATE 5 MG TABLET (FP) PO SCH (10:12)
[2019-01-21] MEDS: RANITIDINE HCL 150 MG TABLET (FP) PO SCH ×2 (10:12→21:20)
[2019-01-21] MEDS: NICOTINE 21 MG/24 HOURS TOPICAL PATCH TD SCH (10:12)
[2019-01-21] MEDS: FLUoxetine HCL 20 MG CAPSULE (FP) PO SCH (10:13)
[2019-01-21] MEDS: LISINOPRIL 20 MG TABLET (FP) PO SCH (10:13)
[2019-01-21] MEDS ORDERED: ATORVASTATIN CA 20 MG TABLET (FP) ONE (19:39)
[2019-01-21] MEDS: THIAMINE HCL 100 MG TABLET (FP) PO SCH (21:20)
[2019-01-21] MEDS: traZODone HCL 50 MG TABLET (FP) PO SCH (21:20)
[2019-01-21] MEDS: ATORVASTATIN CA 40 MG TABLET (FP) PO SCH (21:21)
[2019-01-21] MEDS: LIDOCAINE PATCH REMOVAL MC SCH (21:21)
[2019-01-22] MEDS: ACETAMINOPHEN 325 MG TABLET (FP) PO PRN ×2 (05:52→17:44)
[2019-01-22] MEDS: METHADONE HCL 40 MG DISPERSABLE TABLET PO SCH (06:16)
[2019-01-22] MEDS: metFORMIN HCL 500 MG TABLET (FP) PO SCH (06:17)
[2019-01-22] MEDS: LEVOTHYROXINE NA 25 MCG TABLET (FP) PO SCH (06:17)
[2019-01-22] MEDS: LISINOPRIL 20 MG TABLET (FP) PO SCH (10:21)
[2019-01-22] MEDS: LIDOCAINE 5% TOPICAL PATCH TP SCH (10:21)
[2019-01-22] MEDS: NICOTINE 21 MG/24 HOURS TOPICAL PATCH TD SCH (10:21)
[2019-01-22] MEDS: amLODIPine BESYLATE 5 MG TABLET (FP) PO SCH (10:21)
[2019-01-22] MEDS: FLUoxetine HCL 20 MG CAPSULE (FP) PO SCH (10:21)
[2019-01-22] MEDS: RANITIDINE HCL 150 MG TABLET (FP) PO SCH ×2 (10:21→21:10)
[2019-01-22] MEDS: PRENATAL VITAMINS W/ FOLIC ACID TABLET (FP) PO SCH (10:22)
[2019-01-22] MEDS ORDERED: ATORVASTATIN CA 20 MG TABLET (FP) ONE (19:59)
[2019-01-22] MEDS: THIAMINE HCL 100 MG TABLET (FP) PO SCH (21:10)
[2019-01-22] MEDS: ATORVASTATIN CA 40 MG TABLET (FP) PO SCH (21:10)
[2019-01-22] MEDS: traZODone HCL 50 MG TABLET (FP) PO SCH (21:10)
[2019-01-22] MEDS: LIDOCAINE PATCH REMOVAL MC SCH (21:14)
[2019-01-23] MEDS ORDERED: METHADONE HCL 40 MG DISPERSABLE TABLET PO SCH (06:00)
[2019-01-23] MEDS: LEVOTHYROXINE NA 25 MCG TABLET (FP) PO SCH (06:10)
[2019-01-23] MEDS: METHADONE HCL 40 MG DISPERSABLE TABLET PO SCH (06:10)
[2019-01-23] MEDS: metFORMIN HCL 500 MG TABLET (FP) PO SCH (06:10)
[2019-01-23] MEDS: ACETAMINOPHEN 325 MG TABLET (FP) PO PRN ×2 (06:11→19:00)
[2019-01-23] MEDS: LIDOCAINE 5% TOPICAL PATCH TP SCH (09:39)
[2019-01-23] MEDS: amLODIPine BESYLATE 5 MG TABLET (FP) PO SCH (09:40)
[2019-01-23] MEDS: PRENATAL VITAMINS W/ FOLIC ACID TABLET (FP) PO SCH (09:40)
[2019-01-23] MEDS: NICOTINE 21 MG/24 HOURS TOPICAL PATCH TD SCH (09:40)
[2019-01-23] MEDS: LISINOPRIL 20 MG TABLET (FP) PO SCH (09:40)
[2019-01-23] MEDS: FLUoxetine HCL 20 MG CAPSULE (FP) PO SCH (09:40)
[2019-01-23] MEDS: RANITIDINE HCL 150 MG TABLET (FP) PO SCH ×2 (09:41→21:24)
[2019-01-23] MEDS: traZODone HCL 50 MG TABLET (FP) PO SCH (21:23)
[2019-01-23] MEDS: LIDOCAINE PATCH REMOVAL MC SCH (21:23)
[2019-01-23] MEDS: THIAMINE HCL 100 MG TABLET (FP) PO SCH (21:23)
[2019-01-23] MEDS: ATORVASTATIN CA 40 MG TABLET (FP) PO SCH (21:23)
[2019-01-24] MEDS: METHADONE HCL 40 MG DISPERSABLE TABLET PO SCH (06:16)
[2019-01-24] MEDS: LEVOTHYROXINE NA 25 MCG TABLET (FP) PO SCH (06:17)
[2019-01-24] MEDS: metFORMIN HCL 500 MG TABLET (FP) PO SCH (06:17)
[2019-01-24] MEDS: ACETAMINOPHEN 325 MG TABLET (FP) PO PRN ×3 (06:17→17:44)
[2019-01-24] MEDS: FLUoxetine HCL 20 MG CAPSULE (FP) PO SCH (10:07)
[2019-01-24] MEDS: LIDOCAINE 5% TOPICAL PATCH TP SCH (10:07)
[2019-01-24] MEDS: PRENATAL VITAMINS W/ FOLIC ACID TABLET (FP) PO SCH (10:08)
[2019-01-24] MEDS: amLODIPine BESYLATE 5 MG TABLET (FP) PO SCH (10:08)
[2019-01-24] MEDS: LISINOPRIL 20 MG TABLET (FP) PO SCH (10:08)
[2019-01-24] MEDS: RANITIDINE HCL 150 MG TABLET (FP) PO SCH ×2 (10:08→23:33)
[2019-01-24] MEDS: NICOTINE 21 MG/24 HOURS TOPICAL PATCH TD SCH (10:08)
[2019-01-24] MEDS: THIAMINE HCL 100 MG TABLET (FP) PO SCH (23:32)
[2019-01-24] MEDS: LIDOCAINE PATCH REMOVAL MC SCH (23:32)
[2019-01-24] MEDS: ATORVASTATIN CA 40 MG TABLET (FP) PO SCH (23:32)
[2019-01-24] MEDS: traZODone HCL 50 MG TABLET (FP) PO SCH (23:32)
[2019-01-25] MEDS: LEVOTHYROXINE NA 25 MCG TABLET (FP) PO SCH (06:13)
[2019-01-25] MEDS: METHADONE HCL 40 MG DISPERSABLE TABLET PO SCH (06:13)
[2019-01-25] MEDS: ACETAMINOPHEN 325 MG TABLET (FP) PO PRN ×3 (06:14→17:41)
[2019-01-25] MEDS: metFORMIN HCL 500 MG TABLET (FP) PO SCH (06:14)
[2019-01-25] MEDS: NICOTINE 21 MG/24 HOURS TOPICAL PATCH TD SCH (10:10)
[2019-01-25] MEDS: LIDOCAINE 5% TOPICAL PATCH TP SCH (10:11)
[2019-01-25] MEDS: FLUoxetine HCL 20 MG CAPSULE (FP) PO SCH (10:11)
[2019-01-25] MEDS: LISINOPRIL 20 MG TABLET (FP) PO SCH (10:12)
[2019-01-25] MEDS: RANITIDINE HCL 150 MG TABLET (FP) PO SCH ×2 (10:12→21:29)
[2019-01-25] MEDS: PRENATAL VITAMINS W/ FOLIC ACID TABLET (FP) PO SCH (10:12)
[2019-01-25] MEDS: amLODIPine BESYLATE 5 MG TABLET (FP) PO SCH (10:12)
[2019-01-25] MEDS: ATORVASTATIN CA 40 MG TABLET (FP) PO SCH (21:29)
[2019-01-25] MEDS: THIAMINE HCL 100 MG TABLET (FP) PO SCH (21:29)
[2019-01-25] MEDS: LIDOCAINE PATCH REMOVAL MC SCH (21:29)
[2019-01-25] MEDS: traZODone HCL 50 MG TABLET (FP) PO SCH (21:29)
[2019-01-26] MEDS: ACETAMINOPHEN 325 MG TABLET (FP) PO PRN ×4 (00:43→21:22)
[2019-01-26] MEDS: LEVOTHYROXINE NA 25 MCG TABLET (FP) PO SCH (06:15)
[2019-01-26] MEDS: METHADONE HCL 40 MG DISPERSABLE TABLET PO SCH (06:15)
[2019-01-26] MEDS: metFORMIN HCL 500 MG TABLET (FP) PO SCH (06:16)
[2019-01-26] MEDS: LIDOCAINE 5% TOPICAL PATCH TP SCH (10:12)
[2019-01-26] MEDS: NICOTINE 21 MG/24 HOURS TOPICAL PATCH TD SCH (10:12)
[2019-01-26] MEDS: amLODIPine BESYLATE 5 MG TABLET (FP) PO SCH (10:12)
[2019-01-26] MEDS: PRENATAL VITAMINS W/ FOLIC ACID TABLET (FP) PO SCH (10:13)
[2019-01-26] MEDS: LISINOPRIL 20 MG TABLET (FP) PO SCH (10:13)
[2019-01-26] MEDS: RANITIDINE HCL 150 MG TABLET (FP) PO SCH ×2 (10:13→21:22)
[2019-01-26] MEDS: FLUoxetine HCL 20 MG CAPSULE (FP) PO SCH (10:13)
[2019-01-26] MEDS: ATORVASTATIN CA 40 MG TABLET (FP) PO SCH (21:22)
[2019-01-26] MEDS: traZODone HCL 50 MG TABLET (FP) PO SCH (21:22)
[2019-01-26] MEDS: THIAMINE HCL 100 MG TABLET (FP) PO SCH (21:22)
[2019-01-26] MEDS: LIDOCAINE PATCH REMOVAL MC SCH (21:23)
[2019-01-27] MEDS: ACETAMINOPHEN 325 MG TABLET (FP) PO PRN ×3 (05:21→17:26)
[2019-01-27] MEDS: METHADONE HCL 40 MG DISPERSABLE TABLET PO SCH (06:02)
[2019-01-27] MEDS: LEVOTHYROXINE NA 25 MCG TABLET (FP) PO SCH (06:03)
[2019-01-27] MEDS: metFORMIN HCL 500 MG TABLET (FP) PO SCH (06:03)
[2019-01-27] MEDS: PRENATAL VITAMINS W/ FOLIC ACID TABLET (FP) PO SCH (10:15)
[2019-01-27] MEDS: NICOTINE 21 MG/24 HOURS TOPICAL PATCH TD SCH (10:15)
[2019-01-27] MEDS: LIDOCAINE 5% TOPICAL PATCH TP SCH (10:15)
[2019-01-27] MEDS: amLODIPine BESYLATE 5 MG TABLET (FP) PO SCH (10:15)
[2019-01-27] MEDS: FLUoxetine HCL 20 MG CAPSULE (FP) PO SCH (10:16)
[2019-01-27] MEDS: RANITIDINE HCL 150 MG TABLET (FP) PO SCH ×2 (10:16→21:44)
[2019-01-27] MEDS: LISINOPRIL 20 MG TABLET (FP) PO SCH (10:16)
[2019-01-27] MEDS: traZODone HCL 50 MG TABLET (FP) PO SCH (21:44)
[2019-01-27] MEDS: ATORVASTATIN CA 40 MG TABLET (FP) PO SCH (21:44)
[2019-01-27] MEDS: THIAMINE HCL 100 MG TABLET (FP) PO SCH (21:44)
[2019-01-27] MEDS: LIDOCAINE PATCH REMOVAL MC SCH (21:45)
[2019-01-28] MEDS: LEVOTHYROXINE NA 25 MCG TABLET (FP) PO SCH (06:26)
[2019-01-28] MEDS: METHADONE HCL 40 MG DISPERSABLE TABLET PO SCH (06:26)
[2019-01-28] MEDS: ACETAMINOPHEN 325 MG TABLET (FP) PO PRN ×2 (06:27→11:42)
[2019-01-28] MEDS: metFORMIN HCL 500 MG TABLET (FP) PO SCH (06:27)
[2019-01-28] MEDS: LIDOCAINE 5% TOPICAL PATCH TP SCH (09:35)
[2019-01-28] MEDS: amLODIPine BESYLATE 5 MG TABLET (FP) PO SCH (09:36)
[2019-01-28] MEDS: PRENATAL VITAMINS W/ FOLIC ACID TABLET (FP) PO SCH (09:36)
[2019-01-28] MEDS: NICOTINE 21 MG/24 HOURS TOPICAL PATCH TD SCH (09:36)
[2019-01-28] MEDS: FLUoxetine HCL 20 MG CAPSULE (FP) PO SCH (09:36)
[2019-01-28] MEDS: RANITIDINE HCL 150 MG TABLET (FP) PO SCH ×2 (09:37→21:26)
[2019-01-28] MEDS: LISINOPRIL 20 MG TABLET (FP) PO SCH (09:37)
[2019-01-28] MEDS: LIDOCAINE PATCH REMOVAL MC SCH (21:26)
[2019-01-28] MEDS: ATORVASTATIN CA 40 MG TABLET (FP) PO SCH (21:26)
[2019-01-28] MEDS: THIAMINE HCL 100 MG TABLET (FP) PO SCH (21:26)
[2019-01-28] MEDS: traZODone HCL 50 MG TABLET (FP) PO SCH (21:26)
[2019-01-29] MEDS: METHADONE HCL 40 MG DISPERSABLE TABLET PO SCH (06:10)
[2019-01-29] MEDS: metFORMIN HCL 500 MG TABLET (FP) PO SCH (06:11)
[2019-01-29] MEDS: ACETAMINOPHEN 325 MG TABLET (FP) PO PRN ×2 (06:11→17:26)
[2019-01-29] MEDS: LEVOTHYROXINE NA 25 MCG TABLET (FP) PO SCH (06:11)
[2019-01-29] MEDS: LIDOCAINE 5% TOPICAL PATCH TP SCH (09:58)
[2019-01-29] MEDS: amLODIPine BESYLATE 5 MG TABLET (FP) PO SCH (09:58)
[2019-01-29] MEDS: NICOTINE 21 MG/24 HOURS TOPICAL PATCH TD SCH (09:59)
[2019-01-29] MEDS: LISINOPRIL 20 MG TABLET (FP) PO SCH (09:59)
[2019-01-29] MEDS: PRENATAL VITAMINS W/ FOLIC ACID TABLET (FP) PO SCH (09:59)
[2019-01-29] MEDS: RANITIDINE HCL 150 MG TABLET (FP) PO SCH ×2 (09:59→21:14)
[2019-01-29] MEDS: FLUoxetine HCL 20 MG CAPSULE (FP) PO SCH (09:59)
[2019-01-29] MEDS: ATORVASTATIN CA 40 MG TABLET (FP) PO SCH (21:14)
[2019-01-29] MEDS: THIAMINE HCL 100 MG TABLET (FP) PO SCH (21:14)
[2019-01-29] MEDS: LIDOCAINE PATCH REMOVAL MC SCH (21:14)
[2019-01-29] MEDS: traZODone HCL 50 MG TABLET (FP) PO SCH (21:14)
[2019-01-30] MEDS: METHADONE HCL 40 MG DISPERSABLE TABLET PO SCH (06:21)
[2019-01-30] MEDS: LEVOTHYROXINE NA 25 MCG TABLET (FP) PO SCH (06:22)
[2019-01-30] MEDS: metFORMIN HCL 500 MG TABLET (FP) PO SCH (06:22)
[2019-01-30] MEDS: ACETAMINOPHEN 325 MG TABLET (FP) PO PRN ×3 (06:23→15:36)
[2019-01-30] MEDS: LISINOPRIL 20 MG TABLET (FP) PO SCH (09:50)
[2019-01-30] MEDS: FLUoxetine HCL 20 MG CAPSULE (FP) PO SCH (09:52)
[2019-01-30] MEDS: PRENATAL VITAMINS W/ FOLIC ACID TABLET (FP) PO SCH (09:52)
[2019-01-30] MEDS: amLODIPine BESYLATE 5 MG TABLET (FP) PO SCH (09:52)
[2019-01-30] MEDS: RANITIDINE HCL 150 MG TABLET (FP) PO SCH ×2 (09:52→23:35)
[2019-01-30] MEDS: LIDOCAINE 5% TOPICAL PATCH TP SCH (09:52)
[2019-01-30] MEDS: NICOTINE 21 MG/24 HOURS TOPICAL PATCH TD SCH (09:52)
[2019-01-30] MEDS ORDERED: COLLOIDAL OATMEAL 1 BAR EACH TP PRN (14:36)
[2019-01-30] MEDS: LIDOCAINE PATCH REMOVAL MC SCH (23:35)
[2019-01-30] MEDS: THIAMINE HCL 100 MG TABLET (FP) PO SCH (23:35)
[2019-01-30] MEDS: traZODone HCL 50 MG TABLET (FP) PO SCH (23:35)
[2019-01-30] MEDS: ATORVASTATIN CA 40 MG TABLET (FP) PO SCH (23:35)
[2019-01-31] MEDS: ACETAMINOPHEN 325 MG TABLET (FP) PO PRN ×2 (06:34→15:53)
[2019-01-31] MEDS: LEVOTHYROXINE NA 25 MCG TABLET (FP) PO SCH (06:34)
[2019-01-31] MEDS: METHADONE HCL 40 MG DISPERSABLE TABLET PO SCH (06:34)
[2019-01-31] MEDS: metFORMIN HCL 500 MG TABLET (FP) PO SCH (06:34)
[2019-01-31] MEDS: LIDOCAINE 5% TOPICAL PATCH TP SCH (10:23)
[2019-01-31] MEDS: NICOTINE 21 MG/24 HOURS TOPICAL PATCH TD SCH (10:23)
[2019-01-31] MEDS: LISINOPRIL 20 MG TABLET (FP) PO SCH (10:24)
[2019-01-31] MEDS: amLODIPine BESYLATE 5 MG TABLET (FP) PO SCH (10:24)
[2019-01-31] MEDS: RANITIDINE HCL 150 MG TABLET (FP) PO SCH ×2 (10:24→21:49)
[2019-01-31] MEDS: FLUoxetine HCL 20 MG CAPSULE (FP) PO SCH (10:24)
[2019-01-31] MEDS: PRENATAL VITAMINS W/ FOLIC ACID TABLET (FP) PO SCH (10:24)
[2019-01-31] MEDS: traZODone HCL 50 MG TABLET (FP) PO SCH (21:48)
[2019-01-31] MEDS: THIAMINE HCL 100 MG TABLET (FP) PO SCH (21:48)
[2019-01-31] MEDS: ATORVASTATIN CA 40 MG TABLET (FP) PO SCH (21:48)
[2019-01-31] MEDS: LIDOCAINE PATCH REMOVAL MC SCH (21:49)
[2019-02-01] MEDS: ACETAMINOPHEN 325 MG TABLET (FP) PO PRN (06:29)
[2019-02-01] MEDS: METHADONE HCL 40 MG DISPERSABLE TABLET PO SCH (06:29)
[2019-02-01] MEDS: metFORMIN HCL 500 MG TABLET (FP) PO SCH (06:30)
[2019-02-01] MEDS: LEVOTHYROXINE NA 25 MCG TABLET (FP) PO SCH (06:30)
[2019-02-01] MEDS: FLUoxetine HCL 20 MG CAPSULE (FP) PO SCH (10:01)
[2019-02-01] MEDS: NICOTINE 21 MG/24 HOURS TOPICAL PATCH TD SCH (10:01)
[2019-02-01] MEDS: PRENATAL VITAMINS W/ FOLIC ACID TABLET (FP) PO SCH (10:01)
[2019-02-01] MEDS: LIDOCAINE 5% TOPICAL PATCH TP SCH (10:01)
[2019-02-01] MEDS: RANITIDINE HCL 150 MG TABLET (FP) PO SCH ×2 (10:01→21:35)
[2019-02-01] MEDS: LISINOPRIL 20 MG TABLET (FP) PO SCH (10:02)
[2019-02-01] MEDS: amLODIPine BESYLATE 5 MG TABLET (FP) PO SCH (10:02)
[2019-02-01] MEDS: ATORVASTATIN CA 40 MG TABLET (FP) PO SCH (21:35)
[2019-02-01] MEDS: traZODone HCL 50 MG TABLET (FP) PO SCH (21:35)
[2019-02-01] MEDS: THIAMINE HCL 100 MG TABLET (FP) PO SCH (21:35)
[2019-02-01] MEDS: LIDOCAINE PATCH REMOVAL MC SCH (21:36)
[2019-02-02] MEDS: METHADONE HCL 40 MG DISPERSABLE TABLET PO SCH (06:26)
[2019-02-02] MEDS: ACETAMINOPHEN 325 MG TABLET (FP) PO PRN (06:27)
[2019-02-02] MEDS: LEVOTHYROXINE NA 25 MCG TABLET (FP) PO SCH (06:27)
[2019-02-02] MEDS: metFORMIN HCL 500 MG TABLET (FP) PO SCH (06:27)
[2019-02-02] MEDS: FLUoxetine HCL 20 MG CAPSULE (FP) PO SCH (10:00)
[2019-02-02] MEDS: LIDOCAINE 5% TOPICAL PATCH TP SCH (10:00)
[2019-02-02] MEDS: NICOTINE 21 MG/24 HOURS TOPICAL PATCH TD SCH (10:00)
[2019-02-02] MEDS: RANITIDINE HCL 150 MG TABLET (FP) PO SCH ×2 (10:00→21:52)
[2019-02-02] MEDS: PRENATAL VITAMINS W/ FOLIC ACID TABLET (FP) PO SCH (10:01)
[2019-02-02] MEDS: LISINOPRIL 20 MG TABLET (FP) PO SCH (10:01)
[2019-02-02] MEDS: amLODIPine BESYLATE 5 MG TABLET (FP) PO SCH (10:01)
[2019-02-02] MEDS: THIAMINE HCL 100 MG TABLET (FP) PO SCH (21:52)
[2019-02-02] MEDS: traZODone HCL 50 MG TABLET (FP) PO SCH (21:52)
[2019-02-02] MEDS: ATORVASTATIN CA 40 MG TABLET (FP) PO SCH (21:52)
[2019-02-02] MEDS: LIDOCAINE PATCH REMOVAL MC SCH (21:53)
[2019-02-03] MEDS: ACETAMINOPHEN 325 MG TABLET (FP) PO PRN ×2 (06:19→18:43)
[2019-02-03] MEDS: METHADONE HCL 40 MG DISPERSABLE TABLET PO SCH (06:19)
[2019-02-03] MEDS: metFORMIN HCL 500 MG TABLET (FP) PO SCH (06:20)
[2019-02-03] MEDS: LEVOTHYROXINE NA 25 MCG TABLET (FP) PO SCH (06:20)
[2019-02-03] MEDS: PRENATAL VITAMINS W/ FOLIC ACID TABLET (FP) PO SCH (10:03)
[2019-02-03] MEDS: NICOTINE 21 MG/24 HOURS TOPICAL PATCH TD SCH (10:03)
[2019-02-03] MEDS: amLODIPine BESYLATE 5 MG TABLET (FP) PO SCH (10:03)
[2019-02-03] MEDS: LIDOCAINE 5% TOPICAL PATCH TP SCH (10:03)
[2019-02-03] MEDS: RANITIDINE HCL 150 MG TABLET (FP) PO SCH ×2 (10:04→21:07)
[2019-02-03] MEDS: FLUoxetine HCL 20 MG CAPSULE (FP) PO SCH (10:04)
[2019-02-03] MEDS: LISINOPRIL 20 MG TABLET (FP) PO SCH (10:04)
[2019-02-03] MEDS: ATORVASTATIN CA 40 MG TABLET (FP) PO SCH (21:07)
[2019-02-03] MEDS: THIAMINE HCL 100 MG TABLET (FP) PO SCH (21:07)
[2019-02-03] MEDS: LIDOCAINE PATCH REMOVAL MC SCH (21:08)
[2019-02-03] MEDS: traZODone HCL 50 MG TABLET (FP) PO SCH (21:08)
[2019-02-04] MEDS: LEVOTHYROXINE NA 25 MCG TABLET (FP) PO SCH (06:14)
[2019-02-04] MEDS: ACETAMINOPHEN 325 MG TABLET (FP) PO PRN ×3 (06:14→18:51)
[2019-02-04] MEDS: metFORMIN HCL 500 MG TABLET (FP) PO SCH (06:14)
[2019-02-04] MEDS: METHADONE HCL 40 MG DISPERSABLE TABLET PO SCH (06:14)
[2019-02-04] MEDS: LIDOCAINE 5% TOPICAL PATCH TP SCH (10:16)
[2019-02-04] MEDS: NICOTINE 21 MG/24 HOURS TOPICAL PATCH TD SCH (10:16)
[2019-02-04] MEDS: amLODIPine BESYLATE 5 MG TABLET (FP) PO SCH (10:17)
[2019-02-04] MEDS: RANITIDINE HCL 150 MG TABLET (FP) PO SCH ×2 (10:17→21:23)
[2019-02-04] MEDS: FLUoxetine HCL 20 MG CAPSULE (FP) PO SCH (10:18)
[2019-02-04] MEDS: LISINOPRIL 20 MG TABLET (FP) PO SCH (10:18)
[2019-02-04] MEDS: PRENATAL VITAMINS W/ FOLIC ACID TABLET (FP) PO SCH (10:18)
[2019-02-04] MEDS: ATORVASTATIN CA 40 MG TABLET (FP) PO SCH (21:23)
[2019-02-04] MEDS: traZODone HCL 50 MG TABLET (FP) PO SCH (21:23)
[2019-02-04] MEDS: THIAMINE HCL 100 MG TABLET (FP) PO SCH (21:23)
[2019-02-04] MEDS: LIDOCAINE PATCH REMOVAL MC SCH (21:24)
[2019-02-05] MEDS: METHADONE HCL 40 MG DISPERSABLE TABLET PO SCH (06:22)
[2019-02-05] MEDS: LEVOTHYROXINE NA 25 MCG TABLET (FP) PO SCH (06:22)
[2019-02-05] MEDS: metFORMIN HCL 500 MG TABLET (FP) PO SCH (06:23)
[2019-02-05] MEDS: ACETAMINOPHEN 325 MG TABLET (FP) PO PRN ×2 (06:23→14:14)
[2019-02-05] MEDS: NICOTINE 21 MG/24 HOURS TOPICAL PATCH TD SCH (10:12)
[2019-02-05] MEDS: amLODIPine BESYLATE 5 MG TABLET (FP) PO SCH (10:13)
[2019-02-05] MEDS: RANITIDINE HCL 150 MG TABLET (FP) PO SCH ×2 (10:13→21:46)
[2019-02-05] MEDS: FLUoxetine HCL 20 MG CAPSULE (FP) PO SCH (10:13)
[2019-02-05] MEDS: LISINOPRIL 20 MG TABLET (FP) PO SCH (10:13)
[2019-02-05] MEDS: PRENATAL VITAMINS W/ FOLIC ACID TABLET (FP) PO SCH (10:13)
[2019-02-05] MEDS: LIDOCAINE 5% TOPICAL PATCH TP SCH (10:13)
[2019-02-05] MEDS: traZODone HCL 50 MG TABLET (FP) PO SCH (21:45)
[2019-02-05] MEDS: THIAMINE HCL 100 MG TABLET (FP) PO SCH (21:45)
[2019-02-05] MEDS: ATORVASTATIN CA 40 MG TABLET (FP) PO SCH (21:45)
[2019-02-05] MEDS: LIDOCAINE PATCH REMOVAL MC SCH (21:45)
[2019-02-06] MEDS: ACETAMINOPHEN 325 MG TABLET (FP) PO PRN ×2 (01:00→07:50)
[2019-02-06] MEDS ORDERED: METHADONE HCL 40 MG DISPERSABLE TABLET PO SCH (06:00)
[2019-02-06] MEDS: metFORMIN HCL 500 MG TABLET (FP) PO SCH (06:14)
[2019-02-06] MEDS: LEVOTHYROXINE NA 25 MCG TABLET (FP) PO SCH (06:14)
[2019-02-06 07:02] VITALS: TEMP 98.2
--- NOTE | 2019-02-06 08:01 | PN ---
S Progress Note Note: Patient is scheduled for discharged today. Scripts for 30 days supply of medications(Prozac, Trazadone) are electronically transmitted to [facility] at [address] [place] [address]
[2019-02-06] MEDS ORDERED: PT OWN MED DRAWER 7, Y5N ONE (08:58)
[2019-02-06 09:07] VITALS: BP 129/82; PULSE 79
[2019-02-06] MEDS: amLODIPine BESYLATE 5 MG TABLET (FP) PO SCH (09:11)
[2019-02-06] MEDS: PRENATAL VITAMINS W/ FOLIC ACID TABLET (FP) PO SCH (09:11)
[2019-02-06] MEDS: LISINOPRIL 20 MG TABLET (FP) PO SCH (09:11)
[2019-02-06] MEDS: LIDOCAINE 5% TOPICAL PATCH TP SCH (09:11)
[2019-02-06] MEDS: NICOTINE 21 MG/24 HOURS TOPICAL PATCH TD SCH (09:15)
[2019-02-06] MEDS: RANITIDINE HCL 150 MG TABLET (FP) PO SCH (09:16)
[2019-02-06] MEDS: FLUoxetine HCL 20 MG CAPSULE (FP) PO SCH (09:16)
--- NOTE | 2019-02-06 12:41 | PN ---
S Progress Note Note: PT COMPLETED REHAB AND DISCHARGED TODAY. PT HAS BEEN REFERRED TO [facility]ARE AND REPORTS SHE HAS PRIMARY CARE AT SAME LOCATION. PT IS ALERT O X 3. DENIES S/H/I. COURTESY RX FOR GLUCOPHAGE SENT ELECTRONICALLY SENT TO PHARMACY FOR [facility] [employer] AFTER DISCHARGE. Home Medications Medication Instructions Recorded traZODone HCL [Desyrel -] 100 mg PO HS #60 tablet 12/21/16 Diphenhydramine [Benadryl Capsule 50 mg PO HS PRN #30 capsule 12/13/17 -] Tiotropium [place] [Spiriva] 1 inh PO DAILY #1 inh 01/16/18 Gabapentin [Neurontin -] 300 mg PO TID #90 capsule 02/14/18 Methadone [Dolophine -] 40 mg PO DAILY@0600 MDD 80 01/07/19 Albuterol Sulfate Inhaler - 1 inh IH PRN PRN #1 inh 01/10/19 [Ventolin HFA Inhaler -] Amlodipine Besylate [Norvasc -] 5 mg PO DAILY #14 tab 01/10/19 Atorvastatin Ca [Lipitor] 40 mg PO DAILY #14 tab 01/10/19 Levothyroxine [Synthroid -] 75 mcg PO DAILY #14 tablet 01/10/19 Lisinopril [Prinivil -] 5 mg PO DAILY #14 tablet 01/10/19 Fluoxetine HCl [Prozac] 40 mg PO DAILY #30 capsule 02/06/19 metFORMIN HCL [Glucophage -] 500 mg PO DAILY@0700 #30 tablet 02/06/19 traZODone HCL [Desyrel -] 50 mg PO HS #30 tablet 02/06/19 Vital Signs (72 hours) 02/04/19 02/04/19 02/04/19 00:30 03:30 07:19 Temperature 98.6 F Pulse Rate 76 Respiratory 18 18 18 Rate Blood Pressure 115/81 02/04/19 02/05/19 02/05/19 09:44 03:30 07:06 Temperature 97.7 F Pulse Rate 76 79 Respiratory 18 18 18 Rate Blood Pressure 108/73 133/91 02/05/19 02/06/19 02/06/19 09:06 03:30 07:00 Temperature 98.2 F Pulse Rate 78 73 Respiratory 18 16 Rate Blood Pressure 126/78 132/90 02/06/19 09:06 Temperature Pulse Rate 79 Respiratory Rate Blood Pressure 129/82 Laboratory Tests 01/07/19 01/08/19 01/08/19 17:16 06:40 07:35 WBC 5.4 RBC 4.50 Hgb 14.1 Hct 41.7 MCV 92.6 MCH 31.4 MCHC 34.0 RDW 13.7 Plt Count 238 D MPV 7.5 Sodium Potassium Chloride Carbon Dioxide Anion Gap BUN Creatinine Creat Clearance w eGFR POC Glucometer 134 120 Random Glucose Calcium Total Bilirubin AST ALT Alkaline Phosphatase Total Protein Albumin RPR Titer 01/08/19 01/08/19 01/08/19 07:35 07:35 16:43 WBC RBC Hgb Hct MCV MCH MCHC RDW Plt Count MPV Sodium 137 Potassium 4.1 Chloride 103 Carbon Dioxide 27 Anion Gap 7 L BUN 16 Creatinine 0.8 Creat Clearance w eGFR > 60 POC Glucometer 111 Random Glucose 103 Calcium 8.7 Total Bilirubin 0.3 AST 24 ALT 19 Alkaline Phosphatase 91 Total Protein 6.9 Albumin 3.5 RPR Titer Nonreactive 01/09/19 01/09/19 01/10/19 07:10 16:14 06:23 WBC RBC Hgb Hct MCV MCH MCHC RDW Plt Count MPV Sodium Potassium Chloride Carbon Dioxide Anion Gap BUN Creatinine Creat Clearance w eGFR POC Glucometer 212 172 139 Random Glucose Calcium Total Bilirubin AST ALT Alkaline Phosphatase Total Protein Albumin RPR Titer 01/10/19 01/11/19 01/11/19 16:37 05:36 16:53 WBC RBC Hgb Hct MCV MCH MCHC RDW Plt Count MPV Sodium Potassium Chloride Carbon Dioxide Anion Gap BUN Creatinine Creat Clearance w eGFR POC Glucometer 155 109 144 Random Glucose Calcium Total Bilirubin AST ALT Alkaline Phosphatase Total Protein Albumin RPR Titer 01/12/19 01/12/19 01/13/19 06:10 16:44 06:13 WBC RBC Hgb Hct MCV MCH MCHC RDW Plt Count MPV Sodium Potassium Chloride Carbon Dioxide Anion Gap BUN Creatinine Creat Clearance w eGFR POC Glucometer 115 168 133 Random Glucose Calcium Total Bilirubin AST ALT Alkaline Phosphatase Total Protein Albumin RPR Titer 01/13/19 01/14/19 01/15/19 16:35 06:10 06:35 WBC RBC Hgb Hct MCV MCH MCHC RDW Plt Count MPV Sodium Potassium Chloride Carbon Dioxide Anion Gap BUN Creatinine Creat Clearance w eGFR POC Glucometer 168 126 120 Random Glucose Calcium Total Bilirubin AST ALT Alkaline Phosphatase Total Protein Albumin RPR Titer 01/15/19 01/16/19 01/16/19 16:49 06:06 17:02 WBC RBC Hgb Hct MCV MCH MCHC RDW Plt Count MPV Sodium Potassium Chloride Carbon Dioxide Anion Gap BUN Creatinine Creat Clearance w eGFR POC Glucometer 101 128 108 Random Glucose Calcium Total Bilirubin AST ALT Alkaline Phosphatase Total Protein Albumin RPR Titer 01/17/19 01/18/19 01/19/19 06:18 06:14 06:10 WBC RBC Hgb Hct MCV MCH MCHC RDW Plt Count MPV Sodium Potassium Chloride Carbon Dioxide Anion Gap BUN Creatinine Creat Clearance w eGFR POC Glucometer 119 111 116 Random Glucose Calcium Total Bilirubin AST ALT Alkaline Phosphatase Total Protein Albumin RPR Titer 01/20/19 01/21/19 01/22/19 06:14 06:04 06:15 WBC RBC Hgb Hct MCV MCH MCHC RDW Plt Count MPV Sodium Potassium Chloride Carbon Dioxide Anion Gap BUN Creatinine Creat Clearance w eGFR POC Glucometer 119 125 120 Random Glucose Calcium Total Bilirubin AST ALT Alkaline Phosphatase Total Protein Albumin RPR Titer 01/23/19 01/24/19 01/25/19 06:08 06:15 06:11 WBC RBC Hgb Hct MCV MCH MCHC RDW Plt Count MPV Sodium Potassium Chloride Carbon Dioxide Anion Gap BUN Creatinine Creat Clearance w eGFR POC Glucometer 128 136 120 Random Glucose Calcium Total Bilirubin AST ALT Alkaline Phosphatase Total Protein Albumin RPR Titer 01/26/19 01/27/19 01/28/19 06:13 06:01 06:25 WBC RBC Hgb Hct MCV MCH MCHC RDW Plt Count MPV Sodium Potassium Chloride Carbon Dioxide Anion Gap BUN Creatinine Creat Clearance w eGFR POC Glucometer 113 113 121 Random Glucose Calcium Total Bilirubin AST ALT Alkaline Phosphatase Total Protein Albumin RPR Titer 01/29/19 01/30/19 01/31/19 06:10 06:21 06:32 WBC RBC Hgb Hct MCV MCH MCHC RDW Plt Count MPV Sodium Potassium Chloride Carbon Dioxide Anion Gap BUN Creatinine Creat Clearance w eGFR POC Glucometer 113 119 113 Random Glucose Calcium Total Bilirubin AST ALT Alkaline Phosphatase Total Protein Albumin RPR Titer 02/01/19 02/02/19 02/03/19 06:28 06:25 06:18 WBC RBC Hgb Hct MCV MCH MCHC RDW Plt Count MPV Sodium Potassium Chloride Carbon Dioxide Anion Gap BUN Creatinine Creat Clearance w eGFR POC Glucometer 116 107 133 Random Glucose Calcium Total Bilirubin AST ALT Alkaline Phosphatase Total Protein Albumin RPR Titer 02/04/19 02/05/19 02/06/19 06:12 06:21 06:12 WBC RBC Hgb Hct MCV MCH MCHC RDW Plt Count MPV Sodium Potassium Chloride Carbon Dioxide Anion Gap BUN Creatinine Creat Clearance w eGFR POC Glucometer 118 120 111 Random Glucose Calcium Total Bilirubin AST ALT Alkaline Phosphatase Total Protein Albumin RPR Titer NAD MEDICALLY STABLE PLAN:FOLLOW UP WITH [facility] AND MEDICAL MANAGEMENT AT [facility] RECOMMENDED.
== END 2019-02-06 09:16 | disposition home or self-care (01) | DRG 895 ==
LOC: YASAS 15:16 → Y3N 17:34 → Y3E 01-11 11:07
PROVIDERS: ADMIT Surgery; ATTEND Neuromusculoskeletal Medicine & OMM
PROC: HZ2ZZZZ Detoxification Services for Substance Abuse Treatment (ICD-10-PCS; 2019-01-07)
PROC: HZ42ZZZ Group Counseling for Substance Abuse Treatment, Cognitive-Behavioral (ICD-10-PCS; principal; 2019-01-11)
DX: F13.230 Sedative, hypnotic or anxiolytic dependence with withdrawal, uncomplicated (principal); F11.20 Opioid dependence, uncomplicated; F17.210 Nicotine dependence, cigarettes, uncomplicated; I10 Essential (primary) hypertension; J43.0 Unilateral pulmonary emphysema [MacLeod's syndrome]; E03.9 Hypothyroidism, unspecified; E11.9 Type 2 diabetes mellitus without complications; E78.00 Pure hypercholesterolemia, unspecified; G40.909 Epilepsy, unspecified, not intractable, without status epilepticus; B18.2 Chronic viral hepatitis C; M17.11 Unilateral primary osteoarthritis, right knee; K21.9 Gastro-esophageal reflux disease without esophagitis; E66.01 Morbid (severe) obesity due to excess calories; Z68.39 Body mass index [BMI] 39.0-39.9, adult; R26.89 Other abnormalities of gait and mobility; Z99.89 Dependence on other enabling machines and devices
CPT/HCPCS: 36415; 80053; 82962; 85027; 86593; 93005; 93010

== ENCOUNTER 2019-02-28 11:57 | Inpatient (IN) | payer OTHER ==
[2019-02-28 17:47] VITALS: BMI 40.2
--- NOTE | 2019-02-28 18:29 | HP ---
CIWA Score Nausea/Vomitin-No Nausea/No Vomiting Muscle Tremors: 3 Anxiety: 4-Mod. Anxious/Guarded Agitation: 2 Paroxysmal Sweats: 3 Orientation: 0-Oriented Tacttile Disturbances: 0-None Auditory Disturbances: 0-None Visual Disturbances: 0-None Headache: 0-None Present CIWA-Ar Total Score: 12 - Admission Criteria OASAS Guidelines: Admission for Medically Managed Detox: Requires at least one of the followin. CIWA greater than 12 2. Seizures within the past 24 hours 3. Delirium tremens within the past 24 hours 4. Hallucinations within the past 24 hours 5. Acute intervention needed for co occurring medical disorder 6. Acute intervention needed for co occurring psychiatric disorder 7. Severe withdrawal that cannot be handled at a lower level of care (continued vomiting, continued diarrhea, abnormal vital signs) requiring intravenous medication and/or fluids 8. Patient presents the following: CIWA greater than 12 Admission Criteria Met: Admission criteria met Admission ROS [facility] Chief Complaint: Xanax withdrawal Allergies/Adverse Reactions: Allergies Allergy/AdvReac Type Severity Reaction Status Date / Time No Known Allergies Allergy Verified 02/28/19 17:29 History of Present Illness: Here for detox from Xanax and Klonopin. Xanax use began at age 51. Klonopin use began at age 51. Heroin/Illicit Mathadone use disorder began at age 22. Has now been on a MMTP > 20 years. Is at [facility] OT - [facility] .Current Methadone dose is 50 mg PO daily. Last medicated 02/28/19. No THB. Denies opiate relapse. Nicotine use began at age 21. Denies alcohol use. Blackouts from Xanax > 2 years ago. Last overdose 1 year ago. States has a Narcan Kit at home. PMHx: COPD/asthma, Hiatal Hernia w/GERD, DM, Obesity, HTN, Hypohtyroidism, OA knees (R)>(L) MHHx: Depression, anxiety, PTSD: Last saw a MH Provider 6 months ago. Now getting MH prescriptions from PCP. Denies thoughts of harming self or others. Patient Name: Felicia Hubbard Date: 1950 Address: [address] [place] [address] Sex: Female Rx Written Rx Dispensed Drug Quantity Days Supply Prescriber Name 02/25/2019 02/26/2019 clonazepam 2 mg tablet 10 5 Omar Nieves MD Exam Limitations: No Limitations - Ebola screening Have you traveled outside of the country in the last 21 days: No Have you had contact with anyone from an Ebola affected area: No Have you been sick,other than usual withdrawal symptoms: No (Denies recent measles exposure) Do you have a fever: No - Review of Systems Constitutional: Diaphoresis, Changes in sleep (Takes Trazodone) EENT: reports: Cataracts (Earlt cataracts both eyes), Blurred Vision, Dental Problems (Full dentures. Chews and swallows okay.) Respiratory: reports: No Symptoms reported Cardiac: reports: No Symptoms Reported GI: reports: Indigestion (Hiatal Hernia - GERD) : reports: No Symptoms Reported Musculoskeletal: reports: Joint Pain (Both knees (R) > (L); Knee pain is achy/ dull = "7". Worse w/ climbing stairs. Improves w/ cortisone shots, tylenol; Hands beginning to stiffen up.) Integumentary: reports: Lesions ((L) leg r/t fall 2 weeks ago.) Neuro: reports: Tremors, Unsteady Gait Endocrine: reports: No Symptoms Reported Hematology: reports: No Symptoms Reported Psychiatric: reports: Judgement Intact, Orientated x3, Anxious, Depressed ( Denies thoughts of harming self or others.) Patient History - Patient Medical History Hx Anemia: No Hx Asthma: Yes Hx Chronic Obstructive Pulmonary Disease (COPD): Yes Hx Cancer: No Hx Cardiac Disorders: No Hx Congestive Heart Failure: No Hx Hypertension: Yes Hx Hypercholesterolemia: Yes (on md) Hx Pacemaker: No HX Cerebrovascular Accident: No Hx Seizures: No Hx Dementia: No Hx Diabetes: Yes Hx Gastrointestinal Disorders: Yes (Acid reflux) Hx Liver Disease: No Hx Genitourinary Disorders: No Hx Sexually Transmitted Disorders: Yes (Syphillis 2016 & treated) Hx Renal Disease (ESRD): No Hx Thyroid Disease: Yes (HYPOTHYROIDISM) Hx Human Immunodeficiency Virus (HIV): No Hx Hepatitis C: Yes (DX OVER 30 YEARS FAILIED TXMENT IN 2000) Hx Depression: Yes (Bipolar Disorder) Hx Suicide Attempt: No Hx Bipolar Disorder: Yes Hx Schizophrenia: No - Patient Surgical History Past Surgical History: Yes Hx Neurologic Surgery: No Hx Cataract Extraction: No Hx Cardiac Surgery: No Hx Lung Surgery: No Hx Breast Surgery: No Hx Breast Biopsy: No Hx Abdominal Surgery: No Hx Appendectomy: Yes (13 YEARS OLD) Hx Cholecystectomy: Yes (1994) Hx Genitourinary Surgery: No Hx Section: No Hx Orthopedic Surgery: No Hx Hysterectomy: No Other Surgical History: RIGHT FOOT BUNION 1999 Anesthesia Reaction: No - PPD History Previous Implant?: Yes Documented Results: Negative w/proof Implanted On Prior [facility] Admission?: Yes Date: 08/08/17 Results: 0mm PPD to be Administered?: Yes - Reproductive History Last Menstrual Period: 05/01/01 - Smoking Cessation Smoking history: Current every day smoker Have you smoked in the past 12 months: No Aproximately how many cigarettes per day: 20 Cigars Per Day: 0 Hx Chewing Tobacco Use: No Initiated information on smoking cessation: Yes 'Breaking Loose' booklet given: 02/28/19 - Substance & Tx. History Hx Alcohol Use: No Hx Substance Use: Yes Substance Use Type: Heroin, Tranquilizers (Xanax, Klonopin) Hx Substance Use Treatment: Yes (detox, rehab, Curently on a MMTP) - Substances abused Alprazolam (Xanax) Substance route: Oral Frequency: Daily Amount used: 8mg Age of first use: 51 Date of last use: 02/27/19 Benzodiazepine (Klonopin) Substance route: Oral Frequency: Daily Amount used: 4-6 mg a day Age of first use: 51 Date of last use: 02/27/19 Family Disease History - Family Disease History Family Disease History: Heart Disease: Father (ALCHOLISM/ CA ), CA: Mother (LUNG ), Other: Father, Brother (no brother), Sister (DRUG PROBLEMS) Admission Physical Exam S - Vital Signs Vital Signs: Vital Signs - 24 hr 02/28/19 17:40 Temperature 99 F Pulse Rate 84 Respiratory 18 Rate Blood Pressure 115/74 - Physical General Appearance: Yes: Nourished, Mild Distress, Obese, Tremorous, Sweating ( Increased facial moisture), Anxious HEENTM: Yes: EOMI, Hearing grossly Normal, Normocephalic, GRACY, Pharynx Normal Respiratory: Yes: Lungs Clear, Normal Breath Sounds, No Respiratory Distress Neck: Yes: No masses,lesions,Nodules, Supple Breast: Yes: Breast Exam Deferred Cardiology: Yes: Regular Rhythm, Regular Rate, S1, S2 Abdominal: Yes: Non Tender, Soft, Protuberent (Increased abdominal adiposity) Genitourinary: Yes: Within Normal Limits Back: Yes: Normal Inspection Musculoskeletal: Yes: full range of Motion, Other (Gait slow, slight unsteady.) Extremities: Yes: Normal Capillary Refill, Normal Range of Motion, Non-Tender, Tremors Neurological: Yes: tip mender II-XII NML intact, Fully Oriented, Alert, Motor Strength 5/5 Integumentary: Yes: Normal Color, Warm, Other (Scratches on back and (L) leg r/ t escalator fall 2 weeks ago. Healing.) Lymphatic: Yes: Within Normal Limits - Diagnostic (1) History of fall Current Visit: No Status: Acute (2) Arthritis Current Visit: No Status: Chronic (3) COPD (chronic obstructive pulmonary disease) Current Visit: No Status: Chronic Qualifiers: COPD type: emphysema Emphysema type: unilateral Qualified Code(s): J43.0 - Unilateral pulmonary emphysema [MacLeod's syndrome] (4) Diabetes Current Visit: No Status: Chronic Qualifiers: Diabetes mellitus type: type 2 Diabetes mellitus senior care insulin use: without senior care use Diabetes mellitus complication status: without complication Qualified Code(s): E11.9 - Type 2 diabetes mellitus without complications (5) GERD (gastroesophageal reflux disease) Current Visit: No Status: Chronic Qualifiers: Esophagitis presence: without esophagitis Qualified Code(s): K21.9 - Gastro -esophageal reflux disease without esophagitis (6) HTN (hypertension) Current Visit: No Status: Chronic Qualifiers: Hypertension type: essential hypertension Qualified Code(s): I10 - Essential (primary) hypertension (7) Hypothyroidism Current Visit: No Status: Chronic Qualifiers: Hypothyroidism type: acquired Qualified Code(s): E03.9 - Hypothyroidism, unspecified (8) Methadone maintenance therapy patient Current Visit: No Status: Chronic Comment: 80 MG VERIFICATION PENDING (9) Morbid obesity with BMI of 40.0-44.9, adult Current Visit: No Status: Chronic (10) Nicotine dependence Current Visit: No Status: Chronic Qualifiers: Nicotine product type: cigarettes Substance use status: uncomplicated Qualified Code(s): F17.210 - Nicotine dependence, cigarettes, uncomplicated (11) Sedative, hypnotic or anxiolytic dependence with withdrawal, uncomplicated Current Visit: No Status: Chronic (12) Use of cane as ambulatory aid Current Visit: No Status: Chronic Comment: KNEES RIGHT Breathalyzer - Breathalyzer Breathalyzer: 0 Urine Drug Screen - Test Device Lot number: [id number] Expiration date: 10/07/20 - Control Is test valid?: Yes - Results Drug screen NEGATIVE: No Urine drug screen results: MET-Methamphetamine, MTD-Methadone, BZO- Benzodiazepines Inpatient Rehab Admission - Rehab Decision to Admit Inpatient rehab admission?: No
[2019-02-28] MEDS ORDERED: MAG HYDROX/AL HYDROX/SIMETH 30 ML UNIT-DOSE CUP PO PRN (19:10)
[2019-02-28] MEDS ORDERED: BISMUTH SUBSALICYLATE 524 MG/30 ML UD PO PRN (19:10)
[2019-02-28] MEDS ORDERED: MENTHOL/PHENOL 1 EACH UD MM PRN (19:10)
[2019-02-28] MEDS ORDERED: MAGNESIUM CITRATE 300 ML BOTTLE PO PRN (19:10)
[2019-02-28] MEDS ORDERED: MAGNESIUM HYDROX 2400MG/30ML ORAL SUSPENSION 30 ML CUP PO PRN (19:10)
[2019-02-28] MEDS ORDERED: diazePAM 5 MG TABLET PO ONE (20:15)
[2019-02-28] MEDS: BACITRACIN 0.9 GM PACKET TP SCH (22:55)
[2019-02-28] MEDS: diazePAM 5 MG TABLET PO SCH (22:55)
[2019-02-28] MEDS: THIAMINE HCL 100 MG TABLET (FP) PO SCH (22:56)
[2019-02-28] MEDS: INSULIN SLIDING SCALE (NOVOLOG) 1 VIAL SQ SCH (22:56)
[2019-03-01] MEDS ORDERED: ALBUTEROL SO4 0.083% IH SOL 2.5 MG/3 ML VIAL.NEB. NEB PRN (00:08)
[2019-03-01] MEDS: diazePAM 5 MG TABLET PO SCH ×3 (05:47→23:08)
[2019-03-01] MEDS: metFORMIN HCL 500 MG TABLET (FP) PO SCH (06:16)
[2019-03-01] MEDS: LEVOTHYROXINE NA 25 MCG TABLET (FP) PO SCH (06:17)
[2019-03-01] MEDS: INSULIN SLIDING SCALE (NOVOLOG) 1 VIAL SQ SCH ×4 (07:33→23:06)
[2019-03-01] MEDS ORDERED: METHADONE HCL 10 MG TABLET PO SCH (07:45)
[2019-03-01] MEDS ORDERED: METHADONE HCL 10 MG TABLET ONE (08:34)
[2019-03-01] MEDS ORDERED: METHADONE HCL 40 MG DISPERSABLE TABLET ONE (08:35)
[2019-03-01] MEDS: METHADONE 40 MG, METHADONE 10 MG PO SCH (08:37)
[2019-03-01] MEDS: PRENATAL VITAMINS W/ FOLIC ACID TABLET (FP) PO SCH (10:30)
[2019-03-01] MEDS: LISINOPRIL 5 MG TABLET (FP) PO SCH (10:30)
[2019-03-01] MEDS: BACITRACIN 0.9 GM PACKET TP SCH ×2 (10:30→23:04)
[2019-03-01] MEDS: amLODIPine BESYLATE 5 MG TABLET (FP) PO SCH (10:30)
[2019-03-01] MEDS: ACETAMINOPHEN 325 MG TABLET (FP) PO PRN ×2 (10:31→20:21)
[2019-03-01] MEDS: NICOTINE 21 MG/24 HOURS TOPICAL PATCH TD SCH (10:32)
[2019-03-01] MEDS: NICOTINE POLACRILEX 2 MG GUM BUC PRN (10:33)
[2019-03-01] MEDS: diazePAM 5 MG TABLET PO PRN ×3 (10:37→23:25)
--- NOTE | 2019-03-01 11:21 | PN ---
S CIWA - CIWA Score Nausea/Vomitin-Mild Nausea/No Vomiting Muscle Tremors: 2 Anxiety: 3 Agitation: 2 Paroxysmal Sweats: 1-Minimal Palms Moist Orientation: 2-Disoriented Date<2 days Tacttile Disturbances: 0-None Auditory Disturbances: 0-None Visual Disturbances: 0-None Headache: 0-None Present CIWA-Ar Total Score: 11 [facility] Progress Note (SOAP) Subjective: chronic knee pain lidocain patch to both knees cane for ambulation Objective: 03/01/19 11:21 Vital Signs Temperature 98.7 F 03/01/19 09:45 Pulse Rate 84 03/01/19 09:45 Respiratory Rate 18 03/01/19 09:45 Blood Pressure 138/82 03/01/19 09:45 O2 Sat by Pulse Oximetry (%) Laboratory Last Values POC Glucometer 112 UNITS (80-120) 03/01/19 05:47 03/01/19 11:21 lab pending Assessment: 03/01/19 11:21 benzo withdrawal sx Plan: continue detox
[2019-03-01] MEDS ORDERED: LIDOCAINE 5% TOPICAL PATCH TP SCH (11:30)
[2019-03-01 12:05] LABS: HEMATOCRIT 41.7 % (32.4-45.2); HEMOGLOBIN 13.8 GM/dL (10.7-15.3); MCH 30.9 pg (25.7-33.7); MEAN CELL VOLUME 93.6 fl (80-96); MEAN PLT VOLUME 7.7 fl (7.5-11.1); PLATELET COUNT 276 K/MM3 (134-434); RBC 4.46 M/mm3 (3.60-5.2); RDW 14.4 % (11.6-15.6); WHITE BLOOD COUNT 7.8 K/mm3 (4.0-10.0)
[2019-03-01 12:17] LABS: ALBUMIN 3.6 g/dl (3.4-5.0); ALK PHOS 84 U/L (45-117); ANION GAP 7 MMOL/L (8-16); BILIRUBIN,TOTAL 0.3 mg/dL (0.2-1); BLOOD UREA NITROGEN 13 mg/dL (7-18); CALCIUM 9.6 mg/dL (8.5-10.1); CHLORIDE 106 mmol/L (98-107); CO2 28 mmol/L (21-32); CREATININE 0.7 mg/dL (0.55-1.3); GLUCOSE,RANDOM 143 mg/dL (74-106); POTASSIUM 4.4 mmol/L (3.5-5.1); SGOT/AST 11 U/L (15-37); SGPT/ALT 20 U/L (13-61); SODIUM 140 mmol/L (136-145); TOT PROT 6.9 g/dl (6.4-8.2)
[2019-03-01] MEDS: LIDOCAINE 5% TOPICAL PATCH TP SCH (13:23)
[2019-03-01 14:39] LABS: PH,URINE 5.5 (5.0-8.0); URINE APPEARANCE CLEAR; URINE BILIRUBIN NEGATIVE (NEGATIVE); URINE COLOR YELLOW; URINE GLUCOSE (UA) NEGATIVE (NEGATIVE); URINE KETONE NEGATIVE (NEGATIVE); URINE LEUK ESTERASE NEGATIVE (NEGATIVE); URINE NITRITE NEGATIVE (NEGATIVE); URINE PROTEIN NEGATIVE (NEGATIVE); URINE UROBILINOGEN 0.2 mg/dL (0.2-1.0)
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
[2019-03-01] MEDS ORDERED: FLUoxetine HCL 20 MG CAPSULE (FP) PO ONE (17:45)
[2019-03-01] MEDS: LIDOCAINE PATCH REMOVAL MC SCH (23:05)
[2019-03-01] MEDS: traZODone HCL 100 MG TABLET (FP) PO SCH ×2 (23:05→23:24)
[2019-03-01] MEDS: ATORVASTATIN CA 20 MG TABLET (FP) PO SCH (23:05)
[2019-03-01] MEDS: THIAMINE HCL 100 MG TABLET (FP) PO SCH (23:08)
[2019-03-02] MEDS ORDERED: METHADONE HCL 10 MG TABLET ONE (04:27)
[2019-03-02] MEDS ORDERED: METHADONE HCL 40 MG DISPERSABLE TABLET ONE (04:28)
[2019-03-02] MEDS: METHADONE 40 MG, METHADONE 10 MG PO SCH (05:50)
[2019-03-02] MEDS: diazePAM 5 MG TABLET PO PRN ×3 (05:50→17:35)
[2019-03-02] MEDS: LEVOTHYROXINE NA 25 MCG TABLET (FP) PO SCH (06:02)
[2019-03-02] MEDS: metFORMIN HCL 500 MG TABLET (FP) PO SCH (06:02)
[2019-03-02] MEDS: INSULIN SLIDING SCALE (NOVOLOG) 1 VIAL SQ SCH ×4 (06:03→22:19)
[2019-03-02] MEDS: BACITRACIN 0.9 GM PACKET TP SCH ×2 (09:14→22:00)
[2019-03-02] MEDS: LISINOPRIL 5 MG TABLET (FP) PO SCH (09:16)
[2019-03-02] MEDS: diazePAM 5 MG TABLET PO SCH ×2 (09:16→22:00)
[2019-03-02] MEDS: amLODIPine BESYLATE 5 MG TABLET (FP) PO SCH (09:16)
[2019-03-02] MEDS: PRENATAL VITAMINS W/ FOLIC ACID TABLET (FP) PO SCH (09:16)
[2019-03-02] MEDS: FLUoxetine HCL 20 MG CAPSULE (FP) PO SCH (09:16)
[2019-03-02] MEDS: NICOTINE 21 MG/24 HOURS TOPICAL PATCH TD SCH (09:18)
[2019-03-02] MEDS: LIDOCAINE 5% TOPICAL PATCH TP SCH (09:18)
[2019-03-02] MEDS: NICOTINE POLACRILEX 2 MG GUM BUC PRN (09:33)
[2019-03-02] MEDS ORDERED: COLLOIDAL OATMEAL 1 BAR EACH TP PRN (11:29)
--- NOTE | 2019-03-02 11:47 | PN ---
[facility] CIWA - CIWA Score Nausea/Vomitin-Mild Nausea/No Vomiting Muscle Tremors: 1-None Visible, but [place] Anxiety: 1-Mildly Anxious Agitation: 1-Slight > Activity Paroxysmal Sweats: 1-Minimal Palms Moist Orientation: 2-Disoriented Date<2 days Tacttile Disturbances: 1-Very Mild Itch/Numbness Auditory Disturbances: 0-None Visual Disturbances: 0-None Headache: 1-Very Mild CIWA-Ar Total Score: 9 [facility] Progress Note (SOAP) Subjective: feeling better agrees to return to methadone program for medical mental issues Objective: 03/02/19 11:46 Vital Signs Temperature 98.4 F 03/02/19 09:15 Pulse Rate 78 03/02/19 09:15 Respiratory Rate 18 03/02/19 09:15 Blood Pressure 123/82 03/02/19 09:15 O2 Sat by Pulse Oximetry (%) Laboratory Last Values WBC 7.8 K/mm3 (4.0-10.0) 03/01/19 07:30 RBC 4.46 M/mm3 (3.60-5.2) 03/01/19 07:30 Hgb 13.8 GM/dL (10.7-15.3) 03/01/19 07:30 Hct 41.7 % (32.4-45.2) 03/01/19 07:30 MCV 93.6 fl (80-96) 03/01/19 07:30 MCH 30.9 pg (25.7-33.7) 03/01/19 07:30 MCHC 33.0 g/dl (32.0-36.0) 03/01/19 07:30 RDW 14.4 % (11.6-15.6) 03/01/19 07:30 Plt Count 276 K/MM3 (134-434) 03/01/19 07:30 MPV 7.7 fl (7.5-11.1) 03/01/19 07:30 Sodium 140 mmol/L (136-145) 03/01/19 07:30 Potassium 4.4 mmol/L (3.5-5.1) 03/01/19 07:30 Chloride 106 mmol/L (98-107) 03/01/19 07:30 Carbon Dioxide 28 mmol/L (21-32) 03/01/19 07:30 Anion Gap 7 MMOL/L (8-16) L 03/01/19 07:30 BUN 13 mg/dL (7-18) 03/01/19 07:30 Creatinine 0.7 mg/dL (0.55-1.3) 03/01/19 07:30 Creat Clearance w eGFR 83.47 (>60) 03/01/19 07:30 POC Glucometer 118 UNITS (80-120) 03/02/19 11:43 Random Glucose 143 mg/dL (74-106) H 03/01/19 07:30 Calcium 9.6 mg/dL (8.5-10.1) 03/01/19 07:30 Total Bilirubin 0.3 mg/dL (0.2-1) 03/01/19 07:30 AST 11 U/L (15-37) L 03/01/19 07:30 ALT 20 U/L (13-61) 03/01/19 07:30 Alkaline Phosphatase 84 U/L (45-117) 03/01/19 07:30 Total Protein 6.9 g/dl (6.4-8.2) 03/01/19 07:30 Albumin 3.6 g/dl (3.4-5.0) 03/01/19 07:30 Urine Color Yellow 03/01/19 01:05 Urine Appearance Clear 03/01/19 01:05 Urine pH 5.5 (5.0-8.0) 03/01/19 01:05 Ur Specific [place] 1.005 (1.010-1.035) L 03/01/19 01:05 Urine Protein Negative (NEGATIVE) 03/01/19 01:05 Urine Glucose (UA) Negative (NEGATIVE) 03/01/19 01:05 Urine Ketones Negative (NEGATIVE) 03/01/19 01:05 Urine Blood Negative (NEGATIVE) 03/01/19 01:05 Urine Nitrite Negative (NEGATIVE) 03/01/19 01:05 Urine Bilirubin Negative (NEGATIVE) 03/01/19 01:05 Urine Urobilinogen 0.2 mg/dL (0.2-1.0) 03/01/19 01:05 Ur Leukocyte Esterase Negative (NEGATIVE) 03/01/19 01:05 RPR Titer Nonreactive (NONREACTIVE) 03/01/19 07:30 lab noted Assessment: 03/02/19 11:46 mild benzo withdrawal sx Plan: continue detox
[2019-03-02] MEDS: ATORVASTATIN CA 20 MG TABLET (FP) PO SCH (22:00)
[2019-03-02] MEDS: traZODone HCL 100 MG TABLET (FP) PO SCH (22:00)
[2019-03-02] MEDS: THIAMINE HCL 100 MG TABLET (FP) PO SCH (22:00)
[2019-03-02] MEDS: LIDOCAINE PATCH REMOVAL MC SCH (22:02)
[2019-03-03] MEDS ORDERED: METHADONE HCL 10 MG TABLET ONE (04:46)
[2019-03-03] MEDS ORDERED: METHADONE HCL 40 MG DISPERSABLE TABLET ONE (04:47)
[2019-03-03] MEDS: METHADONE 40 MG, METHADONE 10 MG PO SCH (05:27)
[2019-03-03] MEDS ORDERED: diazePAM 5 MG TABLET PO SCH (06:00)
[2019-03-03] MEDS: metFORMIN HCL 500 MG TABLET (FP) PO SCH (06:34)
[2019-03-03] MEDS: INSULIN SLIDING SCALE (NOVOLOG) 1 VIAL SQ SCH ×4 (06:34→21:34)
[2019-03-03] MEDS: LEVOTHYROXINE NA 25 MCG TABLET (FP) PO SCH (06:35)
[2019-03-03] MEDS: LISINOPRIL 5 MG TABLET (FP) PO SCH (10:28)
[2019-03-03] MEDS: NICOTINE 21 MG/24 HOURS TOPICAL PATCH TD SCH (10:28)
[2019-03-03] MEDS: FLUoxetine HCL 20 MG CAPSULE (FP) PO SCH (10:28)
[2019-03-03] MEDS: BACITRACIN 0.9 GM PACKET TP SCH ×2 (10:28→21:33)
[2019-03-03] MEDS: PRENATAL VITAMINS W/ FOLIC ACID TABLET (FP) PO SCH (10:28)
[2019-03-03] MEDS: amLODIPine BESYLATE 5 MG TABLET (FP) PO SCH (10:28)
[2019-03-03] MEDS: ACETAMINOPHEN 325 MG TABLET (FP) PO PRN ×2 (10:29→17:13)
[2019-03-03] MEDS: LIDOCAINE 5% TOPICAL PATCH TP SCH (10:29)
--- NOTE | 2019-03-03 12:23 | DS ---
[facility] Detox Discharge Summary Admission Date: 02/28/19 Discharge Date: 03/03/19 - History Present History: Opioid Dependence, Sedative Dependence, MMTP Additional Comments: pt was admitted for Benzo detox with Valium. Pt is on methadone MAT. Pt is transferred to rehab today - Physical Exam Results Vital Signs: Vital Signs Temperature 97.1 F L 03/03/19 09:15 Pulse Rate 87 03/03/19 09:15 Respiratory Rate 18 03/03/19 09:15 Blood Pressure 141/87 03/03/19 09:15 O2 Sat by Pulse Oximetry (%) - Treatment Hospital Course: Detox Protocol Followed, Detoxed Safely, Responded well, Discharged Condition Good, Rehab Referral Accepted - Medication Discharge Medications: Ambulatory Orders traZODone HCL [Desyrel -] 100 mg PO HS #60 tablet 12/21/16 Diphenhydramine [Benadryl Capsule -] 50 mg PO HS PRN #30 capsule 12/13/17 Tiotropium [place] [Spiriva] 1 inh PO DAILY #1 inh 01/16/18 Methadone [Dolophine -] 50 mg PO DAILY@0600 MDD 80 01/07/19 Fluoxetine HCl [Prozac] 40 mg PO DAILY #30 capsule 02/06/19 Albuterol Sulfate Inhaler - [Ventolin HFA Inhaler -] 1 inh IH PRN PRN #1 inh Amlodipine Besylate [Norvasc -] 5 mg PO DAILY #14 tab 03/02/19 Atorvastatin Ca [Lipitor] 20 mg PO DAILY #30 tablet 03/02/19 Levothyroxine [Synthroid -] 75 mcg PO DAILY #14 tablet 03/02/19 Lisinopril [Prinivil -] 5 mg PO DAILY #14 tablet 03/02/19 metFORMIN HCL [Glucophage -] 500 mg PO DAILY@0700 #30 tablet 03/02/19 - AMA Did Patient Leave Against Medical Advice: No
--- NOTE | 2019-03-03 13:35 | HP ---
[facility] Rehab Assess/Revision - Admission History Ad[facility]: [facility] - Vital signs Vital Signs: Vital Signs Period Temp Pulse Resp BP Sys/Marinelli Pulse Ox Last 24 Hr 97.1 F-98.8 F 67-87 16-18 100-141/58-92 - Findings Detox History & Physical reviewed: Yes Concur with findings: Yes Inpatient Rehab Admission - Rehab Decision to Admit Inpatient rehab admission?: Yes - Initial Determination Are CD services needed?: Yes Free of communicable disease: Yes Not in need of hospitalization: Yes - Rehab Admission Criteria Previous failed treatment: Yes Poor recovery environment: Yes Comorbidities: Yes Lacks judgement: Yes Patient is meeting Inpatient Rehab admission criteria:: Yes
[2019-03-03] MEDS: traZODone HCL 100 MG TABLET (FP) PO SCH (21:34)
[2019-03-03] MEDS: THIAMINE HCL 100 MG TABLET (FP) PO SCH (21:34)
[2019-03-03] MEDS: LIDOCAINE PATCH REMOVAL MC SCH (21:34)
[2019-03-03] MEDS: ATORVASTATIN CA 20 MG TABLET (FP) PO SCH (21:34)
[2019-03-03] MEDS: MELATONIN 5 MG TABLETS PO PRN (21:34)
[2019-03-04] MEDS ORDERED: METHADONE HCL 40 MG DISPERSABLE TABLET ONE (05:59)
[2019-03-04] MEDS ORDERED: METHADONE HCL 10 MG TABLET ONE (05:59)
[2019-03-04] MEDS: metFORMIN HCL 500 MG TABLET (FP) PO SCH (06:17)
[2019-03-04] MEDS: METHADONE 40 MG, METHADONE 10 MG PO SCH (06:17)
[2019-03-04] MEDS: LEVOTHYROXINE NA 25 MCG TABLET (FP) PO SCH (06:20)
[2019-03-04] MEDS: INSULIN SLIDING SCALE (NOVOLOG) 1 VIAL SQ SCH ×3 (07:39→17:30)
[2019-03-04] MEDS: BACITRACIN 0.9 GM PACKET TP SCH ×2 (10:39→22:20)
[2019-03-04] MEDS: FLUoxetine HCL 20 MG CAPSULE (FP) PO SCH (10:40)
[2019-03-04] MEDS: LISINOPRIL 5 MG TABLET (FP) PO SCH (10:40)
[2019-03-04] MEDS: NICOTINE 21 MG/24 HOURS TOPICAL PATCH TD SCH (10:40)
[2019-03-04] MEDS: LIDOCAINE 5% TOPICAL PATCH TP SCH (10:40)
[2019-03-04] MEDS: PRENATAL VITAMINS W/ FOLIC ACID TABLET (FP) PO SCH (10:40)
[2019-03-04] MEDS: amLODIPine BESYLATE 5 MG TABLET (FP) PO SCH (10:40)
[2019-03-04] MEDS: ACETAMINOPHEN 325 MG TABLET (FP) PO PRN ×2 (10:42→18:35)
[2019-03-04] MEDS ORDERED: PT OWN MED DRAWER 7, Y5N ONE (11:08)
[2019-03-04] MEDS: NICOTINE POLACRILEX 2 MG GUM BUC PRN (13:00)
[2019-03-04] MEDS: THIAMINE HCL 100 MG TABLET (FP) PO SCH (22:20)
[2019-03-04] MEDS: traZODone HCL 100 MG TABLET (FP) PO SCH (22:20)
[2019-03-04] MEDS: ATORVASTATIN CA 20 MG TABLET (FP) PO SCH (22:20)
[2019-03-04] MEDS: LIDOCAINE PATCH REMOVAL MC SCH (22:20)
[2019-03-04] MEDS: MELATONIN 5 MG TABLETS PO PRN (22:21)
[2019-03-05] MEDS: ACETAMINOPHEN 325 MG TABLET (FP) PO PRN ×3 (04:49→21:35)
[2019-03-05] MEDS ORDERED: METHADONE HCL 10 MG TABLET ONE (06:02)
[2019-03-05] MEDS ORDERED: METHADONE HCL 40 MG DISPERSABLE TABLET ONE (06:03)
[2019-03-05] MEDS: LEVOTHYROXINE NA 25 MCG TABLET (FP) PO SCH (06:45)
[2019-03-05] MEDS: metFORMIN HCL 500 MG TABLET (FP) PO SCH (06:46)
[2019-03-05] MEDS: METHADONE 40 MG, METHADONE 10 MG PO SCH (06:46)
[2019-03-05] MEDS: amLODIPine BESYLATE 5 MG TABLET (FP) PO SCH (10:28)
[2019-03-05] MEDS: LISINOPRIL 5 MG TABLET (FP) PO SCH (10:28)
[2019-03-05] MEDS: PRENATAL VITAMINS W/ FOLIC ACID TABLET (FP) PO SCH (10:28)
[2019-03-05] MEDS: LIDOCAINE 5% TOPICAL PATCH TP SCH (10:28)
[2019-03-05] MEDS: NICOTINE 21 MG/24 HOURS TOPICAL PATCH TD SCH (10:28)
[2019-03-05] MEDS: BACITRACIN 0.9 GM PACKET TP SCH ×2 (10:28→21:34)
[2019-03-05] MEDS: FLUoxetine HCL 20 MG CAPSULE (FP) PO SCH (10:29)
[2019-03-05] MEDS: THIAMINE HCL 100 MG TABLET (FP) PO SCH (21:34)
[2019-03-05] MEDS: ATORVASTATIN CA 20 MG TABLET (FP) PO SCH (21:34)
[2019-03-05] MEDS: traZODone HCL 100 MG TABLET (FP) PO SCH (21:34)
[2019-03-05] MEDS: MELATONIN 5 MG TABLETS PO PRN (21:34)
[2019-03-05] MEDS: LIDOCAINE PATCH REMOVAL MC SCH (21:34)
[2019-03-06] MEDS ORDERED: METHADONE HCL 40 MG DISPERSABLE TABLET ONE (06:06)
[2019-03-06] MEDS ORDERED: METHADONE HCL 10 MG TABLET ONE (06:06)
[2019-03-06] MEDS: metFORMIN HCL 500 MG TABLET (FP) PO SCH (06:44)
[2019-03-06] MEDS: METHADONE 40 MG, METHADONE 10 MG PO SCH (06:44)
[2019-03-06] MEDS: LEVOTHYROXINE NA 25 MCG TABLET (FP) PO SCH (06:44)
[2019-03-06] MEDS ORDERED: ALBUTEROL SO4 0.083% IH SOL 2.5 MG/3 ML VIAL.NEB. NEB PRN (07:00)
[2019-03-06] MEDS: LIDOCAINE 5% TOPICAL PATCH TP SCH (10:33)
[2019-03-06] MEDS: BACITRACIN 0.9 GM PACKET TP SCH ×2 (10:33→21:48)
[2019-03-06] MEDS: NICOTINE 21 MG/24 HOURS TOPICAL PATCH TD SCH (10:33)
[2019-03-06] MEDS: amLODIPine BESYLATE 5 MG TABLET (FP) PO SCH (10:33)
[2019-03-06] MEDS: PRENATAL VITAMINS W/ FOLIC ACID TABLET (FP) PO SCH (10:34)
[2019-03-06] MEDS: LISINOPRIL 5 MG TABLET (FP) PO SCH (10:34)
[2019-03-06] MEDS: FLUoxetine HCL 20 MG CAPSULE (FP) PO SCH (10:34)
[2019-03-06] MEDS: ACETAMINOPHEN 325 MG TABLET (FP) PO PRN (10:35)
--- NOTE | 2019-03-06 11:50 | PN ---
[facility] Progress Note Note: PATIENT SEEN FOR C/O GETTING UP AT NIGHT TO URINATE 5-6 X/NIGHT AND REQUEST TO CHANGE BGM TO DAILY AND NOT BID. PATIENT HAS HX OF KIDNEY STONES AND DM. DENIES BURNING UPON URINATION, BACK/ABDOMINAL PAIN AND FEVER. Laboratory Tests 03/01/19 03/01/19 03/01/19 01:05 05:47 07:30 WBC 7.8 RBC 4.46 Hgb 13.8 Hct 41.7 MCV 93.6 MCH 30.9 MCHC 33.0 RDW 14.4 Plt Count 276 MPV 7.7 Sodium Potassium Chloride Carbon Dioxide Anion Gap BUN Creatinine Creat Clearance w eGFR POC Glucometer 112 Random Glucose Calcium Total Bilirubin AST ALT Alkaline Phosphatase Total Protein Albumin Urine Color Yellow Urine Appearance Clear Urine pH 5.5 Ur Specific [place] 1.005 L Urine Protein Negative Urine Glucose (UA) Negative Urine Ketones Negative Urine Blood Negative Urine Nitrite Negative Urine Bilirubin Negative Urine Urobilinogen 0.2 Ur Leukocyte Esterase Negative RPR Titer 03/01/19 03/01/19 03/01/19 07:30 07:30 16:27 WBC RBC Hgb Hct MCV MCH MCHC RDW Plt Count MPV Sodium 140 Potassium 4.4 Chloride 106 Carbon Dioxide 28 Anion Gap 7 L BUN 13 Creatinine 0.7 Creat Clearance w eGFR 83.47 POC Glucometer 136 Random Glucose 143 H Calcium 9.6 Total Bilirubin 0.3 AST 11 L ALT 20 Alkaline Phosphatase 84 Total Protein 6.9 Albumin 3.6 Urine Color Urine Appearance Urine pH Ur Specific [place] Urine Protein Urine Glucose (UA) Urine Ketones Urine Blood Urine Nitrite Urine Bilirubin Urine Urobilinogen Ur Leukocyte Esterase RPR Titer Nonreactive 03/02/19 03/02/19 03/03/19 05:49 11:43 05:26 WBC RBC Hgb Hct MCV MCH MCHC RDW Plt Count MPV Sodium Potassium Chloride Carbon Dioxide Anion Gap BUN Creatinine Creat Clearance w eGFR POC Glucometer 118 118 108 Random Glucose Calcium Total Bilirubin AST ALT Alkaline Phosphatase Total Protein Albumin Urine Color Urine Appearance Urine pH Ur Specific [place] Urine Protein Urine Glucose (UA) Urine Ketones Urine Blood Urine Nitrite Urine Bilirubin Urine Urobilinogen Ur Leukocyte Esterase RPR Titer 03/04/19 03/04/19 03/05/19 06:04 17:16 06:45 WBC RBC Hgb Hct MCV MCH MCHC RDW Plt Count MPV Sodium Potassium Chloride Carbon Dioxide Anion Gap BUN Creatinine Creat Clearance w eGFR POC Glucometer 108 122 119 Random Glucose Calcium Total Bilirubin AST ALT Alkaline Phosphatase Total Protein Albumin Urine Color Urine Appearance Urine pH Ur Specific [place] Urine Protein Urine Glucose (UA) Urine Ketones Urine Blood Urine Nitrite Urine Bilirubin Urine Urobilinogen Ur Leukocyte Esterase RPR Titer 03/06/19 06:43 WBC RBC Hgb Hct MCV MCH MCHC RDW Plt Count MPV Sodium Potassium Chloride Carbon Dioxide Anion Gap BUN Creatinine Creat Clearance w eGFR POC Glucometer 112 Random Glucose Calcium Total Bilirubin AST ALT Alkaline Phosphatase Total Protein Albumin Urine Color Urine Appearance Urine pH Ur Specific [place] Urine Protein Urine Glucose (UA) Urine Ketones Urine Blood Urine Nitrite Urine Bilirubin Urine Urobilinogen Ur Leukocyte Esterase RPR Titer Vital Signs Temperature 97.9 F 03/06/19 07:13 Pulse Rate 87 03/06/19 09:55 Respiratory Rate 18 03/06/19 07:13 Blood Pressure 136/83 03/06/19 09:55 O2 Sat by Pulse Oximetry (%) PE: ALERT AND ORIENTED X 3 SKIN WARM AND DRY GI SOFT, BS+, NT, MD NO PELVIC TENDERNESS AMB WITH CANE A/P: NOCTURIA OAB DM-STABLE RANGE OF BVS 108-122 WILL ADD DITROPAN 5MG HS PATIENT TO STOP DRINKING FLUIDS AT 7PM CHANGE BGM TO DAILY AT 6AM MONITOR CLINICALLY
[2019-03-06] MEDS: THIAMINE HCL 100 MG TABLET (FP) PO SCH (21:48)
[2019-03-06] MEDS: LIDOCAINE PATCH REMOVAL MC SCH (21:49)
[2019-03-06] MEDS: ATORVASTATIN CA 20 MG TABLET (FP) PO SCH (21:49)
[2019-03-06] MEDS: traZODone HCL 100 MG TABLET (FP) PO SCH (21:49)
[2019-03-06] MEDS: OXYBUTYNIN CHLORIDE 5 MG TABLET PO SCH (21:50)
[2019-03-06] MEDS ORDERED: PT OWN MED DRAWER 7, Y5N ONE (21:50)
[2019-03-07] MEDS: ACETAMINOPHEN 325 MG TABLET (FP) PO PRN ×3 (03:06→19:51)
[2019-03-07] MEDS ORDERED: METHADONE HCL 40 MG DISPERSABLE TABLET ONE (04:15)
[2019-03-07] MEDS ORDERED: METHADONE HCL 10 MG TABLET ONE (04:15)
[2019-03-07] MEDS: METHADONE 40 MG, METHADONE 10 MG PO SCH (06:04)
[2019-03-07] MEDS: metFORMIN HCL 500 MG TABLET (FP) PO SCH (06:05)
[2019-03-07] MEDS: LEVOTHYROXINE NA 25 MCG TABLET (FP) PO SCH (06:05)
[2019-03-07] MEDS: LISINOPRIL 10 MG TABLET (FP) PO SCH (10:44)
[2019-03-07] MEDS: amLODIPine BESYLATE 5 MG TABLET (FP) PO SCH (10:44)
[2019-03-07] MEDS: PRENATAL VITAMINS W/ FOLIC ACID TABLET (FP) PO SCH (10:45)
[2019-03-07] MEDS: FLUoxetine HCL 20 MG CAPSULE (FP) PO SCH (10:45)
[2019-03-07] MEDS: NICOTINE 21 MG/24 HOURS TOPICAL PATCH TD SCH (10:45)
[2019-03-07] MEDS: LIDOCAINE 5% TOPICAL PATCH TP SCH (10:45)
[2019-03-07] MEDS: BACITRACIN 0.9 GM PACKET TP SCH ×2 (10:45→21:22)
[2019-03-07] MEDS ORDERED: PT OWN MED DRAWER 7, Y5N ONE (20:33)
[2019-03-07] MEDS: traZODone HCL 100 MG TABLET (FP) PO SCH (21:22)
[2019-03-07] MEDS: OXYBUTYNIN CHLORIDE 5 MG TABLET PO SCH (21:22)
[2019-03-07] MEDS: ATORVASTATIN CA 20 MG TABLET (FP) PO SCH (21:22)
[2019-03-07] MEDS: THIAMINE HCL 100 MG TABLET (FP) PO SCH (21:23)
[2019-03-07] MEDS: MELATONIN 5 MG TABLETS PO PRN (21:23)
[2019-03-07] MEDS: LIDOCAINE PATCH REMOVAL MC SCH (21:53)
[2019-03-08] MEDS ORDERED: METHADONE HCL 40 MG DISPERSABLE TABLET ONE (03:19)
[2019-03-08] MEDS ORDERED: METHADONE HCL 10 MG TABLET ONE (03:19)
[2019-03-08] MEDS: METHADONE 40 MG, METHADONE 10 MG PO SCH (06:38)
[2019-03-08] MEDS: LEVOTHYROXINE NA 25 MCG TABLET (FP) PO SCH (06:38)
[2019-03-08] MEDS: metFORMIN HCL 500 MG TABLET (FP) PO SCH (06:39)
[2019-03-08] MEDS: ACETAMINOPHEN 325 MG TABLET (FP) PO PRN ×2 (06:39→18:57)
[2019-03-08] MEDS ORDERED: PT OWN MED DRAWER 7, Y5N ONE (08:53)
[2019-03-08] MEDS: IBUPROFEN 400 MG TABLET (FP) PO PRN (10:38)
[2019-03-08] MEDS: amLODIPine BESYLATE 5 MG TABLET (FP) PO SCH (10:39)
[2019-03-08] MEDS: PRENATAL VITAMINS W/ FOLIC ACID TABLET (FP) PO SCH (10:39)
[2019-03-08] MEDS: LISINOPRIL 10 MG TABLET (FP) PO SCH (10:39)
[2019-03-08] MEDS: FLUoxetine HCL 20 MG CAPSULE (FP) PO SCH (10:40)
[2019-03-08] MEDS: LIDOCAINE 5% TOPICAL PATCH TP SCH (10:53)
[2019-03-08] MEDS: NICOTINE 21 MG/24 HOURS TOPICAL PATCH TD SCH (10:53)
[2019-03-08] MEDS: NYSTATIN POWDER 100,000 UNITS/GM - 15 GM TOPICAL POWDER TP SCH (11:30)
[2019-03-08] MEDS: BACITRACIN 0.9 GM PACKET TP SCH ×2 (11:30→21:45)
[2019-03-08] MEDS: LIDOCAINE PATCH REMOVAL MC SCH (21:45)
[2019-03-08] MEDS: traZODone HCL 100 MG TABLET (FP) PO SCH (21:45)
[2019-03-08] MEDS: THIAMINE HCL 100 MG TABLET (FP) PO SCH (21:45)
[2019-03-08] MEDS: ATORVASTATIN CA 20 MG TABLET (FP) PO SCH (21:45)
[2019-03-09] MEDS ORDERED: PT OWN MED DRAWER 7, Y5N ONE (03:18)
[2019-03-09] MEDS ORDERED: METHADONE HCL 10 MG TABLET ONE (06:14)
[2019-03-09] MEDS ORDERED: METHADONE HCL 40 MG DISPERSABLE TABLET ONE (06:15)
[2019-03-09] MEDS: METHADONE 40 MG, METHADONE 10 MG PO SCH (06:17)
[2019-03-09] MEDS: LEVOTHYROXINE NA 25 MCG TABLET (FP) PO SCH (06:18)
[2019-03-09] MEDS: metFORMIN HCL 500 MG TABLET (FP) PO SCH (06:18)
[2019-03-09] MEDS: OXYBUTYNIN CHLORIDE 5 MG TABLET PO SCH (06:18)
[2019-03-09] MEDS: ACETAMINOPHEN 325 MG TABLET (FP) PO PRN ×2 (06:19→14:43)
[2019-03-09] MEDS ORDERED: OXYBUTYNIN CHLORIDE 5 MG TABLET PO SCH (07:00)
[2019-03-09] MEDS: BACITRACIN 0.9 GM PACKET TP SCH ×2 (10:15→21:16)
[2019-03-09] MEDS: NICOTINE 21 MG/24 HOURS TOPICAL PATCH TD SCH (10:16)
[2019-03-09] MEDS: LIDOCAINE 5% TOPICAL PATCH TP SCH (10:16)
[2019-03-09] MEDS: NYSTATIN POWDER 100,000 UNITS/GM - 15 GM TOPICAL POWDER TP SCH (10:16)
[2019-03-09] MEDS: PRENATAL VITAMINS W/ FOLIC ACID TABLET (FP) PO SCH (10:17)
[2019-03-09] MEDS: LISINOPRIL 10 MG TABLET (FP) PO SCH (10:17)
[2019-03-09] MEDS: amLODIPine BESYLATE 5 MG TABLET (FP) PO SCH (10:17)
[2019-03-09] MEDS: FLUoxetine HCL 20 MG CAPSULE (FP) PO SCH (10:17)
[2019-03-09] MEDS: traZODone HCL 100 MG TABLET (FP) PO SCH (21:16)
[2019-03-09] MEDS: ATORVASTATIN CA 20 MG TABLET (FP) PO SCH (21:16)
[2019-03-09] MEDS: LIDOCAINE PATCH REMOVAL MC SCH (21:17)
[2019-03-09] MEDS: THIAMINE HCL 100 MG TABLET (FP) PO SCH (21:17)
[2019-03-10] MEDS ORDERED: METHADONE HCL 10 MG TABLET ONE (03:12)
[2019-03-10] MEDS ORDERED: METHADONE HCL 40 MG DISPERSABLE TABLET ONE (03:13)
[2019-03-10] MEDS: metFORMIN HCL 500 MG TABLET (FP) PO SCH (06:18)
[2019-03-10] MEDS: METHADONE 40 MG, METHADONE 10 MG PO SCH (06:18)
[2019-03-10] MEDS: OXYBUTYNIN CHLORIDE 5 MG TABLET PO SCH (06:18)
[2019-03-10] MEDS: ACETAMINOPHEN 325 MG TABLET (FP) PO PRN ×2 (06:19→13:56)
[2019-03-10] MEDS: LEVOTHYROXINE NA 25 MCG TABLET (FP) PO SCH (06:19)
[2019-03-10] MEDS: BACITRACIN 0.9 GM PACKET TP SCH ×2 (10:35→21:25)
[2019-03-10] MEDS: LISINOPRIL 10 MG TABLET (FP) PO SCH (10:35)
[2019-03-10] MEDS: NYSTATIN POWDER 100,000 UNITS/GM - 15 GM TOPICAL POWDER TP SCH (10:35)
[2019-03-10] MEDS: PRENATAL VITAMINS W/ FOLIC ACID TABLET (FP) PO SCH (10:35)
[2019-03-10] MEDS: FLUoxetine HCL 20 MG CAPSULE (FP) PO SCH (10:35)
[2019-03-10] MEDS: LIDOCAINE 5% TOPICAL PATCH TP SCH (10:35)
[2019-03-10] MEDS: amLODIPine BESYLATE 5 MG TABLET (FP) PO SCH (10:35)
[2019-03-10] MEDS: NICOTINE 21 MG/24 HOURS TOPICAL PATCH TD SCH (10:35)
[2019-03-10] MEDS ORDERED: PT OWN MED DRAWER 7, Y5N ONE (13:39)
[2019-03-10] MEDS: traZODone HCL 100 MG TABLET (FP) PO SCH (21:25)
[2019-03-10] MEDS: LIDOCAINE PATCH REMOVAL MC SCH (21:25)
[2019-03-10] MEDS: ATORVASTATIN CA 20 MG TABLET (FP) PO SCH (21:25)
[2019-03-10] MEDS: THIAMINE HCL 100 MG TABLET (FP) PO SCH (21:25)
[2019-03-11] MEDS ORDERED: METHADONE HCL 40 MG DISPERSABLE TABLET ONE (03:13)
[2019-03-11] MEDS ORDERED: METHADONE HCL 10 MG TABLET ONE (03:13)
[2019-03-11] MEDS ORDERED: PT OWN MED DRAWER 7, Y5N ONE ×2 (03:14→20:34)
[2019-03-11] MEDS: LEVOTHYROXINE NA 25 MCG TABLET (FP) PO SCH (06:17)
[2019-03-11] MEDS: OXYBUTYNIN CHLORIDE 5 MG TABLET PO SCH (06:17)
[2019-03-11] MEDS: metFORMIN HCL 500 MG TABLET (FP) PO SCH (06:17)
[2019-03-11] MEDS: METHADONE 40 MG, METHADONE 10 MG PO SCH (06:17)
[2019-03-11] MEDS: ACETAMINOPHEN 325 MG TABLET (FP) PO PRN (06:19)
[2019-03-11] MEDS: NICOTINE 21 MG/24 HOURS TOPICAL PATCH TD SCH (10:43)
[2019-03-11] MEDS: LIDOCAINE 5% TOPICAL PATCH TP SCH (10:43)
[2019-03-11] MEDS: FLUoxetine HCL 20 MG CAPSULE (FP) PO SCH (10:43)
[2019-03-11] MEDS: PRENATAL VITAMINS W/ FOLIC ACID TABLET (FP) PO SCH (10:44)
[2019-03-11] MEDS: amLODIPine BESYLATE 5 MG TABLET (FP) PO SCH (10:44)
[2019-03-11] MEDS: BACITRACIN 0.9 GM PACKET TP SCH ×2 (10:44→21:27)
[2019-03-11] MEDS: LISINOPRIL 10 MG TABLET (FP) PO SCH (10:44)
[2019-03-11] MEDS: NYSTATIN POWDER 100,000 UNITS/GM - 15 GM TOPICAL POWDER TP SCH (10:46)
[2019-03-11] MEDS: traZODone HCL 100 MG TABLET (FP) PO SCH (21:28)
[2019-03-11] MEDS: ATORVASTATIN CA 20 MG TABLET (FP) PO SCH (21:28)
[2019-03-11] MEDS: THIAMINE HCL 100 MG TABLET (FP) PO SCH (21:28)
[2019-03-11] MEDS: LIDOCAINE PATCH REMOVAL MC SCH (21:28)
[2019-03-12] MEDS ORDERED: METHADONE HCL 10 MG TABLET ONE (02:50)
[2019-03-12] MEDS ORDERED: METHADONE HCL 40 MG DISPERSABLE TABLET ONE (02:50)
[2019-03-12] MEDS ORDERED: PT OWN MED DRAWER 7, Y5N ONE (02:50)
[2019-03-12] MEDS: METHADONE 40 MG, METHADONE 10 MG PO SCH (06:36)
[2019-03-12] MEDS: metFORMIN HCL 500 MG TABLET (FP) PO SCH (06:37)
[2019-03-12] MEDS: LEVOTHYROXINE NA 25 MCG TABLET (FP) PO SCH (06:37)
[2019-03-12] MEDS: OXYBUTYNIN CHLORIDE 5 MG TABLET PO SCH (06:37)
[2019-03-12] MEDS: ACETAMINOPHEN 325 MG TABLET (FP) PO PRN ×2 (06:38→15:24)
[2019-03-12] MEDS: PRENATAL VITAMINS W/ FOLIC ACID TABLET (FP) PO SCH (10:35)
[2019-03-12] MEDS: amLODIPine BESYLATE 5 MG TABLET (FP) PO SCH (10:35)
[2019-03-12] MEDS: LISINOPRIL 10 MG TABLET (FP) PO SCH (10:35)
[2019-03-12] MEDS: BACITRACIN 0.9 GM PACKET TP SCH ×2 (10:35→21:25)
[2019-03-12] MEDS: NICOTINE 21 MG/24 HOURS TOPICAL PATCH TD SCH (10:35)
[2019-03-12] MEDS: LIDOCAINE 5% TOPICAL PATCH TP SCH (10:35)
[2019-03-12] MEDS: FLUoxetine HCL 20 MG CAPSULE (FP) PO SCH (10:35)
[2019-03-12] MEDS: NYSTATIN POWDER 100,000 UNITS/GM - 15 GM TOPICAL POWDER TP SCH (10:37)
[2019-03-12] MEDS: ATORVASTATIN CA 20 MG TABLET (FP) PO SCH (21:25)
[2019-03-12] MEDS: THIAMINE HCL 100 MG TABLET (FP) PO SCH (21:25)
[2019-03-12] MEDS: LIDOCAINE PATCH REMOVAL MC SCH (21:25)
[2019-03-12] MEDS: traZODone HCL 100 MG TABLET (FP) PO SCH (21:25)
[2019-03-13] MEDS ORDERED: METHADONE HCL 40 MG DISPERSABLE TABLET ONE (03:16)
[2019-03-13] MEDS ORDERED: METHADONE HCL 10 MG TABLET ONE (03:16)
[2019-03-13] MEDS: LEVOTHYROXINE NA 25 MCG TABLET (FP) PO SCH (06:32)
[2019-03-13] MEDS: METHADONE 40 MG, METHADONE 10 MG PO SCH (06:32)
[2019-03-13] MEDS: ACETAMINOPHEN 325 MG TABLET (FP) PO PRN (06:33)
[2019-03-13] MEDS: OXYBUTYNIN CHLORIDE 5 MG TABLET PO SCH (06:33)
[2019-03-13] MEDS: metFORMIN HCL 500 MG TABLET (FP) PO SCH (06:33)
[2019-03-13] MEDS ORDERED: PT OWN MED DRAWER 7, Y5N ONE (08:28)
[2019-03-13] MEDS: LIDOCAINE 5% TOPICAL PATCH TP SCH (09:09)
[2019-03-13] MEDS: BACITRACIN 0.9 GM PACKET TP SCH ×2 (09:09→21:12)
[2019-03-13] MEDS: PRENATAL VITAMINS W/ FOLIC ACID TABLET (FP) PO SCH (09:10)
[2019-03-13] MEDS: LISINOPRIL 10 MG TABLET (FP) PO SCH (09:10)
[2019-03-13] MEDS: NICOTINE 21 MG/24 HOURS TOPICAL PATCH TD SCH (09:10)
[2019-03-13] MEDS: amLODIPine BESYLATE 5 MG TABLET (FP) PO SCH (09:11)
[2019-03-13] MEDS: NYSTATIN POWDER 100,000 UNITS/GM - 15 GM TOPICAL POWDER TP SCH (09:11)
[2019-03-13] MEDS: FLUoxetine HCL 20 MG CAPSULE (FP) PO SCH (09:11)
[2019-03-13] MEDS ORDERED: hydrOXYzine PAMOATE 50 MG CAPSULE (FP) PO PRN (11:16)
[2019-03-13] MEDS ORDERED: amLODIPine BESYLATE 5 MG TABLET (FP) PO SCH (11:22)
[2019-03-13] MEDS: IBUPROFEN 400 MG TABLET (FP) PO PRN (13:53)
[2019-03-13] MEDS: traZODone HCL 100 MG TABLET (FP) PO SCH (21:12)
[2019-03-13] MEDS: ATORVASTATIN CA 20 MG TABLET (FP) PO SCH (21:12)
[2019-03-13] MEDS: THIAMINE HCL 100 MG TABLET (FP) PO SCH (21:12)
[2019-03-13] MEDS: METHYL SALICYLATE/MENTHOL OINT 30 GM TUBE TP SCH (21:12)
[2019-03-13] MEDS: LIDOCAINE PATCH REMOVAL MC SCH (21:12)
[2019-03-14] MEDS ORDERED: METHADONE HCL 10 MG TABLET ONE (04:38)
[2019-03-14] MEDS ORDERED: METHADONE HCL 40 MG DISPERSABLE TABLET ONE (04:38)
[2019-03-14] MEDS ORDERED: PT OWN MED DRAWER 7, Y5N ONE ×3 (04:39→20:34)
[2019-03-14] MEDS: ACETAMINOPHEN 325 MG TABLET (FP) PO PRN (05:08)
[2019-03-14] MEDS: METHADONE 40 MG, METHADONE 10 MG PO SCH (06:20)
[2019-03-14] MEDS: OXYBUTYNIN CHLORIDE 5 MG TABLET PO SCH (06:21)
[2019-03-14] MEDS: metFORMIN HCL 500 MG TABLET (FP) PO SCH (07:19)
[2019-03-14] MEDS: LEVOTHYROXINE NA 25 MCG TABLET (FP) PO SCH (07:20)
[2019-03-14] MEDS: PRENATAL VITAMINS W/ FOLIC ACID TABLET (FP) PO SCH (10:12)
[2019-03-14] MEDS: LISINOPRIL 10 MG TABLET (FP) PO SCH (10:12)
[2019-03-14] MEDS: amLODIPine BESYLATE 10 MG TABLET (FP) PO SCH (10:12)
[2019-03-14] MEDS: NICOTINE 21 MG/24 HOURS TOPICAL PATCH TD SCH (10:12)
[2019-03-14] MEDS: FLUoxetine HCL 20 MG CAPSULE (FP) PO SCH (10:12)
[2019-03-14] MEDS: LIDOCAINE 5% TOPICAL PATCH TP SCH (10:12)
[2019-03-14] MEDS: IBUPROFEN 400 MG TABLET (FP) PO PRN (10:14)
[2019-03-14] MEDS: NYSTATIN POWDER 100,000 UNITS/GM - 15 GM TOPICAL POWDER TP SCH (10:16)
[2019-03-14] MEDS: BACITRACIN 0.9 GM PACKET TP SCH (10:16)
[2019-03-14] MEDS: METHYL SALICYLATE/MENTHOL OINT 30 GM TUBE TP SCH (21:58)
[2019-03-14] MEDS: traZODone HCL 100 MG TABLET (FP) PO SCH (21:59)
[2019-03-14] MEDS: LIDOCAINE PATCH REMOVAL MC SCH (22:00)
[2019-03-14] MEDS: THIAMINE HCL 100 MG TABLET (FP) PO SCH (22:00)
[2019-03-14] MEDS: ATORVASTATIN CA 20 MG TABLET (FP) PO SCH (22:00)
[2019-03-15] MEDS ORDERED: METHADONE HCL 10 MG TABLET ONE (06:02)
[2019-03-15] MEDS ORDERED: METHADONE HCL 40 MG DISPERSABLE TABLET ONE (06:02)
[2019-03-15] MEDS: METHADONE 40 MG, METHADONE 10 MG PO SCH (06:03)
[2019-03-15] MEDS: LEVOTHYROXINE NA 25 MCG TABLET (FP) PO SCH (06:04)
[2019-03-15] MEDS: metFORMIN HCL 500 MG TABLET (FP) PO SCH (06:04)
[2019-03-15] MEDS: OXYBUTYNIN CHLORIDE 5 MG TABLET PO SCH (06:04)
[2019-03-15] MEDS: ACETAMINOPHEN 325 MG TABLET (FP) PO PRN ×2 (06:04→15:31)
[2019-03-15] MEDS ORDERED: PT OWN MED DRAWER 7, Y5N ONE (08:27)
[2019-03-15] MEDS: FLUoxetine HCL 20 MG CAPSULE (FP) PO SCH (10:20)
[2019-03-15] MEDS: amLODIPine BESYLATE 10 MG TABLET (FP) PO SCH (10:20)
[2019-03-15] MEDS: LISINOPRIL 10 MG TABLET (FP) PO SCH (10:20)
[2019-03-15] MEDS: LIDOCAINE 5% TOPICAL PATCH TP SCH (10:21)
[2019-03-15] MEDS: NICOTINE 21 MG/24 HOURS TOPICAL PATCH TD SCH (10:21)
[2019-03-15] MEDS: PRENATAL VITAMINS W/ FOLIC ACID TABLET (FP) PO SCH (10:21)
[2019-03-15] MEDS: NYSTATIN POWDER 100,000 UNITS/GM - 15 GM TOPICAL POWDER TP SCH (10:22)
[2019-03-15] MEDS: METHYL SALICYLATE/MENTHOL OINT 30 GM TUBE TP SCH (21:54)
[2019-03-15] MEDS: THIAMINE HCL 100 MG TABLET (FP) PO SCH (21:54)
[2019-03-15] MEDS: traZODone HCL 100 MG TABLET (FP) PO SCH (21:54)
[2019-03-15] MEDS: LIDOCAINE PATCH REMOVAL MC SCH (21:54)
[2019-03-15] MEDS: ATORVASTATIN CA 20 MG TABLET (FP) PO SCH (21:54)
[2019-03-16] MEDS ORDERED: METHADONE HCL 40 MG DISPERSABLE TABLET ONE (03:20)
[2019-03-16] MEDS ORDERED: METHADONE HCL 10 MG TABLET ONE (03:20)
[2019-03-16] MEDS: METHADONE 40 MG, METHADONE 10 MG PO SCH (06:10)
[2019-03-16] MEDS: ACETAMINOPHEN 325 MG TABLET (FP) PO PRN ×2 (06:11→11:04)
[2019-03-16] MEDS: OXYBUTYNIN CHLORIDE 5 MG TABLET PO SCH (06:11)
[2019-03-16] MEDS: LEVOTHYROXINE NA 25 MCG TABLET (FP) PO SCH (06:11)
[2019-03-16] MEDS: metFORMIN HCL 500 MG TABLET (FP) PO SCH (06:11)
[2019-03-16] MEDS: NICOTINE 21 MG/24 HOURS TOPICAL PATCH TD SCH (09:57)
[2019-03-16] MEDS: LIDOCAINE 5% TOPICAL PATCH TP SCH (09:57)
[2019-03-16] MEDS: PRENATAL VITAMINS W/ FOLIC ACID TABLET (FP) PO SCH (09:58)
[2019-03-16] MEDS: FLUoxetine HCL 20 MG CAPSULE (FP) PO SCH (09:58)
[2019-03-16] MEDS: amLODIPine BESYLATE 10 MG TABLET (FP) PO SCH (09:58)
[2019-03-16] MEDS: LISINOPRIL 10 MG TABLET (FP) PO SCH (09:58)
[2019-03-16] MEDS: NYSTATIN POWDER 100,000 UNITS/GM - 15 GM TOPICAL POWDER TP SCH (09:59)
[2019-03-16] MEDS: IBUPROFEN 400 MG TABLET (FP) PO PRN (18:45)
[2019-03-16] MEDS: THIAMINE HCL 100 MG TABLET (FP) PO SCH (21:29)
[2019-03-16] MEDS: LIDOCAINE PATCH REMOVAL MC SCH (21:30)
[2019-03-16] MEDS: traZODone HCL 100 MG TABLET (FP) PO SCH (21:30)
[2019-03-16] MEDS: ATORVASTATIN CA 20 MG TABLET (FP) PO SCH (21:30)
[2019-03-16] MEDS: METHYL SALICYLATE/MENTHOL OINT 30 GM TUBE TP SCH (22:45)
[2019-03-17] MEDS ORDERED: METHADONE HCL 40 MG DISPERSABLE TABLET ONE (03:26)
[2019-03-17] MEDS ORDERED: METHADONE HCL 10 MG TABLET ONE (03:26)
[2019-03-17] MEDS ORDERED: PT OWN MED DRAWER 7, Y5N ONE (03:27)
[2019-03-17] MEDS: METHADONE 40 MG, METHADONE 10 MG PO SCH (06:15)
[2019-03-17] MEDS: LEVOTHYROXINE NA 25 MCG TABLET (FP) PO SCH (06:16)
[2019-03-17] MEDS: OXYBUTYNIN CHLORIDE 5 MG TABLET PO SCH (06:17)
[2019-03-17] MEDS: metFORMIN HCL 500 MG TABLET (FP) PO SCH (06:17)
[2019-03-17] MEDS: IBUPROFEN 400 MG TABLET (FP) PO PRN ×2 (06:18→13:00)
[2019-03-17] MEDS: NICOTINE 21 MG/24 HOURS TOPICAL PATCH TD SCH (10:02)
[2019-03-17] MEDS: amLODIPine BESYLATE 10 MG TABLET (FP) PO SCH (10:03)
[2019-03-17] MEDS: PRENATAL VITAMINS W/ FOLIC ACID TABLET (FP) PO SCH (10:03)
[2019-03-17] MEDS: LISINOPRIL 10 MG TABLET (FP) PO SCH (10:03)
[2019-03-17] MEDS: FLUoxetine HCL 20 MG CAPSULE (FP) PO SCH (10:03)
[2019-03-17] MEDS: NYSTATIN POWDER 100,000 UNITS/GM - 15 GM TOPICAL POWDER TP SCH (10:05)
[2019-03-17] MEDS: LIDOCAINE 5% TOPICAL PATCH TP SCH (10:08)
[2019-03-17] MEDS: METHYL SALICYLATE/MENTHOL OINT 30 GM TUBE TP SCH (22:07)
[2019-03-17] MEDS: traZODone HCL 100 MG TABLET (FP) PO SCH (22:07)
[2019-03-17] MEDS: LIDOCAINE PATCH REMOVAL MC SCH (22:08)
[2019-03-17] MEDS: ATORVASTATIN CA 20 MG TABLET (FP) PO SCH (22:08)
[2019-03-17] MEDS: THIAMINE HCL 100 MG TABLET (FP) PO SCH (22:08)
[2019-03-18] MEDS ORDERED: METHADONE HCL 10 MG TABLET ONE (05:49)
[2019-03-18] MEDS ORDERED: METHADONE HCL 40 MG DISPERSABLE TABLET ONE (05:50)
[2019-03-18] MEDS: LEVOTHYROXINE NA 25 MCG TABLET (FP) PO SCH (06:12)
[2019-03-18] MEDS: metFORMIN HCL 500 MG TABLET (FP) PO SCH (06:12)
[2019-03-18] MEDS: METHADONE 40 MG, METHADONE 10 MG PO SCH (06:12)
[2019-03-18] MEDS: OXYBUTYNIN CHLORIDE 5 MG TABLET PO SCH (06:12)
[2019-03-18] MEDS ORDERED: PT OWN MED DRAWER 7, Y5N ONE (09:13)
[2019-03-18] MEDS: LIDOCAINE 5% TOPICAL PATCH TP SCH (10:18)
[2019-03-18] MEDS: amLODIPine BESYLATE 10 MG TABLET (FP) PO SCH (10:19)
[2019-03-18] MEDS: IBUPROFEN 400 MG TABLET (FP) PO PRN ×2 (10:19→18:57)
[2019-03-18] MEDS: PRENATAL VITAMINS W/ FOLIC ACID TABLET (FP) PO SCH (10:19)
[2019-03-18] MEDS: NICOTINE 21 MG/24 HOURS TOPICAL PATCH TD SCH (10:19)
[2019-03-18] MEDS: NYSTATIN POWDER 100,000 UNITS/GM - 15 GM TOPICAL POWDER TP SCH (10:20)
[2019-03-18] MEDS: FLUoxetine HCL 20 MG CAPSULE (FP) PO SCH (10:20)
[2019-03-18] MEDS: LISINOPRIL 10 MG TABLET (FP) PO SCH (10:20)
[2019-03-18] MEDS: METHYL SALICYLATE/MENTHOL OINT 30 GM TUBE TP SCH (23:05)
[2019-03-18] MEDS: LIDOCAINE PATCH REMOVAL MC SCH (23:05)
[2019-03-18] MEDS: traZODone HCL 100 MG TABLET (FP) PO SCH (23:05)
[2019-03-18] MEDS: THIAMINE HCL 100 MG TABLET (FP) PO SCH (23:06)
[2019-03-18] MEDS: ATORVASTATIN CA 20 MG TABLET (FP) PO SCH (23:06)
[2019-03-19] MEDS ORDERED: METHADONE HCL 10 MG TABLET ONE (05:43)
[2019-03-19] MEDS ORDERED: METHADONE HCL 40 MG DISPERSABLE TABLET ONE (05:44)
[2019-03-19] MEDS: METHADONE 40 MG, METHADONE 10 MG PO SCH (06:15)
[2019-03-19] MEDS: LEVOTHYROXINE NA 25 MCG TABLET (FP) PO SCH (06:15)
[2019-03-19] MEDS: metFORMIN HCL 500 MG TABLET (FP) PO SCH (06:15)
[2019-03-19] MEDS: OXYBUTYNIN CHLORIDE 5 MG TABLET PO SCH (06:16)
[2019-03-19] MEDS: IBUPROFEN 400 MG TABLET (FP) PO PRN (07:42)
[2019-03-19] MEDS: NICOTINE 21 MG/24 HOURS TOPICAL PATCH TD SCH (09:56)
[2019-03-19] MEDS: PRENATAL VITAMINS W/ FOLIC ACID TABLET (FP) PO SCH (09:57)
[2019-03-19] MEDS: amLODIPine BESYLATE 10 MG TABLET (FP) PO SCH (09:57)
[2019-03-19] MEDS: LIDOCAINE 5% TOPICAL PATCH TP SCH (09:57)
[2019-03-19] MEDS: FLUoxetine HCL 20 MG CAPSULE (FP) PO SCH (09:57)
[2019-03-19] MEDS: LISINOPRIL 10 MG TABLET (FP) PO SCH (09:57)
[2019-03-19] MEDS: NYSTATIN POWDER 100,000 UNITS/GM - 15 GM TOPICAL POWDER TP SCH (09:57)
[2019-03-19] MEDS: traZODone HCL 100 MG TABLET (FP) PO SCH (21:37)
[2019-03-19] MEDS: METHYL SALICYLATE/MENTHOL OINT 30 GM TUBE TP SCH (21:37)
[2019-03-19] MEDS: ATORVASTATIN CA 20 MG TABLET (FP) PO SCH (21:38)
[2019-03-19] MEDS: THIAMINE HCL 100 MG TABLET (FP) PO SCH (21:38)
[2019-03-19] MEDS: LIDOCAINE PATCH REMOVAL MC SCH (21:38)
[2019-03-20] MEDS: IBUPROFEN 400 MG TABLET (FP) PO PRN (01:04)
[2019-03-20] MEDS ORDERED: METHADONE HCL 40 MG DISPERSABLE TABLET ONE (05:50)
[2019-03-20] MEDS ORDERED: METHADONE HCL 10 MG TABLET ONE (05:50)
[2019-03-20] MEDS: METHADONE 40 MG, METHADONE 10 MG PO SCH (06:04)
[2019-03-20] MEDS: LEVOTHYROXINE NA 25 MCG TABLET (FP) PO SCH (06:05)
[2019-03-20] MEDS: metFORMIN HCL 500 MG TABLET (FP) PO SCH (06:05)
[2019-03-20] MEDS: OXYBUTYNIN CHLORIDE 5 MG TABLET PO SCH (06:05)
--- NOTE | 2019-03-20 06:55 | PN ---
S Progress Note Note: Patient is scheduled for discharge today. Scripts for 30 days supply of medications(Prozac 40 mg/day, Trazadone 100 mg/hs) are electronically transmitted to [facility] at [address] [place] [address]
[2019-03-20 07:15] VITALS: TEMP 98.4
[2019-03-20] MEDS: ACETAMINOPHEN 325 MG TABLET (FP) PO PRN (08:41)
[2019-03-20] MEDS: LIDOCAINE 5% TOPICAL PATCH TP SCH (09:05)
[2019-03-20] MEDS: amLODIPine BESYLATE 10 MG TABLET (FP) PO SCH (09:06)
[2019-03-20] MEDS: NICOTINE 21 MG/24 HOURS TOPICAL PATCH TD SCH (09:06)
[2019-03-20] MEDS: FLUoxetine HCL 20 MG CAPSULE (FP) PO SCH (09:07)
[2019-03-20] MEDS: NYSTATIN POWDER 100,000 UNITS/GM - 15 GM TOPICAL POWDER TP SCH (09:07)
[2019-03-20] MEDS: LISINOPRIL 10 MG TABLET (FP) PO SCH (09:07)
[2019-03-20] MEDS: PRENATAL VITAMINS W/ FOLIC ACID TABLET (FP) PO SCH (09:07)
[2019-03-20 09:11] VITALS: BP 124/76; PULSE 70
--- NOTE | 2019-03-20 09:40 | PN ---
S Progress Note Note: PT COMPLETED REHAB TODAY AND DISCHARGED TODAY.PT WAS REFERRED TO [facility] ON , [address], [place], [place] FOR CD AFTERCARE. PT REPORTS SHE HAS A PCP DR. ZHOU AT [facility] , [place], [place] FOR MEDICAL MANAGEMENT. PT ALSO REFERRED BACK TO HER MMTP IN [facility] ON [address]. PT HAS OWN MEDS. COURTESY RX FOR DITROPAN 5 MG PO DAILY #14 ELECTRONICALLY SENT TO PT'S PHARMACY FOR BLOOD OR BLOOD BANK TECHNICIAN .DISCUSSED WITH PT TO FOLLOW UP WITH PCP RE:BLADDER ISSUES. PT IS ALERT O X 3. DENIES S/H/I. Home Medications Medication Instructions Recorded traZODone HCL [Desyrel -] 100 mg PO HS #60 tablet 12/21/16 Diphenhydramine [Benadryl Capsule 50 mg PO HS PRN #30 capsule 12/13/17 -] Tiotropium [place] [Spiriva] 1 inh PO DAILY #1 inh 01/16/18 Methadone [Dolophine -] 50 mg PO DAILY@0600 MDD 80 01/07/19 Albuterol Sulfate Inhaler - 1 inh IH PRN PRN #1 inh 03/02/19 [Ventolin HFA Inhaler -] Amlodipine Besylate [Norvasc -] 5 mg PO DAILY #14 tab 03/02/19 Atorvastatin Ca [Lipitor] 20 mg PO DAILY #30 tablet 03/02/19 Levothyroxine [Synthroid -] 75 mcg PO DAILY #14 tablet 03/02/19 Lisinopril [Prinivil -] 5 mg PO DAILY #14 tablet 03/02/19 metFORMIN HCL [Glucophage -] 500 mg PO DAILY@0700 #30 tablet 03/02/19 Fluoxetine HCl [Prozac] 40 mg PO DAILY #30 capsule 03/20/19 Oxybutynin Chloride [Ditropan -] 5 mg PO DAILY@0700 #14 tablet 03/20/19 traZODone HCL [Desyrel -] 100 mg PO HS #30 tablet 03/20/19 Vital Signs - 24 hr 03/20/19 03/20/19 03/20/19 03:30 07:14 09:10 Temperature 98.4 F Pulse Rate 67 70 Respiratory 18 18 Rate Blood Pressure 121/80 124/76 Laboratory Tests 03/01/19 03/01/19 03/01/19 01:05 05:47 07:30 WBC 7.8 RBC 4.46 Hgb 13.8 Hct 41.7 MCV 93.6 MCH 30.9 MCHC 33.0 RDW 14.4 Plt Count 276 MPV 7.7 Sodium Potassium Chloride Carbon Dioxide Anion Gap BUN Creatinine Creat Clearance w eGFR POC Glucometer 112 Random Glucose Calcium Total Bilirubin AST ALT Alkaline Phosphatase Total Protein Albumin Urine Color Yellow Urine Appearance Clear Urine pH 5.5 Ur Specific [place] 1.005 L Urine Protein Negative Urine Glucose (UA) Negative Urine Ketones Negative Urine Blood Negative Urine Nitrite Negative Urine Bilirubin Negative Urine Urobilinogen 0.2 Ur Leukocyte Esterase Negative RPR Titer 03/01/19 03/01/19 03/01/19 07:30 07:30 16:27 WBC RBC Hgb Hct MCV MCH MCHC RDW Plt Count MPV Sodium 140 Potassium 4.4 Chloride 106 Carbon Dioxide 28 Anion Gap 7 L BUN 13 Creatinine 0.7 Creat Clearance w eGFR 83.47 POC Glucometer 136 Random Glucose 143 H Calcium 9.6 Total Bilirubin 0.3 AST 11 L ALT 20 Alkaline Phosphatase 84 Total Protein 6.9 Albumin 3.6 Urine Color Urine Appearance Urine pH Ur Specific [place] Urine Protein Urine Glucose (UA) Urine Ketones Urine Blood Urine Nitrite Urine Bilirubin Urine Urobilinogen Ur Leukocyte Esterase RPR Titer Nonreactive 03/02/19 03/02/19 03/03/19 05:49 11:43 05:26 WBC RBC Hgb Hct MCV MCH MCHC RDW Plt Count MPV Sodium Potassium Chloride Carbon Dioxide Anion Gap BUN Creatinine Creat Clearance w eGFR POC Glucometer 118 118 108 Random Glucose Calcium Total Bilirubin AST ALT Alkaline Phosphatase Total Protein Albumin Urine Color Urine Appearance Urine pH Ur Specific [place] Urine Protein Urine Glucose (UA) Urine Ketones Urine Blood Urine Nitrite Urine Bilirubin Urine Urobilinogen Ur Leukocyte Esterase RPR Titer 03/04/19 03/04/19 03/05/19 06:04 17:16 06:45 WBC RBC Hgb Hct MCV MCH MCHC RDW Plt Count MPV Sodium Potassium Chloride Carbon Dioxide Anion Gap BUN Creatinine Creat Clearance w eGFR POC Glucometer 108 122 119 Random Glucose Calcium Total Bilirubin AST ALT Alkaline Phosphatase Total Protein Albumin Urine Color Urine Appearance Urine pH Ur Specific [place] Urine Protein Urine Glucose (UA) Urine Ketones Urine Blood Urine Nitrite Urine Bilirubin Urine Urobilinogen Ur Leukocyte Esterase RPR Titer 03/06/19 03/07/19 03/08/19 06:43 06:02 06:36 WBC RBC Hgb Hct MCV MCH MCHC RDW Plt Count MPV Sodium Potassium Chloride Carbon Dioxide Anion Gap BUN Creatinine Creat Clearance w eGFR POC Glucometer 112 100 112 Random Glucose Calcium Total Bilirubin AST ALT Alkaline Phosphatase Total Protein Albumin Urine Color Urine Appearance Urine pH Ur Specific [place] Urine Protein Urine Glucose (UA) Urine Ketones Urine Blood Urine Nitrite Urine Bilirubin Urine Urobilinogen Ur Leukocyte Esterase RPR Titer 03/09/19 03/10/19 03/11/19 06:17 06:14 06:16 WBC RBC Hgb Hct MCV MCH MCHC RDW Plt Count MPV Sodium Potassium Chloride Carbon Dioxide Anion Gap BUN Creatinine Creat Clearance w eGFR POC Glucometer 92 96 110 Random Glucose Calcium Total Bilirubin AST ALT Alkaline Phosphatase Total Protein Albumin Urine Color Urine Appearance Urine pH Ur Specific [place] Urine Protein Urine Glucose (UA) Urine Ketones Urine Blood Urine Nitrite Urine Bilirubin Urine Urobilinogen Ur Leukocyte Esterase RPR Titer 03/12/19 03/13/19 03/14/19 06:35 06:31 06:19 WBC RBC Hgb Hct MCV MCH MCHC RDW Plt Count MPV Sodium Potassium Chloride Carbon Dioxide Anion Gap BUN Creatinine Creat Clearance w eGFR POC Glucometer 118 90 122 Random Glucose Calcium Total Bilirubin AST ALT Alkaline Phosphatase Total Protein Albumin Urine Color Urine Appearance Urine pH Ur Specific [place] Urine Protein Urine Glucose (UA) Urine Ketones Urine Blood Urine Nitrite Urine Bilirubin Urine Urobilinogen Ur Leukocyte Esterase RPR Titer 03/15/19 03/16/19 03/17/19 06:01 06:08 06:13 WBC RBC Hgb Hct MCV MCH MCHC RDW Plt Count MPV Sodium Potassium Chloride Carbon Dioxide Anion Gap BUN Creatinine Creat Clearance w eGFR POC Glucometer 106 108 93 Random Glucose Calcium Total Bilirubin AST ALT Alkaline Phosphatase Total Protein Albumin Urine Color Urine Appearance Urine pH Ur Specific [place] Urine Protein Urine Glucose (UA) Urine Ketones Urine Blood Urine Nitrite Urine Bilirubin Urine Urobilinogen Ur Leukocyte Esterase RPR Titer 03/18/19 03/19/19 03/20/19 06:10 06:14 06:03 WBC RBC Hgb Hct MCV MCH MCHC RDW Plt Count MPV Sodium Potassium Chloride Carbon Dioxide Anion Gap BUN Creatinine Creat Clearance w eGFR POC Glucometer 109 104 110 Random Glucose Calcium Total Bilirubin AST ALT Alkaline Phosphatase Total Protein Albumin Urine Color Urine Appearance Urine pH Ur Specific [place] Urine Protein Urine Glucose (UA) Urine Ketones Urine Blood Urine Nitrite Urine Bilirubin Urine Urobilinogen Ur Leukocyte Esterase RPR Titer NAD MEDICALLY STABLE PLAN:FOLLOW UP WITH CD AFTERCARE RECOMMENDATION. D/W PT TO FOLLOW UP WITH PCP FOR MEDICAL MANAGEMENT WITHIN 1-2 WEEKS AFTER DISCHARGE.
== END 2019-03-20 09:22 | disposition home or self-care (01) | DRG 895 ==
LOC: YASAS 11:57 → Y3N 19:40 → Y3E 03-03 12:16
PROVIDERS: ADMIT Surgery; ATTEND Neuromusculoskeletal Medicine & OMM
PROC: HZ2ZZZZ Detoxification Services for Substance Abuse Treatment (ICD-10-PCS; principal; 2019-02-28)
PROC: HZ42ZZZ Group Counseling for Substance Abuse Treatment, Cognitive-Behavioral (ICD-10-PCS; 2019-03-03)
DX: F13.230 Sedative, hypnotic or anxiolytic dependence with withdrawal, uncomplicated (principal); F11.20 Opioid dependence, uncomplicated; Z68.41 Body mass index [BMI] 40.0-44.9, adult; F17.210 Nicotine dependence, cigarettes, uncomplicated; F32.9 Major depressive disorder, single episode, unspecified; F19.24 Other psychoactive substance dependence with psychoactive substance-induced mood disorder; F43.10 Post-traumatic stress disorder, unspecified; I10 Essential (primary) hypertension; R35.1 Nocturia; E11.9 Type 2 diabetes mellitus without complications; E78.5 Hyperlipidemia, unspecified; E03.9 Hypothyroidism, unspecified; J45.20 Mild intermittent asthma, uncomplicated; J43.0 Unilateral pulmonary emphysema [MacLeod's syndrome]; K21.9 Gastro-esophageal reflux disease without esophagitis; G47.00 Insomnia, unspecified; M19.90 Unspecified osteoarthritis, unspecified site; B18.2 Chronic viral hepatitis C; N32.81 Overactive bladder; E66.01 Morbid (severe) obesity due to excess calories; R26.2 Difficulty in walking, not elsewhere classified; Z99.89 Dependence on other enabling machines and devices; Z87.42 Personal history of other diseases of the female genital tract; Z86.69 Personal history of other diseases of the nervous system and sense organs; Z79.84 Long term (current) use of oral hypoglycemic drugs
CPT/HCPCS: 36415; 80053; 81003; 82962; 85027; 86593

== ENCOUNTER 2019-03-26 18:34 | Inpatient (IN) | payer OTHER ==
[2019-03-26 19:40] VITALS: BMI 40.2
--- NOTE | 2019-03-26 20:30 | HP ---
COWS - Scale Resting Pulse: 1= IN 81-100 Sweatin=Flushed/Facial Moisture Restless Observation: 1= Difficult to Sit Still Pupil Size: 1= Pupils >than Normal Bone or Joint Aches: 2= Severe Diffuse Aches Runny Nose/ Eye Tearin= Nasal Congestion GI Upset > 30mins: 1= Stomach Cramp Tremor Observation: 2= Slight Tremor Visible Yawning Observation: 0= None Anxiety or Irritability: 1=Feels Anxious/Irritable Goose Flesh Skin: 0=Smooth Skin COWS Score: 12 CIWA Score - Admission Criteria OASAS Guidelines: Admission for Medically Managed Detox: Requires at least one of the followin. CIWA greater than 12 2. Seizures within the past 24 hours 3. Delirium tremens within the past 24 hours 4. Hallucinations within the past 24 hours 5. Acute intervention needed for co occurring medical disorder 6. Acute intervention needed for co occurring psychiatric disorder 7. Severe withdrawal that cannot be handled at a lower level of care (continued vomiting, continued diarrhea, abnormal vital signs) requiring intravenous medication and/or fluids 8. Admission ROS [facility] - HPI Chief Complaint: DEPENDENT ON XANAX AND KLONOPIN ON [address]. OF MMTP - LAST DOSE WAS ON 03/24/2019 Allergies/Adverse Reactions: Allergies Allergy/AdvReac Type Severity Reaction Status Date / Time No Known Allergies Allergy Verified 03/26/19 19:19 History of Present Illness: THE PT. IS REQUESTING ADMISSION TO THE DETOX UNIT AND CAME FOR H AND PE - Ebola screening Have you traveled outside of the country in the last 21 days: No (N) Have you had contact with anyone from an Ebola affected area: No Have you been sick,other than usual withdrawal symptoms: No Do you have a fever: No - Review of Systems Constitutional: See HPI, Malaise, Weakness EENT: reports: See HPI Respiratory: reports: See HPI, SOB with Exertion Cardiac: reports: See HPI GI: reports: See HPI, Nausea, Abdominal cramping : reports: No Symptoms Reported, See HPI Musculoskeletal: reports: See HPI, Joint Pain, Muscle Pain, Muscle Weakness Integumentary: reports: See HPI, Sweating Neuro: reports: See HPI, Headache, Pre-Existing Deficit, Tremors, Weakness, Unsteady Gait Endocrine: reports: See HPI Hematology: reports: See HPI Psychiatric: reports: Judgement Intact, Orientated x3, Anxious, Depressed Patient History - Patient Medical History Hx Anemia: No Hx Asthma: Yes Hx Chronic Obstructive Pulmonary Disease (COPD): Yes Hx Cancer: No Hx Cardiac Disorders: No Hx Congestive Heart Failure: No Hx Hypertension: Yes Hx Hypercholesterolemia: Yes (on md) Hx Pacemaker: No HX Cerebrovascular Accident: No Hx Seizures: No Hx Dementia: No Hx Diabetes: Yes Hx Gastrointestinal Disorders: No Hx Liver Disease: No Hx Genitourinary Disorders: No Hx Sexually Transmitted Disorders: No Hx Renal Disease (ESRD): No Hx Thyroid Disease: Yes (HYPOTHYROIDISM) Hx Human Immunodeficiency Virus (HIV): No Hx Hepatitis C: Yes (DX OVER 30 YEARS FAILIED TXMENT IN 2000) Hx Depression: Yes Hx Suicide Attempt: No Hx Bipolar Disorder: Yes Hx Schizophrenia: No - Patient Surgical History Past Surgical History: Yes Hx Neurologic Surgery: No Hx Cataract Extraction: No Hx Cardiac Surgery: No Hx Lung Surgery: No Hx Breast Surgery: No Hx Breast Biopsy: No Hx Abdominal Surgery: No Hx Appendectomy: Yes (13 YEARS OLD) Hx Cholecystectomy: Yes (1994) Hx Genitourinary Surgery: No Hx Section: No Hx Orthopedic Surgery: No Hx Hysterectomy: No Other Surgical History: RIGHT FOOT BUNION 1999 Anesthesia Reaction: No - PPD History Date: 03/02/19 Results: 0mm - Reproductive History Last Menstrual Period: 05/01/01 - Smoking Cessation Smoking history: Current every day smoker Have you smoked in the past 12 months: No Aproximately how many cigarettes per day: 8 Cigars Per Day: 0 Hx Chewing Tobacco Use: No Initiated information on smoking cessation: Yes 'Breaking Loose' booklet given: 03/26/19 - Substance & Tx. History Hx Alcohol Use: No Hx Substance Use: Yes Substance Use Type: Prescribed, Tranquilizers - Substances abused Alprazolam (Xanax) Substance route: Oral Frequency: Daily Amount used: 8mg Age of first use: 51 Date of last use: 03/26/19 Benzodiazepine (Klonopin) Substance route: Oral Frequency: Daily Amount used: 4-6 mg a day Age of first use: 51 Date of last use: 03/26/19 Family Disease History - Family Disease History Family Disease History: Heart Disease: Father (ALCHOLISM/ [place] ), [place]: Mother (LUNG ), Other: Father, Brother (no brother), Sister (DRUG PROBLEMS) Admission Physical Exam S - Vital Signs Vital Signs: Vital Signs - 24 hr 03/26/19 19:36 Temperature 96.2 F L Pulse Rate 88 Respiratory 18 Rate Blood Pressure 136/88 - Physical General Appearance: Yes: No Apparent Distress, Nourished, Appropriately Dressed , Obese, Tremorous, Sweating, Anxious HEENTM: Yes: Hearing grossly Normal, Normocephalic, Normal Voice, GRACY, Pharynx Normal Respiratory: Yes: Chest Non-Tender, Lungs Clear, Normal Breath Sounds, No Respiratory Distress, No Accessory Muscle Use Neck: Yes: No masses,lesions,Nodules, Supple, Trachea in good position Breast: Yes: Breast Exam Deferred, Axillae without masses Cardiology: Yes: Regular Rhythm, S1, S2, Tachycardia Abdominal: Yes: Normal Bowel Sounds, Non Tender, Soft, Protuberent, Distended Back: Yes: Normal Inspection, Decreased Range of Motion Musculoskeletal: Yes: Back pain, Joint Stiffness, Muscle Pain, Muscle weakness Extremities: Yes: Normal Capillary Refill, Tremors, Swelling Neurological: Yes: windshield installer II-XII NML intact, Fully Oriented, Alert, Motor Strength 5/5, Normal Response, Depressed Affect Integumentary: Yes: Normal Color, Warm, Moist Lymphatic: Yes: Within Normal Limits - Addiitonal Findings: WALKING WITH A CANE DUE TO ARTHRITIS - Diagnostic (1) Benzodiazepine dependence Current Visit: Yes Status: Chronic (2) Arthritis Current Visit: No Status: Chronic (3) Asthma Current Visit: No Status: Chronic Qualifiers: Asthma severity: mild Asthma persistence: intermittent Asthma complication type: with status asthmaticus Qualified Code(s): J45.22 - Mild intermittent asthma with status asthmaticus (4) COPD (chronic obstructive pulmonary disease) Current Visit: No Status: Chronic Qualifiers: COPD type: emphysema Emphysema type: unilateral Qualified Code(s): J43.0 - Unilateral pulmonary emphysema [MacLeod's syndrome] (5) Diabetes Current Visit: No Status: Chronic Qualifiers: Diabetes mellitus type: type 2 Diabetes mellitus intermediate school teacher insulin use: without intermediate school teacher use Diabetes mellitus complication status: without complication Qualified Code(s): E11.9 - Type 2 diabetes mellitus without complications (6) GERD (gastroesophageal reflux disease) Current Visit: No Status: Chronic Qualifiers: Esophagitis presence: without esophagitis Qualified Code(s): K21.9 - Gastro -esophageal reflux disease without esophagitis (7) HTN (hypertension) Current Visit: No Status: Chronic Qualifiers: Hypertension type: essential hypertension Qualified Code(s): I10 - Essential (primary) hypertension (8) Hepatitis C Current Visit: No Status: Chronic Qualifiers: Viral hepatitis chronicity: chronic Hepatic coma status: without hepatic coma Qualified Code(s): B18.2 - Chronic viral hepatitis C (9) Hypercholesterolemia Current Visit: No Status: Chronic (10) Hypothyroidism Current Visit: No Status: Chronic Qualifiers: Hypothyroidism type: unspecified Qualified Code(s): E03.9 - Hypothyroidism , unspecified (11) Methadone maintenance therapy patient Current Visit: No Status: Chronic Comment: 80 MG VERIFICATION PENDING (12) Morbid obesity with BMI of 40.0-44.9, adult Current Visit: No Status: Chronic (13) Nicotine dependence Current Visit: No Status: Chronic Qualifiers: Nicotine product type: cigarettes Substance use status: uncomplicated Qualified Code(s): F17.210 - Nicotine dependence, cigarettes, uncomplicated (14) Post traumatic stress disorder (PTSD) Current Visit: No Status: Chronic Cleared for Admission S - Detox or Rehab S Level of Care: Medically Supervised Detox Regimen/Protocol: Valium Breathalyzer - Breathalyzer Breathalyzer: 0 Urine Drug Screen - Test Device Lot number: [id number] Expiration date: 12/08/20 - Control Is test valid?: Yes - Results Drug screen NEGATIVE: No Urine drug screen results: MTD-Methadone, BZO-Benzodiazepines Inpatient Rehab Admission - Rehab Decision to Admit Inpatient rehab admission?: No
[2019-03-26] MEDS ORDERED: diazePAM 5 MG TABLET PO PRN (20:36)
[2019-03-26] MEDS ORDERED: MAGNESIUM CITRATE 300 ML BOTTLE PO PRN (20:36)
[2019-03-26] MEDS ORDERED: ACETAMINOPHEN 325 MG TABLET (FP) PO PRN ×2 (20:36)
[2019-03-26] MEDS ORDERED: MAG HYDROX/AL HYDROX/SIMETH 30 ML UNIT-DOSE CUP PO PRN (20:36)
[2019-03-26] MEDS ORDERED: NICOTINE POLACRILEX 2 MG GUM BUC PRN (20:36)
[2019-03-26] MEDS ORDERED: IBUPROFEN 400 MG TABLET (FP) PO PRN (20:36)
[2019-03-26] MEDS ORDERED: MENTHOL/PHENOL 1 EACH UD MM PRN (20:36)
[2019-03-26] MEDS ORDERED: METHOCARBAMOL 500 MG TABLET PO PRN (20:36)
[2019-03-26] MEDS ORDERED: MAGNESIUM HYDROX 2400MG/30ML ORAL SUSPENSION 30 ML CUP PO PRN (20:36)
[2019-03-26] MEDS ORDERED: MELATONIN 5 MG TABLETS PO PRN (20:36)
[2019-03-26] MEDS ORDERED: BISMUTH SUBSALICYLATE 524 MG/30 ML UD PO PRN (20:36)
[2019-03-26] MEDS ORDERED: hydrOXYzine PAMOATE 25 MG CAPSULE (FP) PO PRN (20:36)
[2019-03-26] MEDS ORDERED: ALBUTEROL SO4 8 GM HFA INHALER IH PRN (20:39)
[2019-03-26] MEDS ORDERED: PATIENT'S OWN MEDICATION (NON-FORMULARY) (Fluoxetine Hcl [Prozac] 40 MG) PO SCH (20:45)
[2019-03-26] MEDS ORDERED: diazePAM 5 MG TABLET PO ONE (21:15)
[2019-03-26] MEDS: ATORVASTATIN CA 20 MG TABLET (FP) PO SCH (21:35)
[2019-03-26] MEDS: traZODone HCL 100 MG TABLET (FP) PO SCH (21:35)
[2019-03-26] MEDS: THIAMINE HCL 100 MG TABLET (FP) PO SCH (21:36)
[2019-03-27] MEDS: amLODIPine BESYLATE 5 MG TABLET (FP) PO SCH ×2 (00:19→10:06)
[2019-03-27] MEDS: diazePAM 5 MG TABLET PO SCH ×4 (00:19→22:48)
[2019-03-27] MEDS: metFORMIN HCL 500 MG TABLET (FP) PO SCH (06:35)
[2019-03-27] MEDS ORDERED: LEVOTHYROXINE NA 75 MCG TABLET (FP) PO SCH (07:00)
[2019-03-27] MEDS: OXYBUTYNIN CHLORIDE 5 MG TABLET PO SCH (07:03)
[2019-03-27] MEDS ORDERED: METHADONE HCL 10 MG TABLET PO ONE (08:48)
[2019-03-27] MEDS ORDERED: LISINOPRIL PO SCH (10:00)
[2019-03-27] MEDS ORDERED: METHADONE 40 MG, METHADONE 10 MG PO ONE (10:00)
[2019-03-27] MEDS ORDERED: TIOTROPIUM BROMIDE 2.5 MCG (SPIRIVA) RESPIMAT INHALER IH SCH (10:00)
[2019-03-27 10:03] LABS: ALBUMIN 3.7 g/dl (3.4-5.0); BILIRUBIN,TOTAL 0.4 mg/dL (0.2-1); CALCIUM 9.3 mg/dL (8.5-10.1); CREATININE 0.8 mg/dL (0.55-1.3); POTASSIUM 4.3 mmol/L (3.5-5.1); TOT PROT 7.2 g/dl (6.4-8.2)
[2019-03-27] MEDS ORDERED: METHADONE HCL 40 MG DISPERSABLE TABLET ONE (10:03)
[2019-03-27] MEDS ORDERED: METHADONE HCL 10 MG TABLET ONE (10:03)
[2019-03-27] MEDS: FLUoxetine HCL 20 MG CAPSULE (FP) PO SCH (10:06)
[2019-03-27] MEDS: LISINOPRIL 5 MG TABLET (FP) PO SCH (10:06)
[2019-03-27] MEDS: PRENATAL VITAMINS W/ FOLIC ACID TABLET (FP) PO SCH (10:06)
[2019-03-27] MEDS: NICOTINE 14 MG/24 HOURS TOPICAL PATCH TD SCH (10:07)
[2019-03-27 10:10] LABS: HEMATOCRIT 41.8 % (32.4-45.2); HEMOGLOBIN 14.1 GM/dL (10.7-15.3); MCH 31.1 pg (25.7-33.7); MCHC 33.7 g/dl (32.0-36.0); MEAN CELL VOLUME 92.1 fl (80-96); MEAN PLT VOLUME 7.8 fl (7.5-11.1); PLATELET COUNT 295 K/MM3 (134-434); RBC 4.54 M/mm3 (3.60-5.2); RDW 14.5 % (11.6-15.6); WHITE BLOOD COUNT 7.2 K/mm3 (4.0-10.0)
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
--- NOTE | 2019-03-27 12:08 | PN ---
S CIWA - CIWA Score Nausea/Vomitin-No Nausea/No Vomiting Muscle Tremors: 3 Anxiety: 3 Agitation: 4-Moderately Restless Paroxysmal Sweats: 3 Orientation: 0-Oriented Tacttile Disturbances: 0-None Auditory Disturbances: 0-None Visual Disturbances: 0-None Headache: 0-None Present CIWA-Ar Total Score: 13 BHS Progress Note (SOAP) Subjective: shakes sweats body aches interrupted sleep knee pain Objective: 03/27/19 12:07 Vital Signs Temperature 97.8 F 03/27/19 09:42 Pulse Rate 90 03/27/19 09:42 Respiratory Rate 18 03/27/19 09:42 Blood Pressure 124/81 03/27/19 09:42 O2 Sat by Pulse Oximetry (%) Laboratory Tests 03/27/19 03/27/19 03/27/19 06:36 07:00 07:00 WBC 7.2 RBC 4.54 Hgb 14.1 Hct 41.8 MCV 92.1 MCH 31.1 MCHC 33.7 RDW 14.5 Plt Count 295 MPV 7.8 Sodium 140 Potassium 4.3 Chloride 106 Carbon Dioxide 26 Anion Gap 8 BUN 16 Creatinine 0.8 Est GFR (CKD-EPI)AfAm 88.42 Est GFR (CKD-EPI)NonAf 76.29 POC Glucometer 136 Random Glucose 184 H Calcium 9.3 Total Bilirubin 0.4 AST 25 ALT 25 Alkaline Phosphatase 90 Total Protein 7.2 Albumin 3.7 labs noted aaox3 ambulating no acute distress Assessment: 03/27/19 12:08 withdrawal sx Plan: continue detox increase fluids analgesic balm ordered
[2019-03-27] MEDS: LEVOTHYROXINE NA 25 MCG TABLET (FP) PO SCH (14:23)
[2019-03-27] MEDS: METHYL SALICYLATE/MENTHOL OINT 30 GM TUBE TP SCH ×2 (14:23→22:47)
[2019-03-27] MEDS: TIOTROPIUM BROMIDE 2.5 MCG (SPIRIVA) RESPIMAT INHALER IH SCH (16:01)
[2019-03-27] MEDS: traZODone HCL 100 MG TABLET (FP) PO SCH (22:47)
[2019-03-27] MEDS: ATORVASTATIN CA 20 MG TABLET (FP) PO SCH (22:47)
[2019-03-27] MEDS: THIAMINE HCL 100 MG TABLET (FP) PO SCH (22:48)
[2019-03-28] MEDS ORDERED: METHADONE HCL 40 MG DISPERSABLE TABLET ONE (04:57)
[2019-03-28] MEDS ORDERED: METHADONE HCL 10 MG TABLET ONE (04:57)
[2019-03-28] MEDS ORDERED: METHADONE 40 MG, METHADONE 10 MG PO SCH (06:00)
[2019-03-28] MEDS ORDERED: METHADONE HCL 40 MG DISPERSABLE TABLET PO SCH (06:00)
[2019-03-28] MEDS: LEVOTHYROXINE NA 25 MCG TABLET (FP) PO SCH (06:20)
[2019-03-28] MEDS: OXYBUTYNIN CHLORIDE 5 MG TABLET PO SCH (06:20)
[2019-03-28] MEDS: metFORMIN HCL 500 MG TABLET (FP) PO SCH (06:21)
[2019-03-28 09:35] VITALS: BP 138/81; PULSE 95; TEMP 99
[2019-03-28] MEDS ORDERED: diazePAM 5 MG TABLET PO SCH (10:00)
[2019-03-28] MEDS: METHYL SALICYLATE/MENTHOL OINT 30 GM TUBE TP SCH (10:04)
[2019-03-28] MEDS: FLUoxetine HCL 20 MG CAPSULE (FP) PO SCH (10:05)
[2019-03-28] MEDS: LISINOPRIL 5 MG TABLET (FP) PO SCH (10:05)
[2019-03-28] MEDS: NICOTINE 14 MG/24 HOURS TOPICAL PATCH TD SCH (10:05)
[2019-03-28] MEDS: TIOTROPIUM BROMIDE 2.5 MCG (SPIRIVA) RESPIMAT INHALER IH SCH (10:06)
[2019-03-28] MEDS: PRENATAL VITAMINS W/ FOLIC ACID TABLET (FP) PO SCH (10:07)
--- NOTE | 2019-03-28 10:26 | PN ---
[facility] Progress Note Note: pt states she is signing out; she [facility] and want to go now to get ready for that appointment in the morning. pt is aware she has not completed detox and will sign out AMA. pt in agreement.
--- NOTE | 2019-03-28 10:33 | DS ---
[facility] Detox Discharge Summary Admission Date: 03/26/19 - History Present History: Sedative Dependence, MMTP - Physical Exam Results Vital Signs: Vital Signs Temperature 99.0 F 03/28/19 09:34 Pulse Rate 95 H 03/28/19 09:34 Respiratory Rate 18 03/28/19 09:34 Blood Pressure 138/81 03/28/19 09:34 O2 Sat by Pulse Oximetry (%) - Treatment Hospital Course: Discharged Condition Good - Medication Discharge Medications: Ambulatory Orders Tiotropium [place] [Spiriva] 1 inh PO DAILY #1 inh 01/16/18 Methadone [Dolophine -] 50 mg PO DAILY@0600 MDD 80 01/07/19 Albuterol Sulfate Inhaler - [Ventolin HFA Inhaler -] 1 inh IH PRN PRN #1 inh Amlodipine Besylate [Norvasc -] 5 mg PO DAILY #14 tab 03/02/19 Atorvastatin Ca [Lipitor] 20 mg PO DAILY #30 tablet 03/02/19 Levothyroxine [Synthroid -] 75 mcg PO DAILY #14 tablet 03/02/19 Lisinopril [Prinivil -] 5 mg PO DAILY #14 tablet 03/02/19 metFORMIN HCL [Glucophage -] 500 mg PO DAILY@0700 #30 tablet 03/02/19 Fluoxetine HCl [Prozac] 40 mg PO DAILY #30 capsule 03/20/19 Oxybutynin Chloride [Ditropan -] 5 mg PO DAILY@0700 #14 tablet 03/20/19 traZODone HCL [Desyrel -] 100 mg PO HS #30 tablet 03/20/19 - Diagnosis (1) Sedative, hypnotic or anxiolytic dependence with withdrawal, uncomplicated Status: Chronic (2) Depressive disorder Status: Chronic (3) Insomnia Status: Chronic Qualifiers: Insomnia type: primary Qualified Code(s): F51.01 - Primary insomnia (4) Substance induced mood disorder Status: Chronic (5) Acute prerenal azotemia Status: Acute (6) Overactive bladder Status: Chronic (7) Wheezing Status: Acute (8) Arthritis Status: Chronic (9) Asthma Status: Chronic Qualifiers: Asthma severity: mild Asthma persistence: intermittent Asthma complication type: with status asthmaticus Qualified Code(s): J45.22 - Mild intermittent asthma with status asthmaticus (10) COPD (chronic obstructive pulmonary disease) Status: Chronic Qualifiers: COPD type: emphysema Emphysema type: unilateral Qualified Code(s): J43.0 - Unilateral pulmonary emphysema [MacLeod's syndrome] (11) Diabetes Status: Chronic Qualifiers: Diabetes mellitus type: type 2 Diabetes mellitus jail insulin use: without bunch maker use Diabetes mellitus complication status: without complication Qualified Code(s): E11.9 - Type 2 diabetes mellitus without complications (12) GERD (gastroesophageal reflux disease) Status: Chronic Qualifiers: Esophagitis presence: without esophagitis Qualified Code(s): K21.9 - Gastro -esophageal reflux disease without esophagitis (13) HTN (hypertension) Status: Chronic Qualifiers: Hypertension type: essential hypertension Qualified Code(s): I10 - Essential (primary) hypertension (14) Hepatitis C Status: Chronic Qualifiers: Viral hepatitis chronicity: chronic Hepatic coma status: without hepatic coma Qualified Code(s): B18.2 - Chronic viral hepatitis C (15) Hypercholesterolemia Status: Chronic (16) Hypothyroidism Status: Chronic Qualifiers: Hypothyroidism type: unspecified Qualified Code(s): E03.9 - Hypothyroidism , unspecified (17) MDD (major depressive disorder), recurrent episode Status: Chronic (18) Mass of left side of neck Status: Chronic (19) Methadone maintenance therapy patient Status: Chronic (20) Morbid obesity with BMI of 40.0-44.9, adult Status: Chronic (21) Nicotine dependence Status: Chronic Qualifiers: Nicotine product type: cigarettes Substance use status: uncomplicated Qualified Code(s): F17.210 - Nicotine dependence, cigarettes, uncomplicated (22) Osteoarthritis of right knee Status: Chronic Qualifiers: Osteoarthritis type: unspecified Qualified Code(s): M17.11 - Unilateral primary osteoarthritis, right knee (23) Post traumatic stress disorder (PTSD) Status: Chronic (24) Sedative hypnotic or anxiolytic dependence Status: Chronic (25) Use of cane as ambulatory aid Status: Chronic (26) Depression (emotion) Status: Suspected Qualifiers: Depression Type: dysthymia Qualified Code(s): F34.1 - Dysthymic disorder (27) Seizure disorder Status: Suspected - AMA Did Patient Leave Against Medical Advice: Yes (going to [facility])
[2019-03-29] MEDS ORDERED: diazePAM 5 MG TABLET PO SCH (06:00)
== END 2019-03-28 11:05 | disposition left against medical advice (07) | DRG 894 ==
LOC: YASAS 18:34 → Y6N 20:53
PROVIDERS: ADMIT Surgery; ATTEND Surgery
PROC: HZ2ZZZZ Detoxification Services for Substance Abuse Treatment (ICD-10-PCS; principal; 2019-03-26)
DX: F13.230 Sedative, hypnotic or anxiolytic dependence with withdrawal, uncomplicated (principal); F11.20 Opioid dependence, uncomplicated; J45.22 Mild intermittent asthma with status asthmaticus; Z68.41 Body mass index [BMI] 40.0-44.9, adult; F17.210 Nicotine dependence, cigarettes, uncomplicated; F32.9 Major depressive disorder, single episode, unspecified; F19.24 Other psychoactive substance dependence with psychoactive substance-induced mood disorder; R00.0 Tachycardia, unspecified; E11.9 Type 2 diabetes mellitus without complications; G47.00 Insomnia, unspecified; I10 Essential (primary) hypertension; R79.89 Other specified abnormal findings of blood chemistry; N32.81 Overactive bladder; R06.2 Wheezing; J43.9 Emphysema, unspecified; B18.2 Chronic viral hepatitis C; E78.00 Pure hypercholesterolemia, unspecified; E30.9 Disorder of puberty, unspecified; E66.01 Morbid (severe) obesity due to excess calories
CPT/HCPCS: 36415; 80053; 82962; 85027; 86593

== ENCOUNTER 2019-04-04 19:26 | Inpatient (IN) | payer OTHER | END 2019-05-04 09:14 | disposition home or self-care (01) | LOC: YASAS 19:26 → Y3N 04-05 08:17 → Y3E 04-07 13:16 → Y3N 04-05 08:35 ==

== ENCOUNTER 2019-06-23 14:35 | Inpatient (IN) | payer OTHER ==
[2019-06-23 15:52] VITALS: BMI 40.9
--- NOTE | 2019-06-23 17:19 | HP ---
CIWA Score Nausea/Vomitin-No Nausea/No Vomiting Muscle Tremors: None Anxiety: 0-No Anxiety, at Ease Agitation: 0-Normal Activity Paroxysmal Sweats: No Perspiration Orientation: 0-Oriented Tacttile Disturbances: 0-None Auditory Disturbances: 0-None Visual Disturbances: 0-None Headache: 0-None Present CIWA-Ar Total Score: 0 - Admission Criteria OASAS Guidelines: Admission for Medically Managed Detox: Requires at least one of the followin. CIWA greater than 12 2. Seizures within the past 24 hours 3. Delirium tremens within the past 24 hours 4. Hallucinations within the past 24 hours 5. Acute intervention needed for co occurring medical disorder 6. Acute intervention needed for co occurring psychiatric disorder 7. Severe withdrawal that cannot be handled at a lower level of care (continued vomiting, continued diarrhea, abnormal vital signs) requiring intravenous medication and/or fluids 8. Admission [facility] Chief Complaint: benzo rehab Allergies/Adverse Reactions: Allergies Allergy/AdvReac Type Severity Reaction Status Date / Time No Known Allergies Allergy Verified 06/23/19 15:33 History of Present Illness: Patient is a 68 yo F with a PMHx of Hep C (treated), DM, HTN, COPD, depression, anxiety, PTSD, hypothyroidism, presenting for benzo rehab. Patient was here for rehab on 04/05-05/04/2019 Takes 6-8mg of clonipin daily on and off since 2000. She buys the Clonipin on the streets. Last use on Wednesday. Quit heroin 20 years ago. On Methadone 50mg @ [facility]. Denies alcohol. 8-10 cigarettes a day. Had 1 seizure over 10 years ago. History of overdose benzodiazapine and placed in a psyche unit around 5 years ago. Patient is homeless. - Ebola screening Have you traveled outside of the country in the last 21 days: No (N) Have you had contact with anyone from an Ebola affected area: No Do you have a fever: No - Review of Systems Constitutional: No Symptoms Reported EENT: reports: No Symptoms Reported Respiratory: reports: No Symptoms reported. denies: Cough, Shortness of Breath Cardiac: reports: No Symptoms Reported. denies: Chest Pain, Edema, Palpitations Patient History - Patient Medical History Hx Anemia: No Hx Asthma: Yes Hx Chronic Obstructive Pulmonary Disease (COPD): Yes Hx Cancer: No Hx Cardiac Disorders: No Hx Congestive Heart Failure: No Hx Hypertension: Yes Hx Hypercholesterolemia: Yes (on med) Hx Pacemaker: No HX Cerebrovascular Accident: No Hx Seizures: Yes (Last 10years ago) Hx Dementia: No Hx Diabetes: Yes Hx Gastrointestinal Disorders: No Hx Liver Disease: No Hx Genitourinary Disorders: No Hx Sexually Transmitted Disorders: No Hx Renal Disease (ESRD): No Hx Thyroid Disease: Yes (HYPOTHYROIDISM) Hx Human Immunodeficiency Virus (HIV): No Hx Hepatitis C: Yes (DX OVER 30 YEARS FAILIED TXMENT IN 2000) Hx Depression: Yes Hx Suicide Attempt: No Hx Bipolar Disorder: Yes Hx Schizophrenia: No - Patient Surgical History Past Surgical History: Yes Hx Neurologic Surgery: No Hx Cataract Extraction: No Hx Cardiac Surgery: No Hx Lung Surgery: No Hx Breast Surgery: No Hx Breast Biopsy: No Hx Abdominal Surgery: No Hx Appendectomy: Yes (13 YEARS OLD) Hx Cholecystectomy: Yes (1994) Hx Genitourinary Surgery: No Hx Section: No Hx Orthopedic Surgery: No Hx Hysterectomy: No Other Surgical History: RIGHT FOOT BUNION 1999 Anesthesia Reaction: No - PPD History Date: 03/02/19 Results: 0mm - Reproductive History Last Menstrual Period: 05/01/01 - Smoking Cessation Smoking history: Current every day smoker Have you smoked in the past 12 months: Yes Aproximately how many cigarettes per day: 8 Cigars Per Day: 0 Hx Chewing Tobacco Use: No Initiated information on smoking cessation: Yes 'Breaking Loose' booklet given: 06/23/19 - Substances abused Alprazolam (Xanax) Substance route: Oral Frequency: Daily Amount used: 4 mg Age of first use: 51 Date of last use: 06/16/19 Benzodiazepine (Klonopin) Substance route: Oral Frequency: Daily Amount used: 8 mg per day Age of first use: 51 Date of last use: 06/16/19 Family Disease History - Family Disease History Family Disease History: Heart Disease: Father (ALCHOLISM/ [place] ), [place]: Mother (LUNG ), Other: Father, Brother (no brother), Sister (DRUG PROBLEMS) Admission Physical Exam BHS - Vital Signs Vital Signs: Vital Signs - 24 hr 06/23/19 15:38 Temperature 98.9 F Pulse Rate 74 Respiratory 14 Rate Blood Pressure 115/74 - Physical General Appearance: Yes: Within Normal Limits HEENTM: Yes: EOMI, GRACY Respiratory: Yes: No Respiratory Distress, No Accessory Muscle Use Neck: Yes: Supple Abdominal: Yes: Non Tender Extremities: Yes: Other (1+ B/L LE edema) Neurological: Yes: Normal Response - Diagnostic (1) Benzodiazepine abuse Current Visit: Yes Status: Acute (2) DM2 (diabetes mellitus, type 2) Current Visit: No Status: Acute Qualifiers: Diabetes mellitus ferry terminal supervisor insulin use: without care home use Diabetes mellitus complication status: with unspecified complications (3) COPD (chronic obstructive pulmonary disease) Current Visit: No Status: Chronic Qualifiers: COPD type: emphysema Emphysema type: unilateral Qualified Code(s): J43.0 - Unilateral pulmonary emphysema [MacLeod's syndrome] (4) Depressive disorder Current Visit: No Status: Chronic (5) Diabetes Current Visit: No Status: Chronic Qualifiers: Diabetes mellitus type: type 2 Diabetes mellitus care home insulin use: without ferry terminal supervisor use Diabetes mellitus complication status: without complication Qualified Code(s): E11.9 - Type 2 diabetes mellitus without complications (6) GERD (gastroesophageal reflux disease) Current Visit: No Status: Chronic Qualifiers: Esophagitis presence: without esophagitis Qualified Code(s): K21.9 - Gastro -esophageal reflux disease without esophagitis (7) HTN (hypertension) Current Visit: No Status: Chronic Qualifiers: Hypertension type: essential hypertension Qualified Code(s): I10 - Essential (primary) hypertension (8) Hypothyroidism Current Visit: No Status: Chronic Qualifiers: Hypothyroidism type: unspecified Qualified Code(s): E03.9 - Hypothyroidism , unspecified (9) Methadone maintenance therapy patient Current Visit: No Status: Chronic Comment: 80 MG VERIFICATION PENDING (10) Nicotine dependence Current Visit: No Status: Chronic Qualifiers: Nicotine product type: cigarettes Substance use status: uncomplicated Qualified Code(s): F17.210 - Nicotine dependence, cigarettes, uncomplicated (11) Post traumatic stress disorder (PTSD) Current Visit: No Status: Chronic Cleared for Admission BHS - Detox or Rehab BHS Level of Care: Medically Managed Breathalyzer - Breathalyzer Breathalyzer: 0 Urine Drug Screen - Test Device Lot number: [id number] Expiration date: 04/07/21 - Control Is test valid?: Yes - Results Drug screen NEGATIVE: No Urine drug screen results: MTD-Methadone, BZO-Benzodiazepines Inpatient Rehab Admission - Rehab Decision to Admit Inpatient rehab admission?: Yes - Initial Determination Are CD services needed?: Yes Free of communicable disease: Yes Not in need of hospitalization: Yes - Rehab Admission Criteria Previous failed treatment: Yes Poor recovery environment: Yes Comorbidities: Yes Lacks judgement: No Patient is meeting Inpatient Rehab admission criteria:: Yes
[2019-06-23] MEDS ORDERED: MAGNESIUM CITRATE 300 ML BOTTLE PO PRN (17:39)
[2019-06-23] MEDS ORDERED: MENTHOL/PHENOL 1 EACH UD MM PRN (17:39)
[2019-06-23] MEDS ORDERED: guaiFENesin 200 MG/10 ML 10 ML UNIT-DOSE CUPS PO PRN (17:39)
[2019-06-23] MEDS ORDERED: MAGNESIUM HYDROX 2400MG/30ML ORAL SUSPENSION 30 ML CUP PO PRN (17:39)
[2019-06-23] MEDS ORDERED: LOPERAMIDE HCL 2 MG CAPSULE PO PRN (17:39)
[2019-06-23] MEDS ORDERED: P-EPHED 60MG/TRIPROLIDI 2.5MG TABLET PO PRN (17:39)
[2019-06-23] MEDS ORDERED: ALBUTEROL SO4 8 GM HFA INHALER IH PRN (17:56)
--- NOTE | 2019-06-23 18:45 | PN ---
Teaching Attending Note Name of Resident: Gio Hood ATTENDING PHYSICIAN STATEMENT I saw and evaluated the patient. I reviewed the resident's note and discussed the case with the resident. I agree with the resident's findings and plan as documented. SUBJECTIVE: 68 yo old here for rehab from Benzo use. Completed detox elsewhere. In an methadone MAT. Pt has no complaints- doing well OBJECTIVE: Vital Signs - 24 hr 06/23/19 15:38 Temperature 98.9 F Pulse Rate 74 Respiratory 14 Rate Blood Pressure 115/74 alert and oriented ASSESSMENT AND PLAN: Benzo use disorder- admit for rehab cotinue methadone MAT
[2019-06-23] MEDS ORDERED: MELATONIN 5 MG TABLETS PO PRN (22:00)
[2019-06-23] MEDS: ATORVASTATIN CA 40 MG TABLET (FP) PO SCH (22:11)
[2019-06-23] MEDS: NICOTINE 14 MG/24 HOURS TOPICAL PATCH TD SCH (22:11)
[2019-06-23] MEDS: traZODone HCL 100 MG TABLET (FP) PO SCH (22:11)
[2019-06-23] MEDS: THIAMINE HCL 100 MG TABLET (FP) PO SCH (22:11)
[2019-06-24] MEDS ORDERED: METHADONE HCL 40 MG DISPERSABLE TABLET PO SCH (06:00)
[2019-06-24] MEDS: OXYBUTYNIN CHLORIDE 5 MG TABLET PO SCH (06:30)
[2019-06-24] MEDS: LEVOTHYROXINE NA 25 MCG TABLET (FP) PO SCH (06:30)
[2019-06-24] MEDS: metFORMIN HCL 500 MG TABLET (FP) PO SCH (07:07)
[2019-06-24] MEDS ORDERED: METHADONE HCL 10 MG TABLET PO ONE (08:15)
[2019-06-24] MEDS ORDERED: METHADONE HCL 40 MG DISPERSABLE TABLET ONE (08:52)
[2019-06-24] MEDS ORDERED: METHADONE HCL 10 MG TABLET ONE (08:52)
[2019-06-24] MEDS: METHADONE 40 MG, METHADONE 10 MG PO SCH (08:53)
[2019-06-24] MEDS: NICOTINE 14 MG/24 HOURS TOPICAL PATCH TD SCH (09:55)
[2019-06-24] MEDS: PRENATAL VITAMINS W/ FOLIC ACID TABLET (FP) PO SCH (09:56)
[2019-06-24] MEDS: amLODIPine BESYLATE 5 MG TABLET (FP) PO SCH (09:56)
[2019-06-24] MEDS: FLUoxetine HCL 20 MG CAPSULE (FP) PO SCH (09:56)
[2019-06-24] MEDS: LISINOPRIL 5 MG TABLET (FP) PO SCH (09:56)
[2019-06-24] MEDS: TIOTROPIUM BROMIDE 2.5 MCG (SPIRIVA) RESPIMAT INHALER IH SCH (09:57)
[2019-06-24] MEDS: IBUPROFEN 400 MG TABLET (FP) PO PRN (09:58)
[2019-06-24 10:42] LABS: HEMATOCRIT 42.2 % (32.4-45.2); HEMOGLOBIN 14.1 GM/dL (10.7-15.3); MCH 30.6 pg (25.7-33.7); MCHC 33.3 g/dl (32.0-36.0); MEAN CELL VOLUME 91.9 fl (80-96); MEAN PLT VOLUME 7.8 fl (7.5-11.1); PLATELET COUNT 295 K/MM3 (134-434); RBC 4.59 M/mm3 (3.60-5.2); RDW 13.1 % (11.6-15.6); WHITE BLOOD COUNT 7.6 K/mm3 (4.0-10.0)
[2019-06-24 11:14] LABS: ALBUMIN 3.7 g/dl (3.4-5.0); BILIRUBIN,TOTAL 0.4 mg/dL (0.2-1); BLOOD UREA NITROGEN 15.4 mg/dL (7-18); CALCIUM 9.6 mg/dL (8.5-10.1); CREATININE 0.7 mg/dL (0.55-1.3); POTASSIUM 4.7 mmol/L (3.5-5.1); TOT PROT 7.3 g/dl (6.4-8.2)
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
[2019-06-24] MEDS: traZODone HCL 100 MG TABLET (FP) PO SCH (21:27)
[2019-06-24] MEDS: ATORVASTATIN CA 40 MG TABLET (FP) PO SCH (21:27)
[2019-06-24] MEDS: THIAMINE HCL 100 MG TABLET (FP) PO SCH (21:27)
[2019-06-24 21:32] LABS: HYALINE CASTS 2 /lpf (0-8); URINE APPEARANCE CLEAR; URINE BACTERIA 59.8 /hpf (NEGATIVE); URINE BILIRUBIN NEGATIVE (NEGATIVE); URINE COLOR DK YELLOW; URINE GLUCOSE (UA) NEGATIVE (NEGATIVE); URINE KETONE TRACE (NEGATIVE); URINE LEUK ESTERASE 1+ (NEGATIVE); URINE NITRITE NEGATIVE (NEGATIVE); URINE PROTEIN NEGATIVE (NEGATIVE); URINE WBC 5 /hpf (0-5)
[2019-06-24 22:17] LABS: URINE RBC 3.4 /hpf (0-4)
[2019-06-25] MEDS ORDERED: METHADONE HCL 40 MG DISPERSABLE TABLET PO SCH (06:00)
[2019-06-25] MEDS ORDERED: METHADONE HCL 40 MG DISPERSABLE TABLET ONE (06:22)
[2019-06-25] MEDS ORDERED: METHADONE HCL 10 MG TABLET ONE (06:22)
[2019-06-25] MEDS: LEVOTHYROXINE NA 25 MCG TABLET (FP) PO SCH (06:28)
[2019-06-25] MEDS: METHADONE 40 MG, METHADONE 10 MG PO SCH (06:28)
[2019-06-25] MEDS: OXYBUTYNIN CHLORIDE 5 MG TABLET PO SCH (06:29)
[2019-06-25] MEDS: metFORMIN HCL 500 MG TABLET (FP) PO SCH (06:29)
[2019-06-25] MEDS ORDERED: PT OWN MED DRAWER 7, Y5N ONE (08:42)
[2019-06-25] MEDS: NICOTINE 14 MG/24 HOURS TOPICAL PATCH TD SCH (10:13)
[2019-06-25] MEDS: amLODIPine BESYLATE 5 MG TABLET (FP) PO SCH (10:13)
[2019-06-25] MEDS: PRENATAL VITAMINS W/ FOLIC ACID TABLET (FP) PO SCH (10:14)
[2019-06-25] MEDS: IBUPROFEN 400 MG TABLET (FP) PO PRN (10:15)
[2019-06-25] MEDS: FLUoxetine HCL 20 MG CAPSULE (FP) PO SCH (10:15)
[2019-06-25] MEDS: LISINOPRIL 5 MG TABLET (FP) PO SCH (10:15)
[2019-06-25] MEDS: TIOTROPIUM BROMIDE 2.5 MCG (SPIRIVA) RESPIMAT INHALER IH SCH (10:16)
[2019-06-25] MEDS: ATORVASTATIN CA 40 MG TABLET (FP) PO SCH (21:41)
[2019-06-25] MEDS: traZODone HCL 100 MG TABLET (FP) PO SCH (21:41)
[2019-06-25] MEDS: THIAMINE HCL 100 MG TABLET (FP) PO SCH (21:42)
[2019-06-26] MEDS ORDERED: METHADONE HCL 10 MG TABLET ONE (06:09)
[2019-06-26] MEDS ORDERED: METHADONE HCL 40 MG DISPERSABLE TABLET ONE (06:09)
[2019-06-26] MEDS: METHADONE 40 MG, METHADONE 10 MG PO SCH (06:25)
[2019-06-26] MEDS: LEVOTHYROXINE NA 25 MCG TABLET (FP) PO SCH (06:26)
[2019-06-26] MEDS: metFORMIN HCL 500 MG TABLET (FP) PO SCH (06:27)
[2019-06-26] MEDS: IBUPROFEN 400 MG TABLET (FP) PO PRN (06:27)
[2019-06-26] MEDS: OXYBUTYNIN CHLORIDE 5 MG TABLET PO SCH (06:27)
[2019-06-26] MEDS: NICOTINE 14 MG/24 HOURS TOPICAL PATCH TD SCH (09:47)
[2019-06-26] MEDS: LISINOPRIL 5 MG TABLET (FP) PO SCH (09:48)
[2019-06-26] MEDS: FLUoxetine HCL 20 MG CAPSULE (FP) PO SCH (09:48)
[2019-06-26] MEDS: amLODIPine BESYLATE 5 MG TABLET (FP) PO SCH (09:48)
[2019-06-26] MEDS: PRENATAL VITAMINS W/ FOLIC ACID TABLET (FP) PO SCH (09:49)
[2019-06-26] MEDS: TIOTROPIUM BROMIDE 2.5 MCG (SPIRIVA) RESPIMAT INHALER IH SCH (09:49)
[2019-06-26] MEDS: ATORVASTATIN CA 40 MG TABLET (FP) PO SCH (21:41)
[2019-06-26] MEDS: THIAMINE HCL 100 MG TABLET (FP) PO SCH (21:41)
[2019-06-26] MEDS: traZODone HCL 100 MG TABLET (FP) PO SCH (21:41)
[2019-06-27] MEDS ORDERED: METHADONE HCL 10 MG TABLET ONE (03:18)
[2019-06-27] MEDS ORDERED: METHADONE HCL 40 MG DISPERSABLE TABLET ONE (03:19)
[2019-06-27] MEDS: METHADONE 40 MG, METHADONE 10 MG PO SCH (06:12)
[2019-06-27] MEDS: LEVOTHYROXINE NA 25 MCG TABLET (FP) PO SCH (06:13)
[2019-06-27] MEDS: metFORMIN HCL 500 MG TABLET (FP) PO SCH (06:13)
[2019-06-27] MEDS: OXYBUTYNIN CHLORIDE 5 MG TABLET PO SCH (06:13)
[2019-06-27] MEDS: FLUoxetine HCL 20 MG CAPSULE (FP) PO SCH (09:57)
[2019-06-27] MEDS: amLODIPine BESYLATE 5 MG TABLET (FP) PO SCH (09:57)
[2019-06-27] MEDS: PRENATAL VITAMINS W/ FOLIC ACID TABLET (FP) PO SCH (09:57)
[2019-06-27] MEDS: LISINOPRIL 5 MG TABLET (FP) PO SCH (09:57)
[2019-06-27] MEDS: NICOTINE 14 MG/24 HOURS TOPICAL PATCH TD SCH (09:58)
[2019-06-27] MEDS: IBUPROFEN 400 MG TABLET (FP) PO PRN ×2 (09:58→21:40)
[2019-06-27] MEDS: TIOTROPIUM BROMIDE 2.5 MCG (SPIRIVA) RESPIMAT INHALER IH SCH (09:58)
[2019-06-27] MEDS: PANTOPRAZOLE 40 MG TABLET (FP) PO SCH (15:42)
[2019-06-27] MEDS: ATORVASTATIN CA 40 MG TABLET (FP) PO SCH (21:39)
[2019-06-27] MEDS: traZODone HCL 100 MG TABLET (FP) PO SCH ×2 (21:39→22:09)
[2019-06-27] MEDS: THIAMINE HCL 100 MG TABLET (FP) PO SCH (21:39)
[2019-06-28] MEDS ORDERED: METHADONE HCL 10 MG TABLET ONE (03:31)
[2019-06-28] MEDS ORDERED: METHADONE HCL 40 MG DISPERSABLE TABLET ONE (03:32)
[2019-06-28] MEDS: METHADONE 40 MG, METHADONE 10 MG PO SCH (06:18)
[2019-06-28] MEDS: OXYBUTYNIN CHLORIDE 5 MG TABLET PO SCH (06:19)
[2019-06-28] MEDS: LEVOTHYROXINE NA 25 MCG TABLET (FP) PO SCH (06:19)
[2019-06-28] MEDS: metFORMIN HCL 500 MG TABLET (FP) PO SCH (06:19)
[2019-06-28] MEDS: PRENATAL VITAMINS W/ FOLIC ACID TABLET (FP) PO SCH (10:16)
[2019-06-28] MEDS: NICOTINE 14 MG/24 HOURS TOPICAL PATCH TD SCH (10:16)
[2019-06-28] MEDS: LISINOPRIL 5 MG TABLET (FP) PO SCH (10:16)
[2019-06-28] MEDS: TIOTROPIUM BROMIDE 2.5 MCG (SPIRIVA) RESPIMAT INHALER IH SCH (10:16)
[2019-06-28] MEDS: amLODIPine BESYLATE 5 MG TABLET (FP) PO SCH (10:16)
[2019-06-28] MEDS: PANTOPRAZOLE 40 MG TABLET (FP) PO SCH (10:16)
[2019-06-28] MEDS: FLUoxetine HCL 20 MG CAPSULE (FP) PO SCH (10:16)
[2019-06-28] MEDS: IBUPROFEN 400 MG TABLET (FP) PO PRN ×2 (10:18→17:48)
[2019-06-28] MEDS: traZODone HCL 100 MG TABLET (FP) PO SCH (21:45)
[2019-06-28] MEDS: ATORVASTATIN CA 40 MG TABLET (FP) PO SCH (21:46)
[2019-06-28] MEDS: THIAMINE HCL 100 MG TABLET (FP) PO SCH (21:46)
[2019-06-29] MEDS ORDERED: METHADONE HCL 10 MG TABLET ONE (03:46)
[2019-06-29] MEDS ORDERED: METHADONE HCL 40 MG DISPERSABLE TABLET ONE (03:46)
[2019-06-29] MEDS: METHADONE 40 MG, METHADONE 10 MG PO SCH (06:15)
[2019-06-29] MEDS: OXYBUTYNIN CHLORIDE 5 MG TABLET PO SCH (06:16)
[2019-06-29] MEDS: metFORMIN HCL 500 MG TABLET (FP) PO SCH (06:16)
[2019-06-29] MEDS: LEVOTHYROXINE NA 25 MCG TABLET (FP) PO SCH (06:16)
[2019-06-29] MEDS ORDERED: PT OWN MED DRAWER 7, Y5N ONE (08:57)
[2019-06-29] MEDS: FLUoxetine HCL 20 MG CAPSULE (FP) PO SCH (10:35)
[2019-06-29] MEDS: TIOTROPIUM BROMIDE 2.5 MCG (SPIRIVA) RESPIMAT INHALER IH SCH (10:35)
[2019-06-29] MEDS: NICOTINE 14 MG/24 HOURS TOPICAL PATCH TD SCH (10:35)
[2019-06-29] MEDS: LISINOPRIL 5 MG TABLET (FP) PO SCH (10:36)
[2019-06-29] MEDS: PRENATAL VITAMINS W/ FOLIC ACID TABLET (FP) PO SCH (10:36)
[2019-06-29] MEDS: amLODIPine BESYLATE 5 MG TABLET (FP) PO SCH (10:36)
[2019-06-29] MEDS: PANTOPRAZOLE 40 MG TABLET (FP) PO SCH (10:36)
[2019-06-29] MEDS: ACETAMINOPHEN 325 MG TABLET (FP) PO PRN (10:37)
[2019-06-29] MEDS: MAG HYDROX/AL HYDROX/SIMETH 30 ML UNIT-DOSE CUP PO PRN (12:04)
[2019-06-29] MEDS: ATORVASTATIN CA 40 MG TABLET (FP) PO SCH (21:39)
[2019-06-29] MEDS: traZODone HCL 100 MG TABLET (FP) PO SCH (21:39)
[2019-06-29] MEDS: THIAMINE HCL 100 MG TABLET (FP) PO SCH (21:40)
[2019-06-30] MEDS ORDERED: METHADONE HCL 40 MG DISPERSABLE TABLET ONE (05:45)
[2019-06-30] MEDS ORDERED: METHADONE HCL 10 MG TABLET ONE (05:45)
[2019-06-30] MEDS: METHADONE 40 MG, METHADONE 10 MG PO SCH (06:17)
[2019-06-30] MEDS: OXYBUTYNIN CHLORIDE 5 MG TABLET PO SCH (06:17)
[2019-06-30] MEDS: LEVOTHYROXINE NA 25 MCG TABLET (FP) PO SCH (06:17)
[2019-06-30] MEDS: metFORMIN HCL 500 MG TABLET (FP) PO SCH (06:35)
[2019-06-30] MEDS ORDERED: PT OWN MED DRAWER 7, Y5N ONE (08:33)
[2019-06-30] MEDS: FLUoxetine HCL 20 MG CAPSULE (FP) PO SCH (10:09)
[2019-06-30] MEDS: amLODIPine BESYLATE 5 MG TABLET (FP) PO SCH (10:09)
[2019-06-30] MEDS: LISINOPRIL 5 MG TABLET (FP) PO SCH (10:09)
[2019-06-30] MEDS: PANTOPRAZOLE 40 MG TABLET (FP) PO SCH (10:09)
[2019-06-30] MEDS: NICOTINE 14 MG/24 HOURS TOPICAL PATCH TD SCH (10:09)
[2019-06-30] MEDS: TIOTROPIUM BROMIDE 2.5 MCG (SPIRIVA) RESPIMAT INHALER IH SCH (10:09)
[2019-06-30] MEDS: PRENATAL VITAMINS W/ FOLIC ACID TABLET (FP) PO SCH (10:09)
[2019-06-30] MEDS: IBUPROFEN 400 MG TABLET (FP) PO PRN (10:11)
[2019-06-30] MEDS: MAG HYDROX/AL HYDROX/SIMETH 30 ML UNIT-DOSE CUP PO PRN (11:35)
[2019-06-30] MEDS: traZODone HCL 100 MG TABLET (FP) PO SCH (22:10)
[2019-06-30] MEDS: ATORVASTATIN CA 40 MG TABLET (FP) PO SCH (22:10)
[2019-06-30] MEDS: THIAMINE HCL 100 MG TABLET (FP) PO SCH (22:10)
[2019-07-01] MEDS ORDERED: METHADONE HCL 10 MG TABLET ONE (06:17)
[2019-07-01] MEDS ORDERED: METHADONE HCL 40 MG DISPERSABLE TABLET ONE (06:18)
[2019-07-01] MEDS: METHADONE 40 MG, METHADONE 10 MG PO SCH (06:18)
[2019-07-01] MEDS: LEVOTHYROXINE NA 25 MCG TABLET (FP) PO SCH (06:19)
[2019-07-01] MEDS: metFORMIN HCL 500 MG TABLET (FP) PO SCH (06:19)
[2019-07-01] MEDS: OXYBUTYNIN CHLORIDE 5 MG TABLET PO SCH (06:19)
[2019-07-01] MEDS: ACETAMINOPHEN 325 MG TABLET (FP) PO PRN ×2 (06:19→13:12)
[2019-07-01] MEDS ORDERED: PT OWN MED DRAWER 7, Y5N ONE (08:39)
[2019-07-01] MEDS: NICOTINE 14 MG/24 HOURS TOPICAL PATCH TD SCH (09:43)
[2019-07-01] MEDS: PANTOPRAZOLE 40 MG TABLET (FP) PO SCH (09:44)
[2019-07-01] MEDS: FLUoxetine HCL 20 MG CAPSULE (FP) PO SCH (09:44)
[2019-07-01] MEDS: TIOTROPIUM BROMIDE 2.5 MCG (SPIRIVA) RESPIMAT INHALER IH SCH (09:44)
[2019-07-01] MEDS: amLODIPine BESYLATE 5 MG TABLET (FP) PO SCH (09:44)
[2019-07-01] MEDS: PRENATAL VITAMINS W/ FOLIC ACID TABLET (FP) PO SCH (09:44)
[2019-07-01] MEDS: LISINOPRIL 5 MG TABLET (FP) PO SCH (09:44)
[2019-07-01] MEDS: MAG HYDROX/AL HYDROX/SIMETH 30 ML UNIT-DOSE CUP PO PRN (11:34)
[2019-07-01] MEDS: traZODone HCL 100 MG TABLET (FP) PO SCH (21:54)
[2019-07-01] MEDS: ATORVASTATIN CA 40 MG TABLET (FP) PO SCH (21:55)
[2019-07-01] MEDS: THIAMINE HCL 100 MG TABLET (FP) PO SCH (21:55)
[2019-07-02] MEDS ORDERED: METHADONE HCL 40 MG DISPERSABLE TABLET ONE (03:30)
[2019-07-02] MEDS ORDERED: METHADONE HCL 10 MG TABLET ONE (03:30)
[2019-07-02] MEDS: METHADONE 40 MG, METHADONE 10 MG PO SCH (06:39)
[2019-07-02] MEDS: LEVOTHYROXINE NA 25 MCG TABLET (FP) PO SCH (06:40)
[2019-07-02] MEDS: metFORMIN HCL 500 MG TABLET (FP) PO SCH (06:40)
[2019-07-02] MEDS: OXYBUTYNIN CHLORIDE 5 MG TABLET PO SCH (06:40)
[2019-07-02] MEDS ORDERED: PT OWN MED DRAWER 7, Y5N ONE (08:55)
[2019-07-02] MEDS: FLUoxetine HCL 20 MG CAPSULE (FP) PO SCH (10:16)
[2019-07-02] MEDS: PRENATAL VITAMINS W/ FOLIC ACID TABLET (FP) PO SCH (10:16)
[2019-07-02] MEDS: TIOTROPIUM BROMIDE 2.5 MCG (SPIRIVA) RESPIMAT INHALER IH SCH (10:16)
[2019-07-02] MEDS: NICOTINE 14 MG/24 HOURS TOPICAL PATCH TD SCH (10:16)
[2019-07-02] MEDS: PANTOPRAZOLE 40 MG TABLET (FP) PO SCH (10:16)
[2019-07-02] MEDS: LISINOPRIL 5 MG TABLET (FP) PO SCH (10:17)
[2019-07-02] MEDS: ACETAMINOPHEN 325 MG TABLET (FP) PO PRN (10:17)
[2019-07-02] MEDS: amLODIPine BESYLATE 5 MG TABLET (FP) PO SCH (10:17)
[2019-07-02] MEDS: MAG HYDROX/AL HYDROX/SIMETH 30 ML UNIT-DOSE CUP PO PRN (18:32)
[2019-07-02] MEDS: ATORVASTATIN CA 40 MG TABLET (FP) PO SCH (22:02)
[2019-07-02] MEDS: traZODone HCL 100 MG TABLET (FP) PO SCH (22:02)
[2019-07-02] MEDS: THIAMINE HCL 100 MG TABLET (FP) PO SCH (22:02)
[2019-07-03] MEDS ORDERED: METHADONE HCL 10 MG TABLET ONE (03:56)
[2019-07-03] MEDS ORDERED: METHADONE HCL 40 MG DISPERSABLE TABLET ONE (03:56)
[2019-07-03] MEDS: LEVOTHYROXINE NA 25 MCG TABLET (FP) PO SCH (06:42)
[2019-07-03] MEDS: METHADONE 40 MG, METHADONE 10 MG PO SCH (06:42)
[2019-07-03] MEDS: metFORMIN HCL 500 MG TABLET (FP) PO SCH (06:43)
[2019-07-03] MEDS: OXYBUTYNIN CHLORIDE 5 MG TABLET PO SCH (06:43)
[2019-07-03] MEDS: PRENATAL VITAMINS W/ FOLIC ACID TABLET (FP) PO SCH (10:42)
[2019-07-03] MEDS: TIOTROPIUM BROMIDE 2.5 MCG (SPIRIVA) RESPIMAT INHALER IH SCH (10:42)
[2019-07-03] MEDS: FLUoxetine HCL 20 MG CAPSULE (FP) PO SCH (10:42)
[2019-07-03] MEDS: LISINOPRIL 5 MG TABLET (FP) PO SCH (10:42)
[2019-07-03] MEDS: amLODIPine BESYLATE 5 MG TABLET (FP) PO SCH (10:42)
[2019-07-03] MEDS: PANTOPRAZOLE 40 MG TABLET (FP) PO SCH (10:43)
[2019-07-03] MEDS: NICOTINE 14 MG/24 HOURS TOPICAL PATCH TD SCH (10:43)
[2019-07-03] MEDS: ACETAMINOPHEN 325 MG TABLET (FP) PO PRN (10:44)
[2019-07-03] MEDS: MAG HYDROX/AL HYDROX/SIMETH 30 ML UNIT-DOSE CUP PO PRN (17:09)
[2019-07-03] MEDS: THIAMINE HCL 100 MG TABLET (FP) PO SCH (22:16)
[2019-07-03] MEDS: traZODone HCL 100 MG TABLET (FP) PO SCH (22:16)
[2019-07-03] MEDS: ATORVASTATIN CA 40 MG TABLET (FP) PO SCH (22:16)
[2019-07-04] MEDS ORDERED: METHADONE HCL 10 MG TABLET ONE (06:35)
[2019-07-04] MEDS ORDERED: METHADONE HCL 40 MG DISPERSABLE TABLET ONE (06:35)
[2019-07-04] MEDS: LEVOTHYROXINE NA 25 MCG TABLET (FP) PO SCH (06:37)
[2019-07-04] MEDS: METHADONE 40 MG, METHADONE 10 MG PO SCH (06:37)
[2019-07-04] MEDS: OXYBUTYNIN CHLORIDE 5 MG TABLET PO SCH (06:37)
[2019-07-04] MEDS: metFORMIN HCL 500 MG TABLET (FP) PO SCH (06:37)
[2019-07-04] MEDS: FLUoxetine HCL 20 MG CAPSULE (FP) PO SCH (10:32)
[2019-07-04] MEDS: PRENATAL VITAMINS W/ FOLIC ACID TABLET (FP) PO SCH (10:32)
[2019-07-04] MEDS: amLODIPine BESYLATE 5 MG TABLET (FP) PO SCH (10:33)
[2019-07-04] MEDS: LISINOPRIL 5 MG TABLET (FP) PO SCH (10:33)
[2019-07-04] MEDS: PANTOPRAZOLE 40 MG TABLET (FP) PO SCH (10:33)
[2019-07-04] MEDS: ACETAMINOPHEN 325 MG TABLET (FP) PO PRN ×2 (10:33→21:19)
[2019-07-04] MEDS: NICOTINE 14 MG/24 HOURS TOPICAL PATCH TD SCH (10:34)
[2019-07-04] MEDS: TIOTROPIUM BROMIDE 2.5 MCG (SPIRIVA) RESPIMAT INHALER IH SCH (10:34)
[2019-07-04] MEDS: traZODone HCL 100 MG TABLET (FP) PO SCH (21:19)
[2019-07-04] MEDS: THIAMINE HCL 100 MG TABLET (FP) PO SCH (21:19)
[2019-07-04] MEDS: ATORVASTATIN CA 40 MG TABLET (FP) PO SCH (21:20)
[2019-07-05] MEDS ORDERED: METHADONE HCL 40 MG DISPERSABLE TABLET ONE (03:19)
[2019-07-05] MEDS ORDERED: METHADONE HCL 10 MG TABLET ONE (03:19)
[2019-07-05] MEDS: LEVOTHYROXINE NA 25 MCG TABLET (FP) PO SCH (06:40)
[2019-07-05] MEDS: METHADONE 40 MG, METHADONE 10 MG PO SCH (06:40)
[2019-07-05] MEDS: metFORMIN HCL 500 MG TABLET (FP) PO SCH (06:41)
[2019-07-05] MEDS: OXYBUTYNIN CHLORIDE 5 MG TABLET PO SCH (06:41)
[2019-07-05] MEDS: NICOTINE 14 MG/24 HOURS TOPICAL PATCH TD SCH (09:23)
[2019-07-05] MEDS: amLODIPine BESYLATE 5 MG TABLET (FP) PO SCH (09:24)
[2019-07-05] MEDS: PRENATAL VITAMINS W/ FOLIC ACID TABLET (FP) PO SCH (09:24)
[2019-07-05] MEDS: PANTOPRAZOLE 40 MG TABLET (FP) PO SCH (09:24)
[2019-07-05] MEDS: LISINOPRIL 5 MG TABLET (FP) PO SCH (09:24)
[2019-07-05] MEDS: TIOTROPIUM BROMIDE 2.5 MCG (SPIRIVA) RESPIMAT INHALER IH SCH (09:25)
[2019-07-05] MEDS: FLUoxetine HCL 20 MG CAPSULE (FP) PO SCH (09:25)
[2019-07-05] MEDS: ACETAMINOPHEN 325 MG TABLET (FP) PO PRN (14:17)
[2019-07-05] MEDS: ATORVASTATIN CA 40 MG TABLET (FP) PO SCH (21:43)
[2019-07-05] MEDS: traZODone HCL 100 MG TABLET (FP) PO SCH (21:43)
[2019-07-05] MEDS: THIAMINE HCL 100 MG TABLET (FP) PO SCH (21:44)
[2019-07-06] MEDS ORDERED: METHADONE HCL 10 MG TABLET ONE (03:55)
[2019-07-06] MEDS ORDERED: METHADONE HCL 40 MG DISPERSABLE TABLET ONE (03:56)
[2019-07-06] MEDS: METHADONE 40 MG, METHADONE 10 MG PO SCH (06:15)
[2019-07-06] MEDS: LEVOTHYROXINE NA 25 MCG TABLET (FP) PO SCH (06:16)
[2019-07-06] MEDS: OXYBUTYNIN CHLORIDE 5 MG TABLET PO SCH (06:16)
[2019-07-06] MEDS: metFORMIN HCL 500 MG TABLET (FP) PO SCH (06:17)
[2019-07-06] MEDS ORDERED: PT OWN MED DRAWER 7, Y5N ONE (08:31)
[2019-07-06] MEDS: NICOTINE 14 MG/24 HOURS TOPICAL PATCH TD SCH (10:19)
[2019-07-06] MEDS: LISINOPRIL 5 MG TABLET (FP) PO SCH (10:19)
[2019-07-06] MEDS: TIOTROPIUM BROMIDE 2.5 MCG (SPIRIVA) RESPIMAT INHALER IH SCH (10:19)
[2019-07-06] MEDS: amLODIPine BESYLATE 5 MG TABLET (FP) PO SCH (10:19)
[2019-07-06] MEDS: FLUoxetine HCL 20 MG CAPSULE (FP) PO SCH (10:19)
[2019-07-06] MEDS: PRENATAL VITAMINS W/ FOLIC ACID TABLET (FP) PO SCH (10:19)
[2019-07-06] MEDS: PANTOPRAZOLE 40 MG TABLET (FP) PO SCH (10:19)
[2019-07-06] MEDS: ACETAMINOPHEN 325 MG TABLET (FP) PO PRN ×2 (10:20→16:38)
[2019-07-06] MEDS: ATORVASTATIN CA 40 MG TABLET (FP) PO SCH (21:47)
[2019-07-06] MEDS: traZODone HCL 100 MG TABLET (FP) PO SCH (21:47)
[2019-07-06] MEDS: THIAMINE HCL 100 MG TABLET (FP) PO SCH (21:48)
[2019-07-07] MEDS ORDERED: METHADONE HCL 10 MG TABLET ONE (06:35)
[2019-07-07] MEDS ORDERED: METHADONE HCL 40 MG DISPERSABLE TABLET ONE (06:36)
[2019-07-07] MEDS: METHADONE 40 MG, METHADONE 10 MG PO SCH (06:39)
[2019-07-07] MEDS: LEVOTHYROXINE NA 25 MCG TABLET (FP) PO SCH (06:40)
[2019-07-07] MEDS: OXYBUTYNIN CHLORIDE 5 MG TABLET PO SCH (06:40)
[2019-07-07] MEDS: metFORMIN HCL 500 MG TABLET (FP) PO SCH (06:40)
[2019-07-07] MEDS: ACETAMINOPHEN 325 MG TABLET (FP) PO PRN (08:54)
[2019-07-07] MEDS: amLODIPine BESYLATE 5 MG TABLET (FP) PO SCH (10:16)
[2019-07-07] MEDS: PANTOPRAZOLE 40 MG TABLET (FP) PO SCH (10:17)
[2019-07-07] MEDS: LISINOPRIL 5 MG TABLET (FP) PO SCH (10:17)
[2019-07-07] MEDS: NICOTINE 14 MG/24 HOURS TOPICAL PATCH TD SCH (10:17)
[2019-07-07] MEDS: PRENATAL VITAMINS W/ FOLIC ACID TABLET (FP) PO SCH (10:17)
[2019-07-07] MEDS: TIOTROPIUM BROMIDE 2.5 MCG (SPIRIVA) RESPIMAT INHALER IH SCH (10:18)
[2019-07-07] MEDS: FLUoxetine HCL 20 MG CAPSULE (FP) PO SCH (10:18)
[2019-07-07] MEDS ORDERED: PT OWN MED DRAWER 7, Y5N ONE (11:30)
[2019-07-07] MEDS: ATORVASTATIN CA 40 MG TABLET (FP) PO SCH (21:38)
[2019-07-07] MEDS: traZODone HCL 100 MG TABLET (FP) PO SCH (21:38)
[2019-07-07] MEDS: THIAMINE HCL 100 MG TABLET (FP) PO SCH (21:39)
[2019-07-08] MEDS ORDERED: METHADONE HCL 10 MG TABLET ONE (06:31)
[2019-07-08] MEDS ORDERED: METHADONE HCL 40 MG DISPERSABLE TABLET ONE (06:32)
[2019-07-08] MEDS: METHADONE 40 MG, METHADONE 10 MG PO SCH (06:35)
[2019-07-08] MEDS: OXYBUTYNIN CHLORIDE 5 MG TABLET PO SCH (06:36)
[2019-07-08] MEDS: LEVOTHYROXINE NA 25 MCG TABLET (FP) PO SCH (06:36)
[2019-07-08] MEDS: metFORMIN HCL 500 MG TABLET (FP) PO SCH (06:36)
[2019-07-08] MEDS ORDERED: PT OWN MED DRAWER 7, Y5N ONE (08:43)
[2019-07-08] MEDS: amLODIPine BESYLATE 5 MG TABLET (FP) PO SCH (09:52)
[2019-07-08] MEDS: PRENATAL VITAMINS W/ FOLIC ACID TABLET (FP) PO SCH (09:52)
[2019-07-08] MEDS: FLUoxetine HCL 20 MG CAPSULE (FP) PO SCH (09:52)
[2019-07-08] MEDS: LISINOPRIL 5 MG TABLET (FP) PO SCH (09:52)
[2019-07-08] MEDS: TIOTROPIUM BROMIDE 2.5 MCG (SPIRIVA) RESPIMAT INHALER IH SCH (09:52)
[2019-07-08] MEDS: NICOTINE 14 MG/24 HOURS TOPICAL PATCH TD SCH (09:52)
[2019-07-08] MEDS: PANTOPRAZOLE 40 MG TABLET (FP) PO SCH (09:52)
[2019-07-08] MEDS: ACETAMINOPHEN 325 MG TABLET (FP) PO PRN (11:05)
[2019-07-08] MEDS: ATORVASTATIN CA 40 MG TABLET (FP) PO SCH (21:45)
[2019-07-08] MEDS: THIAMINE HCL 100 MG TABLET (FP) PO SCH (21:45)
[2019-07-08] MEDS: traZODone HCL 100 MG TABLET (FP) PO SCH (21:45)
[2019-07-09] MEDS ORDERED: METHADONE HCL 10 MG TABLET ONE (06:38)
[2019-07-09] MEDS ORDERED: METHADONE HCL 40 MG DISPERSABLE TABLET ONE (06:38)
[2019-07-09] MEDS: METHADONE 40 MG, METHADONE 10 MG PO SCH (06:41)
[2019-07-09] MEDS: LEVOTHYROXINE NA 25 MCG TABLET (FP) PO SCH (06:42)
[2019-07-09] MEDS: OXYBUTYNIN CHLORIDE 5 MG TABLET PO SCH (06:42)
[2019-07-09] MEDS: metFORMIN HCL 500 MG TABLET (FP) PO SCH (06:42)
[2019-07-09] MEDS ORDERED: PT OWN MED DRAWER 7, Y5N ONE (09:03)
[2019-07-09] MEDS: TIOTROPIUM BROMIDE 2.5 MCG (SPIRIVA) RESPIMAT INHALER IH SCH (09:44)
[2019-07-09] MEDS: FLUoxetine HCL 20 MG CAPSULE (FP) PO SCH (09:44)
[2019-07-09] MEDS: NICOTINE 14 MG/24 HOURS TOPICAL PATCH TD SCH (09:44)
[2019-07-09] MEDS: amLODIPine BESYLATE 5 MG TABLET (FP) PO SCH (09:45)
[2019-07-09] MEDS: PRENATAL VITAMINS W/ FOLIC ACID TABLET (FP) PO SCH (09:45)
[2019-07-09] MEDS: LISINOPRIL 5 MG TABLET (FP) PO SCH (09:45)
[2019-07-09] MEDS: PANTOPRAZOLE 40 MG TABLET (FP) PO SCH (09:45)
[2019-07-09] MEDS: ACETAMINOPHEN 325 MG TABLET (FP) PO PRN (09:46)
[2019-07-09] MEDS: traZODone HCL 100 MG TABLET (FP) PO SCH (21:47)
[2019-07-09] MEDS: THIAMINE HCL 100 MG TABLET (FP) PO SCH (21:48)
[2019-07-09] MEDS: ATORVASTATIN CA 40 MG TABLET (FP) PO SCH (21:48)
[2019-07-10] MEDS ORDERED: METHADONE HCL 40 MG DISPERSABLE TABLET ONE (06:20)
[2019-07-10] MEDS ORDERED: METHADONE HCL 10 MG TABLET ONE (06:20)
[2019-07-10] MEDS ORDERED: PT OWN MED DRAWER 7, Y5N ONE ×2 (06:22→08:55)
[2019-07-10] MEDS: LEVOTHYROXINE NA 25 MCG TABLET (FP) PO SCH (06:40)
[2019-07-10] MEDS: metFORMIN HCL 500 MG TABLET (FP) PO SCH (06:40)
[2019-07-10] MEDS: METHADONE 40 MG, METHADONE 10 MG PO SCH (06:40)
[2019-07-10] MEDS: OXYBUTYNIN CHLORIDE 5 MG TABLET PO SCH (08:02)
[2019-07-10] MEDS: TIOTROPIUM BROMIDE 2.5 MCG (SPIRIVA) RESPIMAT INHALER IH SCH (09:51)
[2019-07-10] MEDS: amLODIPine BESYLATE 5 MG TABLET (FP) PO SCH (09:51)
[2019-07-10] MEDS: FLUoxetine HCL 20 MG CAPSULE (FP) PO SCH (09:51)
[2019-07-10] MEDS: NICOTINE 14 MG/24 HOURS TOPICAL PATCH TD SCH (09:51)
[2019-07-10] MEDS: PANTOPRAZOLE 40 MG TABLET (FP) PO SCH (09:51)
[2019-07-10] MEDS: PRENATAL VITAMINS W/ FOLIC ACID TABLET (FP) PO SCH (09:51)
[2019-07-10] MEDS: LISINOPRIL 5 MG TABLET (FP) PO SCH (09:51)
[2019-07-10] MEDS: ACETAMINOPHEN 325 MG TABLET (FP) PO PRN (09:53)
[2019-07-10] MEDS: traZODone HCL 100 MG TABLET (FP) PO SCH (22:45)
[2019-07-10] MEDS: ATORVASTATIN CA 40 MG TABLET (FP) PO SCH (22:45)
[2019-07-10] MEDS: THIAMINE HCL 100 MG TABLET (FP) PO SCH (22:50)
[2019-07-11] MEDS ORDERED: METHADONE HCL 10 MG TABLET ONE (05:19)
[2019-07-11] MEDS ORDERED: METHADONE HCL 40 MG DISPERSABLE TABLET ONE (05:20)
[2019-07-11] MEDS: METHADONE 40 MG, METHADONE 10 MG PO SCH (06:15)
[2019-07-11] MEDS: metFORMIN HCL 500 MG TABLET (FP) PO SCH (06:15)
[2019-07-11] MEDS: OXYBUTYNIN CHLORIDE 5 MG TABLET PO SCH (06:15)
[2019-07-11] MEDS: LEVOTHYROXINE NA 25 MCG TABLET (FP) PO SCH (06:16)
[2019-07-11] MEDS: FLUoxetine HCL 20 MG CAPSULE (FP) PO SCH (09:42)
[2019-07-11] MEDS: NICOTINE 14 MG/24 HOURS TOPICAL PATCH TD SCH (09:43)
[2019-07-11] MEDS: amLODIPine BESYLATE 5 MG TABLET (FP) PO SCH (09:43)
[2019-07-11] MEDS: PRENATAL VITAMINS W/ FOLIC ACID TABLET (FP) PO SCH (09:43)
[2019-07-11] MEDS: LISINOPRIL 5 MG TABLET (FP) PO SCH (09:44)
[2019-07-11] MEDS: PANTOPRAZOLE 40 MG TABLET (FP) PO SCH (09:44)
[2019-07-11] MEDS: TIOTROPIUM BROMIDE 2.5 MCG (SPIRIVA) RESPIMAT INHALER IH SCH (09:45)
[2019-07-11] MEDS ORDERED: PT OWN MED DRAWER 7, Y5N ONE (09:45)
[2019-07-11] MEDS: IBUPROFEN 400 MG TABLET (FP) PO PRN (09:47)
[2019-07-11] MEDS: traZODone HCL 100 MG TABLET (FP) PO SCH (21:48)
[2019-07-11] MEDS: THIAMINE HCL 100 MG TABLET (FP) PO SCH (21:48)
[2019-07-11] MEDS: ATORVASTATIN CA 40 MG TABLET (FP) PO SCH (21:48)
[2019-07-12] MEDS ORDERED: METHADONE HCL 10 MG TABLET ONE (06:01)
[2019-07-12] MEDS ORDERED: METHADONE HCL 40 MG DISPERSABLE TABLET ONE (06:01)
[2019-07-12] MEDS: METHADONE 40 MG, METHADONE 10 MG PO SCH (06:34)
[2019-07-12] MEDS: LEVOTHYROXINE NA 25 MCG TABLET (FP) PO SCH (06:34)
[2019-07-12] MEDS: OXYBUTYNIN CHLORIDE 5 MG TABLET PO SCH (06:34)
[2019-07-12] MEDS: metFORMIN HCL 500 MG TABLET (FP) PO SCH (06:36)
[2019-07-12] MEDS: TIOTROPIUM BROMIDE 2.5 MCG (SPIRIVA) RESPIMAT INHALER IH SCH (10:34)
[2019-07-12] MEDS: NICOTINE 14 MG/24 HOURS TOPICAL PATCH TD SCH (10:34)
[2019-07-12] MEDS: PRENATAL VITAMINS W/ FOLIC ACID TABLET (FP) PO SCH (10:35)
[2019-07-12] MEDS: PANTOPRAZOLE 40 MG TABLET (FP) PO SCH (10:35)
[2019-07-12] MEDS: LISINOPRIL 5 MG TABLET (FP) PO SCH (10:35)
[2019-07-12] MEDS: amLODIPine BESYLATE 5 MG TABLET (FP) PO SCH (10:35)
[2019-07-12] MEDS: FLUoxetine HCL 20 MG CAPSULE (FP) PO SCH (10:35)
[2019-07-12] MEDS: IBUPROFEN 400 MG TABLET (FP) PO PRN (10:36)
[2019-07-12] MEDS ORDERED: PT OWN MED DRAWER 7, Y5N ONE (10:41)
[2019-07-12] MEDS: traZODone HCL 100 MG TABLET (FP) PO SCH (21:39)
[2019-07-12] MEDS: ATORVASTATIN CA 40 MG TABLET (FP) PO SCH (21:39)
[2019-07-12] MEDS: THIAMINE HCL 100 MG TABLET (FP) PO SCH (21:39)
[2019-07-13] MEDS ORDERED: METHADONE HCL 10 MG TABLET ONE (05:41)
[2019-07-13] MEDS ORDERED: METHADONE HCL 40 MG DISPERSABLE TABLET ONE (05:41)
[2019-07-13] MEDS: METHADONE 40 MG, METHADONE 10 MG PO SCH (05:54)
[2019-07-13] MEDS: LEVOTHYROXINE NA 25 MCG TABLET (FP) PO SCH (06:02)
[2019-07-13] MEDS: OXYBUTYNIN CHLORIDE 5 MG TABLET PO SCH (06:02)
[2019-07-13] MEDS: metFORMIN HCL 500 MG TABLET (FP) PO SCH (06:02)
[2019-07-13] MEDS ORDERED: PT OWN MED DRAWER 7, Y5N ONE ×2 (08:50→10:35)
[2019-07-13] MEDS: TIOTROPIUM BROMIDE 2.5 MCG (SPIRIVA) RESPIMAT INHALER IH SCH (10:33)
[2019-07-13] MEDS: NICOTINE 14 MG/24 HOURS TOPICAL PATCH TD SCH (10:33)
[2019-07-13] MEDS: LISINOPRIL 5 MG TABLET (FP) PO SCH (10:34)
[2019-07-13] MEDS: PRENATAL VITAMINS W/ FOLIC ACID TABLET (FP) PO SCH (10:34)
[2019-07-13] MEDS: IBUPROFEN 400 MG TABLET (FP) PO PRN (10:34)
[2019-07-13] MEDS: PANTOPRAZOLE 40 MG TABLET (FP) PO SCH (10:34)
[2019-07-13] MEDS: amLODIPine BESYLATE 5 MG TABLET (FP) PO SCH (10:34)
[2019-07-13] MEDS: FLUoxetine HCL 20 MG CAPSULE (FP) PO SCH (10:34)
[2019-07-13] MEDS: ACETAMINOPHEN 325 MG TABLET (FP) PO PRN (16:21)
[2019-07-13] MEDS: traZODone HCL 100 MG TABLET (FP) PO SCH (21:36)
[2019-07-13] MEDS: ATORVASTATIN CA 40 MG TABLET (FP) PO SCH (21:36)
[2019-07-13] MEDS: THIAMINE HCL 100 MG TABLET (FP) PO SCH (21:36)
[2019-07-14] MEDS ORDERED: METHADONE HCL 40 MG DISPERSABLE TABLET ONE (06:28)
[2019-07-14] MEDS ORDERED: METHADONE HCL 10 MG TABLET ONE (06:28)
[2019-07-14] MEDS: METHADONE 40 MG, METHADONE 10 MG PO SCH (06:28)
[2019-07-14] MEDS: LEVOTHYROXINE NA 25 MCG TABLET (FP) PO SCH (06:29)
[2019-07-14] MEDS: OXYBUTYNIN CHLORIDE 5 MG TABLET PO SCH (06:29)
[2019-07-14] MEDS: metFORMIN HCL 500 MG TABLET (FP) PO SCH (06:29)
[2019-07-14] MEDS ORDERED: PT OWN MED DRAWER 7, Y5N ONE ×2 (09:11→15:00)
[2019-07-14] MEDS: ACETAMINOPHEN 325 MG TABLET (FP) PO PRN (09:45)
[2019-07-14] MEDS: FLUoxetine HCL 20 MG CAPSULE (FP) PO SCH (10:55)
[2019-07-14] MEDS: PRENATAL VITAMINS W/ FOLIC ACID TABLET (FP) PO SCH (10:55)
[2019-07-14] MEDS: NICOTINE 14 MG/24 HOURS TOPICAL PATCH TD SCH (10:56)
[2019-07-14] MEDS: amLODIPine BESYLATE 5 MG TABLET (FP) PO SCH (10:56)
[2019-07-14] MEDS: LISINOPRIL 5 MG TABLET (FP) PO SCH (10:56)
[2019-07-14] MEDS: PANTOPRAZOLE 40 MG TABLET (FP) PO SCH (10:56)
[2019-07-14] MEDS: TIOTROPIUM BROMIDE 2.5 MCG (SPIRIVA) RESPIMAT INHALER IH SCH (10:57)
[2019-07-14] MEDS: THIAMINE HCL 100 MG TABLET (FP) PO SCH (21:23)
[2019-07-14] MEDS: traZODone HCL 100 MG TABLET (FP) PO SCH (21:23)
[2019-07-14] MEDS: ATORVASTATIN CA 40 MG TABLET (FP) PO SCH (21:24)
[2019-07-15] MEDS ORDERED: METHADONE HCL 40 MG DISPERSABLE TABLET ONE (06:13)
[2019-07-15] MEDS ORDERED: METHADONE HCL 10 MG TABLET ONE (06:13)
[2019-07-15] MEDS: OXYBUTYNIN CHLORIDE 5 MG TABLET PO SCH (06:37)
[2019-07-15] MEDS: metFORMIN HCL 500 MG TABLET (FP) PO SCH (06:37)
[2019-07-15] MEDS: LEVOTHYROXINE NA 25 MCG TABLET (FP) PO SCH (06:37)
[2019-07-15] MEDS: METHADONE 40 MG, METHADONE 10 MG PO SCH (06:38)
[2019-07-15] MEDS: IBUPROFEN 400 MG TABLET (FP) PO PRN ×2 (08:55→18:36)
[2019-07-15] MEDS: amLODIPine BESYLATE 5 MG TABLET (FP) PO SCH (10:55)
[2019-07-15] MEDS: NICOTINE 14 MG/24 HOURS TOPICAL PATCH TD SCH (10:55)
[2019-07-15] MEDS: TIOTROPIUM BROMIDE 2.5 MCG (SPIRIVA) RESPIMAT INHALER IH SCH (10:55)
[2019-07-15] MEDS: PANTOPRAZOLE 40 MG TABLET (FP) PO SCH (10:55)
[2019-07-15] MEDS: FLUoxetine HCL 20 MG CAPSULE (FP) PO SCH (10:55)
[2019-07-15] MEDS: LISINOPRIL 5 MG TABLET (FP) PO SCH (10:55)
[2019-07-15] MEDS: PRENATAL VITAMINS W/ FOLIC ACID TABLET (FP) PO SCH (11:18)
[2019-07-15] MEDS: ATORVASTATIN CA 40 MG TABLET (FP) PO SCH (22:53)
[2019-07-15] MEDS: traZODone HCL 100 MG TABLET (FP) PO SCH (22:53)
[2019-07-15] MEDS: THIAMINE HCL 100 MG TABLET (FP) PO SCH (22:54)
[2019-07-16] MEDS ORDERED: METHADONE HCL 10 MG TABLET ONE (05:40)
[2019-07-16] MEDS ORDERED: METHADONE HCL 40 MG DISPERSABLE TABLET ONE (05:41)
[2019-07-16] MEDS: METHADONE 40 MG, METHADONE 10 MG PO SCH (05:42)
[2019-07-16] MEDS: LEVOTHYROXINE NA 25 MCG TABLET (FP) PO SCH (06:16)
[2019-07-16] MEDS: metFORMIN HCL 500 MG TABLET (FP) PO SCH (06:16)
[2019-07-16] MEDS: OXYBUTYNIN CHLORIDE 5 MG TABLET PO SCH (06:16)
[2019-07-16] MEDS ORDERED: PT OWN MED DRAWER 7, Y5N ONE (09:11)
[2019-07-16] MEDS: TIOTROPIUM BROMIDE 2.5 MCG (SPIRIVA) RESPIMAT INHALER IH SCH (10:45)
[2019-07-16] MEDS: FLUoxetine HCL 20 MG CAPSULE (FP) PO SCH (10:45)
[2019-07-16] MEDS: PANTOPRAZOLE 40 MG TABLET (FP) PO SCH (10:45)
[2019-07-16] MEDS: LISINOPRIL 5 MG TABLET (FP) PO SCH (10:45)
[2019-07-16] MEDS: NICOTINE 14 MG/24 HOURS TOPICAL PATCH TD SCH (10:45)
[2019-07-16] MEDS: amLODIPine BESYLATE 5 MG TABLET (FP) PO SCH (10:45)
[2019-07-16] MEDS: PRENATAL VITAMINS W/ FOLIC ACID TABLET (FP) PO SCH (10:46)
[2019-07-16] MEDS: IBUPROFEN 400 MG TABLET (FP) PO PRN (17:09)
[2019-07-16] MEDS: THIAMINE HCL 100 MG TABLET (FP) PO SCH (23:10)
[2019-07-16] MEDS: traZODone HCL 100 MG TABLET (FP) PO SCH (23:10)
[2019-07-16] MEDS: ATORVASTATIN CA 40 MG TABLET (FP) PO SCH (23:10)
[2019-07-17] MEDS ORDERED: METHADONE HCL 40 MG DISPERSABLE TABLET ONE (03:39)
[2019-07-17] MEDS ORDERED: METHADONE HCL 10 MG TABLET ONE (03:39)
[2019-07-17] MEDS: METHADONE 40 MG, METHADONE 10 MG PO SCH (06:09)
[2019-07-17] MEDS: LEVOTHYROXINE NA 25 MCG TABLET (FP) PO SCH (06:10)
[2019-07-17] MEDS: metFORMIN HCL 500 MG TABLET (FP) PO SCH (06:10)
[2019-07-17] MEDS: OXYBUTYNIN CHLORIDE 5 MG TABLET PO SCH (06:11)
[2019-07-17] MEDS: ACETAMINOPHEN 325 MG TABLET (FP) PO PRN (06:11)
[2019-07-17] MEDS: TIOTROPIUM BROMIDE 2.5 MCG (SPIRIVA) RESPIMAT INHALER IH SCH (10:46)
[2019-07-17] MEDS: NICOTINE 14 MG/24 HOURS TOPICAL PATCH TD SCH (10:46)
[2019-07-17] MEDS: amLODIPine BESYLATE 5 MG TABLET (FP) PO SCH (10:47)
[2019-07-17] MEDS: FLUoxetine HCL 20 MG CAPSULE (FP) PO SCH (10:47)
[2019-07-17] MEDS: PRENATAL VITAMINS W/ FOLIC ACID TABLET (FP) PO SCH (10:47)
[2019-07-17] MEDS: PANTOPRAZOLE 40 MG TABLET (FP) PO SCH (10:47)
[2019-07-17] MEDS: LISINOPRIL 5 MG TABLET (FP) PO SCH (10:47)
[2019-07-17] MEDS: traZODone HCL 100 MG TABLET (FP) PO SCH (22:19)
[2019-07-17] MEDS: ATORVASTATIN CA 40 MG TABLET (FP) PO SCH (22:20)
[2019-07-17] MEDS: THIAMINE HCL 100 MG TABLET (FP) PO SCH (22:20)
[2019-07-18] MEDS ORDERED: METHADONE HCL 10 MG TABLET ONE (06:47)
[2019-07-18] MEDS ORDERED: METHADONE HCL 40 MG DISPERSABLE TABLET ONE (06:47)
[2019-07-18] MEDS: LEVOTHYROXINE NA 25 MCG TABLET (FP) PO SCH (06:48)
[2019-07-18] MEDS: METHADONE 40 MG, METHADONE 10 MG PO SCH (06:48)
[2019-07-18] MEDS: metFORMIN HCL 500 MG TABLET (FP) PO SCH (06:49)
[2019-07-18] MEDS: OXYBUTYNIN CHLORIDE 5 MG TABLET PO SCH (06:49)
[2019-07-18] MEDS: IBUPROFEN 400 MG TABLET (FP) PO PRN (09:18)
[2019-07-18] MEDS: amLODIPine BESYLATE 5 MG TABLET (FP) PO SCH (09:18)
[2019-07-18] MEDS: PANTOPRAZOLE 40 MG TABLET (FP) PO SCH (09:18)
[2019-07-18] MEDS: NICOTINE 14 MG/24 HOURS TOPICAL PATCH TD SCH (09:18)
[2019-07-18] MEDS: PRENATAL VITAMINS W/ FOLIC ACID TABLET (FP) PO SCH (09:19)
[2019-07-18] MEDS: LISINOPRIL 5 MG TABLET (FP) PO SCH (09:19)
[2019-07-18] MEDS: FLUoxetine HCL 20 MG CAPSULE (FP) PO SCH (09:19)
[2019-07-18] MEDS: TIOTROPIUM BROMIDE 2.5 MCG (SPIRIVA) RESPIMAT INHALER IH SCH (10:24)
[2019-07-18] MEDS: ACETAMINOPHEN 325 MG TABLET (FP) PO PRN (17:02)
[2019-07-18] MEDS: traZODone HCL 100 MG TABLET (FP) PO SCH (22:11)
[2019-07-18] MEDS: ATORVASTATIN CA 40 MG TABLET (FP) PO SCH (22:12)
[2019-07-18] MEDS: THIAMINE HCL 100 MG TABLET (FP) PO SCH (22:12)
[2019-07-19] MEDS ORDERED: METHADONE HCL 40 MG DISPERSABLE TABLET ONE (03:25)
[2019-07-19] MEDS ORDERED: METHADONE HCL 10 MG TABLET ONE (03:25)
[2019-07-19] MEDS: LEVOTHYROXINE NA 25 MCG TABLET (FP) PO SCH (06:13)
[2019-07-19] MEDS: METHADONE 40 MG, METHADONE 10 MG PO SCH (06:13)
[2019-07-19] MEDS: OXYBUTYNIN CHLORIDE 5 MG TABLET PO SCH (06:14)
[2019-07-19] MEDS: ACETAMINOPHEN 325 MG TABLET (FP) PO PRN ×2 (06:14→16:58)
[2019-07-19] MEDS: metFORMIN HCL 500 MG TABLET (FP) PO SCH (06:14)
[2019-07-19] MEDS: TIOTROPIUM BROMIDE 2.5 MCG (SPIRIVA) RESPIMAT INHALER IH SCH (10:51)
[2019-07-19] MEDS: NICOTINE 14 MG/24 HOURS TOPICAL PATCH TD SCH (10:51)
[2019-07-19] MEDS: FLUoxetine HCL 20 MG CAPSULE (FP) PO SCH (10:52)
[2019-07-19] MEDS: PRENATAL VITAMINS W/ FOLIC ACID TABLET (FP) PO SCH (10:52)
[2019-07-19] MEDS: LISINOPRIL 5 MG TABLET (FP) PO SCH (10:52)
[2019-07-19] MEDS: amLODIPine BESYLATE 5 MG TABLET (FP) PO SCH (10:52)
[2019-07-19] MEDS: PANTOPRAZOLE 40 MG TABLET (FP) PO SCH (10:52)
[2019-07-19] MEDS ORDERED: PT OWN MED DRAWER 7, Y5N ONE (11:11)
[2019-07-19] MEDS: THIAMINE HCL 100 MG TABLET (FP) PO SCH (22:06)
[2019-07-19] MEDS: traZODone HCL 100 MG TABLET (FP) PO SCH (22:06)
[2019-07-19] MEDS: ATORVASTATIN CA 40 MG TABLET (FP) PO SCH (22:07)
[2019-07-20] MEDS ORDERED: METHADONE HCL 10 MG TABLET ONE (03:18)
[2019-07-20] MEDS ORDERED: METHADONE HCL 40 MG DISPERSABLE TABLET ONE (03:19)
[2019-07-20] MEDS: METHADONE 40 MG, METHADONE 10 MG PO SCH (06:31)
[2019-07-20] MEDS: LEVOTHYROXINE NA 25 MCG TABLET (FP) PO SCH (06:32)
[2019-07-20] MEDS: ACETAMINOPHEN 325 MG TABLET (FP) PO PRN (06:32)
[2019-07-20] MEDS: OXYBUTYNIN CHLORIDE 5 MG TABLET PO SCH (06:33)
[2019-07-20] MEDS: metFORMIN HCL 500 MG TABLET (FP) PO SCH (06:33)
[2019-07-20] MEDS ORDERED: METHADONE HCL 10 MG TABLET PO SCH (07:45)
[2019-07-20] MEDS ORDERED: PT OWN MED DRAWER 7, Y5N ONE (09:54)
[2019-07-20] MEDS: PRENATAL VITAMINS W/ FOLIC ACID TABLET (FP) PO SCH (10:54)
[2019-07-20] MEDS: amLODIPine BESYLATE 5 MG TABLET (FP) PO SCH (10:54)
[2019-07-20] MEDS: PANTOPRAZOLE 40 MG TABLET (FP) PO SCH (10:54)
[2019-07-20] MEDS: LISINOPRIL 5 MG TABLET (FP) PO SCH (10:54)
[2019-07-20] MEDS: TIOTROPIUM BROMIDE 2.5 MCG (SPIRIVA) RESPIMAT INHALER IH SCH (10:55)
[2019-07-20] MEDS: NICOTINE 14 MG/24 HOURS TOPICAL PATCH TD SCH (10:55)
[2019-07-20] MEDS: IBUPROFEN 400 MG TABLET (FP) PO PRN (10:57)
[2019-07-20] MEDS: FLUoxetine HCL 20 MG CAPSULE (FP) PO SCH (12:00)
--- NOTE | 2019-07-20 14:40 | DS ---
[facility] Rehab Discharge Summary - [facility] Rehab Discharge Summary Admission Date: 06/23/19 Discharge Date: 07/20/19 - History Pertinent Past History: Patient is a 68 yo F with a PMHx of Hep C (treated), DM, HTN, COPD, depression, anxiety, PTSD, hypothyroidism, presenting for [facility] rehab. Patient was here for rehab on 04/05-05/04/2019 Takes 6-8mg of clonipin daily on and off since 2000. She buys the Clonipin on the streets. Last use on Wednesday. Quit heroin 20 years ago. On Methadone 50mg @ [facility]. Denies alcohol. 8-10 cigarettes a day. Had 1 seizure over 10 years ago. History of overdose benzodiazapine and placed in a psyche unit around 5 years ago. Patient is homeless. - Discharge Physical Exam Vital Signs: Vital Signs Temperature 98.3 F 07/20/19 07:09 Pulse Rate 76 07/20/19 10:08 Respiratory Rate 18 07/20/19 10:08 Blood Pressure 124/79 07/20/19 10:08 O2 Sat by Pulse Oximetry (%) Pertinent Admission Physical Exam Findings: General Appearance:no apparent distress HEENTM: Yes: EOMI, GRACY Respiratory: Clear Neck: Yes: Supple heart: s1 s2 audible, Abdominal: +BS, obese, Non Tender MSK: full weight bearing,. full ROM, steady gait. Neurological: Cn 2-12 intact, no neurological deficits noted. - Treatment Discharge Condition: Outpatient referral accepted (Accepted referral to [facility] aftercare) Hospital Course: patient was adherent to treatment plan and medication regimen. She did not have any acute, urgent, or emergent medical problems while in rehab. - Medication Discharge Medications: Ambulatory Orders Tiotropium [place] [Spiriva] 1 inh PO DAILY #1 inh 01/16/18 Methadone [Dolophine -] 50 mg PO DAILY@0600 MDD 80 01/07/19 Levothyroxine [Synthroid -] 75 mcg PO DAILY #14 tablet 03/02/19 Fluoxetine HCl [Prozac] 40 mg PO DAILY #30 capsule 05/03/19 traZODone HCL [Desyrel -] 100 mg PO HS #30 tablet 05/03/19 Albuterol Sulfate Inhaler - [Ventolin HFA Inhaler -] 1 inh IH PRN PRN #1 inh 10/26 Amlodipine Besylate [Norvasc -] 5 mg PO DAILY #14 tab 07/20/19 Atorvastatin Ca [Lipitor] 20 mg PO DAILY #30 tablet 07/20/19 Lisinopril [Prinivil -] 5 mg PO DAILY #14 tablet 07/20/19 Oxybutynin Chloride [Ditropan -] 5 mg PO DAILY@0700 #14 tablet 07/20/19 Tiotropium [place] [Spiriva Respimat] 2 puff IH DAILY #0 inhaler 07/20/19 metFORMIN HCL [Glucophage -] 500 mg PO DAILY@0700 #30 tablet 07/20/19 - Medication-Assisted Treatment (MAT) Medication-Assisted Treatment (MAT): No - Discharge Instructions Diet, activity, other medical instructions: Diet: as tolerated Activity: as tolerated Other medical instructions: as tolerated. - Follow-up Referral Minutes to complete discharge: 20 - AMA Did Patient Leave Against Medical Advice: No
[2019-07-20] MEDS: traZODone HCL 100 MG TABLET (FP) PO SCH (22:02)
[2019-07-20] MEDS: ATORVASTATIN CA 40 MG TABLET (FP) PO SCH (22:02)
[2019-07-20] MEDS: THIAMINE HCL 100 MG TABLET (FP) PO SCH (22:02)
[2019-07-21] MEDS ORDERED: METHADONE 40 MG, METHADONE 10 MG PO SCH (06:00)
[2019-07-21] MEDS ORDERED: METHADONE HCL 10 MG TABLET ONE (06:07)
[2019-07-21] MEDS ORDERED: METHADONE HCL 40 MG DISPERSABLE TABLET ONE (06:07)
[2019-07-21] MEDS: LEVOTHYROXINE NA 25 MCG TABLET (FP) PO SCH (06:08)
[2019-07-21] MEDS: metFORMIN HCL 500 MG TABLET (FP) PO SCH (06:08)
[2019-07-21] MEDS: ACETAMINOPHEN 325 MG TABLET (FP) PO PRN (06:08)
[2019-07-21] MEDS: OXYBUTYNIN CHLORIDE 5 MG TABLET PO SCH (06:08)
[2019-07-21 07:25] VITALS: TEMP 98.5
[2019-07-21] MEDS ORDERED: PT OWN MED DRAWER 7, Y5N ONE (08:54)
[2019-07-21 09:04] VITALS: BP 140/87; PULSE 81
[2019-07-21] MEDS: FLUoxetine HCL 20 MG CAPSULE (FP) PO SCH (09:15)
[2019-07-21] MEDS: PANTOPRAZOLE 40 MG TABLET (FP) PO SCH (09:16)
[2019-07-21] MEDS: LISINOPRIL 5 MG TABLET (FP) PO SCH (09:16)
[2019-07-21] MEDS: TIOTROPIUM BROMIDE 2.5 MCG (SPIRIVA) RESPIMAT INHALER IH SCH (09:16)
[2019-07-21] MEDS: amLODIPine BESYLATE 5 MG TABLET (FP) PO SCH (09:16)
[2019-07-21] MEDS: PRENATAL VITAMINS W/ FOLIC ACID TABLET (FP) PO SCH (09:16)
[2019-07-21] MEDS: IBUPROFEN 400 MG TABLET (FP) PO PRN (09:17)
[2019-07-21] MEDS: NICOTINE 14 MG/24 HOURS TOPICAL PATCH TD SCH (09:18)
== END 2019-07-21 09:35 | disposition home or self-care (01) | DRG 895 ==
LOC: YASAS 14:35 → Y3E 18:12
PROVIDERS: ADMIT Neuromusculoskeletal Medicine & OMM; ATTEND Neuromusculoskeletal Medicine & OMM
PROC: HZ42ZZZ Group Counseling for Substance Abuse Treatment, Cognitive-Behavioral (ICD-10-PCS; principal; 2019-06-23)
DX: F13.20 Sedative, hypnotic or anxiolytic dependence, uncomplicated (principal); F11.20 Opioid dependence, uncomplicated; Z68.41 Body mass index [BMI] 40.0-44.9, adult; F51.01 Primary insomnia; F32.9 Major depressive disorder, single episode, unspecified; F43.10 Post-traumatic stress disorder, unspecified; F19.24 Other psychoactive substance dependence with psychoactive substance-induced mood disorder; I10 Essential (primary) hypertension; E11.9 Type 2 diabetes mellitus without complications; J44.9 Chronic obstructive pulmonary disease, unspecified; E03.9 Hypothyroidism, unspecified; K21.9 Gastro-esophageal reflux disease without esophagitis; M17.0 Bilateral primary osteoarthritis of knee; E78.5 Hyperlipidemia, unspecified; E66.9 Obesity, unspecified; R26.2 Difficulty in walking, not elsewhere classified; Z99.89 Dependence on other enabling machines and devices; Z86.69 Personal history of other diseases of the nervous system and sense organs; Z86.19 Personal history of other infectious and parasitic diseases; Z87.42 Personal history of other diseases of the female genital tract; Z79.84 Long term (current) use of oral hypoglycemic drugs
CPT/HCPCS: 36415; 80053; 81003; 82962; 85027; 86593

== ENCOUNTER 2020-12-26 10:34 | Inpatient (IN) | payer OTHER ==
[2020-12-26] MEDS ORDERED: P-EPHED 60MG/TRIPROLIDI 2.5MG TABLET PO PRN (17:02)
[2020-12-26] MEDS ORDERED: LOPERAMIDE HCL 2 MG CAPSULE PO PRN (17:02)
[2020-12-26] MEDS ORDERED: IBUPROFEN 400 MG TABLET (FP) PO PRN (17:02)
[2020-12-26] MEDS ORDERED: MAGNESIUM HYDROX 2400MG/30ML ORAL SUSPENSION 30 ML CUP PO PRN (17:02)
[2020-12-26] MEDS ORDERED: MAGNESIUM CITRATE 300 ML BOTTLE PO PRN (17:02)
[2020-12-26] MEDS ORDERED: guaiFENesin 200 MG/10 ML 10 ML UNIT-DOSE CUPS PO PRN (17:02)
[2020-12-26] MEDS ORDERED: NICOTINE POLACRILEX 2 MG GUM BC PRN (17:02)
[2020-12-26] MEDS ORDERED: ALBUTEROL SO4 HFA INHALER IH PRN (17:06)
[2020-12-26 17:11] VITALS: BMI 38.7
[2020-12-26] MEDS ORDERED: LIDOCAINE 5% TOPICAL PATCH TP SCH (18:00)
[2020-12-26] MEDS: NICOTINE 14 MG/24 HOURS TOPICAL PATCH TD SCH (18:39)
[2020-12-26] MEDS ORDERED: TUBERCULIN PPD 5 TU/0.1ML VIAL ID ONE ×2 (18:40→23:12)
[2020-12-26] MEDS: amLODIPine BESYLATE 5 MG TABLET (FP) PO SCH (18:44)
[2020-12-26] MEDS: PRENATAL VITAMINS W/ FOLIC ACID TABLET (FP) PO SCH (18:44)
[2020-12-26] MEDS: LISINOPRIL 10 MG TABLET PO SCH (18:44)
[2020-12-26] MEDS ORDERED: LIDOCAINE PATCH REMOVAL MC SCH (22:00)
[2020-12-26] MEDS ORDERED: PT OWN MED DRAWER 7, Y5N ONE (23:11)
[2020-12-26] MEDS: BACITRACIN 0.9 GM PACKET TP SCH (23:20)
[2020-12-26] MEDS: DOCUSATE SODIUM 100 MG CAPSULE (FP) PO SCH (23:20)
[2020-12-26] MEDS: MELATONIN 5 MG TABLETS PO SCH (23:20)
[2020-12-26] MEDS: NAPROXEN 375 MG TABLET PO SCH (23:21)
[2020-12-26] MEDS: THIAMINE HCL 100 MG TABLET (FP) PO SCH (23:21)
[2020-12-26] MEDS: FAMOTIDINE 20 MG TABLET PO SCH (23:21)
[2020-12-26] MEDS: BUDESONIDE/FORMETEROL FUMARATE 80/4.5 mcg INHALER IH SCH (23:21)
[2020-12-27] MEDS: ACETAMINOPHEN 325 MG TABLET (FP) PO PRN (04:28)
[2020-12-27] MEDS ORDERED: PT OWN MED DRAWER 7, Y5N ONE ×4 (05:33→23:07)
[2020-12-27] MEDS ORDERED: LIDOCAINE PATCH REMOVAL MC SCH (06:00)
[2020-12-27] MEDS: metFORMIN HCL 500 MG TABLET (FP) PO SCH ×2 (06:42→17:00)
[2020-12-27] MEDS: OXYBUTYNIN CHLORIDE 5 MG TABLET PO SCH (06:42)
[2020-12-27] MEDS ORDERED: LEVOTHYROXINE NA 75 MCG TABLET (FP) PO SCH (07:00)
[2020-12-27] MEDS ORDERED: METHADONE 40 MG, METHADONE 10 MG PO ONE (08:30)
[2020-12-27] MEDS ORDERED: METHADONE HCL 10 MG TABLET ONE (08:57)
[2020-12-27] MEDS ORDERED: METHADONE HCL 40 MG DISPERSABLE TABLET ONE (08:58)
[2020-12-27] MEDS: BACITRACIN 0.9 GM PACKET TP SCH ×2 (09:04→21:37)
[2020-12-27] MEDS: NAPROXEN 375 MG TABLET PO SCH ×2 (09:07→21:37)
[2020-12-27] MEDS: NICOTINE 14 MG/24 HOURS TOPICAL PATCH TD SCH (09:08)
[2020-12-27] MEDS: amLODIPine BESYLATE 5 MG TABLET (FP) PO SCH (09:09)
[2020-12-27] MEDS: PRENATAL VITAMINS W/ FOLIC ACID TABLET (FP) PO SCH (09:10)
[2020-12-27] MEDS: FAMOTIDINE 20 MG TABLET PO SCH ×2 (09:10→21:38)
[2020-12-27] MEDS: LISINOPRIL 10 MG TABLET PO SCH (09:11)
[2020-12-27] MEDS: BUDESONIDE/FORMETEROL FUMARATE 80/4.5 mcg INHALER IH SCH ×2 (09:11→21:38)
[2020-12-27] MEDS: DOCUSATE SODIUM 100 MG CAPSULE (FP) PO SCH ×2 (09:12→21:37)
[2020-12-27] MEDS ORDERED: METHADONE HCL 10 MG TABLET PO ONE (10:00)
[2020-12-27] MEDS: hydrOXYzine PAMOATE 25 MG CAPSULE (FP) PO PRN ×2 (11:24→17:01)
[2020-12-27] MEDS: LIDOCAINE 5% TOPICAL PATCH TP SCH (11:25)
[2020-12-27] MEDS: TIOTROPIUM BROMIDE 2.5 MCG (SPIRIVA) RESPIMAT INHALER IH SCH (11:26)
[2020-12-27 14:06] LABS: EPI CELLS >36 /uL (0-25.1); HYALINE CASTS 8 /uL (0-3.1); PH,URINE 5.5 (5.0-8.0); URINE APPEARANCE CLOUDY; URINE BACTERIA 4995 /uL (0-1359); URINE BILIRUBIN NEGATIVE (NEGATIVE); URINE COLOR DK YELLOW; URINE GLUCOSE (UA) NEGATIVE (NEGATIVE); URINE KETONE TRACE (NEGATIVE); URINE LEUK ESTERASE 2+ (NEGATIVE); URINE NITRITE NEGATIVE (NEGATIVE); URINE PROTEIN TRACE (NEGATIVE); URINE RBC 25 /uL (0-23.9); URINE WBC 222 /uL (0-25.8)
[2020-12-27] MEDS: MELATONIN 5 MG TABLETS PO SCH (21:37)
[2020-12-27] MEDS: LIDOCAINE PATCH REMOVAL MC SCH (21:37)
[2020-12-27] MEDS: THIAMINE HCL 100 MG TABLET (FP) PO SCH (21:38)
[2020-12-27] MEDS: traZODone HCL 50 MG TABLET (FP) PO SCH (21:44)
[2020-12-27] MEDS ORDERED: traZODone HCL 100 MG TABLET (FP) PO SCH (22:00)
[2020-12-28] MEDS ORDERED: METHADONE HCL 10 MG TABLET PO SCH (06:00)
[2020-12-28] MEDS ORDERED: METHADONE HCL 10 MG TABLET ONE (06:08)
[2020-12-28] MEDS ORDERED: METHADONE HCL 40 MG DISPERSABLE TABLET ONE (06:08)
[2020-12-28] MEDS: METHADONE 40 MG, METHADONE 10 MG PO SCH (06:17)
[2020-12-28] MEDS: metFORMIN HCL 500 MG TABLET (FP) PO SCH ×2 (06:18→16:50)
[2020-12-28] MEDS: LEVOTHYROXINE NA 25 MCG TABLET (FP) PO SCH (06:18)
[2020-12-28] MEDS: OXYBUTYNIN CHLORIDE 5 MG TABLET PO SCH (06:18)
[2020-12-28] MEDS: ACETAMINOPHEN 325 MG TABLET (FP) PO PRN ×2 (06:19→15:19)
[2020-12-28] MEDS: COLLOIDAL OATMEAL 1 BAR EACH TP PRN (07:54)
[2020-12-28] MEDS ORDERED: PT OWN MED DRAWER 7, Y5N ONE ×3 (08:50→22:41)
[2020-12-28] MEDS ORDERED: FLUoxetine HCL 20 MG CAPSULE PO SCH (10:00)
[2020-12-28] MEDS: TIOTROPIUM BROMIDE 2.5 MCG (SPIRIVA) RESPIMAT INHALER IH SCH (10:17)
[2020-12-28] MEDS: BUDESONIDE/FORMETEROL FUMARATE 80/4.5 mcg INHALER IH SCH ×2 (10:17→21:01)
[2020-12-28] MEDS: amLODIPine BESYLATE 5 MG TABLET (FP) PO SCH (10:18)
[2020-12-28] MEDS: LISINOPRIL 10 MG TABLET PO SCH (10:18)
[2020-12-28] MEDS: NAPROXEN 375 MG TABLET PO SCH ×2 (10:19→21:01)
[2020-12-28] MEDS: DOCUSATE SODIUM 100 MG CAPSULE (FP) PO SCH ×2 (10:19→21:02)
[2020-12-28] MEDS: FLUoxetine HCL 10 MG CAPSULE PO SCH (10:20)
[2020-12-28] MEDS: BACITRACIN 0.9 GM PACKET TP SCH ×2 (10:21→21:01)
[2020-12-28] MEDS: hydrOXYzine PAMOATE 25 MG CAPSULE (FP) PO PRN (10:21)
[2020-12-28] MEDS: LIDOCAINE 5% TOPICAL PATCH TP SCH (10:21)
[2020-12-28] MEDS: PRENATAL VITAMINS W/ FOLIC ACID TABLET (FP) PO SCH (10:22)
[2020-12-28] MEDS: NICOTINE 14 MG/24 HOURS TOPICAL PATCH TD SCH (10:22)
[2020-12-28] MEDS: FAMOTIDINE 20 MG TABLET PO SCH ×2 (10:24→21:02)
[2020-12-28 13:17] LABS: POTASSIUM 4.7 mmol/L (3.5-5.1)
[2020-12-28 13:18] LABS: HEMATOCRIT 43.3 % (32.4-45.2); HEMOGLOBIN 14.4 GM/dL (10.7-15.3); MCHC 33.3 g/dl (32.0-36.0); MEAN CELL VOLUME 93.2 fl (80-96); MEAN PLT VOLUME 7.7 fl (7.5-11.1); PLATELET COUNT 318 K/MM3 (134-434); RBC 4.65 M/mm3 (3.60-5.2); RDW 13.9 % (11.6-15.6); WHITE BLOOD COUNT 8.8 K/mm3 (4.0-10.0)
[2020-12-28 13:33] LABS: BILIRUBIN,TOTAL 0.5 mg/dL (0.2-1); BLOOD UREA NITROGEN 16.4 mg/dL (7-18); CALCIUM 9.7 mg/dL (8.5-10.1); TOT PROT 7.5 g/dl (6.4-8.2)
[2020-12-28 13:35] LABS: CREATININE 0.8 mg/dL (0.55-1.3)
[2020-12-28] MEDS: traZODone HCL 50 MG TABLET (FP) PO SCH (21:01)
[2020-12-28] MEDS: THIAMINE HCL 100 MG TABLET (FP) PO SCH (21:01)
[2020-12-28] MEDS: LIDOCAINE PATCH REMOVAL MC SCH (21:02)
[2020-12-28] MEDS: MELATONIN 5 MG TABLETS PO SCH (21:02)
[2020-12-29] MEDS ORDERED: METHADONE HCL 10 MG TABLET ONE (03:22)
[2020-12-29] MEDS ORDERED: METHADONE HCL 40 MG DISPERSABLE TABLET ONE (03:22)
[2020-12-29] MEDS: METHADONE 40 MG, METHADONE 10 MG PO SCH (06:10)
[2020-12-29] MEDS: ACETAMINOPHEN 325 MG TABLET (FP) PO PRN (06:11)
[2020-12-29] MEDS: metFORMIN HCL 500 MG TABLET (FP) PO SCH ×2 (06:11→17:07)
[2020-12-29] MEDS: LEVOTHYROXINE NA 25 MCG TABLET (FP) PO SCH (06:11)
[2020-12-29] MEDS: OXYBUTYNIN CHLORIDE 5 MG TABLET PO SCH (06:11)
[2020-12-29] MEDS: amLODIPine BESYLATE 5 MG TABLET (FP) PO SCH (10:06)
[2020-12-29] MEDS: BACITRACIN 0.9 GM PACKET TP SCH ×2 (10:06→21:58)
[2020-12-29] MEDS: NAPROXEN 375 MG TABLET PO SCH ×2 (10:06→21:58)
[2020-12-29] MEDS: DOCUSATE SODIUM 100 MG CAPSULE (FP) PO SCH ×2 (10:06→21:58)
[2020-12-29] MEDS: PRENATAL VITAMINS W/ FOLIC ACID TABLET (FP) PO SCH (10:06)
[2020-12-29] MEDS: LISINOPRIL 10 MG TABLET PO SCH (10:06)
[2020-12-29] MEDS: BUDESONIDE/FORMETEROL FUMARATE 80/4.5 mcg INHALER IH SCH ×2 (10:07→21:59)
[2020-12-29] MEDS: TIOTROPIUM BROMIDE 2.5 MCG (SPIRIVA) RESPIMAT INHALER IH SCH (10:07)
[2020-12-29] MEDS: FLUoxetine HCL 10 MG CAPSULE PO SCH (10:07)
[2020-12-29] MEDS: NICOTINE 14 MG/24 HOURS TOPICAL PATCH TD SCH (10:08)
[2020-12-29] MEDS: LIDOCAINE 5% TOPICAL PATCH TP SCH (10:09)
[2020-12-29] MEDS: FAMOTIDINE 20 MG TABLET PO SCH ×2 (10:09→21:59)
[2020-12-29] MEDS: hydrOXYzine PAMOATE 25 MG CAPSULE (FP) PO PRN (13:29)
[2020-12-29] MEDS ORDERED: PT OWN MED DRAWER 7, Y5N ONE (19:15)
[2020-12-29] MEDS: LIDOCAINE PATCH REMOVAL MC SCH (21:58)
[2020-12-29] MEDS: MELATONIN 5 MG TABLETS PO SCH (21:58)
[2020-12-29] MEDS: traZODone HCL 50 MG TABLET (FP) PO SCH (21:58)
[2020-12-29] MEDS: THIAMINE HCL 100 MG TABLET (FP) PO SCH (21:59)
[2020-12-30] MEDS ORDERED: METHADONE HCL 10 MG TABLET ONE (03:13)
[2020-12-30] MEDS ORDERED: METHADONE HCL 40 MG DISPERSABLE TABLET ONE (03:13)
[2020-12-30] MEDS ORDERED: PT OWN MED DRAWER 7, Y5N ONE ×3 (03:15→10:41)
[2020-12-30] MEDS: metFORMIN HCL 500 MG TABLET (FP) PO SCH ×2 (06:01→17:05)
[2020-12-30] MEDS: LEVOTHYROXINE NA 25 MCG TABLET (FP) PO SCH (06:01)
[2020-12-30] MEDS: METHADONE 40 MG, METHADONE 10 MG PO SCH (06:01)
[2020-12-30] MEDS: ACETAMINOPHEN 325 MG TABLET (FP) PO PRN ×2 (06:01→18:38)
[2020-12-30] MEDS: OXYBUTYNIN CHLORIDE 5 MG TABLET PO SCH (06:01)
[2020-12-30] MEDS: LISINOPRIL 10 MG TABLET PO SCH (10:38)
[2020-12-30] MEDS: FLUoxetine HCL 10 MG CAPSULE PO SCH (10:38)
[2020-12-30] MEDS: BACITRACIN 0.9 GM PACKET TP SCH ×2 (10:38→21:32)
[2020-12-30] MEDS: DOCUSATE SODIUM 100 MG CAPSULE (FP) PO SCH ×2 (10:38→21:32)
[2020-12-30] MEDS: FAMOTIDINE 20 MG TABLET PO SCH ×2 (10:38→21:32)
[2020-12-30] MEDS: PRENATAL VITAMINS W/ FOLIC ACID TABLET (FP) PO SCH (10:39)
[2020-12-30] MEDS: LIDOCAINE 5% TOPICAL PATCH TP SCH (10:39)
[2020-12-30] MEDS: NICOTINE 14 MG/24 HOURS TOPICAL PATCH TD SCH (10:40)
[2020-12-30] MEDS: NAPROXEN 375 MG TABLET PO SCH ×2 (10:40→21:32)
[2020-12-30] MEDS: hydrOXYzine PAMOATE 25 MG CAPSULE (FP) PO PRN (10:42)
[2020-12-30] MEDS: BUDESONIDE/FORMETEROL FUMARATE 80/4.5 mcg INHALER IH SCH ×2 (10:42→21:33)
[2020-12-30] MEDS: TIOTROPIUM BROMIDE 2.5 MCG (SPIRIVA) RESPIMAT INHALER IH SCH (10:43)
[2020-12-30] MEDS ORDERED: amLODIPine BESYLATE 10 MG TABLET (FP) PO SCH (10:45)
[2020-12-30] MEDS: amLODIPine BESYLATE 10 MG TABLET (FP) PO SCH (10:59)
[2020-12-30] MEDS: amLODIPine BESYLATE 5 MG TABLET (FP) PO SCH (11:13)
[2020-12-30] MEDS: MELATONIN 5 MG TABLETS PO SCH (21:32)
[2020-12-30] MEDS: traZODone HCL 50 MG TABLET (FP) PO SCH (21:32)
[2020-12-30] MEDS: LIDOCAINE PATCH REMOVAL MC SCH (21:32)
[2020-12-30] MEDS: THIAMINE HCL 100 MG TABLET (FP) PO SCH (21:33)
[2020-12-31] MEDS ORDERED: METHADONE HCL 40 MG DISPERSABLE TABLET ONE (03:59)
[2020-12-31] MEDS ORDERED: METHADONE HCL 10 MG TABLET ONE (03:59)
[2020-12-31] MEDS: METHADONE 40 MG, METHADONE 10 MG PO SCH (06:06)
[2020-12-31] MEDS: metFORMIN HCL 500 MG TABLET (FP) PO SCH ×2 (06:07→16:51)
[2020-12-31] MEDS: LEVOTHYROXINE NA 25 MCG TABLET (FP) PO SCH (06:07)
[2020-12-31] MEDS: OXYBUTYNIN CHLORIDE 5 MG TABLET PO SCH (06:07)
[2020-12-31] MEDS ORDERED: PT OWN MED DRAWER 7, Y5N ONE (09:08)
[2020-12-31] MEDS: NICOTINE 14 MG/24 HOURS TOPICAL PATCH TD SCH (10:24)
[2020-12-31] MEDS: FLUoxetine HCL 10 MG CAPSULE PO SCH (10:24)
[2020-12-31] MEDS: BUDESONIDE/FORMETEROL FUMARATE 80/4.5 mcg INHALER IH SCH ×2 (10:24→21:32)
[2020-12-31] MEDS: DOCUSATE SODIUM 100 MG CAPSULE (FP) PO SCH ×2 (10:24→21:31)
[2020-12-31] MEDS: TIOTROPIUM BROMIDE 2.5 MCG (SPIRIVA) RESPIMAT INHALER IH SCH (10:24)
[2020-12-31] MEDS: BACITRACIN 0.9 GM PACKET TP SCH ×2 (10:24→21:31)
[2020-12-31] MEDS: PRENATAL VITAMINS W/ FOLIC ACID TABLET (FP) PO SCH (10:25)
[2020-12-31] MEDS: LISINOPRIL 10 MG TABLET PO SCH (10:25)
[2020-12-31] MEDS: FAMOTIDINE 20 MG TABLET PO SCH ×2 (10:25→21:32)
[2020-12-31] MEDS: amLODIPine BESYLATE 10 MG TABLET (FP) PO SCH (10:25)
[2020-12-31] MEDS: NAPROXEN 375 MG TABLET PO SCH ×2 (10:28→21:31)
[2020-12-31] MEDS: LIDOCAINE 5% TOPICAL PATCH TP SCH (10:28)
[2020-12-31] MEDS: ACETAMINOPHEN 325 MG TABLET (FP) PO PRN (16:51)
[2020-12-31] MEDS: LIDOCAINE PATCH REMOVAL MC SCH (21:31)
[2020-12-31] MEDS: traZODone HCL 50 MG TABLET (FP) PO SCH (21:31)
[2020-12-31] MEDS: MELATONIN 5 MG TABLETS PO SCH (21:31)
[2020-12-31] MEDS: THIAMINE HCL 100 MG TABLET (FP) PO SCH (21:32)
[2021-01-01] MEDS ORDERED: METHADONE HCL 40 MG DISPERSABLE TABLET ONE (03:29)
[2021-01-01] MEDS ORDERED: METHADONE HCL 10 MG TABLET ONE (03:29)
[2021-01-01] MEDS ORDERED: PT OWN MED DRAWER 7, Y5N ONE (03:31)
[2021-01-01] MEDS: METHADONE 40 MG, METHADONE 10 MG PO SCH (06:13)
[2021-01-01] MEDS: ACETAMINOPHEN 325 MG TABLET (FP) PO PRN (06:14)
[2021-01-01] MEDS: OXYBUTYNIN CHLORIDE 5 MG TABLET PO SCH (06:14)
[2021-01-01] MEDS: metFORMIN HCL 500 MG TABLET (FP) PO SCH ×2 (06:14→17:07)
[2021-01-01] MEDS: LEVOTHYROXINE NA 25 MCG TABLET (FP) PO SCH (06:14)
[2021-01-01] MEDS: FLUoxetine HCL 10 MG CAPSULE PO SCH (10:21)
[2021-01-01] MEDS: LISINOPRIL 10 MG TABLET PO SCH (10:21)
[2021-01-01] MEDS: FAMOTIDINE 20 MG TABLET PO SCH ×2 (10:21→21:29)
[2021-01-01] MEDS: BACITRACIN 0.9 GM PACKET TP SCH ×2 (10:21→21:28)
[2021-01-01] MEDS: BUDESONIDE/FORMETEROL FUMARATE 80/4.5 mcg INHALER IH SCH ×2 (10:21→21:29)
[2021-01-01] MEDS: PRENATAL VITAMINS W/ FOLIC ACID TABLET (FP) PO SCH (10:21)
[2021-01-01] MEDS: NAPROXEN 375 MG TABLET PO SCH (10:21)
[2021-01-01] MEDS: DOCUSATE SODIUM 100 MG CAPSULE (FP) PO SCH ×2 (10:21→21:28)
[2021-01-01] MEDS: amLODIPine BESYLATE 10 MG TABLET (FP) PO SCH (10:21)
[2021-01-01] MEDS: TIOTROPIUM BROMIDE 2.5 MCG (SPIRIVA) RESPIMAT INHALER IH SCH (10:21)
[2021-01-01] MEDS: NICOTINE 14 MG/24 HOURS TOPICAL PATCH TD SCH (10:22)
[2021-01-01] MEDS: LIDOCAINE 5% TOPICAL PATCH TP SCH (10:22)
[2021-01-01] MEDS: hydrOXYzine PAMOATE 25 MG CAPSULE (FP) PO PRN (10:24)
[2021-01-01 21:09] LABS: URINE APPEARANCE CLEAR; URINE BILIRUBIN NEGATIVE (NEGATIVE); URINE COLOR YELLOW; URINE GLUCOSE (UA) NEGATIVE (NEGATIVE); URINE KETONE NEGATIVE (NEGATIVE); URINE LEUK ESTERASE NEGATIVE (NEGATIVE); URINE NITRITE NEGATIVE (NEGATIVE); URINE PROTEIN NEGATIVE (NEGATIVE); URINE UROBILINOGEN 0.2 mg/dL (0.2-1.0)
[2021-01-01] MEDS: traZODone HCL 50 MG TABLET (FP) PO SCH (21:28)
[2021-01-01] MEDS: LIDOCAINE PATCH REMOVAL MC SCH (21:29)
[2021-01-01] MEDS: MELATONIN 5 MG TABLETS PO SCH (21:29)
[2021-01-01] MEDS: THIAMINE HCL 100 MG TABLET (FP) PO SCH (21:29)
[2021-01-02] MEDS ORDERED: METHADONE HCL 40 MG DISPERSABLE TABLET ONE (03:07)
[2021-01-02] MEDS ORDERED: METHADONE HCL 10 MG TABLET ONE (03:07)
[2021-01-02] MEDS: OXYBUTYNIN CHLORIDE 5 MG TABLET PO SCH (06:15)
[2021-01-02] MEDS: metFORMIN HCL 500 MG TABLET (FP) PO SCH ×2 (06:15→17:45)
[2021-01-02] MEDS: ACETAMINOPHEN 325 MG TABLET (FP) PO PRN (06:15)
[2021-01-02] MEDS: METHADONE 40 MG, METHADONE 10 MG PO SCH (06:15)
[2021-01-02] MEDS: LEVOTHYROXINE NA 25 MCG TABLET (FP) PO SCH (06:15)
[2021-01-02] MEDS ORDERED: PT OWN MED DRAWER 7, Y5N ONE (08:51)
[2021-01-02] MEDS: amLODIPine BESYLATE 10 MG TABLET (FP) PO SCH (10:06)
[2021-01-02] MEDS: NAPROXEN 375 MG TABLET PO PRN (10:06)
[2021-01-02] MEDS: FLUoxetine HCL 10 MG CAPSULE PO SCH (10:06)
[2021-01-02] MEDS: LISINOPRIL 10 MG TABLET PO SCH (10:06)
[2021-01-02] MEDS: DOCUSATE SODIUM 100 MG CAPSULE (FP) PO SCH ×2 (10:06→21:40)
[2021-01-02] MEDS: BUDESONIDE/FORMETEROL FUMARATE 80/4.5 mcg INHALER IH SCH ×2 (10:07→21:41)
[2021-01-02] MEDS: TIOTROPIUM BROMIDE 2.5 MCG (SPIRIVA) RESPIMAT INHALER IH SCH (10:07)
[2021-01-02] MEDS: BACITRACIN 0.9 GM PACKET TP SCH ×2 (10:07→21:40)
[2021-01-02] MEDS: NICOTINE 14 MG/24 HOURS TOPICAL PATCH TD SCH (10:13)
[2021-01-02] MEDS: LIDOCAINE 5% TOPICAL PATCH TP SCH (10:13)
[2021-01-02] MEDS: PRENATAL VITAMINS W/ FOLIC ACID TABLET (FP) PO SCH (10:14)
[2021-01-02] MEDS: FAMOTIDINE 20 MG TABLET PO SCH ×2 (10:14→21:41)
[2021-01-02] MEDS: MELATONIN 5 MG TABLETS PO SCH (21:40)
[2021-01-02] MEDS: LIDOCAINE PATCH REMOVAL MC SCH (21:40)
[2021-01-02] MEDS: traZODone HCL 50 MG TABLET (FP) PO SCH (21:40)
[2021-01-02] MEDS: THIAMINE HCL 100 MG TABLET (FP) PO SCH (21:41)
[2021-01-03] MEDS ORDERED: METHADONE HCL 10 MG TABLET ONE (03:31)
[2021-01-03] MEDS ORDERED: METHADONE HCL 40 MG DISPERSABLE TABLET ONE (03:32)
[2021-01-03] MEDS: metFORMIN HCL 500 MG TABLET (FP) PO SCH ×2 (06:16→17:03)
[2021-01-03] MEDS: OXYBUTYNIN CHLORIDE 5 MG TABLET PO SCH (06:16)
[2021-01-03] MEDS: METHADONE 40 MG, METHADONE 10 MG PO SCH (06:16)
[2021-01-03] MEDS: ACETAMINOPHEN 325 MG TABLET (FP) PO PRN ×2 (06:16→11:16)
[2021-01-03] MEDS: LEVOTHYROXINE NA 25 MCG TABLET (FP) PO SCH (06:16)
[2021-01-03] MEDS ORDERED: PT OWN MED DRAWER 7, Y5N ONE ×2 (09:09→11:16)
[2021-01-03] MEDS: NICOTINE 14 MG/24 HOURS TOPICAL PATCH TD SCH (09:36)
[2021-01-03] MEDS: FAMOTIDINE 20 MG TABLET PO SCH ×2 (09:36→21:32)
[2021-01-03] MEDS: LIDOCAINE 5% TOPICAL PATCH TP SCH (09:36)
[2021-01-03] MEDS: FLUoxetine HCL 20 MG CAPSULE PO SCH (09:37)
[2021-01-03] MEDS: DOCUSATE SODIUM 100 MG CAPSULE (FP) PO SCH ×2 (09:37→21:32)
[2021-01-03] MEDS: PRENATAL VITAMINS W/ FOLIC ACID TABLET (FP) PO SCH (09:37)
[2021-01-03] MEDS: TIOTROPIUM BROMIDE 2.5 MCG (SPIRIVA) RESPIMAT INHALER IH SCH (09:38)
[2021-01-03] MEDS: BACITRACIN 0.9 GM PACKET TP SCH ×2 (09:38→21:32)
[2021-01-03] MEDS: BUDESONIDE/FORMETEROL FUMARATE 80/4.5 mcg INHALER IH SCH ×2 (09:39→21:32)
[2021-01-03] MEDS: LISINOPRIL 10 MG TABLET PO SCH (11:16)
[2021-01-03] MEDS: amLODIPine BESYLATE 10 MG TABLET (FP) PO SCH (11:16)
[2021-01-03] MEDS: hydrOXYzine PAMOATE 25 MG CAPSULE (FP) PO PRN (11:17)
[2021-01-03 14:29] LABS: EPI CELLS >36 /uL (0-25.1); HYALINE CASTS 7 /uL (0-3.1); URINE APPEARANCE CLOUDY; URINE BACTERIA 908 /uL (0-1359); URINE BILIRUBIN 1+ (NEGATIVE); URINE COLOR DK YELLOW; URINE GLUCOSE (UA) NEGATIVE (NEGATIVE); URINE KETONE TRACE (NEGATIVE); URINE LEUK ESTERASE 1+ (NEGATIVE); URINE NITRITE NEGATIVE (NEGATIVE); URINE PROTEIN TRACE (NEGATIVE); URINE WBC 29 /uL (0-25.8)
[2021-01-03] MEDS: LIDOCAINE PATCH REMOVAL MC SCH (21:32)
[2021-01-03] MEDS: THIAMINE HCL 100 MG TABLET (FP) PO SCH (21:32)
[2021-01-03] MEDS: traZODone HCL 50 MG TABLET (FP) PO SCH (21:32)
[2021-01-03] MEDS: MELATONIN 5 MG TABLETS PO SCH (21:32)
[2021-01-04] MEDS ORDERED: METHADONE HCL 10 MG TABLET ONE (06:03)
[2021-01-04] MEDS ORDERED: METHADONE HCL 40 MG DISPERSABLE TABLET ONE (06:03)
[2021-01-04] MEDS: metFORMIN HCL 500 MG TABLET (FP) PO SCH ×2 (06:18→17:08)
[2021-01-04] MEDS: METHADONE 40 MG, METHADONE 10 MG PO SCH (06:18)
[2021-01-04] MEDS: OXYBUTYNIN CHLORIDE 5 MG TABLET PO SCH (06:18)
[2021-01-04] MEDS: LEVOTHYROXINE NA 25 MCG TABLET (FP) PO SCH (06:18)
[2021-01-04] MEDS ORDERED: PT OWN MED DRAWER 7, Y5N ONE ×2 (08:44→22:40)
[2021-01-04] MEDS: NICOTINE 14 MG/24 HOURS TOPICAL PATCH TD SCH (09:48)
[2021-01-04] MEDS: LIDOCAINE 5% TOPICAL PATCH TP SCH (09:48)
[2021-01-04] MEDS: TIOTROPIUM BROMIDE 2.5 MCG (SPIRIVA) RESPIMAT INHALER IH SCH (09:49)
[2021-01-04] MEDS: BUDESONIDE/FORMETEROL FUMARATE 80/4.5 mcg INHALER IH SCH ×2 (09:49→22:38)
[2021-01-04] MEDS: PRENATAL VITAMINS W/ FOLIC ACID TABLET (FP) PO SCH (09:49)
[2021-01-04] MEDS: BACITRACIN 0.9 GM PACKET TP SCH ×2 (09:49→22:38)
[2021-01-04] MEDS: amLODIPine BESYLATE 10 MG TABLET (FP) PO SCH (09:50)
[2021-01-04] MEDS: LISINOPRIL 10 MG TABLET PO SCH (09:50)
[2021-01-04] MEDS: DOCUSATE SODIUM 100 MG CAPSULE (FP) PO SCH ×2 (09:50→22:37)
[2021-01-04] MEDS: FLUoxetine HCL 20 MG CAPSULE PO SCH (09:50)
[2021-01-04] MEDS: FAMOTIDINE 20 MG TABLET PO SCH ×2 (09:50→22:37)
[2021-01-04] MEDS: NAPROXEN 375 MG TABLET PO PRN ×2 (09:51→22:40)
[2021-01-04] MEDS: MELATONIN 5 MG TABLETS PO SCH (22:37)
[2021-01-04] MEDS: traZODone HCL 50 MG TABLET (FP) PO SCH (22:37)
[2021-01-04] MEDS: THIAMINE HCL 100 MG TABLET (FP) PO SCH (22:37)
[2021-01-04] MEDS: LIDOCAINE PATCH REMOVAL MC SCH (22:38)
[2021-01-05] MEDS ORDERED: METHADONE HCL 10 MG TABLET ONE (06:24)
[2021-01-05] MEDS: METHADONE 40 MG, METHADONE 10 MG PO SCH (06:24)
[2021-01-05] MEDS ORDERED: METHADONE HCL 40 MG DISPERSABLE TABLET ONE (06:24)
[2021-01-05] MEDS: LEVOTHYROXINE NA 25 MCG TABLET (FP) PO SCH (06:25)
[2021-01-05] MEDS: OXYBUTYNIN CHLORIDE 5 MG TABLET PO SCH (06:25)
[2021-01-05] MEDS: metFORMIN HCL 500 MG TABLET (FP) PO SCH ×2 (06:25→16:56)
[2021-01-05] MEDS: BACITRACIN 0.9 GM PACKET TP SCH ×2 (09:27→21:33)
[2021-01-05] MEDS: PRENATAL VITAMINS W/ FOLIC ACID TABLET (FP) PO SCH (09:27)
[2021-01-05] MEDS: NICOTINE 14 MG/24 HOURS TOPICAL PATCH TD SCH (09:27)
[2021-01-05] MEDS: LIDOCAINE 5% TOPICAL PATCH TP SCH (09:27)
[2021-01-05] MEDS: DOCUSATE SODIUM 100 MG CAPSULE (FP) PO SCH ×2 (09:28→21:33)
[2021-01-05] MEDS: FLUoxetine HCL 20 MG CAPSULE PO SCH (09:28)
[2021-01-05] MEDS: FAMOTIDINE 20 MG TABLET PO SCH ×2 (09:28→21:33)
[2021-01-05] MEDS: NAPROXEN 375 MG TABLET PO PRN (09:29)
[2021-01-05] MEDS: BUDESONIDE/FORMETEROL FUMARATE 80/4.5 mcg INHALER IH SCH ×2 (09:29→21:34)
[2021-01-05] MEDS: TIOTROPIUM BROMIDE 2.5 MCG (SPIRIVA) RESPIMAT INHALER IH SCH (09:29)
[2021-01-05] MEDS: amLODIPine BESYLATE 10 MG TABLET (FP) PO SCH (10:26)
[2021-01-05] MEDS: LISINOPRIL 10 MG TABLET PO SCH (10:26)
[2021-01-05] MEDS: traZODone HCL 50 MG TABLET (FP) PO SCH (21:33)
[2021-01-05] MEDS: THIAMINE HCL 100 MG TABLET (FP) PO SCH (21:33)
[2021-01-05] MEDS: LIDOCAINE PATCH REMOVAL MC SCH (21:34)
[2021-01-05] MEDS: MELATONIN 5 MG TABLETS PO SCH (21:34)
[2021-01-06] MEDS ORDERED: METHADONE HCL 40 MG DISPERSABLE TABLET ONE (06:20)
[2021-01-06] MEDS ORDERED: METHADONE HCL 10 MG TABLET ONE (06:20)
[2021-01-06] MEDS: METHADONE 40 MG, METHADONE 10 MG PO SCH (06:32)
[2021-01-06] MEDS: OXYBUTYNIN CHLORIDE 5 MG TABLET PO SCH (06:32)
[2021-01-06] MEDS: LEVOTHYROXINE NA 25 MCG TABLET (FP) PO SCH (06:32)
[2021-01-06] MEDS: metFORMIN HCL 500 MG TABLET (FP) PO SCH ×2 (06:32→16:49)
[2021-01-06] MEDS: TIOTROPIUM BROMIDE 2.5 MCG (SPIRIVA) RESPIMAT INHALER IH SCH (09:44)
[2021-01-06] MEDS: NAPROXEN 375 MG TABLET PO PRN (09:45)
[2021-01-06] MEDS: FLUoxetine HCL 20 MG CAPSULE PO SCH (09:45)
[2021-01-06] MEDS: BUDESONIDE/FORMETEROL FUMARATE 80/4.5 mcg INHALER IH SCH ×2 (09:45→21:29)
[2021-01-06] MEDS: NICOTINE 14 MG/24 HOURS TOPICAL PATCH TD SCH (09:45)
[2021-01-06] MEDS: DOCUSATE SODIUM 100 MG CAPSULE (FP) PO SCH ×2 (09:46→21:28)
[2021-01-06] MEDS: LISINOPRIL 10 MG TABLET PO SCH (09:46)
[2021-01-06] MEDS: amLODIPine BESYLATE 10 MG TABLET (FP) PO SCH (09:46)
[2021-01-06] MEDS: PRENATAL VITAMINS W/ FOLIC ACID TABLET (FP) PO SCH (09:46)
[2021-01-06] MEDS: BACITRACIN 0.9 GM PACKET TP SCH (09:52)
[2021-01-06] MEDS: LIDOCAINE 5% TOPICAL PATCH TP SCH (09:52)
[2021-01-06] MEDS: FAMOTIDINE 20 MG TABLET PO SCH ×2 (10:53→21:28)
[2021-01-06] MEDS: MELATONIN 5 MG TABLETS PO SCH (21:28)
[2021-01-06] MEDS: traZODone HCL 50 MG TABLET (FP) PO SCH (21:28)
[2021-01-06] MEDS: LIDOCAINE PATCH REMOVAL MC SCH (21:28)
[2021-01-06] MEDS: THIAMINE HCL 100 MG TABLET (FP) PO SCH (21:28)
[2021-01-07] MEDS ORDERED: METHADONE HCL 10 MG TABLET ONE (03:13)
[2021-01-07] MEDS ORDERED: METHADONE HCL 40 MG DISPERSABLE TABLET ONE (03:13)
[2021-01-07] MEDS ORDERED: PT OWN MED DRAWER 7, Y5N ONE (03:16)
[2021-01-07] MEDS: METHADONE 40 MG, METHADONE 10 MG PO SCH (06:11)
[2021-01-07] MEDS: metFORMIN HCL 500 MG TABLET (FP) PO SCH ×2 (06:12→16:48)
[2021-01-07] MEDS: OXYBUTYNIN CHLORIDE 5 MG TABLET PO SCH (06:12)
[2021-01-07] MEDS: LEVOTHYROXINE NA 25 MCG TABLET (FP) PO SCH (06:12)
[2021-01-07] MEDS: ACETAMINOPHEN 325 MG TABLET (FP) PO PRN (06:13)
[2021-01-07] MEDS: FLUoxetine HCL 20 MG CAPSULE PO SCH (10:12)
[2021-01-07] MEDS: PRENATAL VITAMINS W/ FOLIC ACID TABLET (FP) PO SCH (10:12)
[2021-01-07] MEDS: LISINOPRIL 10 MG TABLET PO SCH (10:12)
[2021-01-07] MEDS: amLODIPine BESYLATE 10 MG TABLET (FP) PO SCH (10:13)
[2021-01-07] MEDS: FAMOTIDINE 20 MG TABLET PO SCH ×2 (10:13→22:19)
[2021-01-07] MEDS: NICOTINE 14 MG/24 HOURS TOPICAL PATCH TD SCH (10:13)
[2021-01-07] MEDS: DOCUSATE SODIUM 100 MG CAPSULE (FP) PO SCH ×2 (10:13→22:16)
[2021-01-07] MEDS: LIDOCAINE 5% TOPICAL PATCH TP SCH (10:13)
[2021-01-07] MEDS: BUDESONIDE/FORMETEROL FUMARATE 80/4.5 mcg INHALER IH SCH ×2 (10:14→22:19)
[2021-01-07] MEDS: TIOTROPIUM BROMIDE 2.5 MCG (SPIRIVA) RESPIMAT INHALER IH SCH (10:14)
[2021-01-07] MEDS: hydrOXYzine PAMOATE 25 MG CAPSULE (FP) PO PRN (10:15)
[2021-01-07] MEDS: traZODone HCL 50 MG TABLET (FP) PO SCH (22:17)
[2021-01-07] MEDS: MELATONIN 5 MG TABLETS PO SCH (22:19)
[2021-01-07] MEDS: THIAMINE HCL 100 MG TABLET (FP) PO SCH (22:20)
[2021-01-07] MEDS: LIDOCAINE PATCH REMOVAL MC SCH (22:20)
[2021-01-08] MEDS ORDERED: METHADONE HCL 40 MG DISPERSABLE TABLET ONE (03:43)
[2021-01-08] MEDS ORDERED: METHADONE HCL 10 MG TABLET ONE (03:43)
[2021-01-08] MEDS ORDERED: PT OWN MED DRAWER 7, Y5N ONE (03:45)
[2021-01-08] MEDS: METHADONE 40 MG, METHADONE 10 MG PO SCH (06:16)
[2021-01-08] MEDS: LEVOTHYROXINE NA 25 MCG TABLET (FP) PO SCH (06:17)
[2021-01-08] MEDS: metFORMIN HCL 500 MG TABLET (FP) PO SCH ×2 (06:18→16:36)
[2021-01-08] MEDS: OXYBUTYNIN CHLORIDE 5 MG TABLET PO SCH (06:18)
[2021-01-08] MEDS: ACETAMINOPHEN 325 MG TABLET (FP) PO PRN (06:18)
[2021-01-08] MEDS: LIDOCAINE 5% TOPICAL PATCH TP SCH (10:04)
[2021-01-08] MEDS: DOCUSATE SODIUM 100 MG CAPSULE (FP) PO SCH ×2 (10:05→21:07)
[2021-01-08] MEDS: FLUoxetine HCL 20 MG CAPSULE PO SCH (10:05)
[2021-01-08] MEDS: FAMOTIDINE 20 MG TABLET PO SCH ×2 (10:05→21:08)
[2021-01-08] MEDS: LISINOPRIL 10 MG TABLET PO SCH (10:05)
[2021-01-08] MEDS: TIOTROPIUM BROMIDE 2.5 MCG (SPIRIVA) RESPIMAT INHALER IH SCH (10:06)
[2021-01-08] MEDS: PRENATAL VITAMINS W/ FOLIC ACID TABLET (FP) PO SCH (10:06)
[2021-01-08] MEDS: BUDESONIDE/FORMETEROL FUMARATE 80/4.5 mcg INHALER IH SCH ×2 (10:06→21:09)
[2021-01-08] MEDS: amLODIPine BESYLATE 10 MG TABLET (FP) PO SCH (10:06)
[2021-01-08] MEDS: NICOTINE 14 MG/24 HOURS TOPICAL PATCH TD SCH (10:06)
[2021-01-08] MEDS: NAPROXEN 375 MG TABLET PO PRN (10:08)
[2021-01-08] MEDS: MAG HYDROX/AL HYDROX/SIMETH 30 ML UNIT-DOSE CUP PO PRN (13:53)
[2021-01-08] MEDS: THIAMINE HCL 100 MG TABLET (FP) PO SCH (21:07)
[2021-01-08] MEDS: MELATONIN 5 MG TABLETS PO SCH (21:07)
[2021-01-08] MEDS: traZODone HCL 50 MG TABLET (FP) PO SCH (21:07)
[2021-01-08] MEDS: LIDOCAINE PATCH REMOVAL MC SCH (21:07)
[2021-01-09] MEDS ORDERED: METHADONE HCL 10 MG TABLET ONE (03:05)
[2021-01-09] MEDS ORDERED: METHADONE HCL 40 MG DISPERSABLE TABLET ONE (03:05)
[2021-01-09] MEDS ORDERED: PT OWN MED DRAWER 7, Y5N ONE (03:07)
[2021-01-09] MEDS: METHADONE 40 MG, METHADONE 10 MG PO SCH (06:28)
[2021-01-09] MEDS: metFORMIN HCL 500 MG TABLET (FP) PO SCH ×2 (06:29→17:10)
[2021-01-09] MEDS: LEVOTHYROXINE NA 25 MCG TABLET (FP) PO SCH (06:29)
[2021-01-09] MEDS: OXYBUTYNIN CHLORIDE 5 MG TABLET PO SCH (06:29)
[2021-01-09] MEDS: ACETAMINOPHEN 325 MG TABLET (FP) PO PRN (06:29)
[2021-01-09] MEDS: NICOTINE 14 MG/24 HOURS TOPICAL PATCH TD SCH (10:03)
[2021-01-09] MEDS: LIDOCAINE 5% TOPICAL PATCH TP SCH (10:04)
[2021-01-09] MEDS: PRENATAL VITAMINS W/ FOLIC ACID TABLET (FP) PO SCH (10:04)
[2021-01-09] MEDS: DOCUSATE SODIUM 100 MG CAPSULE (FP) PO SCH ×2 (10:04→21:30)
[2021-01-09] MEDS: LISINOPRIL 10 MG TABLET PO SCH (10:04)
[2021-01-09] MEDS: amLODIPine BESYLATE 10 MG TABLET (FP) PO SCH (10:04)
[2021-01-09] MEDS: FLUoxetine HCL 20 MG CAPSULE PO SCH (10:05)
[2021-01-09] MEDS: FAMOTIDINE 20 MG TABLET PO SCH ×2 (10:05→21:31)
[2021-01-09] MEDS: hydrOXYzine PAMOATE 25 MG CAPSULE (FP) PO PRN (10:07)
[2021-01-09] MEDS: TIOTROPIUM BROMIDE 2.5 MCG (SPIRIVA) RESPIMAT INHALER IH SCH (10:07)
[2021-01-09] MEDS: BUDESONIDE/FORMETEROL FUMARATE 80/4.5 mcg INHALER IH SCH ×2 (10:07→21:31)
[2021-01-09] MEDS: MELATONIN 5 MG TABLETS PO SCH (21:30)
[2021-01-09] MEDS: traZODone HCL 50 MG TABLET (FP) PO SCH (21:30)
[2021-01-09] MEDS: LIDOCAINE PATCH REMOVAL MC SCH (21:30)
[2021-01-09] MEDS: THIAMINE HCL 100 MG TABLET (FP) PO SCH (21:31)
[2021-01-10] MEDS ORDERED: PT OWN MED DRAWER 7, Y5N ONE ×2 (03:47→19:57)
[2021-01-10] MEDS ORDERED: METHADONE HCL 10 MG TABLET ONE (06:07)
[2021-01-10] MEDS ORDERED: METHADONE HCL 40 MG DISPERSABLE TABLET ONE (06:08)
[2021-01-10] MEDS: LEVOTHYROXINE NA 25 MCG TABLET (FP) PO SCH (06:12)
[2021-01-10] MEDS: metFORMIN HCL 500 MG TABLET (FP) PO SCH ×2 (06:12→17:26)
[2021-01-10] MEDS: OXYBUTYNIN CHLORIDE 5 MG TABLET PO SCH (06:12)
[2021-01-10] MEDS: METHADONE 40 MG, METHADONE 10 MG PO SCH (06:13)
[2021-01-10] MEDS: NICOTINE 14 MG/24 HOURS TOPICAL PATCH TD SCH (09:54)
[2021-01-10] MEDS: PRENATAL VITAMINS W/ FOLIC ACID TABLET (FP) PO SCH (09:55)
[2021-01-10] MEDS: LIDOCAINE 5% TOPICAL PATCH TP SCH (09:55)
[2021-01-10] MEDS: FLUoxetine HCL 20 MG CAPSULE PO SCH (09:55)
[2021-01-10] MEDS: DOCUSATE SODIUM 100 MG CAPSULE (FP) PO SCH ×2 (09:55→21:21)
[2021-01-10] MEDS: LISINOPRIL 10 MG TABLET PO SCH (09:55)
[2021-01-10] MEDS: FAMOTIDINE 20 MG TABLET PO SCH ×2 (09:55→21:21)
[2021-01-10] MEDS: amLODIPine BESYLATE 10 MG TABLET (FP) PO SCH (09:55)
[2021-01-10] MEDS: BUDESONIDE/FORMETEROL FUMARATE 80/4.5 mcg INHALER IH SCH ×2 (09:56→21:21)
[2021-01-10] MEDS: TIOTROPIUM BROMIDE 2.5 MCG (SPIRIVA) RESPIMAT INHALER IH SCH (09:56)
[2021-01-10] MEDS: hydrOXYzine PAMOATE 25 MG CAPSULE (FP) PO PRN (09:56)
[2021-01-10] MEDS: traZODone HCL 50 MG TABLET (FP) PO SCH (21:21)
[2021-01-10] MEDS: THIAMINE HCL 100 MG TABLET (FP) PO SCH (21:21)
[2021-01-10] MEDS: MELATONIN 5 MG TABLETS PO SCH (21:21)
[2021-01-10] MEDS: LIDOCAINE PATCH REMOVAL MC SCH (21:21)
[2021-01-11] MEDS ORDERED: PT OWN MED DRAWER 7, Y5N ONE ×3 (03:28→17:03)
[2021-01-11] MEDS ORDERED: METHADONE HCL 10 MG TABLET ONE (06:26)
[2021-01-11] MEDS ORDERED: METHADONE HCL 40 MG DISPERSABLE TABLET ONE (06:27)
[2021-01-11] MEDS: ACETAMINOPHEN 325 MG TABLET (FP) PO PRN (06:30)
[2021-01-11] MEDS: LEVOTHYROXINE NA 25 MCG TABLET (FP) PO SCH (06:31)
[2021-01-11] MEDS: metFORMIN HCL 500 MG TABLET (FP) PO SCH ×2 (06:31→17:03)
[2021-01-11] MEDS: OXYBUTYNIN CHLORIDE 5 MG TABLET PO SCH (06:31)
[2021-01-11] MEDS: METHADONE 40 MG, METHADONE 10 MG PO SCH (06:32)
[2021-01-11] MEDS: FLUoxetine HCL 20 MG CAPSULE PO SCH (09:45)
[2021-01-11] MEDS: amLODIPine BESYLATE 10 MG TABLET (FP) PO SCH (09:45)
[2021-01-11] MEDS: DOCUSATE SODIUM 100 MG CAPSULE (FP) PO SCH ×2 (09:45→21:01)
[2021-01-11] MEDS: PRENATAL VITAMINS W/ FOLIC ACID TABLET (FP) PO SCH (09:45)
[2021-01-11] MEDS: LISINOPRIL 10 MG TABLET PO SCH (09:45)
[2021-01-11] MEDS: NICOTINE 14 MG/24 HOURS TOPICAL PATCH TD SCH (09:46)
[2021-01-11] MEDS: BUDESONIDE/FORMETEROL FUMARATE 80/4.5 mcg INHALER IH SCH ×2 (09:47→21:01)
[2021-01-11] MEDS: TIOTROPIUM BROMIDE 2.5 MCG (SPIRIVA) RESPIMAT INHALER IH SCH (09:47)
[2021-01-11] MEDS: FAMOTIDINE 20 MG TABLET PO SCH ×2 (09:47→21:01)
[2021-01-11] MEDS: LIDOCAINE 5% TOPICAL PATCH TP SCH (09:47)
[2021-01-11] MEDS: NAPROXEN 375 MG TABLET PO PRN (17:03)
[2021-01-11] MEDS: LIDOCAINE PATCH REMOVAL MC SCH (21:01)
[2021-01-11] MEDS: THIAMINE HCL 100 MG TABLET (FP) PO SCH (21:01)
[2021-01-11] MEDS: traZODone HCL 50 MG TABLET (FP) PO SCH (21:01)
[2021-01-11] MEDS: MELATONIN 5 MG TABLETS PO SCH (21:02)
[2021-01-12] MEDS ORDERED: METHADONE HCL 40 MG DISPERSABLE TABLET ONE (03:18)
[2021-01-12] MEDS ORDERED: METHADONE HCL 10 MG TABLET ONE (03:18)
[2021-01-12] MEDS: METHADONE 40 MG, METHADONE 10 MG PO SCH (06:44)
[2021-01-12] MEDS: ACETAMINOPHEN 325 MG TABLET (FP) PO PRN (06:45)
[2021-01-12] MEDS: OXYBUTYNIN CHLORIDE 5 MG TABLET PO SCH (06:45)
[2021-01-12] MEDS: metFORMIN HCL 500 MG TABLET (FP) PO SCH ×2 (06:45→17:11)
[2021-01-12] MEDS: LEVOTHYROXINE NA 25 MCG TABLET (FP) PO SCH (06:45)
[2021-01-12] MEDS: PRENATAL VITAMINS W/ FOLIC ACID TABLET (FP) PO SCH (09:55)
[2021-01-12] MEDS: LISINOPRIL 10 MG TABLET PO SCH (09:55)
[2021-01-12] MEDS: DOCUSATE SODIUM 100 MG CAPSULE (FP) PO SCH ×2 (09:55→21:07)
[2021-01-12] MEDS: FLUoxetine HCL 20 MG CAPSULE PO SCH (09:55)
[2021-01-12] MEDS: NICOTINE 14 MG/24 HOURS TOPICAL PATCH TD SCH (09:56)
[2021-01-12] MEDS: amLODIPine BESYLATE 10 MG TABLET (FP) PO SCH (09:57)
[2021-01-12] MEDS: TIOTROPIUM BROMIDE 2.5 MCG (SPIRIVA) RESPIMAT INHALER IH SCH (09:57)
[2021-01-12] MEDS: LIDOCAINE 5% TOPICAL PATCH TP SCH (09:57)
[2021-01-12] MEDS: FAMOTIDINE 20 MG TABLET PO SCH ×2 (09:57→21:08)
[2021-01-12] MEDS: BUDESONIDE/FORMETEROL FUMARATE 80/4.5 mcg INHALER IH SCH ×2 (09:57→21:08)
[2021-01-12] MEDS: COLLOIDAL OATMEAL 1 BAR EACH TP PRN (10:12)
[2021-01-12] MEDS ORDERED: PT OWN MED DRAWER 7, Y5N ONE (14:51)
[2021-01-12] MEDS: NAPROXEN 375 MG TABLET PO PRN (14:57)
[2021-01-12] MEDS: THIAMINE HCL 100 MG TABLET (FP) PO SCH (21:07)
[2021-01-12] MEDS: MELATONIN 5 MG TABLETS PO SCH (21:07)
[2021-01-12] MEDS: traZODone HCL 50 MG TABLET (FP) PO SCH (21:07)
[2021-01-12] MEDS: LIDOCAINE PATCH REMOVAL MC SCH (21:08)
[2021-01-13] MEDS ORDERED: PT OWN MED DRAWER 7, Y5N ONE ×2 (02:16→13:30)
[2021-01-13] MEDS ORDERED: METHADONE HCL 10 MG TABLET ONE (03:02)
[2021-01-13] MEDS ORDERED: METHADONE HCL 40 MG DISPERSABLE TABLET ONE (03:02)
[2021-01-13] MEDS: LEVOTHYROXINE NA 25 MCG TABLET (FP) PO SCH (06:25)
[2021-01-13] MEDS: metFORMIN HCL 500 MG TABLET (FP) PO SCH ×2 (06:25→17:43)
[2021-01-13] MEDS: METHADONE 40 MG, METHADONE 10 MG PO SCH (06:25)
[2021-01-13] MEDS: OXYBUTYNIN CHLORIDE 5 MG TABLET PO SCH (06:25)
[2021-01-13] MEDS: ACETAMINOPHEN 325 MG TABLET (FP) PO PRN (06:25)
[2021-01-13] MEDS: NICOTINE 14 MG/24 HOURS TOPICAL PATCH TD SCH (09:48)
[2021-01-13] MEDS: FAMOTIDINE 20 MG TABLET PO SCH ×2 (09:49→21:08)
[2021-01-13] MEDS: DOCUSATE SODIUM 100 MG CAPSULE (FP) PO SCH ×2 (09:49→21:07)
[2021-01-13] MEDS: PRENATAL VITAMINS W/ FOLIC ACID TABLET (FP) PO SCH (09:49)
[2021-01-13] MEDS: LISINOPRIL 10 MG TABLET PO SCH (09:49)
[2021-01-13] MEDS: amLODIPine BESYLATE 10 MG TABLET (FP) PO SCH (09:49)
[2021-01-13] MEDS: TIOTROPIUM BROMIDE 2.5 MCG (SPIRIVA) RESPIMAT INHALER IH SCH (09:50)
[2021-01-13] MEDS: FLUoxetine HCL 20 MG CAPSULE PO SCH (09:50)
[2021-01-13] MEDS: BUDESONIDE/FORMETEROL FUMARATE 80/4.5 mcg INHALER IH SCH ×2 (09:50→21:08)
[2021-01-13] MEDS: LIDOCAINE 5% TOPICAL PATCH TP SCH (09:50)
[2021-01-13] MEDS: hydrOXYzine PAMOATE 25 MG CAPSULE (FP) PO PRN (09:51)
[2021-01-13] MEDS: NAPROXEN 375 MG TABLET PO PRN (13:30)
[2021-01-13] MEDS: BACITRACIN 0.9 GM PACKET TP SCH (13:30)
[2021-01-13] MEDS: THIAMINE HCL 100 MG TABLET (FP) PO SCH (21:07)
[2021-01-13] MEDS: traZODone HCL 50 MG TABLET (FP) PO SCH (21:07)
[2021-01-13] MEDS: MELATONIN 5 MG TABLETS PO SCH (21:07)
[2021-01-13] MEDS: LIDOCAINE PATCH REMOVAL MC SCH (21:08)
[2021-01-14] MEDS ORDERED: METHADONE HCL 10 MG TABLET ONE (06:11)
[2021-01-14] MEDS ORDERED: METHADONE HCL 40 MG DISPERSABLE TABLET ONE (06:12)
[2021-01-14] MEDS: OXYBUTYNIN CHLORIDE 5 MG TABLET PO SCH (06:21)
[2021-01-14] MEDS: metFORMIN HCL 500 MG TABLET (FP) PO SCH ×2 (06:21→16:59)
[2021-01-14] MEDS: METHADONE 40 MG, METHADONE 10 MG PO SCH (06:21)
[2021-01-14] MEDS: LEVOTHYROXINE NA 25 MCG TABLET (FP) PO SCH (06:21)
[2021-01-14] MEDS ORDERED: PT OWN MED DRAWER 7, Y5N ONE (09:27)
[2021-01-14] MEDS: BUDESONIDE/FORMETEROL FUMARATE 80/4.5 mcg INHALER IH SCH ×2 (09:54→21:13)
[2021-01-14] MEDS: LIDOCAINE 5% TOPICAL PATCH TP SCH (09:54)
[2021-01-14] MEDS: FLUoxetine HCL 20 MG CAPSULE PO SCH (09:54)
[2021-01-14] MEDS: BACITRACIN 0.9 GM PACKET TP SCH (09:54)
[2021-01-14] MEDS: NICOTINE 14 MG/24 HOURS TOPICAL PATCH TD SCH (09:55)
[2021-01-14] MEDS: PRENATAL VITAMINS W/ FOLIC ACID TABLET (FP) PO SCH (09:55)
[2021-01-14] MEDS: DOCUSATE SODIUM 100 MG CAPSULE (FP) PO SCH ×2 (09:55→21:12)
[2021-01-14] MEDS: FAMOTIDINE 20 MG TABLET PO SCH ×2 (09:55→21:12)
[2021-01-14] MEDS: LISINOPRIL 10 MG TABLET PO SCH (09:55)
[2021-01-14] MEDS: amLODIPine BESYLATE 10 MG TABLET (FP) PO SCH (09:55)
[2021-01-14] MEDS: NAPROXEN 375 MG TABLET PO PRN (09:56)
[2021-01-14] MEDS: TIOTROPIUM BROMIDE 2.5 MCG (SPIRIVA) RESPIMAT INHALER IH SCH (11:20)
[2021-01-14] MEDS: ACETAMINOPHEN 325 MG TABLET (FP) PO PRN (16:59)
[2021-01-14] MEDS: MELATONIN 5 MG TABLETS PO SCH (21:12)
[2021-01-14] MEDS: traZODone HCL 50 MG TABLET (FP) PO SCH (21:12)
[2021-01-14] MEDS: THIAMINE HCL 100 MG TABLET (FP) PO SCH (21:12)
[2021-01-14] MEDS: LIDOCAINE PATCH REMOVAL MC SCH (21:13)
[2021-01-15] MEDS ORDERED: METHADONE HCL 40 MG DISPERSABLE TABLET ONE (03:05)
[2021-01-15] MEDS ORDERED: METHADONE HCL 10 MG TABLET ONE (03:05)
[2021-01-15] MEDS ORDERED: PT OWN MED DRAWER 7, Y5N ONE ×3 (03:07→09:57)
[2021-01-15] MEDS: METHADONE 40 MG, METHADONE 10 MG PO SCH (06:23)
[2021-01-15] MEDS: OXYBUTYNIN CHLORIDE 5 MG TABLET PO SCH (06:24)
[2021-01-15] MEDS: LEVOTHYROXINE NA 25 MCG TABLET (FP) PO SCH (06:24)
[2021-01-15] MEDS: ACETAMINOPHEN 325 MG TABLET (FP) PO PRN (06:25)
[2021-01-15] MEDS: metFORMIN HCL 500 MG TABLET (FP) PO SCH ×2 (06:25→16:20)
[2021-01-15] MEDS: NICOTINE 14 MG/24 HOURS TOPICAL PATCH TD SCH (09:42)
[2021-01-15] MEDS: PRENATAL VITAMINS W/ FOLIC ACID TABLET (FP) PO SCH (09:42)
[2021-01-15] MEDS: LIDOCAINE 5% TOPICAL PATCH TP SCH (09:42)
[2021-01-15] MEDS: FLUoxetine HCL 20 MG CAPSULE PO SCH (09:43)
[2021-01-15] MEDS: DOCUSATE SODIUM 100 MG CAPSULE (FP) PO SCH ×2 (09:43→21:23)
[2021-01-15] MEDS: FAMOTIDINE 20 MG TABLET PO SCH ×2 (09:43→21:23)
[2021-01-15] MEDS: amLODIPine BESYLATE 10 MG TABLET (FP) PO SCH (09:43)
[2021-01-15] MEDS: LISINOPRIL 10 MG TABLET PO SCH (09:43)
[2021-01-15] MEDS: TIOTROPIUM BROMIDE 2.5 MCG (SPIRIVA) RESPIMAT INHALER IH SCH (09:44)
[2021-01-15] MEDS: BUDESONIDE/FORMETEROL FUMARATE 80/4.5 mcg INHALER IH SCH ×2 (09:44→21:24)
[2021-01-15] MEDS: BACITRACIN 0.9 GM PACKET TP SCH (09:44)
[2021-01-15] MEDS: LIDOCAINE PATCH REMOVAL MC SCH (21:23)
[2021-01-15] MEDS: traZODone HCL 50 MG TABLET (FP) PO SCH (21:23)
[2021-01-15] MEDS: MELATONIN 5 MG TABLETS PO SCH (21:23)
[2021-01-15] MEDS: THIAMINE HCL 100 MG TABLET (FP) PO SCH (21:24)
[2021-01-16] MEDS ORDERED: METHADONE HCL 10 MG TABLET ONE (05:49)
[2021-01-16] MEDS ORDERED: METHADONE HCL 40 MG DISPERSABLE TABLET ONE (05:50)
[2021-01-16] MEDS ORDERED: PT OWN MED DRAWER 7, Y5N ONE ×2 (05:51→10:11)
[2021-01-16] MEDS: METHADONE 40 MG, METHADONE 10 MG PO SCH (06:17)
[2021-01-16] MEDS: metFORMIN HCL 500 MG TABLET (FP) PO SCH ×2 (06:17→17:02)
[2021-01-16] MEDS: LEVOTHYROXINE NA 25 MCG TABLET (FP) PO SCH (06:17)
[2021-01-16] MEDS: OXYBUTYNIN CHLORIDE 5 MG TABLET PO SCH (06:17)
[2021-01-16] MEDS: NICOTINE 14 MG/24 HOURS TOPICAL PATCH TD SCH (10:04)
[2021-01-16] MEDS: LIDOCAINE 5% TOPICAL PATCH TP SCH (10:04)
[2021-01-16] MEDS: FLUoxetine HCL 20 MG CAPSULE PO SCH (10:05)
[2021-01-16] MEDS: BACITRACIN 0.9 GM PACKET TP SCH (10:05)
[2021-01-16] MEDS: LISINOPRIL 10 MG TABLET PO SCH (10:06)
[2021-01-16] MEDS: DOCUSATE SODIUM 100 MG CAPSULE (FP) PO SCH ×2 (10:06→21:12)
[2021-01-16] MEDS: BUDESONIDE/FORMETEROL FUMARATE 80/4.5 mcg INHALER IH SCH ×2 (10:06→21:13)
[2021-01-16] MEDS: amLODIPine BESYLATE 10 MG TABLET (FP) PO SCH (10:06)
[2021-01-16] MEDS: PRENATAL VITAMINS W/ FOLIC ACID TABLET (FP) PO SCH (10:06)
[2021-01-16] MEDS: FAMOTIDINE 20 MG TABLET PO SCH ×2 (10:06→21:14)
[2021-01-16] MEDS: NAPROXEN 375 MG TABLET PO PRN (10:07)
[2021-01-16] MEDS: TIOTROPIUM BROMIDE 2.5 MCG (SPIRIVA) RESPIMAT INHALER IH SCH (10:07)
[2021-01-16] MEDS: THIAMINE HCL 100 MG TABLET (FP) PO SCH (21:12)
[2021-01-16] MEDS: MELATONIN 5 MG TABLETS PO SCH (21:12)
[2021-01-16] MEDS: traZODone HCL 50 MG TABLET (FP) PO SCH (21:12)
[2021-01-16] MEDS: LIDOCAINE PATCH REMOVAL MC SCH (21:13)
[2021-01-17] MEDS ORDERED: PT OWN MED DRAWER 7, Y5N ONE ×2 (03:27→09:28)
[2021-01-17] MEDS ORDERED: METHADONE HCL 40 MG DISPERSABLE TABLET ONE (06:07)
[2021-01-17] MEDS ORDERED: METHADONE HCL 10 MG TABLET ONE (06:07)
[2021-01-17] MEDS: METHADONE 40 MG, METHADONE 10 MG PO SCH (06:11)
[2021-01-17] MEDS: OXYBUTYNIN CHLORIDE 5 MG TABLET PO SCH (06:12)
[2021-01-17] MEDS: LEVOTHYROXINE NA 25 MCG TABLET (FP) PO SCH (06:12)
[2021-01-17] MEDS: metFORMIN HCL 500 MG TABLET (FP) PO SCH ×2 (06:12→16:58)
[2021-01-17] MEDS: LISINOPRIL 10 MG TABLET PO SCH (10:05)
[2021-01-17] MEDS: DOCUSATE SODIUM 100 MG CAPSULE (FP) PO SCH ×2 (10:05→22:03)
[2021-01-17] MEDS: FLUoxetine HCL 20 MG CAPSULE PO SCH (10:05)
[2021-01-17] MEDS: amLODIPine BESYLATE 10 MG TABLET (FP) PO SCH (10:05)
[2021-01-17] MEDS: PRENATAL VITAMINS W/ FOLIC ACID TABLET (FP) PO SCH (10:05)
[2021-01-17] MEDS: TIOTROPIUM BROMIDE 2.5 MCG (SPIRIVA) RESPIMAT INHALER IH SCH (10:07)
[2021-01-17] MEDS: LIDOCAINE 5% TOPICAL PATCH TP SCH (10:07)
[2021-01-17] MEDS: BACITRACIN 0.9 GM PACKET TP SCH (10:07)
[2021-01-17] MEDS: BUDESONIDE/FORMETEROL FUMARATE 80/4.5 mcg INHALER IH SCH ×2 (10:07→22:03)
[2021-01-17] MEDS: NICOTINE 14 MG/24 HOURS TOPICAL PATCH TD SCH (10:08)
[2021-01-17] MEDS: FAMOTIDINE 20 MG TABLET PO SCH ×2 (10:09→23:27)
[2021-01-17] MEDS: ACETAMINOPHEN 325 MG TABLET (FP) PO PRN (11:49)
[2021-01-17] MEDS: THIAMINE HCL 100 MG TABLET (FP) PO SCH (22:03)
[2021-01-17] MEDS: MELATONIN 5 MG TABLETS PO SCH (22:03)
[2021-01-17] MEDS: traZODone HCL 50 MG TABLET (FP) PO SCH (22:03)
[2021-01-17] MEDS: LIDOCAINE PATCH REMOVAL MC SCH (22:03)
[2021-01-18] MEDS ORDERED: METHADONE HCL 10 MG TABLET ONE (03:24)
[2021-01-18] MEDS ORDERED: METHADONE HCL 40 MG DISPERSABLE TABLET ONE (03:24)
[2021-01-18] MEDS: metFORMIN HCL 500 MG TABLET (FP) PO SCH ×2 (06:18→16:53)
[2021-01-18] MEDS: METHADONE 40 MG, METHADONE 10 MG PO SCH (06:18)
[2021-01-18] MEDS: OXYBUTYNIN CHLORIDE 5 MG TABLET PO SCH (06:21)
[2021-01-18] MEDS: LEVOTHYROXINE NA 25 MCG TABLET (FP) PO SCH (07:34)
[2021-01-18] MEDS ORDERED: PT OWN MED DRAWER 7, Y5N ONE (09:35)
[2021-01-18] MEDS: TIOTROPIUM BROMIDE 2.5 MCG (SPIRIVA) RESPIMAT INHALER IH SCH (10:44)
[2021-01-18] MEDS: BUDESONIDE/FORMETEROL FUMARATE 80/4.5 mcg INHALER IH SCH ×2 (10:44→22:02)
[2021-01-18] MEDS: PRENATAL VITAMINS W/ FOLIC ACID TABLET (FP) PO SCH (10:44)
[2021-01-18] MEDS: LIDOCAINE 5% TOPICAL PATCH TP SCH (10:45)
[2021-01-18] MEDS: DOCUSATE SODIUM 100 MG CAPSULE (FP) PO SCH ×2 (10:45→22:01)
[2021-01-18] MEDS: FAMOTIDINE 20 MG TABLET PO SCH ×2 (10:45→22:02)
[2021-01-18] MEDS: amLODIPine BESYLATE 10 MG TABLET (FP) PO SCH (10:45)
[2021-01-18] MEDS: BACITRACIN 0.9 GM PACKET TP SCH (10:45)
[2021-01-18] MEDS: LISINOPRIL 10 MG TABLET PO SCH (10:45)
[2021-01-18] MEDS: NICOTINE 14 MG/24 HOURS TOPICAL PATCH TD SCH (10:45)
[2021-01-18] MEDS: hydrOXYzine PAMOATE 25 MG CAPSULE (FP) PO PRN (10:45)
[2021-01-18] MEDS: FLUoxetine HCL 20 MG CAPSULE PO SCH (10:46)
[2021-01-18] MEDS: NAPROXEN 375 MG TABLET PO PRN (10:46)
[2021-01-18] MEDS: MELATONIN 5 MG TABLETS PO SCH (22:01)
[2021-01-18] MEDS: traZODone HCL 50 MG TABLET (FP) PO SCH (22:01)
[2021-01-18] MEDS: LIDOCAINE PATCH REMOVAL MC SCH (22:01)
[2021-01-18] MEDS: THIAMINE HCL 100 MG TABLET (FP) PO SCH (22:02)
[2021-01-19] MEDS ORDERED: METHADONE HCL 40 MG DISPERSABLE TABLET ONE (05:47)
[2021-01-19] MEDS ORDERED: METHADONE HCL 10 MG TABLET ONE (05:47)
[2021-01-19] MEDS: metFORMIN HCL 500 MG TABLET (FP) PO SCH ×2 (06:35→16:38)
[2021-01-19] MEDS: OXYBUTYNIN CHLORIDE 5 MG TABLET PO SCH (06:35)
[2021-01-19] MEDS: METHADONE 40 MG, METHADONE 10 MG PO SCH (06:35)
[2021-01-19] MEDS: LEVOTHYROXINE NA 25 MCG TABLET (FP) PO SCH (06:35)
[2021-01-19] MEDS: NICOTINE 14 MG/24 HOURS TOPICAL PATCH TD SCH (10:50)
[2021-01-19] MEDS: FLUoxetine HCL 20 MG CAPSULE PO SCH (10:50)
[2021-01-19] MEDS: LIDOCAINE 5% TOPICAL PATCH TP SCH (10:50)
[2021-01-19] MEDS: LISINOPRIL 10 MG TABLET PO SCH (10:50)
[2021-01-19] MEDS: PRENATAL VITAMINS W/ FOLIC ACID TABLET (FP) PO SCH (10:51)
[2021-01-19] MEDS: BUDESONIDE/FORMETEROL FUMARATE 80/4.5 mcg INHALER IH SCH ×2 (10:51→22:25)
[2021-01-19] MEDS: TIOTROPIUM BROMIDE 2.5 MCG (SPIRIVA) RESPIMAT INHALER IH SCH (10:51)
[2021-01-19] MEDS: BACITRACIN 0.9 GM PACKET TP SCH (10:51)
[2021-01-19] MEDS: FAMOTIDINE 20 MG TABLET PO SCH ×2 (10:51→22:25)
[2021-01-19] MEDS: amLODIPine BESYLATE 10 MG TABLET (FP) PO SCH (10:51)
[2021-01-19] MEDS: DOCUSATE SODIUM 100 MG CAPSULE (FP) PO SCH ×2 (10:51→22:24)
[2021-01-19] MEDS: NAPROXEN 375 MG TABLET PO PRN (10:54)
[2021-01-19] MEDS: MELATONIN 5 MG TABLETS PO SCH (22:24)
[2021-01-19] MEDS: LIDOCAINE PATCH REMOVAL MC SCH (22:24)
[2021-01-19] MEDS: traZODone HCL 50 MG TABLET (FP) PO SCH (22:24)
[2021-01-19] MEDS: THIAMINE HCL 100 MG TABLET (FP) PO SCH (22:25)
[2021-01-20] MEDS ORDERED: METHADONE HCL 40 MG DISPERSABLE TABLET ONE (05:25)
[2021-01-20] MEDS ORDERED: METHADONE HCL 10 MG TABLET ONE (05:25)
[2021-01-20] MEDS: METHADONE 40 MG, METHADONE 10 MG PO SCH (06:03)
[2021-01-20] MEDS: metFORMIN HCL 500 MG TABLET (FP) PO SCH (06:04)
[2021-01-20] MEDS: OXYBUTYNIN CHLORIDE 5 MG TABLET PO SCH (06:04)
[2021-01-20] MEDS: LEVOTHYROXINE NA 25 MCG TABLET (FP) PO SCH (06:33)
[2021-01-20] MEDS: MAG HYDROX/AL HYDROX/SIMETH 30 ML UNIT-DOSE CUP PO PRN (07:18)
[2021-01-20 08:33] VITALS: BP 151/88; PULSE 67; TEMP 97.9
[2021-01-20] MEDS: PRENATAL VITAMINS W/ FOLIC ACID TABLET (FP) PO SCH (09:46)
[2021-01-20] MEDS: BUDESONIDE/FORMETEROL FUMARATE 80/4.5 mcg INHALER IH SCH (09:46)
[2021-01-20] MEDS: LIDOCAINE 5% TOPICAL PATCH TP SCH (09:46)
[2021-01-20] MEDS: FAMOTIDINE 20 MG TABLET PO SCH (09:47)
[2021-01-20] MEDS: DOCUSATE SODIUM 100 MG CAPSULE (FP) PO SCH (09:47)
[2021-01-20] MEDS: TIOTROPIUM BROMIDE 2.5 MCG (SPIRIVA) RESPIMAT INHALER IH SCH (09:47)
[2021-01-20] MEDS: BACITRACIN 0.9 GM PACKET TP SCH (09:48)
[2021-01-20] MEDS: NICOTINE 14 MG/24 HOURS TOPICAL PATCH TD SCH (09:49)
[2021-01-20] MEDS: amLODIPine BESYLATE 10 MG TABLET (FP) PO SCH (09:49)
[2021-01-20] MEDS: FLUoxetine HCL 20 MG CAPSULE PO SCH (09:50)
[2021-01-20] MEDS: NAPROXEN 375 MG TABLET PO PRN (09:51)
[2021-01-20] MEDS: hydrOXYzine PAMOATE 25 MG CAPSULE (FP) PO PRN (09:56)
[2021-01-20] MEDS: LISINOPRIL 10 MG TABLET PO SCH (09:57)
== END 2021-01-20 10:00 | disposition home or self-care (01) | DRG 895 ==
LOC: YASAS 10:34 → Y3E 17:54 → Y5N 01-17 16:19
PROVIDERS: ADMIT Allergy & Immunology; ATTEND Allergy & Immunology
PROC: HZ42ZZZ Group Counseling for Substance Abuse Treatment, Cognitive-Behavioral (ICD-10-PCS; principal; 2020-12-26)
DX: F13.20 Sedative, hypnotic or anxiolytic dependence, uncomplicated (principal); F11.20 Opioid dependence, uncomplicated; F17.210 Nicotine dependence, cigarettes, uncomplicated; F19.24 Other psychoactive substance dependence with psychoactive substance-induced mood disorder; F32.9 Major depressive disorder, single episode, unspecified; F43.10 Post-traumatic stress disorder, unspecified; E78.5 Hyperlipidemia, unspecified; E11.9 Type 2 diabetes mellitus without complications; Z79.84 Long term (current) use of oral hypoglycemic drugs; E03.9 Hypothyroidism, unspecified; I10 Essential (primary) hypertension; J43.0 Unilateral pulmonary emphysema [MacLeod's syndrome]; J45.20 Mild intermittent asthma, uncomplicated; K21.9 Gastro-esophageal reflux disease without esophagitis; N31.9 Neuromuscular dysfunction of bladder, unspecified; N39.498 Other specified urinary incontinence; N32.81 Overactive bladder; B18.2 Chronic viral hepatitis C; M17.0 Bilateral primary osteoarthritis of knee; M54.5 Low back pain; G89.29 Other chronic pain; R56.9 Unspecified convulsions; E66.9 Obesity, unspecified; Z68.38 Body mass index [BMI] 38.0-38.9, adult; Z87.442 Personal history of urinary calculi; Z99.89 Dependence on other enabling machines and devices; Z56.0 Unemployment, unspecified; Z59.0 Homelessness
CPT/HCPCS: 36415; 80053; 81003; 82962; 85027; 86593; 86780; 87077; 87086; 93005; 93010; C9803; U0003